=== PATIENT | female | born 1945 | race Caucasian/White ===

== ENCOUNTER → 2017-08-25 09:15 | Outpatient (CLI) | payer MEDICARE, SELFPAY | PROVIDERS: Family Provider Family Medicine; PCP Family Medicine; Visit Provider Family Medicine | DX: E11.9 Type 2 diabetes mellitus without complications (principal); E78.5 Hyperlipidemia, unspecified; D64.9 Anemia, unspecified ==

== ENCOUNTER → 2017-11-24 09:01 | Outpatient (CLI) | payer MEDICARE, SELFPAY ==
[2017-11-24 12:33] LABS: Absolute Lymphocyte Count 1.42 X10^3/ul (0.83-4.51); Absolute Neutrophil Count 3.5 X10^3/uL (2.0-7.7); Basophil# 0.02 X10^3/uL; Basophil% 0.4 % (0-1); Eosinophil# 0.16 X10^3/uL; Eosinophils% 2.9 % (0-5); Hemoglobin 12.8 g/dl (12.0-15.0); Lymphocyte # 1.42 X10^3/ul (4.0); Lymphocyte % 25.4 % (19-41); Mean Corp Hgb Conc 34.6 g/gl (32-36); Mean Corpuscular Hgb 30.6 pg (27.0-32.0); Mean Corpuscular Volume 88.5 fL (81-99); Mean Platelet Vol. 11.3 fl (6.2-12.0); Monocyte# 0.45 X10^3/uL; Neutrophil # 3.54 X10^3/uL (2.7-7.7); Neutrophil % 63.1 % (47-70); Platelet Count 305 K/mm3 (150-450); RBC Distribution Width CV 12.2 % (11.6-14.6); RBC Distribution Width SD 38.7 fl (35.1-43.9); Red Blood Count 4.18 M/mm3 (4.2-5.4); White Blood Count 5.6 K/mm3 (4.4-11.0)
[2017-11-24 12:36] LABS: POSITIVE COUNT NO; POSITIVE DIFFERENTIAL NO; POSITIVE MORPHOLOGY NO
[2017-11-24 13:03] LABS: Anion Gap 10 (5-15); BUN 18 mg/dL (7-18); Calcium,Total 9.9 mg/dL (8.5-10.1); Chloride 104 mmol/L (98-107); Creatinine, Serum 0.86 mg/dL (0.55-1.02); EST Glomerular Filtration Rate 69 mL/min (>60); Est Glom Filt Rate - Afr Amer 83 mL/min (>60); Ferritin 106 ng/mL (8-252); Glucose 184 mg/dL (74-106); Iron 74 ug/dL (50-170); Potassium 3.7 mmol/L (3.5-5.1); Sodium Level 140 mmol/L (136-145); Thyroid Stim Hormone (TSH) 2.56 uIU/mL (0.358-3.74)
== END ==
PROVIDERS: Family Provider Family Medicine; PCP Family Medicine; Visit Provider Family Medicine
DX: I10 Essential (primary) hypertension (principal); E11.9 Type 2 diabetes mellitus without complications; D64.9 Anemia, unspecified
CPT/HCPCS: 36415; 80048; 82728; 83540; 84443; 85025

== ENCOUNTER → 2018-09-11 09:10 | Outpatient (CLI) | payer MEDICARE, SELFPAY ==
[2018-09-11 13:01] LABS: Absolute Lymphocyte Count 1.55 X10^3/ul (0.83-4.51); Absolute Neutrophil Count 3.3 X10^3/uL (2.0-7.7); Basophil# 0.02 X10^3/uL; Basophil% 0.4 % (0-1); Eosinophil# 0.15 X10^3/uL; Eosinophils% 2.8 % (0-5); Hemoglobin 11.8 g/dl (12.0-15.0); Lymphocyte # 1.55 X10^3/ul (4.0); Lymphocyte % 28.5 % (19-41); Mean Corp Hgb Conc 33.7 g/gl (32-36); Mean Corpuscular Hgb 30.2 pg (27.0-32.0); Mean Corpuscular Volume 89.5 fL (81-99); Monocyte# 0.43 X10^3/uL; Monocyte% 7.9 % (0-10); Neutrophil # 3.27 X10^3/uL (2.7-7.7); Neutrophil % 60.2 % (47-70); Platelet Count 312 K/mm3 (150-450); RBC Distribution Width CV 12.4 % (11.6-14.6); RBC Distribution Width SD 39.9 fl (35.1-43.9); Red Blood Count 3.91 M/mm3 (4.2-5.4); White Blood Count 5.4 K/mm3 (4.4-11.0)
[2018-09-11 13:05] LABS: POSITIVE COUNT NO; POSITIVE DIFFERENTIAL NO; POSITIVE MORPHOLOGY NO
[2018-09-11 13:15] LABS: ALB/GLOB Ratio 0.9 RATIO (0.9-2.4); AST(SGOT) 25 U/L (15-37); Alanine Aminotransfer ALT/SGPT 54 U/L (13-56); Albumin, Serum 4.1 g/dL (3.2-5.0); Alkaline Phosphatase 83 U/L (45-117); Anion Gap 9 (5-15); BUN 18 mg/dL (7-18); BUN/Creat Ratio 20.1 RATIO (10-20); Calcium,Total 9.3 mg/dL (8.5-10.1); Chloride 108 mmol/L (98-107); EST Glomerular Filtration Rate 65 mL/min (>60); Est Glom Filt Rate - Afr Amer 79 mL/min (>60); Ferritin 88 ng/mL (8-252); Globulin 4.4 g/dL (2.2-4.2); Glucose 129 mg/dL (74-106); Iron 87 ug/dL (50-170); Potassium 3.9 mmol/L (3.5-5.1); Protein, Total 8.5 g/dL (6.4-8.2); Sodium Level 142 mmol/L (136-145)
[2018-09-11 13:39] LABS: Microalbumin,Random Urine 17.6 mg/L (NO RANGE EST.)
== END ==
PROVIDERS: Family Provider Family Medicine; PCP Family Medicine; Visit Provider Family Medicine
DX: E11.9 Type 2 diabetes mellitus without complications (principal); I10 Essential (primary) hypertension; D64.9 Anemia, unspecified
CPT/HCPCS: 36415; 80053; 82043; 82570; 82728; 83540; 85025

== ENCOUNTER → 2018-10-16 08:07 | Outpatient (CLI) | payer MEDICARE, SELFPAY ==
--- NOTE | 2018-10-16 08:09 | BI_ITS ---
MAMMOGRAPHY - BILATERAL SCREENING 3-D LORETO SYNTHESIS REASON FOR EXAM: Female, 73 years old. Bilateral Screening 3-D tomosynthesis PERTINENT HISTORY: History of benign left stereotactic biopsy in 1994.. TECHNIQUE: 2-D mammograms and 3-D Loreto synthesis of the breast (s) were performed. CAD was performed. COMPARISON: June 13, 2017, May 23, 2016 FINDINGS: The breast composition is composed of scattered fibroglandular density. Scattered benign calcifications are seen. There are stable normal-appearing lymph nodes. No dense spiculated masses or suspicious microcalcifications are identified. No architectural distortion is identified. There is no skin thickening or retraction. There has been no significant change since the prior study. BI/SCREENING MAMM (CAD), BILAT IMPRESSION: No mammographic signs of malignancy. Routine yearly mammograms recommended. ASSESSMENT CATEGORY: BIRADS Category 2: Benign. A letter regarding these results will be sent to the patient by the facility within 30 days. FOLLOW UP RECOMMENDATION: Yearly follow up mammogram recommended. (A) Approximately 10% of breast cancers are not detected by mammography. A normal mammogram should not delay biopsy of a clinically suspicious abnormality. Electronically Signed: Petr Hutson MD at 17:45 EDT , Service support ,
== END ==
PROVIDERS: Family Provider Family Medicine; PCP Family Medicine; Referring Provider Family Medicine; Visit Provider Family Medicine
DX: Z12.31 Encounter for screening mammogram for malignant neoplasm of breast (principal)
CPT/HCPCS: 77063; 77067

== ENCOUNTER → 2019-10-07 | Outpatient (CLI) | payer MEDICARE, SELFPAY ==
[2019-10-07 12:35] LABS: Absolute Lymphocyte Count 1.59 X10^3/uL (0.83-4.51); Absolute Neutrophil Count 2.1 X10^3/uL (2.0-7.7); Basophil# 0.02 X10^3/uL; Basophil% 0.5 % (0-1); Eosinophil# 0.12 X10^3/uL; Eosinophils% 2.8 % (0-5); Hematocrit 34.8 % (37-47); Hemoglobin 11.6 g/dL (12.0-15.0); Lymphocyte # 1.59 X10^3/ul (4.0); Lymphocyte % 37.1 % (19-41); Mean Corp Hgb Conc 33.3 g/dL (32-36); Mean Corpuscular Hgb 29.8 pg (27.0-32.0); Mean Corpuscular Volume 89.5 fL (81-99); Mean Platelet Vol. 10.7 fl (6.2-12.0); Monocyte# 0.43 X10^3/uL; NRBC Flagged by Analyzer 0 % (0-5); Neutrophil # 2.12 X10^3/uL (2.7-7.7); Neutrophil % 49.4 % (47-70); Platelet Count 301 K/mm3 (150-450); RBC Distribution Width CV 12.3 % (11.6-14.6); RBC Distribution Width SD 39.8 fl (35.1-43.9); Red Blood Count 3.89 M/mm3 (4.2-5.4); White Blood Count 4.3 K/mm3 (4.4-11.0)
[2019-10-07 13:02] LABS: ALB/GLOB Ratio 0.9 RATIO (0.9-2.4); AST(SGOT) 31 U/L (15-37); Alanine Aminotransfer ALT/SGPT 33 U/L (13-56); Albumin, Serum 3.8 g/dL (3.2-5.0); Alkaline Phosphatase 73 U/L (45-117); Anion Gap 7 (5-15); BUN 16 mg/dL (7-18); BUN/Creat Ratio 16.7 RATIO (10-20); Calcium,Total 8.2 mg/dL (8.5-10.1); Chloride 117 mmol/L (98-107); Creatinine, Serum 0.96 mg/dL (0.55-1.02); EST Glomerular Filtration Rate 60 mL/min (>60); Est Glom Filt Rate - Afr Amer 73 mL/min (>60); Ferritin 140 ng/mL (8-252); Globulin 4.2 g/dL (2.2-4.2); Glucose 107 mg/dL (74-106); Iron 98 ug/dL (50-170); Sodium Level 143 mmol/L (136-145); Thyroid Stim Hormone (TSH) 1.75 uIU/mL (0.358-3.74)
[2019-10-09 16:08] LABS: Endomysial Antibody IgA Negative (Negative)
[2019-10-09 17:04] LABS: Immunoglobulin A 257 mg/dL (64-422); t-Transglutaminase IgA <2 U/mL (0-3)
== END | disposition home or self-care (01) ==
PROVIDERS: PCP Family Medicine; Visit Provider Family Medicine
DX: E11.9 Type 2 diabetes mellitus without complications (principal); I10 Essential (primary) hypertension; D64.9 Anemia, unspecified; K52.9 Noninfective gastroenteritis and colitis, unspecified
CPT/HCPCS: 36415; 80053; 82728; 82784; 83516; 83540; 84443; 85025; 86255

== ENCOUNTER → 2019-12-05 | Outpatient (CLI) | payer MEDICARE, SELFPAY ==
--- NOTE | 2019-12-05 07:45 | BI_ITS ---
MAMMOGRAPHY - BILATERAL SCREENING REASON FOR EXAM: Female, 74 years old. Routine annual screening examination. PERTINENT HISTORY: Non-contributory. History of remote left stereotactic breast biopsy. TECHNIQUE: Digital bilateral breast loreto (3D mammographic acquisition) in the CC and MLO projections. 2-D mediolateral oblique (MLO) and craniocaudad (CC) views of both breasts were obtained. CAD: Full Field Digital Mammography with Computer Added Detection was performed. COMPARISON: Comparison is made with prior examination dated October 16, 2018 and June 13, 2017. FINDINGS: Breast Composition: The breasts are heterogeneously dense, which may obscure small masses. There are no dominant masses or suspicious calcifications. Stable benign-appearing bilateral axillary lymph nodes. No other significant abnormalities are identified. There has been no significant change since the prior study. BI/SCREEN MAMM (CAD) W/LORETO BILAT IMPRESSION: Stable bilateral screening mammogram. Yearly follow-up mammogram recommended. (A) ASSESSMENT CATEGORY: BIRADS Category 2: Benign. A letter regarding these results will be sent to the patient by the facility within 30 days. Approximately 10% of breast cancers are not detected by mammography. A normal mammogram should not delay biopsy of a clinically suspicious abnormality. [id number] Electronically Signed: Hank Altman, at 8:57 EDT , Service support ,
== END | disposition home or self-care (01) ==
LOC: OPBI 07:43
PROVIDERS: PCP Family Medicine; Referring Provider Family Medicine; Visit Provider Family Medicine
DX: Z12.31 Encounter for screening mammogram for malignant neoplasm of breast (principal)
CPT/HCPCS: 77063; 77067

== ENCOUNTER → 2020-07-28 09:56 | Outpatient (CLI) | payer MEDICARE, SELFPAY ==
[2020-07-28 12:17] LABS: Absolute Lymphocyte Count 1.49 X10^3/uL (0.83-4.51); Basophil# 0.03 X10^3/uL; Basophil% 0.6 % (0-1); Eosinophil# 0.15 X10^3/uL; Eosinophils% 2.9 % (0-5); Hemoglobin 12.1 g/dL (12.0-15.0); Lymphocyte # 1.49 X10^3/ul (4.0); Lymphocyte % 29.3 % (19-41); Mean Corp Hgb Conc 33.6 g/dL (32-36); Mean Corpuscular Hgb 30.5 pg (27.0-32.0); Mean Corpuscular Volume 90.7 fL (81-99); Mean Platelet Vol. 11.3 fl (6.2-12.0); Monocyte# 0.42 X10^3/uL; Monocyte% 8.3 % (0-10); NRBC Flagged by Analyzer 0 % (0-5); Neutrophil # 2.98 X10^3/uL (2.7-7.7); Neutrophil % 58.5 % (47-70); Platelet Count 301 K/mm3 (150-450); RBC Distribution Width CV 12.2 % (11.6-14.6); RBC Distribution Width SD 39.8 fl (35.1-43.9); Red Blood Count 3.97 M/mm3 (4.2-5.4); White Blood Count 5.1 K/mm3 (4.4-11.0)
[2020-07-28 12:50] LABS: ALB/GLOB Ratio 0.9 RATIO (0.9-2.4); AST(SGOT) 24 U/L (15-37); Alanine Aminotransfer ALT/SGPT 36 U/L (13-56); Albumin, Serum 4.1 g/dL (3.2-5.0); Alkaline Phosphatase 91 U/L (45-117); Anion Gap 8 (5-15); BUN 14 mg/dL (7-18); BUN/Creat Ratio 14.6 RATIO (10-20); Calcium,Total 9.2 mg/dL (8.5-10.1); Chloride 107 mmol/L (98-107); Cholesterol 128 mg/dL (200); Creatinine, Serum 0.96 mg/dL (0.55-1.02); EST Glomerular Filtration Rate 60 mL/min (>60); Est Glom Filt Rate - Afr Amer 73 mL/min (>60); Ferritin 71 ng/mL (8-252); Globulin 4.4 g/dL (2.2-4.2); Glucose 147 mg/dL (74-106); High Density Lipoprotein 67 mg/dL; Iron 79 ug/dL (50-170); Potassium 4.2 mmol/L (3.5-5.1); Protein, Total 8.5 g/dL (6.4-8.2); Sodium Level 142 mmol/L (136-145); Triglycerides 141 mg/dL; Very Low Density Lipoprotein 28 mg/dL (5-40)
== END ==
PROVIDERS: PCP Family Medicine; Visit Provider Family Medicine
DX: E11.9 Type 2 diabetes mellitus without complications (principal); I10 Essential (primary) hypertension; E78.5 Hyperlipidemia, unspecified; D64.9 Anemia, unspecified
CPT/HCPCS: 36415; 80053; 80061; 82728; 83540; 85025

== ENCOUNTER → 2020-10-14 | Outpatient (CLI) | payer MEDICARE, SELFPAY ==
--- NOTE | 2020-10-13 | LES_PTH ---
PATIENT: HAILEE STOLL LOC: [facility] U#:[id number] AGE/SX: 75/F ROOM: RE10/14/[address]: Dr. Car Hatfield MD : 1945 BED: DIS: 10/14/2020 SPEC #: [id number] RECD: 10/14/20 10:01 STATUS: NATALYA REMarlin #: [id number] LEROY: 10/13/20 00:[address]: Car Hatfield DEPT: SURGICAL PATHOLOGY RECD BY: Tana Melendez ENTERED: 10/14/20 13:32 SP TYPE: Lesion OTHR DR: Dr. Henry Saunders MD Tissues: Lower eyelid, NOS Procedures: Surgery Specimen Level IV HEADER OPERATION: Lesion removal right lower lid PRE-OP DIAGNOSIS: Lesion right lower lid TISSUE SUBMITTED: Lesion right lower lid MICROSCOPIC DIAGNOSIS Right lower lid lesion, biopsy: Basal cell carcinoma. AM:[place] 10/15/2020 MICROSCOPIC DESCRIPTION Slides are reviewed. GROSS DESCRIPTION Received in fixative is one container labeled with the patient's name and designated right lower lid. The specimen consists of one irregular fragment of light delaney soft tissue that measures 0.3 x 0.2 x 0.1 cm. The specimen is totally submitted in one cassette. / AM:[place] 10/14/20 TC:0 CPT: 55783
== END | disposition home or self-care (01) ==
LOC: LABSPEC 10:24
PROVIDERS: PCP Family Medicine; Visit Provider Ophthalmology
DX: L98.9 Disorder of the skin and subcutaneous tissue, unspecified (principal)
CPT/HCPCS: 88305

== ENCOUNTER → 2021-03-16 07:30 | Outpatient (CLI) | payer MEDICARE, SELFPAY ==
--- NOTE | 2021-03-16 07:33 | BI_ITS ---
MAMMOGRAPHY - BILATERAL SCREENING REASON FOR EXAM: Female, 75 years old. Routine annual screening examination. PERTINENT HISTORY: Non-contributory. Remote left stereotactic breast biopsy. TECHNIQUE: Digital bilateral breast loreto (3D mammographic acquisition) in the CC and MLO projections. 2-D mediolateral oblique (MLO) and craniocaudad (CC) views of both breasts were obtained. CAD: Full Field Digital Mammography with Computer Added Detection was performed. COMPARISON: Comparison is made with prior study dated 12/05/2019 and 10/16/2018. FINDINGS: Breast Composition: The breasts are heterogeneously dense, which may obscure small masses. There are no dominant masses or suspicious calcifications. Stable small benign-appearing bilateral axillary lymph nodes. A tissue clip marker is seen in the deep central medial aspect of the right breast. No other significant abnormalities are identified. There has been no significant change since the prior study. BI/SCRN MAMM (CAD)W/LORETO BILAT IMPRESSION: Stable bilateral screening mammogram. Yearly follow-up mammogram recommended. (A) ASSESSMENT CATEGORY: BIRADS Category 2: Benign. A letter regarding these results will be sent to the patient by the facility within 30 days. Approximately 10% of breast cancers are not detected by mammography. A normal mammogram should not delay biopsy of a clinically suspicious abnormality. [id number] Electronically Signed: Hank Altman MD at 8:24 EDT , Service support ,
== END ==
PROVIDERS: PCP Family Medicine; Referring Provider Family Medicine; Visit Provider Family Medicine
DX: Z12.31 Encounter for screening mammogram for malignant neoplasm of breast (principal)
CPT/HCPCS: 77063; 77067

== ENCOUNTER → 2022-04-25 | Outpatient (CLI) | payer MEDICARE, SELFPAY ==
[2022-04-25 10:02] LABS: Absolute Lymphocyte Count 1.45 X10^3/uL (0.83-4.51); Absolute Neutrophil Count 4.1 X10^3/uL (2.0-7.7); Basophil# 0.03 X10^3/uL; Basophil% 0.5 % (0-1); Eosinophil# 0.31 X10^3/uL; Eosinophils% 4.9 % (0-5); Hematocrit 35.1 % (37-47); Hemoglobin 11.9 g/dL (12.0-15.0); Lymphocyte # 1.45 X10^3/ul (0.83-4.51); Lymphocyte % 22.8 % (19-41); Mean Corp Hgb Conc 33.9 g/dL (32-36); Mean Corpuscular Hgb 30.8 pg (27.0-32.0); Mean Corpuscular Volume 90.9 fL (81-99); Mean Platelet Vol. 10.7 fl (6.2-12.0); Monocyte# 0.45 X10^3/uL; Monocyte% 7.1 % (0-10); NRBC Flagged by Analyzer 0 % (0-5); Neutrophil % 64.5 % (47-70); Platelet Count 297 K/mm3 (150-450); RBC Distribution Width SD 39.6 fl (35.1-43.9); Red Blood Count 3.86 M/mm3 (4.2-5.4); White Blood Count 6.4 K/mm3 (4.4-11.0)
[2022-04-25 10:58] LABS: ALB/GLOB Ratio 0.9 RATIO (0.9-2.4); AST(SGOT) 25 U/L (15-37); Alanine Aminotransfer ALT/SGPT 36 U/L (13-56); Alkaline Phosphatase 110 U/L (45-117); Anion Gap 8 (5-15); BUN 15 mg/dL (7-18); Calcium,Total 9.8 mg/dL (8.5-10.1); Chloride 106 mmol/L (98-107); Creatinine, Serum 1.15 mg/dL (0.55-1.02); EST Glomerular Filtration Rate 49 mL/min (>60); Est Glom Filt Rate - Afr Amer 59 mL/min (>60); Ferritin 38 ng/mL (8-252); Globulin 4.7 g/dL (2.2-4.2); Glucose 144 mg/dL (74-106); Iron 71 ug/dL (50-170); Potassium 3.5 mmol/L (3.5-5.1); Protein, Total 8.7 g/dL (6.4-8.2); Sodium Level 142 mmol/L (136-145); Thyroid Stim Hormone (TSH) 2.11 uIU/mL (0.358-3.74)
== END | disposition home or self-care (01) ==
PROVIDERS: PCP Family Medicine; Referring Provider Family Medicine; Visit Provider Family Medicine
DX: E11.9 Type 2 diabetes mellitus without complications (principal); E78.5 Hyperlipidemia, unspecified; D64.9 Anemia, unspecified
CPT/HCPCS: 36415; 80053; 82728; 83540; 84443; 85025

== ENCOUNTER → 2022-05-09 | Outpatient (CLI) | payer MEDICARE, SELFPAY ==
--- NOTE | 2022-05-09 07:35 | BI_ITS ---
MAMMOGRAPHY - BILATERAL SCREENING REASON FOR EXAM: Female, 77 years old. Routine annual screening examination. PERTINENT HISTORY: Non-contributory. Remote left stereotactic breast biopsy. TECHNIQUE: Digital bilateral breast loreto (3D mammographic acquisition) in the CC and MLO projections. 2-D mediolateral oblique (MLO) and craniocaudad (CC) views of both breasts were obtained. CAD: Full Field Digital Mammography with Computer Added Detection was performed. COMPARISON: Comparison is made with prior examination dated 03/16/2021 and 12/05/2019. FINDINGS: Breast Composition: The breasts are heterogeneously dense, which may obscure small masses. There are no dominant masses or suspicious calcifications. Stable benign-appearing bilateral axillary lymph nodes. No other significant abnormalities are identified. There has been no significant change since the prior study. BI/SCRN MAMM (CAD)W/LORETO BILAT IMPRESSION: Stable bilateral screening mammogram. Yearly follow-up mammogram recommended. (A) ASSESSMENT CATEGORY: BIRADS Category 2: Benign. A letter regarding these results will be sent to the patient by the facility within 30 days. Approximately 10% of breast cancers are not detected by mammography. A normal mammogram should not delay biopsy of a clinically suspicious abnormality. [id number] Electronically Signed: Hank Altman MD at 9:01 EDT ,
== END | disposition home or self-care (01) ==
LOC: OPBI 07:34
PROVIDERS: PCP Family Medicine; Visit Provider Family Medicine
DX: Z12.31 Encounter for screening mammogram for malignant neoplasm of breast (principal)
CPT/HCPCS: 77063; 77067

== ENCOUNTER → 2022-08-31 | Outpatient (CLI) | payer MEDICARE, SELFPAY ==
[2022-08-31 16:09] LABS: M R Staph aureus DNA By PCR Negative (Negative); Staph aureus DNA By PCR POSITIVE (Negative)
[2022-08-31 16:10] LABS: Probe Check PASS; Specimen Processing Control PASS
== END | disposition home or self-care (01) ==
LOC: LABSPEC 12:54
PROVIDERS: PCP Family Medicine; Referring Provider Ophthalmology; Visit Provider Ophthalmology
DX: H00.034 Abscess of left upper eyelid (principal)
CPT/HCPCS: 87070; 87077; 87186; 87205; 87640

== ENCOUNTER 2022-09-16 15:32 | Emergency (ER) | payer MEDICARE, SELFPAY ==
[2022-09-16 15:34] VITALS: BP 171/67; PULSE 90; RESP 14; TEMP 36.1; O2SAT 99; BMI 20.7
--- NOTE | 2022-09-16 19:09 | EDS_ITS ---
HPI History of Present Illness Chief Complaint: Lower Extremity Injury Informant: patient Onset/Context/Timing Onset: Today Narrative Narrative: Left knee injury 1 PM today. States was stepping down on a step when she felt a snap landing onto her knee afterwards. No head injuries. Able to walk however is limping. History of diabetes. No history of fractures. Does not follow an orthopedist. No medications taken. No allergies. Denies history of gastric ulcers or kidney injury. [facility] Medical History (Updated 09/16/22 @ 20:[address] Anthony Hebert DO) Diabetes Hypertension Home Medications amlodipine 5 mg tablet (Norvasc) 5 mg PO DAILY 12/19/16 [History Last Taken Unknown] atorvastatin 40 mg tablet 40 mg PO QHS 12/19/16 [History Last Taken Unknown] glipizide 10 mg tablet (Glucotrol) 10 mg PO DAILY 12/19/16 [History Last Taken Unknown] lisinopril 40 mg tablet 40 mg PO DAILY 12/19/16 [History Last Taken Unknown] metformin 500 mg tablet 500 mg PO BID 12/19/16 [History Last Taken Unknown] Allergy/AdvReac Type Severity Reaction Status Date / Time No Known Allergies Allergy Verified 09/16/22 15:34 Surgical History (Updated 09/16/22 @ 19:21 by Cinthia Barraza) History of appendectomy Social History Smoking Status: Never smoker [facility] ED Constitutional Constitutional ED: Denies chills, fever(s) or sweats Eyes Eyes: Denies change in vision ENT ENT ED: Denies dysphagia or sore throat Cardiovascular Cardiovascular: Denies chest pain, leg edema, palpitations or racing heartbeat Respiratory/Chest Respiratory/Chest: Denies cough, dyspnea or dyspnea on exertion Gastrointestinal Gastrointestinal: Denies abdominal pain, diarrhea, nausea or vomiting Genitourinary Genitourinary ED: Denies dysuria, hematuria or urinary frequency Musculoskeletal Musculoskeletal: Reports extremity pain; Denies back pain or neck pain Integumentary Denies rash or wounds Neurologic Neurologic: Denies headache(s), paresthesias or weakness EXAM Physical Exam Const Vital Signs: 09/16/22 15:34 09/16/22 19:18 09/16/22 20:38 Temperature 97 F L Temperature Source Temporal Pulse Rate 90 89 71 Respiratory Rate 14 18 18 Blood Pressure 171/67 H 193/78 H 173/74 H Blood Pressure Mean 101 116 Pulse Ox 99 97 97 Oxygen Delivery Method Room Air Room Air Positive well nourished and well developed General Appearance ED: well developed and NAD HEENT Reports moist mucous membranes normocephalic and atraumatic Eyes PERRL, EOMs intact bilaterally and conjunctivae normal General Eye ED: Yes normal appearance of both eyes Neck no lymphadenopathy and supple General: Negative for tenderness Chest Wall Chest: Negative for tenderness Resp normal respiratory effort and normal air movement Effort and Inspection: symmetric chest movement; Negative for respiratory distress Cardio regular rate, regular rhythm and no murmurs Peripheral Pulses: pulses 2+ throughout GI normal to inspection, nondistended, normoactive bowel sounds and non-tender Palpation: Negative for guarding or rebound tenderness present Back/Spine no CVA tenderness and no thoracic nor lumbar tenderness Extremity Extremity Narrative: Left lower extremity negative logroll knee extensor mechanism intact. Negative varus and valgus. Positive Stevo's. No significant swelling. No deformities. No ankle tenderness. General Extremety ED: Negative for edema or tenderness General Extremity: Negative for edema Neuro oriented x3 and no sensory deficits noted Sensorium / Orientation: awake and alert Skin no rashes or lesions noted and no wounds MDM MDM MDM Narrative Medical decision making narrative: Interventions / MDM: Differential diagnosis: Knee ligament sprain, meniscus injury, ACL/PCL injury Diagnosis considered but do not suspect: N/A My EKG interpretation: N/A Imaging independently reviewed and interpreted by myself: Left knee 4 views: No fracture or dislocation External documents reviewed: N/A Test considered but not ordered:N/A ED course: No deformities, however reported a snapping sensation prior to the fall. There is no current swelling her knee extensor mechanism intact. Ibuprofen started x-ray negative. Discussed possibility of internal derangement not seen on x-ray. Alfredo wrap and walker provided. Orthopedic follow-up for outpatient evaluation. She will continue ibuprofen. All questions were answered. Re-evaluation: stable Disposition discussed with patient/family/significant other: Patient and family Case discussed with consulting clinician: N/A Radiography Diagnostic Testing: Clinical Impression(s) from Imaging Studies Knee X-Ray 09/16/22 19:30 IMPRESSION: Negative. Electronically Signed: Fernie Celis MD at 19:44 EST Reading Location ID and State: [address] [place] [address] , Service support , Discharge Plan Triage Chief Complaint: Lower Extremity Injury ED Provider: Anthony Hebert Dx/Rx/DC Orders Clinical Impression: Left knee sprain, Internal derangement of left knee Instructions: ED Knee Sprain Prescriptions: No Action atorvastatin 40 MG tablet 40 mg PO QHS metformin 500 MG tablet 500 mg PO BID glipizide [Glucotrol] 10 MG tablet 10 mg PO DAILY amlodipine [Norvasc] 5 MG tablet 5 mg PO DAILY lisinopril 40 MG tablet 40 mg PO DAILY Primary Care Provider: Henry Saunders Referrals: Kentrell Calderon MD [Med Staff - Active Staff] - 1 Week Henry Saunders MD [Primary Care Provider] - Activity Restrictions/Additional Instructions: X-ray negative. Concern for internal injury of your left knee. Alfredo wrap and walker for support. Ibuprofen 400 mg or Tylenol 1 g every 6 hours as needed. If symptoms persist follow-up with orthopedics for outpatient evaluation. Disposition Disposition: Home, Self Care Discharge Date/Time: 09/16/22 20:40
[2022-09-16] MEDS: Ibuprofen 200 MG Tablet 400 MG PO (19:17)
[2022-09-16 19:18] VITALS: BP 193/78; PULSE 89; RESP 18; O2SAT 97
--- NOTE | 2022-09-16 19:30 | RAD_ITS ---
INDICATION: injury EXAMINATION/TECHNIQUE: X-RAY - LEFT XR Knee Complete 4 Views or More 4 VIEWS COMPARISON: None. FINDINGS: SOFT TISSUES: No soft tissue swelling or gas. No radiopaque foreign body. BONES/JOINTS: No acute fracture or subluxation.. Normal alignment. Preservation of the joint space.. No sclerotic or destructive changes observed. RAD/Knee 4 or More Views IMPRESSION: Negative. Electronically Signed: Fernie Celis MD at 19:44 EST ,
[2022-09-16 20:38] VITALS: BP 173/74; PULSE 71; RESP 18; O2SAT 97
== END 2022-09-16 20:40 | disposition home or self-care (01) ==
PROVIDERS: Emergency Provider Emergency Medicine; PCP Family Medicine; Visit Provider Emergency Medicine
DX: S83.92XA Sprain of unspecified site of left knee, initial encounter (principal); E11.9 Type 2 diabetes mellitus without complications; M23.92 Unspecified internal derangement of left knee; I10 Essential (primary) hypertension; W10.9XXA Fall (on) (from) unspecified stairs and steps, initial encounter
CPT/HCPCS: 73564; 99283

== ENCOUNTER → 2023-07-03 | Outpatient (CLI) | payer MEDICARE, SELFPAY ==
[2023-07-03 12:36] LABS: Microalbumin:Creatinine Ratio 249.1 mg/g CRE (<30 mg/g CRE)
[2023-07-03 13:10] LABS: ALB/GLOB Ratio 0.7 RATIO (0.9-2.4); AST(SGOT) 28 U/L (15-37); Alanine Aminotransfer ALT/SGPT 33 U/L (13-56); Albumin, Serum 3.5 g/dL (3.2-5.0); Alkaline Phosphatase 126 U/L (45-117); Anion Gap 9 (5-15); BUN 14 mg/dL (7-18); BUN/Creat Ratio 12.2 RATIO (10-20); Chloride 105 mmol/L (98-107); Cholesterol 120 mg/dL (200); Creatinine, Serum 1.15 mg/dL (0.55-1.02); EST Glomerular Filtration Rate 48 mL/min (>60); Est Glom Filt Rate - Afr Amer 59 mL/min (>60); Glucose 125 mg/dL (74-106); High Density Lipoprotein 66 mg/dL; Potassium 3.5 mmol/L (3.5-5.1); Protein, Total 8.5 g/dL (6.4-8.2); Sodium Level 140 mmol/L (136-145); Triglycerides 135 mg/dL; Very Low Density Lipoprotein 27 mg/dL (5-40)
== END | disposition home or self-care (01) ==
LOC: MFPLAB 10:35
PROVIDERS: PCP Family Medicine; Visit Provider Family Medicine
DX: E11.9 Type 2 diabetes mellitus without complications (principal); E78.2 Mixed hyperlipidemia
CPT/HCPCS: 36415; 80053; 80061; 82043; 82570

== ENCOUNTER → 2023-07-06 | Outpatient (CLI) | payer MEDICARE, SELFPAY ==
--- NOTE | 2023-07-06 10:18 | BI_ITS ---
MAMMOGRAPHY - BILATERAL SCREENING REASON FOR EXAM: Female, 78 years old. Routine annual screening examination. PERTINENT HISTORY: Non-contributory. History of prior left stereotactic breast biopsy. TECHNIQUE: Digital bilateral breast loreto (3D mammographic acquisition) in the CC and MLO projections. 2-D mediolateral oblique (MLO) and craniocaudad (CC) views of both breasts were obtained. CAD: Full Field Digital Mammography with Computer Added Detection was performed. COMPARISON: Comparison is made with prior study May 09, 2022 and March 16, 2021. FINDINGS: Breast Composition: The breasts are heterogeneously dense, which may obscure small masses. There are no dominant masses or suspicious calcifications. A tissue clip marker is once again seen in the anterior upper lateral aspect of the right breast. No other significant abnormalities are identified. There has been no significant change since the prior study. BI/SCRN MAMM (CAD)W/LORETO BILAT IMPRESSION: Stable bilateral screening mammogram. Yearly follow-up mammogram recommended. (A) ASSESSMENT CATEGORY: BIRADS Category 2: Benign. A letter regarding these results will be sent to the patient by the facility within 30 days. Approximately 10% of breast cancers are not detected by mammography. A normal mammogram should not delay biopsy of a clinically suspicious abnormality. [id number] Electronically Signed: Hank Altman MD at 12:08 EST ,
== END | disposition home or self-care (01) ==
LOC: OPBI 10:16
PROVIDERS: PCP Family Medicine; Referring Provider Family Medicine; Visit Provider Family Medicine
DX: Z12.31 Encounter for screening mammogram for malignant neoplasm of breast (principal)
CPT/HCPCS: 77063; 77067

== ENCOUNTER → 2024-07-19 | Outpatient (CLI) | payer MEDICARE, SELFPAY ==
--- NOTE | 2024-07-19 10:31 | RAD_ITS ---
EXAM: XR ABDOMEN, 1 VIEW CLINICAL INDICATION: constipation TECHNIQUE: Frontal supine view of the abdomen/pelvis. COMPARISON: No relevant prior studies available. FINDINGS: LOWER THORAX: No acute pathology. GASTROINTESTINAL TRACT: Moderate amount of stool in the colon. Non-obstructive. No bowel or stomach distention. ORGANS: Unremarkable as visualized. No organomegaly. No abnormal calcifications. BONES/JOINTS: No acute pathology. SOFT TISSUES: No acute pathology. RAD/Abdomen Single View IMPRESSION: Moderate amount of stool in the colon. Electronically Signed: Fernie Catalan MD at 23:47 EST ,
[2024-07-19 12:21] LABS: Absolute Lymphocyte Count 1.59 X10^3/uL (0.83-4.51); Absolute Neutrophil Count 3.7 X10^3/uL (2.0-7.7); Basophil# 0.03 X10^3/uL; Basophil% 0.5 % (0-1); Eosinophil# 0.18 X10^3/uL; Hematocrit 33.4 % (37-47); Lymphocyte # 1.59 X10^3/ul (0.83-4.51); Lymphocyte % 26.6 % (19-41); Mean Corp Hgb Conc 32.9 g/dL (32-36); Mean Corpuscular Hgb 30.3 pg (27.0-32.0); Monocyte# 0.44 X10^3/uL; Monocyte% 7.4 % (0-10); NRBC Flagged by Analyzer 0 % (0-5); Neutrophil # 3.71 X10^3/uL (2.7-7.7); Neutrophil % 62.2 % (47-70); Platelet Count 355 K/mm3 (150-450); RBC Distribution Width CV 12.2 % (11.6-14.6); RBC Distribution Width SD 41.7 fl (35.1-43.9); Red Blood Count 3.63 M/mm3 (4.2-5.4)
[2024-07-19 16:00] LABS: Vitamin D,25 Hydroxy 55.8 ng/mL
[2024-07-19 16:08] LABS: ALB/GLOB Ratio 0.8 RATIO (0.9-2.4); AST(SGOT) 28 U/L (15-37); Alanine Aminotransfer ALT/SGPT 39 U/L (13-56); Albumin, Serum 3.7 g/dL (3.2-5.0); Alkaline Phosphatase 118 U/L (45-117); Anion Gap 8 (5-15); BUN 30 mg/dL (7-18); BUN/Creat Ratio 19.7 RATIO (10-20); Calcium,Total 10.1 mg/dL (8.5-10.1); Chloride 107 mmol/L (98-107); Cholesterol 243 mg/dL (200); Creatinine, Serum 1.52 mg/dL (0.55-1.02); EST Glomerular Filtration Rate 35 mL/min (>60); Est Glom Filt Rate - Afr Amer 42 mL/min (>60); Globulin 4.5 g/dL (2.2-4.2); Glucose 113 mg/dL (74-106); High Density Lipoprotein 65 mg/dL; Potassium 3.8 mmol/L (3.5-5.1); Protein, Total 8.2 g/dL (6.4-8.2); Sodium Level 138 mmol/L (136-145); Triglycerides 306 mg/dL; Very Low Density Lipoprotein 61 mg/dL (5-40)
[2024-07-19 17:00] LABS: Hemoglobin A1c 6.2 % (3.8-5.6)
== END | disposition home or self-care (01) ==
LOC: MTLAB 10:31
PROVIDERS: PCP Family Medicine; Referring Provider Family Medicine; Visit Provider Family Medicine
DX: K59.00 Constipation, unspecified (principal); E11.9 Type 2 diabetes mellitus without complications; E78.2 Mixed hyperlipidemia; R53.83 Other fatigue; I10 Essential (primary) hypertension
CPT/HCPCS: 36415; 74018; 80053; 80061; 82306; 83036; 84443; 85025

== ENCOUNTER → 2024-08-01 | Outpatient (CLI) | payer MEDICARE, SELFPAY | END | disposition home or self-care (01) | PROVIDERS: PCP Family Medicine; Referring Provider Family Medicine; Visit Provider Family Medicine | DX: Z12.31 Encounter for screening mammogram for malignant neoplasm of breast (principal) ==

== ENCOUNTER 2024-08-03 09:12 | Emergency (ER) | payer MEDICARE, SELFPAY ==
[2024-08-03 09:13] VITALS: BP 204/82; PULSE 92; RESP 15; TEMP 36.2; O2SAT 98; BMI 21.6
--- NOTE | 2024-08-03 10:33 | RAD_ITS ---
STUDY: X-RAY - UNILATERAL RIBS ( RIGHT ) WITH CHEST REASON FOR EXAM: Female, 79 years old. FALL TECHNIQUE - RIBS: 2 view(s) of the ribs. TECHNIQUE - CHEST: Single frontal view of the chest. COMPARISON: Chest x-ray November 28, 2011 FINDINGS - RIBS: There are right fifth through eighth rib fractures. FINDINGS - CHEST: There is left lower lung scarring or atelectasis. There is no demonstrated pleural abnormality. Normal size heart. There is moderate retrocardiac hiatal hernia. Normal visualized pulmonary arteries. There is atherosclerotic calcification of the aortic arch with tortuosity. There is demineralization of the osseous structures. There are right fifth through eighth rib fractures. There is no demonstrated abnormality of the visualized soft tissue structures of the upper abdomen. RAD/Ribs Uni Min 3V w/PA Chest IMPRESSION: RIBS: Right fifth through eighth rib fractures. No pneumothorax. CHEST: Right fifth through eighth rib fractures. No pneumothorax. Hiatal hernia. Electronically Signed: Fritz Rubio MD at 11:34 EST ,
--- NOTE | 2024-08-03 11:20 | EX.ED.GENINJ ---
HPI History of Present Illness Chief Complaint: Chest Other Informant: patient and friend Narrative Narrative: 79-year-old female was shoveling her driveway of snow yesterday and she slipped and fell landing on her right side injuring her right lateral rib cage. Her arm is okay. She did not injure anything else and has been able to walk without any difficulty since then. Hurts to breathe it hurts to move, she has had no dyspnea. She is on no anticoagulants. [facility] Medical History Diabetes Hypertension Home Medications ?Medication ?Instructions ?Recorded ?Last Taken ?Type amlodipine 5 mg tablet (Norvasc) 5 mg PO DAILY 12/19/16 Unknown History atorvastatin 40 mg tablet 40 mg PO QHS 12/19/16 Unknown History glipizide 10 mg tablet (Glucotrol) 10 mg PO DAILY 12/19/16 Unknown History lisinopril 40 mg tablet 40 mg PO DAILY 12/19/16 Unknown History metformin 500 mg tablet 500 mg PO BID 12/19/16 Unknown History hydrocodone-acetaminophen 5-325mg 1 tab PO Q6H PRN PRN Pain 3 days 08/03/24 Unknown Rx 5mg-325mg #12 TABLETS Allergy/AdvReac Type Severity Reaction Status Date / Time No Known Allergies Allergy Verified 08/03/24 09:15 Surgical History History of appendectomy Social History Smoking Status: Never smoker [facility] ED Constitutional Constitutional ED: Denies chills or fever(s) Eyes Eyes: Denies change in vision or diplopia ENT ENT ED: Denies rhinorrhea or sore throat Cardiovascular Cardiovascular: Reports as per HPI and chest pain; Denies palpitations Respiratory/Chest Respiratory/Chest: Denies cough or dyspnea Gastrointestinal Gastrointestinal: Denies abdominal pain, diarrhea, nausea or vomiting Genitourinary Genitourinary ED: Denies dysuria or hematuria Musculoskeletal Musculoskeletal: Denies back pain or neck pain Integumentary Denies abscess or rash Neurologic Neurologic: Denies headache(s), paresthesias or weakness Psychiatric Psychiatric: Denies anxiety or suicidal thoughts EXAM Physical Exam Const Vital Signs: 08/03/24 09:13 Temperature 97.1 F L Temperature Source Temporal Pulse Rate 92 Respiratory Rate 15 Blood Pressure 204/82 H Blood Pressure Mean 122 Pulse Ox 98 Oxygen Delivery Method Room Air Positive well nourished and well developed General Appearance ED: well developed and NAD HEENT Reports moist mucous membranes normocephalic and atraumatic Eyes PERRL and EOMs intact bilaterally Neck full ROM and supple Chest Wall inspection of chest normal Chest Narrative: Tender right lateral chest wall and inframammary area laterally, no subcutaneous emphysema no palpable step-off, no signs of purpura or ecchymosis or obvious signs of trauma. Resp normal respiratory effort and clear to auscultation bilaterally Resp Narrative: Equal breath sounds bilaterally Cardio regular rate, regular rhythm and no murmurs Rate: Negative for tachycardic GI non-tender and non-distended Auscultation: normoactive bowel sounds Palpation: soft Back/Spine General Back: other FROM Thoracic Spine / Upper Back: Negative for thoracic spinal tenderness Extremity normal to inspection General Extremety ED: Negative for edema, pulses abnormal or tenderness General Extremity: Negative for edema or pulses abnormal Neuro oriented x3, CN's II-XII intact bilaterally and no sensory deficits noted Sensorium / Orientation: awake and alert Motor Exam: strength 5/5 throughout Skin no rashes or lesions noted and no wounds MDM MDM MDM Narrative Medical decision making narrative: Three-view x-ray series of the right rib cage including a PA chest to my interpretation shows a single mildly displaced rib fracture without pneumothorax. According to radiology, there are 4 sequential fractures; I have trouble appreciating all of them on x-rays. Regardless, this is consistent with the location of where the patient has pain and tenderness, and she is comfortable going home tolerating the pain well even before getting medications. She is given appropriate instructions as well as an incentive spirometer, something for pain and prescription, and reasons to return. She comfortable with that plan. Radiography Diagnostic Testing: Clinical Impression(s) from Imaging Studies Ribs w/Chest X-Ray 08/03/24 10:33 IMPRESSION: RIBS: Right fifth through eighth rib fractures. No pneumothorax. CHEST: Right fifth through eighth rib fractures. No pneumothorax. Hiatal hernia. Electronically Signed: Fritz Rubio MD at 11:34 EST , Discharge Plan Triage Chief Complaint: Chest Other ED Provider: Fritz Rodriguez Dx/Rx/DC Orders Clinical Impression: Closed fracture of multiple ribs of right side, Fall from slipping Instructions: ED Rib Fracture Prescriptions: New hydrocodone-acetaminophen 5-325 mg tablet 1 tab PO Q6H PRN PRN (Reason: Pain) 3 Days Qty: 12 0RF No Action atorvastatin 40 MG tablet 40 mg PO QHS metformin 500 MG tablet 500 mg PO BID glipizide [Glucotrol] 10 MG tablet 10 mg PO DAILY amlodipine [Norvasc] 5 MG tablet 5 mg PO DAILY lisinopril 40 MG tablet 40 mg PO DAILY Primary Care Provider: Keshia Johnson Referrals: Keshia Johnson MD [Primary Care Provider] - 1 Week if not improving Print Language: Portuguese Disposition Disposition: Home, Self Care
[2024-08-03] MEDS: HYDROcodone Bitartrate/Apap 5/325 Tablet PO (12:13)
[2024-08-03 12:22] VITALS: BP 179/81; PULSE 81; RESP 16; TEMP 36.6; O2SAT 99
== END 2024-08-03 12:23 | disposition home or self-care (01) ==
PROVIDERS: Emergency Provider Emergency Medicine; PCP Family Medicine; Visit Provider Emergency Medicine
DX: S22.41XA Multiple fractures of ribs, right side, initial encounter for closed fracture (principal); E11.9 Type 2 diabetes mellitus without complications; I10 Essential (primary) hypertension; W00.0XXA Fall on same level due to ice and snow, initial encounter
CPT/HCPCS: 71101; 99282

== ENCOUNTER → 2024-09-10 | Outpatient (CLI) | payer MEDICARE, SELFPAY ==
--- NOTE | 2024-09-10 07:31 | BI_ITS ---
PROCEDURE: SCRN MAMM (CAD)W/LORETO BILAT REASON FOR EXAM: F, Age 79 y/o, presents for annual screening mammogram. No family history of breast cancer. TECHNIQUE: Bilateral screening digital breast tomosynthesis with 2D and 3D images. Computer aided detection. COMPARISON: 07/06/2023 FINDINGS: There are scattered areas of fibroglandular density. No suspicious masses, areas of developing architectural distortion, or suspicious calcifications. BI/SCRN MAMM (CAD)W/LORETO BILAT IMPRESSION: There is no mammographic evidence of malignancy in either breast. BI-RADS 1: NEGATIVE. RECOMMEND ANNUAL MAMMOGRAPHIC SCREENING. Follow-up code: Routine Follow-up The patient will be notified of the results by letter. Reading Location: [id number]
== END | disposition home or self-care (01) ==
LOC: OPBI 07:30
PROVIDERS: PCP Family Medicine; Referring Provider Family Medicine; Visit Provider Family Medicine
DX: Z12.31 Encounter for screening mammogram for malignant neoplasm of breast (principal)
CPT/HCPCS: 77063; 77067

== ENCOUNTER 2024-10-04 06:09 | Day surgery (SDC) | payer MEDICARE, SELFPAY ==
[2024-10-04] VITALS (7 sets, daily range): BP systolic 84–144; BP diastolic 41–83; PULSE 47–79; RESP 16; TEMP 35.8–36.2; O2SAT 92–100; BMI 21.7
--- NOTE | 2024-10-04 06:36 | PRE.ANES_ITS ---
ASA Classification* ASA Classification ASA Classification: 2 Assessment & Plan Anesthesia* Anesthesia Assessment Anesthesia Assessment: Discussed sedation and/or anesthesia options, risks, benefits, and alternatives with patient/parents/legal guardian/POA. Questions invited. The patient/parents/legal guardian/POA seems to understand and agrees to proceed with anesthesia plan. Reviewed the physical assessment, medical history, allergy history and patient home medications list prior to surgery/procedure/anesthetic and documented any changes. Performed airway and anesthesia risk assessments. Anesthesia Type Anesthesia Type: MAC Anesthesia Focused Assessment* Airway Assessment Mouth opens: >3 cm Mallampati Score: II Focused Labs Anesthesia Preop lab: CBC WBC 6.0 K/mm3 (4.4-11.0) 07/19/24 10:54 07/19/24 RBC 3.63 M/mm3 (4.2-5.4) L 07/19/24 10:54 07/19/24 Hgb 11.0 g/dL (12.0-15.0) L 07/19/24 10:54 4 Hct 33.4 % (37-47) L 07/19/24 10:54 07/19/24 Plt Count 355 K/mm3 (150-450) 07/19/24 10:54 07/19/24 CHEMISTRY Potassium 3.8 mmol/L (3.5-5.1) 07/19/24 10:54 07/19/24 Sodium 138 mmol/L (136-145) 07/19/24 10:54 07/19/24 BUN 30 mg/dL (7-18) H 07/19/24 10:54 07/19/24 Creatinine 1.52 mg/dL (0.55-1.02) H 07/19/24 10:54 Glucose 113 mg/dL (74-106) H 07/19/24 10:54 07/19/24 POC Glucose 178 mg/dL (70-110) H 12/23/16 09:42 12/23/16 TSH 1.550 uIU/mL (0.358-3.740) 07/19/24 10:54 07/0124 COAG Pre-Assessment Diagnosis/Proposed Procedure Planned Operative Procedure(s): CSCOPE , EGD Anesthesia History Anesthesia History - automobile damage appraiser: Anesthesia History - automobile damage appraiser Hx Hospitalization No 10/02/24 12:27 Any Problems With Anesthesia No 10/02/24 12:27 Cholinesterase deficiency No 10/02/24 12:27 You/Your Family Experience No 10/02/24 12:27 fever (hyperthermia) with Relationship Recent Exposure to Contagious No 12/23/16 09:43 Disease Does patient have nerve No 10/02/24 12:27 stimulator Patient instructed to have device shut off --Does patient have Pacemaker or ICD? When Was Last Pacemaker Check QUESTION #4 FULL TEXT: You/Your Family Experience fever (hyperthermia) with Anesthesia Last Oral Intake Last Oral intake: Last Oral Intake NPO since Meds taken in AM with sips of water? Meds patient instructed to take am of surgery PONV PONV - automobile damage appraiser: PONV - automobile damage appraiser Female Yes 10/02/24 12:27 HX of Motion Sickness No 10/02/24 12:27 HX of N/V After Surgery No 10/02/24 12:27 Non-Smoker Yes 10/02/24 12:27 Duration of Surgery greater No 10/02/24 12:27 than 60 minutes Number of Risk Factors 2 10/02/24 12:27 PONV Score Moderate Risk 10/02/24 12:27 Height & Weight Height & Weight: Anesthesia: Height & Weight Height 4 ft 10 in 09/05/24 08:28 Respiratory Assessment Respiratory Assessment - automobile damage appraiser: Respiratory Tract Infection Hx - automobile damage appraiser Hx Respiratory Tract Infection No 10/02/24 12:27 STOP Sleep Apnea STOP Sleep Apnea - automobile damage appraiser: STOP Sleep Apnea - automobile damage appraiser Hx Hypertension Yes 10/02/24 12:27 Hx Sleep Apnea No 10/02/24 12:27 CPAP BIPAP Do you snore loudly (louder No 10/02/24 12:27 than talking or can be heard Do you often feel tired/ No 10/02/24 12:27 fatigued/ sleepy during daytime? Has anyone observed you stop No 10/02/24 12:27 breathing during sleep? STOP Results Negative 10/02/24 12:27 QUESTION #5 FULL TEXT : Do you snore loudly (louder than talking or can be heard through closed doors)? Tobacco Use History Tobacco Use History - automobile damage appraiser: Tobacco Use History - automobile damage appraiser Tobacco Use Smoking Status Never smoker 10/02/24 12:27 Hx Tobacco Use No 10/02/24 12:27 Years Smoking Packs Smoked per Day Smoking Cessation Date was within the last 15 years Hx Smoking Cessation Date Hx Smoking Cessation Counseling Hematologic Medial History Hematologic Hx - automobile damage appraiser: Hematologic Medical Hx - dermatology specialist Hx of Blood Transfusion No 10/02/24 12:27 Hx of Transfusion in last 3 No 10/02/24 12:27 Months Date of Last Transfusion (if within last 3 months) Ever experience any problems No 10/02/24 12:27 with transfusion(s)? Specify any problems Hx of Preganancy in last 3 N/A 10/02/24 12:27 Months Nurse Filling Out Transfusion NBUCHER 10/02/24 12:27 & Questions: Date: 10/02/24 10/02/24 12:27 Time: 12:28 10/02/24 12:27 Patient unable to answer at this time (ie. confused, unrespo /Reproduction History /Reproductive History - automobile damage appraiser: /Reproductive Hx- automobile damage appraiser Hx Now No 10/02/24 12:27 Gestational Age (in weeks): EDC: Hx Hx Para Hx Section SAB No 10/02/24 12:27 [facility] Medical History Wears partial dentures Low iron Non-smoker Hordeolum externum left lower eyelid Diarrhea Black tarry stools Acid reflux Diabetes Hypertension Home Medications ?Medication ?Instructions ?Recorded ?Last Taken ?Type blood sugar diagnostic (True #10 ea 09/05/24 Unknown H istory Metrix Glucose Test Strip) glipizide 2.5 mg tablet, extended 2.5 mg PO QDAY 09/05 Unknown History release 24 hr lancets 33 gauge (TRUEplus Lancets) #100 ea 09/05/24 U nknown History lisinopril 20 1 tab PO BID 09/05/24 Unknow n History mg-hydrochlorothiazide 12.5 mg tablet metformin 500 mg tablet,extended 1,000 mg PO BID 09/05 Unknown History release 24 hr omeprazole 40 mg capsule,delayed 40 mg PO QDAY 5 Unknown History release trazodone 50 mg tablet 50 mg PO QHS 09/05/24 Unknow n History amlodipine 5 mg tablet 5 mg PO DAILY 09/30/24 Unkno wn History ferrous sulfate 325 mg (65 mg 325 mg PO QODAY 10/02/24 Unknown History iron) tablet (Feosol) Allergy/AdvReac Type Severity Reaction Status Date / Time No Known Allergies Allergy Verified 10/04/24 06:36 Surgical History History of colonoscopy History of appendectomy Social History Smoking Status: Never smoker alcohol intake: never substance use type: does not use Review of Systems (Anesthesia) ROS Narrative System reviewed and no additional complaints, except as documented.
[2024-10-04 07:11] LABS: Bedside Glucose 167 mg/dL (74-106)
--- NOTE | 2024-10-04 07:30 | COLBX_PTH ---
PATIENT: HAILEE STOLL LOC: EN U#:[id number] AGE/SX: 79/F ROOM: RE10/04/[address]: Dr. Lico Hunt MD : 1945 BED: DIS: 10/04/2024 SPEC #: [id number] RECD: 10/04/24 10:37 STATUS: NATALYA MERCEDES #: [id number] LEROY: 10/04/24 07:[address]: Lico Hunt DEPT: SURGICAL PATHOLOGY RECD BY: Tana Melendez ENTERED: 10/04/24 11:10 SP TYPE: COLON BX OTHR DR: Keshia Johnson MD Tissues: A - Duodenum, NOS B - Gastric mucous membrane C - Gastric mucous membrane Procedures: Immunohistochemical Stains Special Stain Group I Surgery Specimen Level IV GMS Stain (control) HEADER OPERATION: Colonoscopy, EGD, biopsy PRE-OP DIAGNOSIS: History of colonic polyps, diarrhea, black tarry stools TISSUE SUBMITTED: A- Duodenal biopsy, B- Antrum biopsy, C- Gastroesophageal junction biopsy MICROSCOPIC DIAGNOSIS A. Duodenum, biopsy: * Normal villous architecture with Anna Marie gland hyperplasia. * Negative for increased intraepithelial lymphocytes. B. Stomach, antrum, biopsy: * Chronic gastritis. * IHC is negative for H pylori organisms. C. Esophagus, GE junction, biopsy: * Squamous mucosa with mild reactive change. * Detached fragment of fibrinopurulent debris suggestive of ulcer. * No columnar mucosa seen. * A PASD stain for fungal organisms is PENDING and will be reported in an addendum. MICROSCOPIC DESCRIPTION Slides are reviewed. These tests were developed and their performance characteristics determined by [facility]. They may not have been cleared or approved by the U.S. Food and Drug Administration. The FDA has determined that such clearance or approval is not necessary. The above immunohistochemical/dualISH markers are ordered and reviewed by the Pathologist. GROSS DESCRIPTION Specimen A-received in formalin labeled Yaneth, Hailee, and designated duodenal biopsy, are two delaney tissue fragments aggregating to 0.6 x 0.5 x 0.2 cm. Totally submitted in one cassette.Specimen B-received in formalin labeled Yaneth, Hailee, and designated antrum biopsy, is a delaney tissue fragment that measures 0.6 x 0.2 x 0.2 cm. Totally submitted in one cassette.Specimen C-received in formalin labeled Yaneth, Hailee, and designated GE junction biopsy, is a delaney tissue fragment that measures 0.3 x 0.2 x 0.2 cm. Totally submitted in one cassette.JK. 10/04/2024 CPT:51134h6,[id number] ADDENDUM ADDENDUM ADDENDUM ADDENDUM ADDENDUM ADDENDUM ADDENDUM 10/11/2024 09:31 ADDENDUM 10/11/2024 09:31 ADDENDUM 10/11/2024 09:31 ADDENDUM 10/11/2024 09:31 ADDENDUM 10/11/2024 09:31 This addendum is to report the result for the special stain. The PASD stain is negative for fungal organisms. Matched control reacted appropriately.
--- NOTE | 2024-10-04 07:48 | PCM.HP.STD ---
HPI - General General Date of Admission: 10/04/24 Date of Service: 10/04/24 Chief Complaint: Dark stools HPI Narrative The patient is an 79-year-old female who is being seen today for epigastric discomfort as well as nausea. She states that this started about a month ago shortly after she had a fall in the snow and subsequently broke several ribs on the right side. She discussed this with her PCP and it was suggested that she meet with general surgery to discuss possible EGD. It appears that her last colonoscopy was in 2017. This showed some diverticulosis but no other findings. She does state that her bowels have been much more loose recently. She does also noticed that her stools do seem much darker almost a black color. [facility] Medical History Wears partial dentures Low iron Non-smoker Hordeolum externum left lower eyelid Diarrhea Black tarry stools Acid reflux Diabetes Hypertension Home Medications ?Medication ?Instructions ?Recorded ?Last Taken ?Type blood sugar diagnostic (True #10 ea 09/05/24 Unknown History Metrix Glucose Test Strip) glipizide 2.5 mg tablet, extended 2.5 mg PO QDAY 09/05/24 10/03/24 History release 24 hr lancets 33 gauge (TRUEplus Lancets) #100 ea 09/05/24 Unknown History lisinopril 20 1 tab PO BID 09/05/24 10/03/24 History mg-hydrochlorothiazide 12.5 mg tablet metformin 500 mg tablet,extended 1,000 mg PO BID 09/05/24 10/03/24 History release 24 hr omeprazole 40 mg capsule,delayed 40 mg PO QDAY 09/05/24 10/03/24 History release trazodone 50 mg tablet 50 mg PO QHS 09/05/24 10/03/24 History amlodipine 5 mg tablet 5 mg PO DAILY 09/30/24 10/04/24 History ferrous sulfate 325 mg (65 mg 325 mg PO QODAY 10/02/24 10/03/24 History iron) tablet (Feosol) Allergy/AdvReac Type Severity Reaction Status Date / Time No Known Allergies Allergy Verified 10/04/24 06:36 Surgical History History of colonoscopy History of appendectomy Social History Smoking Status: Never smoker alcohol intake: never substance use type: does not use Vital Signs Vital Signs Vital Signs: 10/04/24 06:49 10/04/24 06:49 Temperature 97.2 F L Temperature Source Temporal Pulse Rate 79 Respiratory Rate 16 Respiratory Pattern Normal Blood Pressure 144/66 H Blood Pressure Mean 92 Blood Pressure Source Monitor Blood Pressure Position Semi-Fowlers Blood Pressure Location Right Arm Pulse Ox 100 Oxygen Delivery Method Room Air Weight Weight: 103 lb 9.876 oz Body Mass Index (BMI) 21.7 Physical Exam Const alert and oriented x3 Results Lab / Micro Data Labs: Laboratory Results - last 24 hr 10/04/24 06:44: POC Glucose 167 H Assessment & Plan Assessment/Plan (1) History of colon polyps: (2) Diarrhea: (3) Black tarry stools: PLAN: Plan The patient is a 79-year-old female in need of an EGD and colonoscopy. We discussed the details of the planned procedure including risks benefits and alternatives. She wishes to proceed. This will begin shortly Charges/Coding Visit Charges Inpatient E&M: 01178 Init Hosp L1
--- NOTE | 2024-10-04 08:53 | OP.CCLET_ITS ---
10/04/2024 Keshia Johnson Md Re : Upper GI endoscopy procedure for Ashli Wolfe Dear Elizabeth This procedure was performed on Friday, October 04, 2024. My impressions and recommendations are as follows: Impressions : - Normal esophagus. Biopsied. - No gross lesions in the entire stomach. Biopsied. - Erythematous duodenopathy. Biopsied. - The examination was otherwise normal. Recommendations : - Discharge patient to home (ambulatory). - High fiber diet indefinitely. - Continue present medications. - Await pathology results. My findings are described in the full procedure note, which is enclosed. If I can be of further assistance, please feel free to contact me at . Sincerely, Lico Hunt MD 10/04/2024 8:53:26 AM This report has been signed electronically.
--- NOTE | 2024-10-04 08:53 | OP.EGD_ITS ---
Patient Name: Ashli Wolfe Procedure Date: 10/04/2024 8:01 AM Date of : 1945 Age: 79 Procedure: Upper GI endoscopy Indications: Epigastric abdominal pain Providers: Lico Hunt MD Referring MD: Keshia Johnson Md Medicines: Monitored Anesthesia Care Patient Profile: Patient has symptoms of acute epigastric abdominal pain. Refer to note in patient chart for documentation of history and physical. Complications: No immediate complications. Estimated blood loss: Minimal. Procedure: Pre-Anesthesia Assessment: - Prior to the procedure, a History and Physical was performed, and patient medications and allergies were reviewed. The patient's tolerance of previous anesthesia was also reviewed. The risks and benefits of the procedure and the sedation options and risks were discussed with the patient. All questions were answered, and informed consent was obtained. Prior Anticoagulants: The patient has taken no anticoagulant or antiplatelet agents. ASA Grade Assessment: II - A patient with mild systemic disease. After reviewing the risks and benefits, the patient was deemed in satisfactory condition to undergo the procedure. After obtaining informed consent, the endoscope was passed under direct vision. Throughout the procedure, the patient's blood pressure, pulse, and oxygen saturations were monitored continuously. The Endoscope was introduced through the mouth, and advanced to the second part of duodenum. The upper GI endoscopy was accomplished without difficulty. The patient tolerated the procedure well. Moderate Sedation: See the other procedure note for documentation of moderate sedation with intraservice time. Scope In: 8:09:04 AM Scope Out: 8:20:38 AM Total Procedure Duration Time 0 hours 11 minutes 34 seconds Findings: The examined esophagus was normal. Mucosa was biopsied with a cold forceps for histology randomly at the gastroesophageal junction. Verification of patient identification for the specimen was done by the nurse using the patient's name, date and medical record number. Estimated blood loss was minimal. No gross lesions were noted in the entire examined stomach. Biopsies were taken with a cold forceps for Helicobacter pylori testing. Verification of patient identification for the specimen was done by the nurse using the patient's name, date and medical record number. Estimated blood loss was minimal. Localized moderately erythematous mucosa without active bleeding and with no stigmata of bleeding was found in the duodenal bulb. This was biopsied with a cold forceps for histology. Verification of patient identification for the specimen was done by the nurse using the patient's name, date and medical record number. Estimated blood loss was minimal. The exam was otherwise without abnormality. Impression: - Normal esophagus. Biopsied. - No gross lesions in the entire stomach. Biopsied. - Erythematous duodenopathy. Biopsied. - The examination was otherwise normal. Recommendation: - Discharge patient to home (ambulatory). - High fiber diet indefinitely. - Continue present medications. - Await pathology results. Procedure Code(s): --- Professional --- 93748, Esophagogastroduodenoscopy, flexible, transoral; with biopsy, single or multiple Diagnosis Code(s): --- Professional --- R10.13, Epigastric pain K31.89, Other diseases of stomach and duodenum CPT copyright 2021 [employer]. All rights reserved. The codes documented in this report are preliminary and upon life enrichment director review may be revised to meet current compliance requirements. Lico Hunt MD 10/04/2024 8:53:26 AM This report has been signed electronically. Number of Addenda: 0 Note Initiated On: 10/04/2024 8:01 AM
--- NOTE | 2024-10-04 08:56 | OP.COLON_ITS ---
Patient Name: Ashli Wolfe Procedure Date: 10/04/2024 8:23 AM Date of : 1945 Age: 79 Procedure: Colonoscopy Indications: Screening for colorectal malignant neoplasm Providers: Lico Hunt MD Referring MD: Keshia Johnson Md Medicines: Monitored Anesthesia Care Patient Profile: Patient has symptoms of acute epigastric abdominal pain. Refer to note in patient chart for documentation of history and physical. Last Colonoscopy: several years ago. Complications: No immediate complications. Estimated blood loss: None. Procedure: Pre-Anesthesia Assessment: - Prior to the procedure, a History and Physical was performed, and patient medications and allergies were reviewed. The patient's tolerance of previous anesthesia was also reviewed. The risks and benefits of the procedure and the sedation options and risks were discussed with the patient. All questions were answered, and informed consent was obtained. Prior Anticoagulants: The patient has taken no anticoagulant or antiplatelet agents. ASA Grade Assessment: II - A patient with mild systemic disease. After reviewing the risks and benefits, the patient was deemed in satisfactory condition to undergo the procedure. - Prior to the procedure, a History and Physical was performed, and patient medications and allergies were reviewed. The patient's tolerance of previous anesthesia was also reviewed. The risks and benefits of the procedure and the sedation options and risks were discussed with the patient. All questions were answered, and informed consent was obtained. Prior Anticoagulants: The patient has taken no anticoagulant or antiplatelet agents. ASA Grade Assessment: II - A patient with mild systemic disease. After reviewing the risks and benefits, the patient was deemed in satisfactory condition to undergo the procedure. After I obtained informed consent, the scope was passed under direct vision. Throughout the procedure, the patient's blood pressure, pulse, and oxygen saturations were monitored continuously. The colonoscope was introduced through the anus and advanced to the cecum, identified by the appendiceal orifice, ileocecal valve and palpation. The ileocecal valve, appendiceal orifice, and rectum were photographed. The entire colon was well visualized. The colonoscopy was performed without difficulty. The patient tolerated the procedure well. The quality of the bowel preparation was fair. Scope In: 8:23:58 AM Scope Withdrawal Time 0 hours 10 minutes 20 seconds Scope Out: 8:44:42 AM Total Procedure Duration Time 0 hours 20 minutes 44 seconds Findings: The perianal and digital rectal examinations were normal. Multiple small and large-mouthed diverticula were found in the sigmoid colon. Non-bleeding internal hemorrhoids were found during retroflexion. The hemorrhoids were moderate. The exam was otherwise without abnormality on direct and retroflexion views. Impression: - Preparation of the colon was fair. - Diverticulosis in the sigmoid colon. - Non-bleeding internal hemorrhoids. - The examination was otherwise normal on direct and retroflexion views. - No specimens collected. Recommendation: - Discharge patient to home (ambulatory). - High fiber diet. - Repeat colonoscopy in 7-10 years for screening purposes. - Return to my office PRN. - Continue present medications. Procedure Code(s): --- Professional --- 53545, Colonoscopy, flexible; diagnostic, including collection of specimen(s) by brushing or washing, when performed (separate procedure) Diagnosis Code(s): --- Professional --- Z12.11, Encounter for screening for malignant neoplasm of colon K57.30, Diverticulosis of large intestine without perforation or abscess without bleeding K64.8, Other hemorrhoids CPT copyright 2021 [employer]. All rights reserved. The codes documented in this report are preliminary and upon diamond sawer review may be revised to meet current compliance requirements. Lico Hunt MD 10/04/2024 8:56:21 AM This report has been signed electronically. Number of Addenda: 0 Note Initiated On: 10/04/2024 8:23 AM
--- NOTE | 2024-10-04 08:56 | OP.CCLET_ITS ---
10/04/2024 Keshia Johnson Md Re : Colonoscopy procedure for Ashli Yaneth Dear Elizabeth This procedure was performed on Friday, October 04, 2024. My impressions and recommendations are as follows: Impressions : - Preparation of the colon was fair. - Diverticulosis in the sigmoid colon. - Non-bleeding internal hemorrhoids. - The examination was otherwise normal on direct and retroflexion views. - No specimens collected. Recommendations : - Discharge patient to home (ambulatory). - High fiber diet. - Repeat colonoscopy in 7-10 years for screening purposes. - Return to my office PRN. - Continue present medications. My findings are described in the full procedure note, which is enclosed. If I can be of further assistance, please feel free to contact me at . Sincerely, Lico Hunt MD 10/04/2024 8:56:21 AM This report has been signed electronically.
--- NOTE | 2024-10-04 08:58 | PCM.POST.ANE ---
Anesthesia: Postop Eval I Current Vital Signs Temperature: 97 F Pulse Rate: 61 Blood Pressure: 93/41 Respiratory Rate: 16 Pulse Ox: 93 Oxygen Delivery Method: Room Air Assessment Airway patent: Yes Spontaneous unlabored respirations: Yes Mental status: Awake and Calm nausea: No Vomiting: Yes Anesthesia Complication: Yes Anesthesia Complication Comment:: hypotension and emesis during colonoscopy Fluid Hydration Crystalloid volume administer (ml): 90 Total IV fluid infused: 90 Progress Note Anesthesia document: Postop Eval 1 completed: Yes
--- NOTE | 2024-10-04 09:31 | PCM.POSTANE2 ---
Anesthesia Postop Eval I Sum Postop Eval Completion status Anesthesia document: Postop Eval 1 completed: Yes Anesthesia Postop Eval I Summary Anesthesia Postop Eval I Summary: Anesthesia Postop Eval I: Assessment Summary Airway patent Yes 10/04/24 09:00 [email or web address] Spontaneous unlabored Yes 10/04/24 09:00 [email or web address] respirations Mental status Awake,Calm 10/04/24 09:00 [email or web address] nausea No 10/04/24 09:00 [email or web address] Vomiting Yes 10/04/24 09:00 [email or web address] Anesthesia Postop Eval I: Fluid Summary Crystalloid volume administer 90 10/04/24 09:00 [email or web address] (ml) Colloids volume administered ( ml) Blood Product volume administered (ml) Total IV fluid infused 90 10/04/24 09:00 [email or web address] Anesthesia Postop Eval I: Summary Notes Anesthesia Complication Yes 10/04/24 09:00 [email or web address] Anesthesia Complication hypotension and 10/04/24 09:00 [email or web address] Comment: emesis during colonoscopy Post-operative progress note Anesthesia: Postop Eval II Evaluation Mental status: Awake Pain Level: 0 nausea: No Vomiting: No
== END 2024-10-04 09:45 | disposition home or self-care (01) ==
LOC: EN 06:09 → AC 06:15
PROVIDERS: PCP Family Medicine; Referring Provider Family Medicine; Visit Provider Surgery
PROC: 0DJD8ZZ Inspection of Lower Intestinal Tract, Via Natural or Artificial Opening Endoscopic (ICD-10-PCS; CPT 45378; principal; 2024-10-04 07:25)
DX: Z12.11 Encounter for screening for malignant neoplasm of colon (principal); E11.9 Type 2 diabetes mellitus without complications; K64.8 Other hemorrhoids; K57.30 Diverticulosis of large intestine without perforation or abscess without bleeding; Z86.0100 Personal history of colon polyps, unspecified; I10 Essential (primary) hypertension; Z79.84 Long term (current) use of oral hypoglycemic drugs; K21.9 Gastro-esophageal reflux disease without esophagitis; Z79.899 Other long term (current) drug therapy; K29.50 Unspecified chronic gastritis without bleeding
CPT/HCPCS: 43239; G0105; 82962; 88305; 88312; 88342; A4216; J2405

== ENCOUNTER → 2025-01-14 | Outpatient (CLI) | payer MEDICARE, SELFPAY ==
[2025-01-14 11:05] LABS: Hemoglobin A1c 6.5 % (<=5.6)
[2025-01-14 11:15] LABS: Magnesium 1.5 mg/dL (1.5-2.2)
--- OUTSIDE RECORDS SUMMARY | 2025-01-14 20:20 | XMS RPT_ITS | CCD ---
Author Organization [facility] Care Team Providers Care Account Associate Name Role Phone Margaret ROY, Christophe Monterroso Unavailable [phone] CRISTINE Bar RN, Yu Alford Unavailable Unavailalicia Bar RN RN, Yu Alford Unavailable Unavailabl e Reji Gutiérrez Unavailable Unavailable Elizabeth, Chalon Attending Unavailable Elizabeth, Chalon Referring Unavailable Elizabeth, Chalon Primary Care Unavailable Leizabeth, Chalon Attending Unavailable Elizabeth, Chalon Referring Unavailable Elizabeth, Chalon Primary Care Unavailable Fritz Rodriguez Attending Unavailable Elizabeth, Chalon Primary Care Unavailable Elizabeth, Chalon Referring Unavailable Moomaw, Taj Attending Unavailable Elizabeth, Chalon Primary Care Unavailable Wanek, Lico Alford Attending Unavailable Elizabeth, Chalon Referring Unavailable Elizabeth, Chalon Primary Care Unavailable Elizabeth, Chalon Referring Unavailable Elizabeth, Chalon Primary Care Unavailable Wanek, Lico Alford Consulting Unavailable Wanek, Lico Alford Attending Unavailable Elizabeth, Chalon Referring Unavailable Elizabeth, Chalon Primary Care Unavailable Wanek, Lico A Attending Unavailable Elizabeth, Chalon Attending Unavailable Elizabeth, Chalon Referring Unavailable Elizabeth, Chalon Primary Care Unavailable Elizabeth , Keshia Primary Care Provider [phone] Keshia Johnson MD Attending Provider Elizabeth ROY, Keshia Referring Provider Dr. Fritz Rodriguez MD Attending Provider Dr. Fritz Rodriguez MD Emergency Provider Dr. Lico Hunt MD Attending Provider Moomaw INTERIOR DECORATOR-C, Taj Attending Provider Marilee ROY, Dr. Lico Alford Other Provider Medications Current Medications Medication Drug Class(es) Dates Sig (Normalized) Sig (Original) amLODIPine 5 mg oral tablet (11 sources) Dihydropyridine Calcium Channel Fahad Start: 09-30-2024 take 1 tablet by mouth once daily Amlodipine 5 mg tablet Active 5 mg PO DAILY September 30, 2024 12:00am Start: 12-19-2016 End: 09-05-2024 take 1 tablet by mouth once daily Amlodipine (Norvasc) 5 MG tablet Discontinued 5 mg PO DAILY December 18, 2016 11:00pm September 05, 2024 8:29am ferrous sulfate 325 mg oral tablet (1 source) Start: 10-02-2024 take 1 tablet by mouth every other day Ferrous Sulfate (Feosol) 325 mg (65 mg iron) tablet Active 325 mg PO EVERY OTHER DAY October 02, 2024 12:00am glipiZIDE er 2.5 mg 24 hr extended release oral tablet (11 sources) Sulfonylurea Start: 09-05-2024 take 1 tablet by mouth once daily Glipizide 2.5 mg tablet extended release 24hr Active 2.5 mg PO daily September 05, 2024 12:00am Start: 12-19-2016 End: 09-05-2024 take 1 tablet by mouth once daily Glipizide (Glucotrol) 10 MG tablet Discontinued 10 mg PO DAILY December 18, 2016 11:00pm September 05, 2024 8:29am Start: 12-19-2016 take 1 tablet by ashley th twice daily Glipizide (Glucotrol) 10 MG tablet Active 10 MG PO TWICE A DAY December 18, 2016 11:00pm hydroCHLOROthiazide 12.5 mg / lisinopril 20 mg oral tablet (1 source) Thiazide Diuretic, Angiotensin Converting Enzyme Inhibitor Start: 09-05-2024 Lisinopril-Hydrochlorothiazi de 20-12.5 mg tablet Active 1 {tbl} PO TWICE A DAY September 05, 2024 12:00am 24 hr metFORMIN hydrochloride 500 mg extended release oral tablet (11 sources) Biguanide Start: 09-05-2024 Metformin 500 mg tablet exte nded release 24 hr Active 1000 mg PO TWICE A DAY September 05, 2024 12:00am Start: 12-19-2016 End: 09-05-2024 take 1 tablet by mouth twice daily Metformin 500 MG tablet Discontinued 500 mg PO TWICE A DAY December 18, 2016 11:00pm September 05, 2024 8:29am Start: 12-19-2016 take 500 mg by mouth once sherry y Metformin Active 500 MG PO DAILY December 18, 2016 11:00pm Omeprazole 40 mg capsule,delayed release(DR/EC) (1 source) Start: 09-05-2024 take 1 capsule by mouth once daily Omeprazole 40 mg capsule,delayed release(DR/EC) Active 40 mg PO daily September 05, 2024 12:00am traZODone hydrochloride 50 mg oral tablet (1 source) Serotonin Reuptake Inhibitor Start: 09-05-2024 take 1 tablet by mouth at bedtime Trazodone 50 mg tablet Active 50 mg PO AT BEDTIME September 05, 2024 12:00am Completed/Discontinued Medications Medication Drug Class(es) Dates Sig (Normalized) Sig (Original) acetaminophen 325 mg / HYDROcodone bitartrate 5 mg oral tablet (1 source) Opioid Agonist Start: 08-03-2024 End: 09-05-2024 Hydrocodone-Acetam inophen 5-325 mg tablet Discontinued 1 {tbl} PO EVERY 6 HOURS NEEDED as needed for Pain 07 02August 03, 2024 September 05, 2024 8:29am atorvastatin 40 mg oral tablet (7 sources) HMG-CoA Reductase Inhibitor Start: 12-19-2016 End: 09-05-2024 take 1 tablet by mouth at bedtime Atorvastatin 40 MG tablet Discontinued 40 mg PO AT BEDTIME December 18, 2016 11:00pm September 05, 2024 8:29am lisinopril 40 mg oral tablet (10 sources) Angiotensin Converting Enzyme Inhibitor Start: 12-13-2016 End: 09-05-2024 take 1 tablet by mouth once daily Lisinopril 40 MG tablet Discontinued 40 mg PO DAILY December 18, 2016 11:00pm September 05, 2024 8:29am Drug Treatment Unknown - unknown (1 source) No information available. Problems Active Problems Problem Classification Problem Date Documented Da te Episodic/Chronic Cataract (3 sources) Cataract; Translations: [Unspecified cataract] Onset: 7 12-13-2016 Chronic Diabetes mellitus without complication (3 sources) Type 2 diabetes mellitus without complications; Translations: [Type 2 diabetes mellitus without complications] Onset: 7 12-13-2016 Chronic Disorders of lipid metabolism (3 sources) Hypercholesterolemia; Translations: [Disorder of bile acid and cholesterol metabolism, unspecified] Onset: 7 12-13-2016 Chronic E Codes: Fall (1 source) Fall on same level from slipping; Translations: [Fall on same level from slipping, tripping and stumbling without subsequent striking against object, initial encounter] 08-11-2024 Episodic Esophageal disorders (1 source) Gastroesophageal reflux disease; Translations: [Gastro-esophageal reflux disease without esophagitis] 09-05-2024 Chronic Essential hypertension (3 sources) Hypertensive disorder; Translations: [Essential (primary) hypertension] Onset: 7 12-13-2016 Chronic Gastrointestinal hemorrhage (5 sources) Melena; Translations: [Finding of appearance of stool] Onset: 5 09-05-2024 Episodic Inflammation; infection of eye (except that caused by tuberculosis or sexually transmitteddisease) (3 sources) Hordeolum externum left lower eyelid; Translations: [Hordeolum externum of left lower eyelid] Onset: 5 09-30-2024 Episodic Joint disorders and dislocations; trauma-related (4 sources) Derangement of left knee; Translations: [Unspecified internal derangement of left knee] 09-16-2022 Chronic Nonspecific chest pain (1 source) Other chest pain; Translations: [Other chest pain] Onset: 5 Episodic Other and unspecified benign neoplasm (8 sources) History of polyp of colon; Translations: [Personal history of colonic polyps] 12-23-2016 Episodic Other fractures (1 source) Closed fracture of multiple ribs; Translations: [Multiple fractures of ribs, right side, initial encounter for closed fracture] 08-11-2024 Episodic Other gastrointestinal disorders (2 sources) Diarrhea, unspecified; Translations: [Diarrhea, unspecified] Onset: 5 Episodic Other gastrointestinal disorders (1 source) Constipation, unspecified; Translations: [Constipation, unspecified] Onset: 5 Episodic Other gastrointestinal disorders (3 sources) Diarrhea; Translations: [Diarrhea, unspecified] 09-05-2024 Episodic Other screening for suspected conditions (not mental disorders or infectious disease) (1 source) Encounter for screening mammogram for malignant neoplasm of breast; Translations: [Encounter for screening mammogram for malignant neoplasm of breast] Onset: 5 Episodic Other screening for suspected conditions (not mental disorders or infectious disease) (1 source) No current problems or disability 12-12-2016 Sprains and strains (4 sources) Sprain of knee; Translations: [Sprain of unspecified site of left knee, initial encounter] 09-16-2022 Episodic Unclassified (1 source) Personal history of colon polyps, unspecified; Translations: [Personal history of colon polyps, unspecified] Onset: 5 Past or Other Problems Problem Classification Problem Date Documented Da te Episodic/Chronic Deficiency and other anemia (3 sources) Anemia; Translations: [Anemia, unspecified] Onset: 12-13-2016 12-13-2016 Episodic Results Test Name Value Interpretation Reference Range Facility Bedside Glucoseon 10-04-2024 FINGERSTICK GLU 167 mg/dL High 74-106 [facility] Comment on above: Result Comment: MONROE LEHMAN OF PATIENT CARE PER NURSING PROTOCOL Performed By: #### L 501.080 ####[facility] [id number] [facility] [place], [address] Colonoscopy Reporton 025 Colonoscopy Report [facility] Medical Records Department [address] [place] [address] Colonoscopy Report MR#: [id number] Acct: [id number] Name: HAILEE STOLL Rep #: [id number] : 1945 79 From: Lico Hunt MD PCP: Dr. Keshia Johnson MD Status:[facility] Patient Name: Hailee Stoll Procedure Date: 10/04/2024 8:23 AM Date of : 1945 Age: 79 Procedure: Colonoscopy Indications: Screening for colorectal malignant neoplasm Providers: Lico Hunt MD Referring MD: Keshia Johnson Md Medicines: Monitored Anesthesia Care Patient Profile: Patient has symptoms of acute epigastric abdominal pain. Refer to note in patient chart for documentation of history and physical. Last Colonoscopy: several years ago. Complications: No immediate complications. Estimated blood loss: None. Procedure: Pre-Anesthesia Assessment: - Prior to the procedure, a History and Physical was performed, and patient medications and allergies were reviewed. The patient's tolerance of previous anesthesia was also reviewed. The risks and benefits of the procedure and the sedation options and risks were discussed with the patient. All questions were answered, and informed consent was obtained. Prior Anticoagulants: The patient has taken no anticoagulant or antiplatelet agents. ASA Grade Assessment: II - A patient with mild systemic disease. After reviewing the risks and benefits, the patient was deemed in satisfactory condition to undergo the procedure. - Prior to the procedure, a History and Physical was performed, and patient medications and allergies were reviewed. The patient's tolerance of previous anesthesia was also reviewed. The risks and benefits of the procedure and the sedation options and risks were discussed with the patient. All questions were answered, and informed consent was obtained. Prior Anticoagulants: The patient has taken no anticoagulant or antiplatelet agents. ASA Grade Assessment: II - A patient with mild systemic disease. After reviewing the risks and benefits, the patient was deemed in satisfactory condition to undergo the procedure. After I obtained informed consent, the scope was passed under direct vision. Throughout the procedure, the patient's blood pressure, pulse, and oxygen saturations were monitored continuously. The colonoscope was introduced through the anus and advanced to the cecum, identified by the appendiceal orifice, ileocecal valve and palpation. The ileocecal valve, appendiceal orifice, and rectum were photographed. The entire colon was well visualized. The colonoscopy was performed without difficulty. The patient tolerated the procedure well. The quality of the bowel preparation was fair. Scope In: 8:23:58 AM Scope Withdrawal Time 0 hours 10 minutes 20 seconds Scope Out: 8:44:42 AM Total Procedure Duration Time 0 hours 20 minutes 44 seconds Findings: The perianal and digital rectal examinations were normal. Multiple small and large-mouthed diverticula were found in the sigmoid colon. Non-bleeding internal hemorrhoids were found during retroflexion. The hemorrhoids were moderate. The exam was otherwise without abnormality on direct and retroflexion views. Impression: - Preparation of the colon was fair. - Diverticulosis in the sigmoid colon. - Non-bleeding internal hemorrhoids. - The examination was otherwise normal on direct and retroflexion views. - No specimens collected. Recommendation: - Discharge patient to home (ambulatory). - High fiber diet. - Repeat colonoscopy in 7-10 years for screening purposes. - Return to my office PRN. - Continue present medications. Procedure Code(s): --- Professional --- 96448, Colonoscopy, flexible; diagnostic, including collection of specimen(s) by brushing or washing, when performed (separate procedure) Diagnosis Code(s): --- Professional --- Z12.11, Encounter for screening for malignant neoplasm of colon K57.30, Diverticulosis of large intestine without perforation or abscess without bleeding K64.8, Other hemorrhoids CPT copyright 2021 [employer]. All rights reserved. The codes documented in this report are preliminary and upon broomcorn sorter review may be revised to meet current compliance requirements. Lico Hunt MD 10/04/2024 8:56:21 AM This report has been signed electronically. Number of Addenda: 0 Note Initiated On: 10/04/2024 8:23 AM 10/04/24855 Date Lico Hunt MD Cosigner Signature: Date (if indicated) CC: Dr. Keshia Johnson MD; Dr. Lico Hunt MD Date Dictated: 10/04/24822 Date Transcribed: Osteopathic Medicine Teacher: PATITO Signed Normal [facility] EGD Reporton 10-04-2024 EGD Report [facility] Medical Records Department [address] [place] [address] EGD Report MR#: [id number] Acct: [id number] Name: HAILEE STOLL Rep #: [id number] : 1945 79 From: Lico Hunt MD PCP: Dr. Keshia Johnson MD Status:[facility] Patient Name: Hailee Stoll Procedure Date: 10/04/2024 8:01 AM Date of : 1945 Age: 79 Procedure: Upper GI endoscopy Indications: Epigastric abdominal pain Providers: Lico Hunt MD Referring MD: Keshia Johnson Md Medicines: Monitored Anesthesia Care Patient Profile: Patient has symptoms of acute epigastric abdominal pain. Refer to note in patient chart for documentation of history and physical. Complications: No immediate complications. Estimated blood loss: Minimal. Procedure: Pre-Anesthesia Assessment: - Prior to the procedure, a History and Physical was performed, and patient medications and allergies were reviewed. The patient's tolerance of previous anesthesia was also reviewed. The risks and benefits of the procedure and the sedation options and risks were discussed with the patient. All questions were answered, and informed consent was obtained. Prior Anticoagulants: The patient has taken no anticoagulant or antiplatelet agents. ASA Grade Assessment: II - A patient with mild systemic disease. After reviewing the risks and benefits, the patient was deemed in satisfactory condition to undergo the procedure. After obtaining informed consent, the endoscope was passed under direct vision. Throughout the procedure, the patient's blood pressure, pulse, and oxygen saturations were monitored continuously. The Endoscope was introduced through the mouth, and advanced to the second part of duodenum. The upper GI endoscopy was accomplished without difficulty. The patient tolerated the procedure well. Moderate Sedation: See the other procedure note for documentation of moderate sedation with intraservice time. Scope In: 8:09:04 AM Scope Out: 8:20:38 AM Total Procedure Duration Time 0 hours 11 minutes 34 seconds Findings: The examined esophagus was normal. Mucosa was biopsied with a cold forceps for histology randomly at the gastroesophageal junction. Verification of patient identification for the specimen was done by the nurse using the patient's name, date and medical record number. Estimated blood loss was minimal. No gross lesions were noted in the entire examined stomach. Biopsies were taken with a cold forceps for Helicobacter pylori testing. Verification of patient identification for the specimen was done by the nurse using the patient's name, date and medical record number. Estimated blood loss was minimal. Localized moderately erythematous mucosa without active bleeding and with no stigmata of bleeding was found in the duodenal bulb. This was biopsied with a cold forceps for histology. Verification of patient identification for the specimen was done by the nurse using the patient's name, date and medical record number. Estimated blood loss was minimal. The exam was otherwise without abnormality. Impression: - Normal esophagus. Biopsied. - No gross lesions in the entire stomach. Biopsied. - Erythematous duodenopathy. Biopsied. - The examination was otherwise normal. Recommendation: - Discharge patient to home (ambulatory). - High fiber diet indefinitely. - Continue present medications. - Await pathology results. Procedure Code(s): --- Professional --- 53904, Esophagogastroduodenoscopy, flexible, transoral; with biopsy, single or multiple Diagnosis Code(s): --- Professional --- R10.13, Epigastric pain K31.89, Other diseases of stomach and duodenum CPT copyright 2021 [employer]. All rights reserved. The codes documented in this report are preliminary and upon broomcorn sorter review may be revised to meet current compliance requirements. Lico Hunt MD 10/04/2024 8:53:26 AM This report has been signed electronically. Number of Addenda: 0 Note Initiated On: 10/04/2024 8:01 AM 10/04/24 0853 Date Lico Hunt MD Cosigner Signature: Date (if indicated) CC: Dr. Keshia Johnson MD; Dr. Lico Hunt MD Date Dictated: 10/04/24800 Date Transcribed: Osteopathic Medicine Teacher: Signed Normal [facility] de[facility] By: Lico Hunt on 10-04-2024 Bedside Glucose (Misc Panel) 167 mg/dL High 74-106 [facility] Comment on above: MANAGEMENT OF PATIEN T CARE PER NURSING PROTOCOL Immunohistochemical Stainson 10-04-2024 Immunohistochemical Stains Patient Age/Sex Location Account Attending Physician DODIEHAILEE 79/F EN [id number] Dr. Lico Hunt MD Specimen: [id number] Received: 10/04/24 Status: NATALYA Woodard Num: [id number] Spec Type: COLON BX Subm Dr: Dr. Lico Hunt MD HEADER OPERATION: Colonoscopy, EGD, biopsy PRE-OP DIAGNOSIS: History of colonic polyps, diarrhea, black tarry stools TISSUE SUBMITTED: A- Duodenal biopsy, B- Antrum biopsy, C- Gastroesophageal junction biopsy MICROSCOPIC DIAGNOSIS A. Duodenum, biopsy: * Normal villous architecture with Anna Marie gland hyperplasia. * Negative for increased intraepithelial lymphocytes. B. Stomach, antrum, biopsy: * Chronic gastritis. * IHC is negative for H pylori organisms. C. Esophagus, GE junction, biopsy: * Squamous mucosa with mild reactive change. * Detached fragment of fibrinopurulent debris suggestive of ulcer. * No columnar mucosa seen. * A PASD stain for fungal organisms is PENDING and will be reported in an addendum. MICROSCOPIC DESCRIPTION Slides are reviewed. GROSS DESCRIPTION Specimen A-received in formalin labeled Joaquin Stollia, and designated duodenal biopsy, are two delaney tissue fragments aggregating to 0.6 x 0.5 x 0.2 cm. Totally submitted in one cassette.Specimen B-received in formalin labeled Dodie, Hailee, and designated antrum biopsy, is a delaney tissue fragment that measures 0.6 x 0.2 x 0.2 cm. Totally submitted in one cassette.Specimen C-received in formalin labeled Dodie, Hailee, and designated GE junction biopsy, is a delaney tissue fragment that measures 0.3 x 0.2 x 0.2 cm. Totally submitted in one cassette.JK. 10/04/2024 CPT:24537j4,85297,03084 Patient Age/Sex Location Account Attending Physician HAILEE STOLL 79/F EN [id number] Dr. Lico Hunt MD ADDENDUM Addendum 1 Entered: 10/11/24 This addendum is to report the result for the special stain. The PASD stain is negative for fungal organisms. Matched control reacted appropriately. Addendum Signed (signature on file) Dr. Lisseth Obrien MD 10/11/24930 Patient Age/Sex Location Account Attending Physician HAILEE STOLL 79/F EN [id number] Dr. Lico Hunt MD Signed (signature on file) Dr. Lisseth Obrien MD 10/09/24 1605 Normal [facility] Comment on above: Performed By: #### P [facility] ####[facility] [id number] [place], [address] MR/POSTOP.ANE 10-04-2024 MR/POSTOP.[facility] Medical Records Department [address] [place] [address] Anesthesia Postop Eval I 10/04/2458 MR#: [id number] Acct: [id number] Name: HAILEE STOLL Rep #: [id number] : 1945 79 From: Petr Gallardo PCP: Dr. Keshia Johnson MD Status:REG [facility] Race: C Location: [place] [address] Anesthesia: Postop Eval I Current Vital Signs Temperature: 97 F Pulse Rate: 61 Blood Pressure: 93/41 Respiratory Rate: 16 Pulse Ox: 93 Oxygen Delivery Method: Room Air Assessment Airway patent: Yes Spontaneous unlabored respirations: Yes Mental status: Awake and Calm nausea: No Vomiting: Yes Anesthesia Complication: Yes Anesthesia Complication Comment:: hypotension and emesis during colonoscopy Fluid Hydration Crystalloid volume administer (ml): 90 Total IV fluid infused: 90 Progress Note Anesthesia document: Postop Eval 1 completed: Yes 10/04/24 09 Date Petr Owens Signature: Date CC: Signed Normal [facility] MR/[id number] 10-04-2024 MR/POSTOPAN2 [facility] Medical Records Department [address] [place] [address] Anesthesia Postop Eval II 10/04/24930 MR#: [id number] Acct: [id number] Name: HAILEE STOLL Rep #: [id number] : 1945 79 From: Jerry Hardin MD PCP: Dr. Keshia Johnson MD Status:REG [facility] Y Race: C Location: [address] Anesthesia Postop Eval I Sum Postop Eval Completion status Anesthesia document: Postop Eval 1 completed: Yes Anesthesia Postop Eval I Summary Anesthesia Postop Eval I Summary: Anesthesia Postop Eval I: Assessment Summary Airway patent Yes 10/04/24 09:00 [email or web address] Spontaneous unlabored Yes 10/04/24 09:00 [email or web address] respirations Mental status Awake,Calm 10/04/24 09:00 [email or web address] nausea No 10/04/24 09:00 [email or web address] Vomiting Yes 10/04/24 09:00 [email or web address] Anesthesia Postop Eval I: Fluid Summary Crystalloid volume administer 90 10/04/24 09:00 [email or web address] (ml) Colloids volume administered ( ml) Blood Product volume administered (ml) Total IV fluid infused 90 10/04/24 09:00 [email or web address] Anesthesia Postop Eval I: Summary Notes Anesthesia Complication Yes 10/04/24 09:00 [email or web address] Anesthesia Complication hypotension and 10/04/24 09:00 [email or web address] Comment: emesis during colonoscopy Post-operative progress note Anesthesia: Postop Eval II Evaluation Mental status: Awake Pain Level: 0 nausea: No Vomiting: No 10/04/24930 Jerry Owens Signature: Date CC: Signed Normal [facility] Urgent Care Visit Reporton 0 09-30-2024 Urgent Care Visit Report [facility] [address], [address] [place] [address] OFFICE VISIT Date of Service: 09/30/24 MR#: [id number] Acct: [id number] Name: HAILEE STOLL Rep #: [id number] : 1945 Provider: WOLFGANG Cordova Age/Sex: 79/F Location: [facility] Status: Signed Intake Vital Signs 09/05/24 08:28 09/30/24 10:26 Height 4 ft 10 in Weight: 104 lb BMI 21.7 BP 175/83 H 122/82 H Blood Pressure Location Rt brachial Position Sitting Sitting Respiration 18 Pulse 76 83 Pulse Source Monitor Temp 97.6 F L 97.9 F Temp Source Temporal Oral Pulse Oximetry (%) 100 99 Oxygen Delivery Method room air room air Intake Visit Reasons: SWOLLEN/RED L EYE Accompanied by: Self Allergies No Known Allergies Allergy (Verified 09/30/24 10:25) Medications ???Medication ???Instructions ???Recorded ???Confirmed ???Type blood sugar diagnostic (True #10 ea 09/05/24 09/05/24 History Metrix Glucose Test Strip) glipizide 2.5 mg tablet, extended 2.5 mg PO QDAY 09/05/24 09/30/24 History release 24 hr lancets 33 gauge (TRUEplus Lancets) #100 ea 09/05/24 09/05/24 Histo ry lisinopril 20 1 tab PO BID 09/05/24 09/30/24 His tory mg-hydrochlorothiazide 12.5 mg tablet metformin 500 mg tablet,extended 1,000 mg PO BID 09/05/24 09/30/24 History release 24 hr omeprazole 40 mg capsule,delayed 40 mg PO QDAY 09/05/24 09/05/24 Hi story release trazodone 50 mg tablet 50 mg PO QHS 09/05/24 09/05/24 His tory amlodipine 5 mg tablet mg PO DAILY 09/30/24 09/30/24 Hist ory Have you fallen in the past year?: No Nurse's Note: Patient Right eye is red and swollen and itchy sometimes and sore. Patient also states it gets crusty sometimes. [facility] Medical History (Updated 09/30/24 @ 10:33 by Taj Cordova NP-C) Hordeolum externum left lower eyelid Diarrhea Black tarry stools Acid reflux Diabetes Hypertension Surgical History History of appendectomy Social History Smoking Status: Never smoker alcohol intake: never substance use type: does not use HPI HPI Details: HAILEE STOLL, is a 79 F who presents to the office today for HPI: ROS: As noted in HPI Physical Exam: VITALS: Reviewed. GEN: Healthy appearing, well-developed, NAD. PSYCH: AOx3. Normal memory, mood, and affect. Eye: Medial aspect left lower eyelid there is a focused area of mild swelling consistent with hordeolum. Conjunctiva is not injected. There is no matting or drainage noted. LUNGS: Normal respiratory effort. SKIN: Warm, well perfused. No skin rashes or abnormal lesions noted. MSK: Normal gait. NEURO: Ambulating with no limitations. Normal muscle strength and tone. No focal deficits. Coding Level of Care Code Off vis,new,level 2 Diagnoses Hordeolum externum left lower eyelid H00.015 Assessment and Plan Assessment and Plan (1) Hordeolum externum left lower eyelid: Status: Acute Plan: Patient's exam consistent with a hordeolum. Recommended warm moist compresses and follow-up with ophthalmology if symptoms not improving. She denies any current eye pain, vision changes, matting or drainage. Clinical Quality Measures Falls Risk Screening/Assistive Devices Have you fallen in the past year?: No 09/30/24 1033 Date Taj Cordova INTERIOR DECORATOR-C Cosigner Signature: Date (if applicable) CC: Normal [facility] SCRN MAMM (CAD)W/LORETO BILATo n 09-10-2024 SCRN MAMM (CAD)W/LORETO BILAT [facility] Imaging Services [address] [place], [place] [id number] SCRN MAMM (CAD)W/LORETO BILAT MR#: [id number] Acct: [id number] Name: HAILEE STOLL Rep #: [id number] : 1945 F 79 From: Yanely Brito MD PCP: Dr. Keshia Johnson MD Status: [facility] Study: SCRN MAMM (CAD)W/LORETO BILAT Date of Exam: 08/31 08/24 Exam# [id number] Ordering Dr: Keshia Johnson MD PROCEDURE: SCRN MAMM (CAD)W/LORETO BILAT REASON FOR EXAM: F, Age 79 y/o, presents for annual screening mammogram. No family history of breast cancer. TECHNIQUE: Bilateral screening digital breast tomosynthesis with 2D and 3D images. Computer aided detection. COMPARISON: 07/06/2023 FINDINGS: There are scattered areas of fibroglandular density. No suspicious masses, areas of developing architectural distortion, or suspicious calcifications. BI/SCRN MAMM (CAD)W/LORETO BILAT IMPRESSION: There is no mammographic evidence of malignancy in either breast. BI-RADS 1: NEGATIVE. RECOMMEND ANNUAL MAMMOGRAPHIC SCREENING. Follow-up code: Routine Follow-up The patient will be notified of the results by letter. Reading Location: [facility] CC: Dr. Keshia Johnson MD Osteopathic Medicine Teacher: Signed [facility] Surgery Visit Reporton 09-05 Surgery Visit Report [facility] [address] [place] [address] OFFICE VISIT Date of Service: 09/05/24 MR#: [id number] Acct: [id number] Name: HAILEE STOLL Rep #: [id number] : 1945 Provider: Dr. Lico ventura MD Age/Sex: 79/F Location: [facility] Status: Signed Intake Vital Signs 08/03/24 09:13 09/05/24 08:28 Height 4 ft 11 in 4 ft 10 in Weight: 104 lb BMI 21.7 BP 175/83 H Blood Pressure Location Rt brachial Position Sitting Respiration 18 Pulse 76 Pulse Source Monitor Temp 97.6 F L Temp Source Temporal Pulse Oximetry (%) 100 Oxygen Delivery Method room air Intake Visit Reasons: Esophagogastroduodenoscopy Chief Complaint: EGD Is patient in pain?: No Allergies No Known Allergies Allergy (Verified 09/05/24 08:29) Have you fallen in the past year?: No PFSH Medical History Diarrhea Black tarry stools Acid reflux Diabetes Hypertension Surgical History History of appendectomy Social History Smoking Status: Never smoker alcohol intake: never substance use type: does not use HPI HPI HPI: The patient is an 79-year-old female who is being seen today for epigastric discomfort as well as nausea. She states that this started about a month ago shortly after she had a fall in the snow and subsequently broke several ribs on the right side. She discussed this with her PCP and it was suggested that she meet with general surgery to discuss possible EGD. It appears that her last colonoscopy was in 2017. This showed some diverticulosis but no other findings. She does state that her bowels have been much more loose recently. She does also noticed that her stools do seem much darker almost a black color. ROS General General: Yes weight change (loss); No appetite, fatigue, colon cancer, breast cancer or weakness HEENT HEENT: No difficulty swallowing, eye injury, eye surgery, swollen glands or hoarseness Endo Endocrine: Yes diabetes mellitus; No thyroid disease, thyroid cancer, Hair loss, heat intolerance or cold intolerance Skin Skin: No rash or changing moles Musc Musculoskeletal: No back problems, arthritis, rheumatoid arthritis, gout or joint pain Cardio Cardiovascular: No murmur, pacemaker, heart disease, atrial fibrillation, high blood pressure, heart attack, heart stent, palpitations, shortness of breat with exertion or chest pain Psych Psychiatric: No depression, anxiety or hearing voices Resp Respiratory: Yes shortness of breath, No sleep apnea, No cough, No COPD, No asthma, No emphysema and No wheezing Gastro Gastrointestinal: Yes abdominal pain, Yes nausea or vomiting, Yes diarrhea, No constipation, No blood in stool, Yes acid reflux, No hemorrhoids, No ulcers, No gallbladder problem and Yes black,tarry stools Rob Hematologic: No blood thinners, No blood disorders, No bleeding, No anemia and No blood clots Neuro Neurologic: Yes numbness, Yes tingling and No weakness Exam Const General: cooperative, healthy appearing, comfortable and no acute distress Orientation: alert, awake and oriented x3 HENMT Head: normal to inspection Eyes General: appearance normal, both eyes and all related structures Neck Neck: normal visual inspection Resp Effort Inspection: normal respiratory effort and able to speak in complete sentences GI Inspection: normal to inspection Assessment and Plan Assessment and Plan (1) Black tarry stools: Status: Acute (2) Diarrhea: Status: Acute Plan: The patient is an 79-year-old female who presents today with complaints of epigastric pain that seems to have begun shortly after falling and breaking several ribs. She notices nausea and epigastric pain. I have offered an EGD to further evaluate this complaint. Since she will be undergoing an endoscopy, I also offered her colonoscopy since she will likely need another colonoscopy in about 2 years plus she has noticed a change in her bowel movements to a more liquid stool that is sometimes dark or black in color. I think it is worthwhile doing both an upper and a lower scope. Patient agrees. This will be scheduled in a timely manner. Medications: Discontinued hydrocodone-acetaminophen 5-325 mg Discontinued Reason: Pt no longer taking 1 TAB PO Q6H PRN 3 days PRN 12 TABLETS 0RF Pain S22.39XA - Fracture of one rib, unspecified side, initial encounter for closed fracture Coding Level of Care Code Off vis,new,level 4 Diagnoses Black tarry stools K92.1 Diarrhea R19.7 Clinical Quality Measures Falls Risk Screening/Assistive Devices Have you fallen in the past year?: No (more content not included)... Normal [facility] Emergency Department Summary on 08-03-2024 Emergency Department Summary [facility] Medical Records Department [address] [place] [address] Emergency Department Summary 08/03/24 MR#: [id number] Acct: [id number] Name: HAILEE STOLL Rep #: [id number] : 1945 79 From: Fritz Rodriguez MD PCP: Dr. Keshia Johnson MD Status:REG ER Location: ED HPI History of Present Illness Chief Complaint: Chest Other Informant: patient and friend Narrative Narrative: 79-year-old female was shoveling her driveway of snow yesterday and she slipped and fell landing on her right side injuring her right lateral rib cage. Her arm is okay. She did not injure anything else and has been able to walk without any difficulty since then. Hurts to breathe it hurts to move, she has had no dyspnea. She is on no anticoagulants. [facility] Medical History Diabetes Hypertension Home Medications ???Medication ???Instructions ???Recorded ???Last Taken ???Type amlodipine 5 mg tablet (Norvasc) 5 mg PO DAILY 12/19/16 Unknown History atorvastatin 40 mg tablet 40 mg PO QHS 12/19/16 Unknown History glipizide 10 mg tablet (Glucotrol) 10 mg PO DAILY 12/19/16 Unknown History lisinopril 40 mg tablet 40 mg PO DAILY 12/19/16 Unknown History metformin 500 mg tablet 500 mg PO BID 12/19/16 Unknown History hydrocodone-acetaminophen 5-325mg 1 tab PO Q6H PRN PRN Pain 3 days 08/03/24 Unknown Rx 5mg-325mg #12 TABLETS Allergy/AdvReac Type Severity Reaction Status Date / Time No Known Allergies Allergy Verified 08/03/24 09:15 Surgical History History of appendectomy Social History Smoking Status: Never smoker ROS ROS ED Constitutional Constitutional ED: Denies chills or fever(s) Eyes Eyes: Denies change in vision or diplopia ENT ENT ED: Denies rhinorrhea or sore throat Cardiovascular Cardiovascular: Reports as per HPI and chest pain; Denies palpitations Respiratory/Chest Respiratory/Chest: Denies cough or dyspnea Gastrointestinal Gastrointestinal: Denies abdominal pain, diarrhea, nausea or vomiting Genitourinary Genitourinary ED: Denies dysuria or hematuria Musculoskeletal Musculoskeletal: Denies back pain or neck pain Integumentary Denies abscess or rash Neurologic Neurologic: Denies headache(s), paresthesias or weakness Psychiatric Psychiatric: Denies anxiety or suicidal thoughts EXAM Physical Exam Const Vital Signs: 08/03/24 09:13 Temperature 97.1 F L Temperature Source Temporal Pulse Rate 92 Respiratory Rate 15 Blood Pressure 204/82 H Blood Pressure Mean 122 Pulse Ox 98 Oxygen Delivery Method Room Air Positive well nourished and well developed General Appearance ED: well developed and NAD HEENT Reports moist mucous membranes normocephalic and atraumatic Eyes PERRL and EOMs intact bilaterally Neck full ROM and supple Chest Wall inspection of chest normal Chest Narrative: Tender right lateral chest wall and inframammary area laterally, no subcutaneous emphysema no palpable step-off, no signs of purpura or ecchymosis or obvious signs of trauma. Resp normal respiratory effort and clear to auscultation bilaterally Resp Narrative: Equal breath sounds bilaterally Cardio regular rate, regular rhythm and no murmurs Rate: Negative for tachycardic GI non-tender and non-distended Auscultation: normoactive bowel sounds Palpation: soft Back/Spine General Back: other FROM Thoracic Spine / Upper Back: Negative for thoracic spinal tenderness Extremity normal to inspection General Extremety ED: Negative for edema, pulses abnormal or tenderness General Extremity: Negative for edema or pulses abnormal Neuro oriented x3, CN's II-XII intact bilaterally and no sensory deficits noted Sensorium / Orientation: awake and alert Motor Exam: strength 5/5 throughout Skin no rashes or lesions noted and no wounds MDM MDM MDM Narrative Medical decision making narrative: Three-view x-ray series of the right rib cage including a PA chest to my interpretation shows a single mildly displaced rib fracture without pneumothorax. According to radiology, there are 4 sequential fractures; I have trouble appreciating all of them on x-rays. Regardless, this is consistent with the location of where the patient has pain and tenderness, and she is comfortable going home tolerating the pain well even before getting medications. She is given appropriate instructions as well as an incentive spirometer, something for pain and prescription, and reasons to return. She comfortable with that plan. Radiography Diagnostic Testing: Clinical Impression(s) from Imaging Studies Ribs w/Chest X-Ray 08/03/24 10:33 IMPRESSION: (more content not included)... Normal [facility] Ribs Uni Min 3V w/PA Cheston 08-03-2024 Ribs Uni Min 3V w/PA Chest [facility] Imaging Services [address] [place], [place] [address] Ribs Uni Min 3V w/PA Chest MR#: [id number] Acct: [id number] Name: HAILEE STOLL Rep #: [id number] : 1945 F 79 From: Fritz Rubio MD PCP: Dr. Keshia Johnson MD Status: REG ER Study: Ribs Uni Min 3V w/PA Chest Date of Exam: 08/03 Exam# [id number] Ordering Dr: Fritz Rodriguez MD [id number] STUDY: X-RAY - UNILATERAL RIBS ( RIGHT ) WITH CHEST REASON FOR EXAM: Female, 79 years old. FALL TECHNIQUE - RIBS: 2 view(s) of the ribs. TECHNIQUE - CHEST: Single frontal view of the chest. COMPARISON: Chest x-ray November 28, 2011 FINDINGS - RIBS: There are right fifth through eighth rib fractures. FINDINGS - CHEST: There is left lower lung scarring or atelectasis. There is no demonstrated pleural abnormality. Normal size heart. There is moderate retrocardiac hiatal hernia. Normal visualized pulmonary arteries. There is atherosclerotic calcification of the aortic arch with tortuosity. There is demineralization of the osseous structures. There are right fifth through eighth rib fractures. There is no demonstrated abnormality of the visualized soft tissue structures of the upper abdomen. RAD/Ribs Uni Min 3V w/PA Chest IMPRESSION: RIBS: Right fifth through eighth rib fractures. No pneumothorax. CHEST: Right fifth through eighth rib fractures. No pneumothorax. Hiatal hernia. Electronically Signed: Fritz Rubio MD at 11:34 EST , CC: Dr. Fritz Rodriguez MD; Dr. Keshia Johnson MD Osteopathic Medicine Teacher: Signed Normal [facility] 93-GR-Cbsctao DOrdered By: Javon Johnson on 07-19-2024 Vitamin D 25-Hydroxy 55.8 ng/mL [facility] Comment on above: Vitamin D 25(OH) Sta tus Range Deficiency <20 ng/mL (50nmol/L) Insufficiency 20 - 30 ng/mL (50 - 75 nmol/L) Sufficiency 30 - 100 ng/mL (75 - 250 nmol/L) Toxicity >100 ng/mL (>250 nmol/L) Abdomen Single Viewon 2023 Abdomen Single View [facility] Imaging Services [address], [place] [address] Abdomen Single View MR#: [id number] Acct: [id number] Name: HAILEE STOLL Rep #: [id number] : 1945 F 79 From: Fernie Catalan MD PCP: Dr. Keshia Johnson MD Status: REG CLI Study: Abdomen Single View Date of Exam: 07/19/24 Exam# [id number] Ordering Dr: Keshia Johnson MD [id number] EXAM: XR ABDOMEN, 1 VIEW CLINICAL INDICATION: constipation TECHNIQUE: Frontal supine view of the abdomen/pelvis. COMPARISON: No relevant prior studies available. FINDINGS: LOWER THORAX: No acute pathology. GASTROINTESTINAL TRACT: Moderate amount of stool in the colon. Non-obstructive. No bowel or stomach distention. ORGANS: Unremarkable as visualized. No organomegaly. No abnormal calcifications. BONES/JOINTS: No acute pathology. SOFT TISSUES: No acute pathology. RAD/Abdomen Single View IMPRESSION: Moderate amount of stool in the colon. Electronically Signed: Fernie Catalan MD at 23:47 EST , CC: Dr. Keshia Johnson MD Osteopathic Medicine Teacher: Signed Normal [facility] Absolute neutrophil countOrd ered By: Keshia Johnson on 07-19-2024 Neutrophils (Bld) [#/Vol] 3.7 10*3/uL 2.0-7.7 [facility] Albumin to globulin ratioOrd ered By: Keshia Johnson on 07-19-2024 Albumin/Globulin [Mass ratio] 0.8 {ratio} Low 0.9-2.4 [facility] Basophil percentageOrdered B y: Keshia Johnson on 07-19-2024 Basophils/100 WBC (Bld) 0.5 % 0-1 [facility] Bilirubin, totalOrdered By: Keshia Johnson on 07-19-2024 Bilirubin [Mass/Vol] 0.20 mg/dL 0.20-1.00 [facility] Comment on above: For patients on eltr ombopag therapy, use of Dimension [place] TBIL is not recommended. Blood urea nitrogen (BUN)/cr eatinine ratioOrdered By: Keshia Johnson on 07-19-2024 Urea nitrogen/Creatinine [Mass ratio] 19.7 mg/mg - [facility] CBC W/Diff, Automatedon 07-01 Absolute Lymph 1.59 X10 3/uL Normal 0.83-4.51 [facility] Comment on above: Order Comment: Order Date: 07/19/24 Order Info: 0184-1 - CBCD Performed By: #### L 500.4100, L100.0100, L501.9520, L501.9985, L506.1000, L502.0250, L500.4050 #### [facility] [address] [place], [address] Absolute Neut 3.7 X10 3/uL Normal 2.0-7.7 [facility] Comment on above: Order Comment: Order Date: 07/19/24 Order Info: 018- - CBCD Performed By: #### L 500.4100, L100.0100, L501.9520, L501.9985, L506.1000, L502.0250, L500.4050 #### [facility] [address] [facility] [place], [address] Basophils/100 WBC (Bld) 0.5 % Normal 0-1 [facility] Comment on above: Order Comment: Order Date: 07/19/24 Order Info: 018- - CBCD Performed By: #### L 500.4100, L100.0100, L501.9520, L501.9985, L506.1000, L502.0250, L500.4050 #### [facility] [address] [facility] [place], [address] Eosinophils/100 WBC (Bld) 3.0 % Normal 0-5 [facility] Comment on above: Order Comment: Order Date: 07/19/24 Order Info: 0184- - CBCD Performed By: #### L 500.4100, L100.0100, L501.9520, L501.9985, L506.1000, L502.0250, L500.4050 #### [facility] [address] [facility] [place], [address] Erythrocyte distribution width (RBC) [Ratio] 12.2 % Normal 11.6-14.6 [facility] Comment on above: Order Comment: Order Date: 07/19/24 Order Info: 018- - CBCD Performed By: #### L 500.4100, L100.0100, L501.9520, L501.9985, L506.1000, L502.0250, L500.4050 #### [facility] [address] [place], [address] Hematocrit (Bld) [Volume fraction] 33.4 % Low 37-47 [facility] Comment on above: Order Comment: Order Date: 07/19/24 Order Info: 0184-1 - CBCD Performed By: #### L 500.4100, L100.0100, L501.9520, L501.9985, L506.1000, L502.0250, L500.4050 #### [facility] [address] [facility] [place], [address] Hemoglobin (Bld) [Mass/Vol] 11.0 g/dL Low 12.0-15.0 [facility] Comment on above: Order Comment: Order Date: 07/19/24 Order Info: 0184-1 - CBCD Performed By: #### L 500.4100, L100.0100, L501.9520, L501.9985, L506.1000, L502.0250, L500.4050 #### [facility] [address] [place], [address] IG% 0.300 Normal 0.0-0.9 [facility] Comment on above: Order Comment: Order Date: 07/19/24 Order Info: 0184-1 - CBCD Result Comment: IG% - Immature Granulocytes (promyelocytes, myelocytes and metamyelocytes) > 1% indicates that a LEFT SHIFT is Present. Performed By: #### L 500.4100, L100.0100, L501.9520, L501.9985, L506.1000, L502.0250, L500.4050 #### [facility] [address] [place], [address] Lymphocytes/100 WBC (Bld) 26.6 % Normal 19-41 [facility] Comment on above: Order Comment: Order Date: 07/19/24 Order Info: 0184- - CBCD Performed By: #### L 500.4100, L100.0100, L501.9520, L501.9985, L506.1000, L502.0250, L500.4050 #### [facility] [address] [place], [address] MCH (RBC) [Entitic mass] 30.3 pg Normal 27.0-32.0 [facility] Comment on above: Order Comment: Order Date: 07/19/24 Order Info: 018- - CBCD Performed By: #### L 500.4100, L100.0100, L501.9520, L501.9985, L506.1000, L502.0250, L500.4050 #### [facility] [address] [place], [address] MCHC (RBC) [Mass/Vol] 32.9 g/dL Normal 32-36 [facility] Comment on above: Order Comment: Order Date: 07/19/24 Order Info: 018- - CBCD Performed By: #### L 500.4100, L100.0100, L501.9520, L501.9985, L506.1000, L502.0250, L500.4050 #### [facility] [address] [place], [address] MCV (RBC) [Entitic vol] 92.0 fL Normal 81-99 [facility] Comment on above: Order Comment: Order Date: 07/19/24 Order Info: 0184- - CBCD Performed By: #### L 500.4100, L100.0100, L501.9520, L501.9985, L506.1000, L502.0250, L500.4050 #### [facility] [address] [place], [address] Monocytes/100 WBC (Bld) 7.4 % Normal 0-10 [facility] Comment on above: Order Comment: Order Date: 07/19/24 Order Info: 0184- - CBCD Performed By: #### L 500.4100, L100.0100, L501.9520, L501.9985, L506.1000, L502.0250, L500.4050 #### [facility] [address] [place], [address] Neutrophils/100 WBC (Bld) 62.2 % Normal 47-70 [facility] Comment on above: Order Comment: Order Date: 07/19/24 Order Info: 01810-29 - CBCD Performed By: #### L 500.4100, L100.0100, L501.9520, L501.9985, L506.1000, L502.0250, L500.4050 #### [facility] [address] [place], [place], [id number] (466) Nucleated RBC (Bld) [#/Vol] 0 10*3/uL Normal 0-5 [facility] Comment on above: Order Comment: Order Date: 07/19/24 Order Info: 0184 - CBCD Performed By: #### L 500.4100, L100.0100, L501.9520, L501.9985, L506.1000, L502.0250, L500.4050 #### [facility] [address] [place], [address] Platelet mean volume (Bld) [Entitic vol] 10.0 fL Normal 6.2-12.0 [facility] Comment on above: Order Comment: Order Date: 07/19/24 Order Info: 0184-1 - CBCD Performed By: #### L 500.4100, L100.0100, L501.9520, L501.9985, L506.1000, L502.0250, L500.4050 #### [facility] [address] [place], [place], [id number] (491) Platelets (Bld) [#/Vol] 355 10*3/uL Normal 150-450 [facility] Comment on above: Order Comment: Order Date: 07/19/24 Order Info: 0184-1 - CBCD Performed By: #### L 500.4100, L100.0100, L501.9520, L501.9985, L506.1000, L502.0250, L500.4050 #### [facility] [address] [place], [address] RBC (Bld) [#/Vol] 3.63 10*6/uL Low 4.2-5.4 [facility] Comment on above: Order Comment: Order Date: 07/19/24 Order Info: 0184-1 - CBCD Performed By: #### L 500.4100, L100.0100, L501.9520, L501.9985, L506.1000, L502.0250, L500.4050 #### [facility] [address] [place], [address] RDW SD 41.7 fl Normal 35.1-43.9 [facility] Comment on above: Order Comment: Order Date: 07/19/24 Order Info: 0184-1 - CBCD Performed By: #### L 500.4100, L100.0100, L501.9520, L501.9985, L506.1000, L502.0250, L500.4050 #### [facility] [address] [place], [address] WBC (Bld) [#/Vol] 6.0 10*3/uL Normal 4.4-11.0 [facility] Comment on above: Order Comment: Order Date: 07/19/24 Order Info: 0184-1 - CBCD Performed By: #### L 500.4100, L100.0100, L501.9520, L501.9985, L506.1000, L502.0250, L500.4050 #### [facility] [address] [place], [address] Carbon dioxide measurementOr dered By: Keshia Johnson on 07-19-2024 CO2 [Moles/Vol] 23.0 mmol/L 21.0-32.0 [facility] Chloride measurementOrdered By: Keshia Johnson on 07-19-2024 Chloride [Moles/Vol] 107 mmol/L 98-107 [facility] Comprehensive Metabolic Prof ilon 07-19-2024 Albumin [Mass/Vol] 3.7 g/dL Normal 3.2-5.0 [facility] Comment on above: Order Comment: Order Date: 07/19/24 Order Info: 07- - CMP Order Info: - LIPID Order Info: [id number] - TSH Performed By: #### L 500.4100, L100.0100, L501.9520, L501.9985, L506.1000, L502.0250, L500.4050 #### [facility] [address] [place], [place], [id number] Albumin/Globulin [Mass ratio] 0.8 {ratio} Low 0.9-2.4 [facility] Comment on above: Order Comment: Order Date: 07/19/24 Order Info: 07 - CMP Order Info: [id number] - LIPID Order Info: 3 - TSH Performed By: #### L 500.4100, L100.0100, L501.9520, L501.9985, L506.1000, L502.0250, L500.4050 #### [facility] [address] [place], [place], [id number] ALK P 118 U/L High 45-117 [facility] Comment on above: Order Comment: Order Date: 07/19/24 Order Info: [id number] - CMP Order Info: [id number] - LIPID Order Info: 3 - TSH Performed By: #### L 500.4100, L100.0100, L501.9520, L501.9985, L506.1000, L502.0250, L500.4050 #### [facility] [address] [place], [address] ALT [Catalytic activity/Vol] 39 U/L Normal 13-56 [facility] Comment on above: Order Comment: Order Date: 07/19/24 Order Info: [id number] - CMP Order Info: [id number] - LIPID Order Info: [id number] - TSH Performed By: #### L 500.4100, L100.0100, L501.9520, L501.9985, L506.1000, L502.0250, L500.4050 #### [facility] [address] [place], [address] AST [Catalytic activity/Vol] 28 U/L Normal 15-37 [facility] Comment on above: Order Comment: Order Date: 07/19/24 Order Info: [id number] - CMP Order Info: [id number] - LIPID Order Info: [id number] - TSH Performed By: #### L 500.4100, L100.0100, L501.9520, L501.9985, L506.1000, L502.0250, L500.4050 #### [facility] [address] [place], [address] Bilirubin [Mass/Vol] 0.20 mg/dL Normal 0.20-1.00 [facility] Comment on above: Order Comment: Order Date: 07/19/24 Order Info: [id number] - CMP Order Info: [id number] - LIPID Order Info: [id number] - TSH Result Comment: For patients on eltrombopag therapy, use of Dimension [place] TBIL is not recommended. Performed By: #### L 500.4100, L100.0100, L501.9520, L501.9985, L506.1000, L502.0250, L500.4050 #### [facility] [address] [place], [address] BUN/CRE 19.7 RATIO Normal 10-20 [facility] Comment on above: Order Comment: Order Date: 07/19/24 Order Info: [id number] - CMP Order Info: - LIPID Order Info: [id number] - TSH Performed By: #### L 500.4100, L100.0100, L501.9520, L501.9985, L506.1000, L502.0250, L500.4050 #### [facility] [address] [place], [address] CA,Total 10.1 mg/dL Normal 8.5-10.1 [facility] Comment on above: Order Comment: Order Date: 07/19/24 Order Info: [id number] - CMP Order Info: - LIPID Order Info: [id number] - TSH Performed By: #### L 500.4100, L100.0100, L501.9520, L501.9985, L506.1000, L502.0250, L500.4050 #### [facility] [address] [place], [address] Chloride [Moles/Vol] 107 mmol/L Normal 98-107 [facility] Comment on above: Order Comment: Order Date: 07/19/24 Order Info: [id number] - CMP Order Info: - LIPID Order Info: [id number] - TSH Performed By: #### L 500.4100, L100.0100, L501.9520, L501.9985, L506.1000, L502.0250, L500.4050 #### [facility] [address] [place], [address] CO2 [Moles/Vol] 23.0 mmol/L Normal 21.0-32.0 [facility] Comment on above: Order Comment: Order Date: 07/19/24 Order Info: [id number] - CMP Order Info: - LIPID Order Info: 3 - TSH Performed By: #### L 500.4100, L100.0100, L501.9520, L501.9985, L506.1000, L502.0250, L500.4050 #### [facility] [address] [place], [address] Creatinine [Mass/Vol] 1.52 mg/dL High 0.55-1.02 [facility] Comment on above: Order Comment: Order Date: 07/19/24 Order Info: [id number] - CMP Order Info: [id number] - LIPID Order Info: [id number] - TSH Result Comment: The validity of the calculated GFR GFRAA in patients over 70 years has not been determined. Clinical correlation is essential. Performed By: #### L 500.4100, L100.0100, L501.9520, L501.9985, L506.1000, L502.0250, L500.4050 #### [facility] [address] [place], [address] EST GFR - AA 42 mL/min Low >60 [facility] Comment on above: Order Comment: Order Date: 07/19/24 Order Info: [id number] - CMP Order Info: [id number] - LIPID Order Info: 6-3 - TSH Result Comment: Afri can Mongolian GFR Calc Performed By: #### L 500.4100, L100.0100, L501.9520, L501.9985, L506.1000, L502.0250, L500.4050 #### [facility] [address] [place], [address] GAP 8 Normal 5-15 [facility] Comment on above: Order Comment: Order Date: 07/19/24 Order Info: [id number]- - CMP Order Info: [id number] - LIPID Order Info: [id number] - TSH Performed By: #### L 500.4100, L100.0100, L501.9520, L501.9985, L506.1000, L502.0250, L500.4050 #### [facility] [address] [place], [address] GFR/1.73 sq M.predicted among non-blacks MDRD (S/P/Bld) [Vol rate/Area] 35 mL/min/{1.73_m2} Low >60 [facility] Comment on above: Order Comment: Order Date: 07/19/24 Order Info: [id number] - CMP Order Info: [id number] - LIPID Order Info: [id number] - TSH Result Comment: Non- GFR Calc Performed By: #### L 500.4100, L100.0100, L501.9520, L501.9985, L506.1000, L502.0250, L500.4050 #### [facility] [address] [place], [address] Globulin (S) [Mass/Vol] 4.5 g/dL High 2.2-4.2 [facility] Comment on above: Order Comment: Order Date: 07/19/24 Order Info: [id number] - CMP Order Info: [id number] - LIPID Order Info: [id number] - TSH Performed By: #### L 500.4100, L100.0100, L501.9520, L501.9985, L506.1000, L502.0250, L500.4050 #### [facility] [address] [place], [address] Glucose [Mass/Vol] 113 mg/dL High 74-106 [facility] Comment on above: Order Comment: Order Date: 07/19/24 Order Info: [id number] - CMP Order Info: [id number] - LIPID Order Info: [id number] - TSH Result Comment: Fast ing Glucose result from 100 to 125 mg/dL suggests IMPAIRED HOMEOSTASIS per A.D.A. criteria. Performed By: #### L 500.4100, L100.0100, L501.9520, L501.9985, L506.1000, L502.0250, L500.4050 #### [facility] [address] [place], [address] Potassium [Moles/Vol] 3.8 mmol/L Normal 3.5-5.1 [facility] Comment on above: Order Comment: Order Date: 07/19/24 Order Info: [id number] - CMP Order Info: - LIPID Order Info: 3 - TSH Performed By: #### L 500.4100, L100.0100, L501.9520, L501.9985, L506.1000, L502.0250, L500.4050 #### [facility] [address] [place], [address] Sodium [Moles/Vol] 138 mmol/L Normal 136-145 [facility] Comment on above: Order Comment: Order Date: 07/19/24 Order Info: [id number] - CMP Order Info: - LIPID Order Info: [id number] - TSH Performed By: #### L 500.4100, L100.0100, L501.9520, L501.9985, L506.1000, L502.0250, L500.4050 #### [facility] [address] [place], [address] T PROT 8.2 g/dL Normal 6.4-8.2 [facility] Comment on above: Order Comment: Order Date: 07/19/24 Order Info: [id number] - CMP Order Info: - LIPID Order Info: [id number] - TSH Performed By: #### L 500.4100, L100.0100, L501.9520, L501.9985, L506.1000, L502.0250, L500.4050 #### [facility] [address] [place], [address] Urea nitrogen [Mass/Vol] 30 mg/dL High 7-18 [facility] Comment on above: Order Comment: Order Date: 07/19/24 Order Info: [id number] - CMP Order Info: - LIPID Order Info: [id number] - TSH Performed By: #### L 500.4100, L100.0100, L501.9520, L501.9985, L506.1000, L502.0250, L500.4050 #### [facility] [address] [place], [address] Eosinophil percentageOrdered By: Keshia Johnson on 07-19-2024 Eosinophils/100 WBC (Bld) 3.0 % 0-5 [facility] Erythrocyte distribution wid th ratioOrdered By: Keshia Johnson on 07-19-2024 Erythrocyte distribution width (RBC) [Ratio] 12.2 % 11.6-14.6 [facility] Erythrocyte distribution wid th standard deviationOrdered By: [facility] Elizabeth on 07-19-2024 Erythrocyte distribution width (RBC) [Entitic vol] 41.7 fL 35.1-43.9 [facility] Estimated glomerular filtrat ion rate (GFR) AmericanOrdered By: Keshia Johnson on 07-19-2024 Estimated GFR (MDRD) Amer 42 mL/min Low >60 [facility] Comment on above: GFR Calc Glomerular filtration rate ( GFR) estimationOrdered By: Keshia Johnson on 07-19-2024 Estimated GFR (MDRD) Non-Af Amer 35 mL/min Low >60 [facility] Comment on above: Non- GFR Calc Glucose measurementOrdered B y: Keshia Johnson on 07-19-2024 Glucose [Mass/Vol] 113 mg/dL High 74-106 [facility] Comment on above: Fasting Glucose resu lt from 100 to 125 mg/dL suggests IMPAIRED HOMEOSTASIS per A.D.A. criteria. Hematocrit Auto (Bld) [Volum e fraction]Ordered By: Keshia Johnson on 07-19-2024 Hematocrit (Bld) [Volume fraction] 33.4 % Low 37-47 [facility] Hemoglobin [id number] By: Elsie Johnson on 07-19-2024 HbA1c (Bld) [Mass fraction] 6.2 % High 3.8-5.6 [facility] Comment on above: Order Comment: Order Date: 07/19/24Order Info: [id number] - A1C Result Comment: Norm al < 5.7 % Prediabetic 5.7 - 6.4 % Diabetic >or= 6.5 % Please note range changes. Performed By: #### L 500.4100, L100.0100, L501.1238, L501.9955, L506.1000, L502.0250, L500.4050 ####[facility] [address] [place], [place], [id number] Normal < 5.7 % Predi abetic 5.7 - 6.4 % Diabetic >or= 6.5 % Please note range changes. Hemoglobin measurementOrdere d By: Keshia Romanke on 07-19-2024 Hemoglobin (Bld) [Mass/Vol] 11.0 g/dL Low 12.0-15.0 [facility] High density lipoprotein (HD L) measurementOrdered By: [facility] on 07-19-2024 Cholesterol in HDL [Mass/Vol] 65 mg/dL >40 [facility] Comment on above: The drugs N-Acetylcy steine and Metamizole may falsely depress this assay. Reference Range HDL <40 mg/dL Low HDL Cholesterol HDL >or= 60 mg/dL High HDL Cholesterol Immature granulocytes/100 WB C Auto (Bld)Ordered By: Keshia Elizabeth on 07-19-2024 Immature granulocytes/100 WBC (Bld) 0.300 % 0.0-0.9 [facility] Comment on above: IG% - Immature Granu locytes (promyelocytes, myelocytes and metamyelocytes) > 1% indicates that a LEFT SHIFT is Present. Laboratory - Chemistry and C hemistry - challengeOrdered By: Nitinmaya Johnson on 07-19-2024 AST [Catalytic activity/Vol] 28 U/L 15-37 [facility] Lipid Profileon 07-19-2024 Cholesterol [Mass/Vol] 243 mg/dL High 200 [facility] Comment on above: Order Comment: Order Date: 07/19/24 Order Info: [id number] - CMP Order Info: [id number] - LIPID Order Info: [id number] - TSH Result Comment: <200 mg/dL Desirable 200-240 mg/dL Borderline >240 mg/dL High Risk Performed By: #### L 500.4100, L100.0100, L501.9520, L501.9985, L506.1000, L502.0250, L500.4050 #### [facility] [address] [place], [address] Cholesterol in HDL [Mass/Vol] 65 mg/dL Normal [facility] Comment on above: Order Comment: Order Date: 07/19/24 Order Info: [id number] - CMP Order Info: [id number] - LIPID Order Info: [id number] - TSH Result Comment: The drugs N-Acetylcysteine and Metamizole may falsely depress this assay. Reference Range HDL <40 mg/dL Low HDL Cholesterol HDL >or= 60 mg/dL High HDL Cholesterol Performed By: #### L 500.4100, L100.0100, L501.9520, L501.9985, L506.1000, L502.0250, L500.4050 #### [facility] [address] [place], [address] Cholesterol in LDL [Mass/Vol] 117 mg/dL Normal 0-130 [facility] Comment on above: Order Comment: Order Date: 07/19/24 Order Info: [id number] - CMP Order Info: [id number] - LIPID Order Info: [id number] - TSH Performed By: #### L 500.4100, L100.0100, L501.9520, L501.9985, L506.1000, L502.0250, L500.4050 #### [facility] [address] [place], [address] Cholesterol in VLDL [Mass/Vol] 61 mg/dL High 5-40 [facility] Comment on above: Order Comment: Order Date: 07/19/24 Order Info: [id number] - CMP Order Info: [id number] - LIPID Order Info: [id number] - TSH Performed By: #### L 500.4100, L100.0100, L501.9520, L501.9985, L506.1000, L502.0250, L500.4050 #### [facility] [address] [place], [address] Triglyceride [Mass/Vol] 306 mg/dL High [facility] Comment on above: Order Comment: Order Date: 07/19/24 Order Info: [id number] - CMP Order Info: [id number] - LIPID Order Info: [id number] - TSH Result Comment: The drugs N-Acetylcysteine and Metamizole may falsely depress this assay. Serum Triglycerides Reference Interval Normal <150 mg/dL Borderline high 150 - 199 mg/dL High 200 - 499 mg/dL Very High > or = 500 mg/dL Performed By: #### L 500.4100, L100.0100, L501.9520, L501.9985, L506.1000, L502.0250, L500.4050 #### [facility] [address] [place], [place], [id number] Low density lipoprotein (LDL ) cholesterol measurementOrdered By: Keshia Johnson on 07-19-2024 Cholesterol in LDL [Mass/Vol] 117 mg/dL 0-130 [facility] Lymphocytes Auto (Unsp spec) [#/Vol]Ordered By: Keshia Johnson on 07-19-2024 Lymphocytes (Bld) [#/Vol] 1.59 10*3/uL 0.83-4.51 [facility] Lymphocytes/100 WBC Auto (Un sp spec)Ordered By: Keshia Johnson on 07-19-2024 Lymphocytes/100 WBC (Bld) 26.6 % 19-41 [facility] MCV (mean corpuscular volume ) determinationOrdered By: Keshia Johnson on 07-19-2024 MCV (RBC) [Entitic vol] 92.0 fL 81-99 [facility] Mean corpuscular hemoglobin (MCH) determinationOrdered By: Keshia Johnson on 07-19-2024 MCH (RBC) [Entitic mass] 30.3 pg 27.0-32.0 [facility] Mean corpuscular hemoglobin concentration (MCHC) determinationOrdered By: Keshia Johnson on 07-19-2024 MCHC (RBC) [Mass/Vol] 32.9 g/dL 32-36 [facility] Mean platelet volume determi nationOrdered By: Keshia Johnson on 07-19-2024 Platelet mean volume (Bld) [Entitic vol] 10.0 fL 6.2-12.0 [facility] Microalb:Creat Ratio,Random URon 07-19-2024 MALB:CRE Normal <30 mg/g CRE [facility] Comment on above: Order Comment: Order Date: 07/19/24 Order Info: [id number] - MIACRE Result Comment: EBONI KEYS DID IN OFFICE Performed By: #### L 500.4100, L100.0100, L501.9520, L501.9985, L506.1000, L502.0250, L500.4050 #### [facility] [address] [place], [address] MICROALBUMIN,UR Normal NO RANGE EST. [facility] Comment on above: Order Comment: Order Date: 07/19/24 Order Info: [id number] - MIACRE Result Comment: EBOIN KEYS DID IN OFFICE Performed By: #### L 500.4100, L100.0100, L501.9520, L501.9985, L506.1000, L502.0250, L500.4050 #### [facility] [address] [place], [address] UR CREAT Normal NO RANGE EST. [facility] Comment on above: Order Comment: Order Date: 07/19/24 Order Info: [id number] - MIACRE Result Comment: EBONI KEYS DID IN OFFICE Performed By: #### L 500.4100, L100.0100, L501.9520, L501.9985, L506.1000, L502.0250, L500.4050 #### [facility] [address] [place], [address] Monocyte percentageOrdered B y: Keshia Johnson on 07-19-2024 Monocytes/100 WBC (Bld) 7.4 % 0-10 [facility] Neutrophil percentageOrdered By: Keshia Johnson on 07-19-2024 Neutrophils/100 WBC (Bld) 62.2 % 47-70 [facility] Nucleated red blood cell per centageOrdered By: Keshia Johnson on 07-19-2024 Nucleated RBC/100 WBC (Bld) [Ratio] 0 % 0-5 [facility] Platelet countOrdered By: Elsie Johnson on 07-19-2024 Platelets (Bld) [#/Vol] 355 10*3/uL 150-450 [facility] Potassium measurementOrdered By: Keshia Johnson on 07-19-2024 Potassium [Moles/Vol] 3.8 mmol/L 3.5-5.1 [facility] RBC Auto (Bld) [#/Vol]Ordere d By: Keshia Johnson on 07-19-2024 RBC (Bld) [#/Vol] 3.63 10*6/uL Low 4.2-5.4 [facility] Serum anion gap measurementO rdered By: Keshia Johnson on 07-19-2024 Anion gap [Moles/Vol] 8 mmol/L 5-15 [facility] Serum globulin measurementOr dered By: Keshia Johnson on 07-19-2024 Globulin (S) [Mass/Vol] 4.5 g/dL High 2.2-4.2 [facility] Serum or plasma alanine vazquez otransferase (ALT) measurementOrdered By: Keshia Johnson on 07-19-2024 ALT [Catalytic activity/Vol] 39 U/L 13-56 [facility] Serum or plasma albumin yung urement (mass/volume)Ordered By: Keshia Johnson on 07-19-2024 Albumin [Mass/Vol] 3.7 g/dL 3.2-5.0 [facility] Serum or plasma alkaline roni sphatase measurementOrdered By: Keshia Johnson on 07-19-2024 ALP [Catalytic activity/Vol] 118 U/L High 45-117 [facility] Serum or plasma calcium yung urement (mass/volume)Ordered By: Keshia Johnson on 07-19-2024 Calcium [Mass/Vol] 10.1 mg/dL 8.5-10.1 [facility] Serum or plasma cholesterol measurement (mass/volume)Ordered By: Keshia Johsnon on 07-19-2024 Cholesterol [Mass/Vol] 243 mg/dL High <200 [facility] Comment on above: <200 mg/dL Desirable 200-240 mg/dL Borderline >240 mg/dL High Risk Serum or plasma creatinine m easurement (mass/volume)Ordered By: Keshia Johnson on 07-19-2024 Creatinine [Mass/Vol] 1.52 mg/dL High 0.55-1.02 [facility] Comment on above: The validity of the calculated GFR & GFRAA in patients over 70 years has not been determined. Clinical correlation is essential. Serum or plasma urea nitroge n measurement (mass/volume)Ordered By: Keshia Johnson on 07-19-2024 Urea nitrogen [Mass/Vol] 30 mg/dL High 7-18 [facility] Sodium levelOrdered By: Nitin Johnson on 07-19-2024 Sodium [Moles/Vol] 138 mmol/L 136-145 [facility] TSH QnOrdered By: Keshia payton on 07-19-2024 Thyroid Stimulating Hormone (TSH) 1.550 uIU/mL 0.358-3.74 0 [facility] Thyroid Stim Hormone (TSH)on 07-19-2024 TSH 1.550 uIU/mL Normal 0.358-3.74 0 [facility] Comment on above: Order Comment: Order Date: 07/19/24 Order Info: [id number] - CMP Order Info: [id number] - LIPID Order Info: [id number] - TSH Performed By: #### L 500.4100, L100.0100, L501.9520, L501.9985, L506.1000, L502.0250, L500.4050 #### [facility] [address] [place], [place], [id number] Total proteinOrdered By: Irasema Johnson on 07-19-2024 Protein [Mass/Vol] 8.2 g/dL 6.4-8.2 [facility] Triglycerides measurementOrd ered By: Keshia Johnson on 07-19-2024 Triglyceride [Mass/Vol] 306 mg/dL High <199 [facility] Comment on above: The drugs N-Acetylcy steine and Metamizole may falsely depress this assay.Serum Triglycerides Reference Interval Normal <150 mg/dL Borderline high 150 - 199 mg/dL High 200 - 499 mg/dL Very High > or = 500 mg/dL Very low density lipoprotein (VLDL) cholesterol measurementOrdered By: Ksehia Johnson on 07-19-2024 VLDL Cholesterol 61 mg/dL High 5-40 [facility] Vitamin D,25 Hydroxyon 07-19 Vitamin D 25-OH 55.8 ng/mL Normal [facility] Comment on above: Order Comment: Order Date: 07/19/24 Order Info: [id number] - VITD25 Result Comment: Landy min D 25(OH) Status Range Deficiency <20 ng/mL (50nmol/L) Insufficiency 20 - 30 ng/mL (50 - 75 nmol/L) Sufficiency 30 - 100 ng/mL (75 - 250 nmol/L) Toxicity >100 ng/mL (>250 nmol/L) Performed By: #### L 500.4100, L100.0100, L501.9520, L501.9985, L506.1000, L502.0250, L500.4050 #### [facility] [address] [place], [place], [address] White blood cell (WBC) count Ordered By: Keshia Johnson on 07-19-2024 WBC (Bld) [#/Vol] 6.0 10*3/uL 4.4-11.0 [facility] Basophil percentageOrdered B y: Shana Dinorah on 07-03-2023 Bilirubin [Mass/Vol] 0.30 mg/dL 0.20-1.00 [facility] Comment on above: For patients on eltr ombopag therapy, use of Dimension [place] TBIL is not recommended. Chloride [Moles/Vol] 105 mmol/L 98-107 [facility] Cholesterol [Mass/Vol] 120 mg/dL <200 [facility] Comment on above: <200 mg/dL Desirable 200-240 mg/dL Borderline >240 mg/dL High Risk Glucose [Mass/Vol] 125 mg/dL 74-106 [facility] Comment on above: Fasting Glucose resu lt from 100 to 125 mg/dL suggests IMPAIRED HOMEOSTASIS per A.D.A. criteria. Potassium [Moles/Vol] 3.5 mmol/L 3.5-5.1 [facility] Protein [Mass/Vol] 8.5 g/dL 6.4-8.2 [facility] Sodium [Moles/Vol] 140 mmol/L 136-145 [facility] Triglyceride [Mass/Vol] 135 mg/dL <199 [facility] Comment on above: The drugs N-Acetylcy steine and Metamizole may falsely depress this assay.Serum Triglycerides Reference Interval Normal <150 mg/dL Borderline high 150 - 199 mg/dL High 200 - 499 mg/dL Very High > or = 500 mg/dL Laboratory - Chemistry and C hemistry - challengeOrdered By: Shana Copeland on 07-03-2023 ALP [Catalytic activity/Vol] 126 U/L 45-117 [facility] ALT [Catalytic activity/Vol] 33 U/L 13-56 [facility] CO2 [Moles/Vol] 26.0 mmol/L 21.0-32.0 [facility] Globulin (S) [Mass/Vol] 5.0 g/dL 2.2-4.2 [facility] Urea nitrogen/Creatinine [Mass ratio] 12.2 mg/mg 10-20 [facility] No Panel InformationOrdered By: Shana Copeland on 07-03-2023 Estimated GFR (MDRD) Amer 59 mL/min >60 [facility] Comment on above: GFR Calc Estimated GFR (MDRD) Non-Af Amer 48 mL/min >60 [facility] Comment on above: Non- GFR Calc Urine Microalbumin/Creatinin e Ratio 249.1 mg/g CRE <30 [facility] Serum or plasma albumin yung urement (mass/volume)Ordered By: Shana Copeland on 07-03-2023 Albumin [Mass/Vol] 3.5 g/dL 3.2-5.0 [facility] Serum or plasma albumin/glob ulin mass ratioOrdered By: Shana Copeland on 07-03-2023 Albumin/Globulin [Mass ratio] 0.7 {ratio} 0.9-2.4 [facility] Serum or plasma calcium yung urement (mass/volume)Ordered By: Shana Copeland on 07-03-2023 Calcium [Mass/Vol] 10.0 mg/dL 8.5-10.1 [facility] Serum or plasma cholesterol in HDL measurement (mass/volume)Ordered By: Shana Copeland on 12-04-2023 Cholesterol in HDL [Mass/Vol] 66 mg/dL >40 [facility] Comment on above: The drugs N-Acetylcy steine and Metamizole may falsely depress this assay. Reference Range HDL <40 mg/dL Low HDL Cholesterol HDL >or= 60 mg/dL High HDL Cholesterol Serum or plasma cholesterol in VLDL measurement (mass/volume)Ordered By: Shana Copeland on 07-03-2023 Cholesterol in VLDL [Mass/Vol] 27 mg/dL 5-40 [facility] Serum or plasma creatinine m easurement (mass/volume)Ordered By: Shana Copeland on 07-03-2023 Creatinine [Mass/Vol] 1.15 mg/dL 0.55-1.02 [facility] Comment on above: The validity of the calculated GFR & GFRAA in patients over 70 years has not been determined. Clinical correlation is essential. Serum or plasma low density lipoprotein (LDL) cholesterol measurement (mass/volume)Ordered By: Shana Copeland on 07-03-2023 Cholesterol in LDL [Mass/Vol] 27 mg/dL 0-130 [facility] Serum or plasma urea nitroge n measurement (mass/volume)Ordered By: Shana Copeland on 07-03-2023 Urea nitrogen [Mass/Vol] 14 mg/dL 7-18 [facility] Thin prep Papanicolaou smear with manual screeningOrdered By: Shana Copeland on 07-03-2023 Thin prep Papanicolaou smear with manual screening 28 U/L 15-37 [facility] Thin prep Papanicolaou smear with manual screening 9 5-15 [facility] Thin prep Papanicolaou smear with manual screening 69.0 mg/L NO RANGE EST. [facility] Urine creatinine measurement (mass/volume)Ordered By: Shana Copeland on 07-03-2023 Creatinine (U) [Mass/Vol] 27.70 mg/dL NO RANGE EST. [facility] Bacteria identified Cx Nom ( Wound)Ordered By: Dr. Montoya on 09-02-2022 Wound Culture Staphylococcus aureus [facility] Gram stain for investigation of transfusion reactionOrdered By: Dr. Montoya on 09-01-2022 Microscopic observation Gram stain Nom (Unsp spec) [facility] No Panel InformationOrdered By: Dr. Montoya on 08-31-2022 Methicillin-Resist S.aureus DNA PCR Negative Negative [facility] Staphylococcus aureus DNA de tection by probe and target amplification methodOrdered By: Dr. Monotya on 08-31-2022 S. aureus DNA TOM+probe Ql (Unsp spec) Positive Negative [facility] Absolute lymphocyte counton 04-25-2022 Lymphocytes Auto (Unsp spec) [#/Vol] 1.45 10*3/uL 0.83-4.51 [facility] Work Phone: [phone] Basophil percentageon 2021 Basophils/100 WBC (Bld) 0.5 % 0-1 [facility] Work Phone: Bilirubin [Mass/Vol] 0.40 mg/dL 0.20-1.00 [facility] Work Phone: Comment on above: For patients on eltr ombopag therapy, use of Dimension [place] TBIL is not recommended. Chloride [Moles/Vol] 106 mmol/L 98-107 [facility] Work Phone: Eosinophils/100 WBC (Bld) 4.9 % 0-5 [facility] Work Phone: Glucose [Mass/Vol] 144 mg/dL 74-106 [facility] Work Phone: Comment on above: Fasting Glucose resu lt greater than or equal to 126 mg/dL suggests DIABETES MELLITUS per A.D.A. criteria. Neutrophils (Bld) [#/Vol] 4.1 10*3/uL 2.0-7.7 [facility] Work Phone: Neutrophils/100 WBC (Bld) 64.5 % 47-70 [facility] Work Phone: Potassium [Moles/Vol] 3.5 mmol/L 3.5-5.1 [facility] Work Phone: Protein [Mass/Vol] 8.7 g/dL 6.4-8.2 [facility] Work Phone: [phone] Sodium [Moles/Vol] 142 mmol/L 136-145 [facility] Work Phone: WBC (Bld) [#/Vol] 6.4 10*3/uL 4.4-11.0 [facility] Work Phone: Blood erythrocytes count (nu mber/volume)on 04-25-2022 RBC (Bld) [#/Vol] 3.86 10*6/uL 4.2-5.4 [facility] Work Phone: Blood hemoglobin measurement (mass/volume)on 04-25-2022 Hemoglobin (Bld) [Mass/Vol] 11.9 g/dL 12.0-15.0 [facility] Work Phone: Blood lymphocytes/100 leukoc yteson 04-25-2022 Lymphocytes/100 WBC (Bld) 22.8 % 19-41 [facility] Work Phone: Blood monocytes/100 leukocyt eson 04-25-2022 Monocytes/100 WBC (Bld) 7.1 % 0-10 [facility] Work Phone: Blood platelet mean volumeon 04-25-2022 Platelet mean volume (Bld) [Entitic vol] 10.7 fL 6.2-12.0 [facility] Work Phone: Determination of erythrocyte mean corpuscular volume (MCV)on 04-25-2022 MCV (RBC) [Entitic vol] 90.9 fL 81-99 [facility] Work Phone: Hematocrit Auto (Bld) [Volum e fraction]on 04-25-2022 Hematocrit (Bld) [Volume fraction] 35.1 % 37-47 [facility] Work Phone: Iron measurement (mass/mass) on 04-25-2022 Iron (Unsp spec) [Mass/Mass] 71 ug/dL 50-170 [facility] Work Phone: Laboratory - Chemistry and C hemistry - challengeon 04-25-2022 ALP [Catalytic activity/Vol] 110 U/L 45-117 [facility] Work Phone: ALT [Catalytic activity/Vol] 36 U/L 13-56 [facility] Phone: CO2 [Moles/Vol] 28.0 mmol/L 21.0-32.0 [facility] Work Phone: Globulin (S) [Mass/Vol] 4.7 g/dL 2.2-4.2 [facility] Work Phone: Urea nitrogen/Creatinine [Mass ratio] 13.0 mg/mg 10-20 [facility] Work Phone: Laboratory - Hematology and Cell countson 04-25-2022 Erythrocyte distribution width (RBC) [Entitic vol] 39.6 fL 35.1-43.9 [facility] Work Phone: Erythrocyte distribution width (RBC) [Ratio] 12.0 % 11.6-14.6 [facility] Work Phone: Immature granulocytes/100 WBC (Bld) 0.200 % 0.0-0.9 [facility] Work Phone: Comment on above: IG% - Immature Granu locytes (promyelocytes, myelocytes and metamyelocytes) > 1% indicates that a LEFT SHIFT is Present. MCH (RBC) [Entitic mass] 30.8 pg 27.0-32.0 [facility] Work Phone: Nucleated RBC/100 WBC (Bld) [Ratio] 0 % 0-5 [facility] Work Phone: MCHC Auto (RBC) [Mass/Vol]on 04-25-2022 MCHC (RBC) [Mass/Vol] 33.9 g/dL 32-36 [facility] Work Phone: No Panel Informationon 04-25 Estimated GFR (MDRD) Amer 59 mL/min >60 [facility] Work Phone: Comment on above: GFR Calc Estimated GFR (MDRD) Non-Af Amer 49 mL/min >60 [facility] Work Phone: Comment on above: Non- GFR Calc Thyroid Stimulating Hormone (TSH) 2.11 uIU/mL 0.358-3.74 [facility] Work Phone: Platelets bldon 04-25-2022 Platelets (Bld) [#/Vol] 297 10*3/uL 150-450 [facility] Work Phone: Serum or plasma albumin yung urement (mass/volume)on 04-25-2022 Albumin [Mass/Vol] 4.0 g/dL 3.2-5.0 [facility] Work Phone: Serum or plasma albumin/glob ulin mass ratioon 04-25-2022 Albumin/Globulin [Mass ratio] 0.9 {ratio} 0.9-2.4 [facility] Work Phone: Serum or plasma calcium yung urement (mass/volume)on 04-25-2022 Calcium [Mass/Vol] 9.8 mg/dL 8.5-10.1 [facility] Work Phone: Serum or plasma creatinine m easurement (mass/volume)on 04-25-2022 Creatinine [Mass/Vol] 1.15 mg/dL 0.55-1.02 [facility] Work Phone: Comment on above: The validity of the calculated GFR & GFRAA in patients over 70 years has not been determined. Clinical correlation is essential. Serum or plasma ferritin ynes surement (mass/volume)on 04-25-2022 Ferritin [Mass/Vol] 38 ng/mL 8-252 [facility] Work Phone: Serum or plasma urea nitroge n measurement (mass/volume)on 04-25-2022 Urea nitrogen [Mass/Vol] 15 mg/dL 7-18 [facility] Work Phone: Thin prep Papanicolaou smear with manual screeningon 04-25-2022 Thin prep Papanicolaou smear with manual screening 25 U/L 15-37 [facility] Work Phone: Thin prep Papanicolaou smear with manual screening 8 5-15 [facility] Work Phone: Lab Report: Bedside Glucoseo n 12-23-2016 Glucose 178 mg/dL High 70-110 [facility] Work Phone: Office Visit: Colonoscopy [place] 12-13-2016 Documentation of current medications (procedure) Done Invalid Interpretation Code [facility] [employer] Work Phone: Fall risk assessment No Invalid Interpretation Code [facility] [employer] Work Phone: Tobacco smoking status NHIS Never Invalid Interpretation Code [facility] [employer] Work Phone: Tobacco use CPHS Never smoker Invalid Interpretation Code [facility] [employer] Work Phone: Office Visit: Colonoscopy [place] 08-03-2015 Breast Mammogram screening Normal Bilateral Invalid Interpretation Code [facility] [employer] Work Phone: [facility] Colonoscopy (procedure) Abnormal Invalid Interpretation Code [facility] [employer] Work Phone: Vital Signs Date Time Vital Sign Value Performing Clinician Facility 10-04-2024 09:10-0500 Body temperature 97 [degF] Keshia Johnson MD Work Phone: [facility] 10-04-2024 09:10-0500 Diastolic blood pressure 83 mm[Hg] Keshia Johnson MD Work Phone: [facility] 10-04-2024 09:10-0500 Heart rate 52 /min Keshia Johnson MD Work Phone: [facility] 10-04-2024 09:10-0500 Respiratory rate 16 /min Keshia Johnson MD Work Phone: [facility] 10-04-2024 09:10-0500 SaO2% (BldA) [Mass fraction] 93 % Keshia Johnson MD Work Phone: [facility] 10-04-2024 09:10-0500 Systolic blood pressure 98 mm[Hg] Keshia Johnson MD Work Phone: [facility] 10-04-2024 06:49-0500 Body height 147.32 cm Keshia Johnson MD Work Phone: [facility] 10-04-2024 06:49-0500 Body mass index (BMI) [Ratio] 21.7 kg/m2 Keshia Johnson MD Work Phone: [facility] 10-04-2024 06:49-0500 Body weight 47 kg Keshia Johnson MD Work Phone: [facility] 09-30-2024 10:26-0500 Body temperature 97.9 [degF] Keshia Johnson MD Work Phone: [facility] 09-30-2024 10:26-0500 Diastolic blood pressure 82 mm[Hg] Keshia Johnson MD Work Phone: [facility] 09-30-2024 10:26-0500 Heart rate 83 /min Keshia Johnson MD Work Phone: [facility] 09-30-2024 10:26-0500 SaO2% (BldA) [Mass fraction] 99 % Keshia Johnson MD Work Phone: [facility] 09-30-2024 10:26-0500 Systolic blood pressure 122 mm[Hg] Keshia Johnson MD Work Phone: [facility] 09-05-2024 08:28-0500 Body mass index (BMI) [Ratio] 21.7 kg/m2 Keshia Johnson MD Work Phone: [facility] 09-05-2024 08:28-0500 Body temperature 97.6 [degF] Keshia Johnson MD Work Phone: [facility] 09-05-2024 08:28-0500 Body weight 47.17 kg Keshia Johnson MD Work Phone: [facility] 09-05-2024 08:28-0500 Diastolic blood pressure 83 mm[Hg] Keshia Johnson MD Work Phone: [facility] 09-05-2024 08:28-0500 Heart rate 76 /min Keshia Johnson MD Work Phone: [facility] 09-05-2024 08:28-0500 Respiratory rate 18 /min Keshia Johnson MD Work Phone: [facility] 09-05-2024 08:28-0500 SaO2% (BldA) [Mass fraction] 100 % Keshia Johnson MD Work Phone: [facility] 09-05-2024 08:28-0500 Systolic blood pressure 175 mm[Hg] Keshia Johnson MD Work Phone: [facility] 08-03-2024 12:22-0500 Body temperature 98 [degF] Keshia Johnson MD Work Phone: [facility] 08-03-2024 12:22-0500 Diastolic blood pressure 81 mm[Hg] Keshia Johnson MD Work Phone: [facility] 08-03-2024 12:22-0500 Heart rate 81 /min Keshia Johnson MD Work Phone: [facility] 08-03-2024 12:22-0500 Respiratory rate 16 /min Keshia Johnson MD Work Phone: [facility] 08-03-2024 12:22-0500 SaO2% (BldA) [Mass fraction] 99 % Keshia Johnson MD Work Phone: [facility] 08-03-2024 12:22-0500 Systolic blood pressure 179 mm[Hg] Keshia Johnson MD Work Phone: [facility] 08-03-2024 09:13-0500 Body mass index (BMI) [Ratio] 21.6 kg/m2 Keshia Johnson MD Work Phone: [facility] 08-03-2024 09:13-0500 Body weight 48.53 kg Keshia Johnson MD Work Phone: [facility] 09-16-2022 20:38-0500 Diastolic blood pressure 74 mm[Hg] [facility] 09-16-2022 20:38-0500 Heart rate 71 /min [facility] 09-16-2022 20:38-0500 Respiratory rate 18 /min [facility] 09-16-2022 20:38-0500 SaO2% (BldA) [Mass fraction] 97 % [facility] 09-16-2022 20:38-0500 Systolic blood pressure 173 mm[Hg] [facility] 09-16-2022 15:34-0500 Body height 149.[address] [facility] 09-16-2022 15:34-0500 Body mass index (BMI) [Ratio] 20.7 kg/m2 [facility] 09-16-2022 15:34-0500 Body temperature 97 [degF] [facility] 09-16-2022 15:34-0500 Body weight 46.[address] [facility] 12-13-2016 09:12-0400 BMI (Body Mass Index) 23.41 kg/m2 Yu Bar RN RN [facility] [employer] [facility] [facility] Work Phone: 12-13-2016 09:12-0400 Body Temperature 98.2 [degF] Yu Bar RN RN [facility] Work Phone: 12-13-2016 09:12-0400 BP Diastolic 71 mm[Hg] Yu Bar RN RN [facility] Work Phone: 12-13-2016 09:12-0400 BP Systolic 153 mm[Hg] Yu Bar RN RN [facility] Work Phone: 12-13-2016 09:12-0400 BSA (Body Surface Area) 1.42 m2 Yu Bar RN RN [facility] Work Phone: 12-13-2016 09:12-0400 Height 147.32 cm Yu Bar RN RN [facility] Work Phone: 12-13-2016 09:12-0400 Pulse (Heart Rate) 82 /min Yu Bar RN RN [facility] Work Phone: 12-13-2016 09:12-0400 Pulse Oximetry 98 % Yu Bar RN RN [facility] Work Phone: 12-13-2016 09:12-0400 Respiratory Rate 16 /min Yu Bra RN RN [facility] Work Phone: 12-13-2016 09:12-0400 Weight 50.8 kg Yu Bar RN RN [facility] Work Phone: Encounters Encounter Date Encounter Type Care Provider Facility Start: 10-04-2024 ambulatory [facility] Facility:[facility] Start: 10-04-2024 Non-patient / Non-visit Dr. Lico Hunt MD -[facility] Start: 10-04-2024 End: 10-04-2024 Admission to same day surgery center Dr. Lico Hunt MD -Endoscopy Work Phone: Start: 10-04-2024 End: 10-04-2024 ambulatory [facility] Facility:[facility] Start: 09-30-2024 End: 09-30-2024 Patient encounter procedure Taj Cordova INTERIOR DECORATOR-C [facility] Work Phone: Start: 09-30-2024 End: 09-30-2024 ambulatory [facility] Facility:[facility] Start: 09-10-2024 End: 09-10-[address] Keshia Johnson MD -Outpatient Breast Imaging Work Phone: Start: 09-10-2024 End: [facility] Start: 09-05-2024 End: 09-05-[address] Lico Hunt MD -[facility] Work Phone: Start: 09-05-2024 End: 09-05-2024 ambulatory Lico Hunt Facility:[facility] Start: 08-03-2024 End: 08-03-2024 Emergency department patient visit Fritz Jennifer Facility:[facility] Start: 08-01-2024 End: 08-01-[address] Keshia Johnson MD -Outpatient Breast Imaging Work Phone: Start: 08-01-2024 End: 08-01-2024 ambulatory Keshia Johnson Facility:[facility] Start: 07-19-2024 End: 07-19-[address] Keshia Johnson MD -Laboratory, [place] Work Phone: Start: 07-19-2024 End: 07-19-2024 ambulatory Keshia Johnson Facility:[facility] Start: 07-06-2023 End: 07-06-2023 ambulatory [facility] Work Phone: Start: 07-06-2023 End: 07-06-2023 Patient encounter procedure [facility]-Outpatient Breast Imaging Work Phone: Start: 07-03-2023 End: 07-03-2023 ambulatory [facility] Work Phone: Start: 07-03-2023 End: 07-03-2023 Patient encounter procedure [facility] Start: 09-16-2022 End: 09-16-2022 Emergency department patient visit [facility]-Emergency Department Start: 08-31-2022 End: 08-31-2022 ambulatory [facility] Work Phone: Start: 08-31-2022 End: 08-31-2022 [facility] Start: 05-09-2022 End: 05-09-2022 ambulatory [facility] Work Phone: Start: 05-09-2022 End: 05-09-2022 Patient encounter procedure [facility]-Outpatient Breast Imaging Start: 04-25-2022 End: 04-25-2022 ambulatory [facility] Work Phone: Start: 04-25-2022 End: 04-25-2022 [facility] Procedures Date Procedure Procedure Detail Performing Clinician Start: 10-04-2024 Colonoscopy Keshia payton MD Work Phone: Start: 09-10-2024 Screening mammography Javon Johnson MD Work Phone: Start: 08-03-2024 X-ray of chest posteroanterior view Keshia Johnson MD Work Phone: Start: 07-19-2024 Plain X-ray abdomen Irasema Johnson MD Work Phone: Start: 07-06-2023 Screening mammography Start: 09-16-2022 Radiologic examinati on of knee Start: 05-09-2022 Screening mammography Start: 12-13-2016 End: 12-23-2016 Diagnostic colonoscopy Christophe florence MD Work Phone: Investigation of tra nsfusion reaction Microbial culture, routine Plan of Treatment Date Care Activity Detail Author Start: [facility]24 [facility] Start: 08-03-2024 [facility] Start: 08-03-2024 Incentive spirometry [facility] Start: 08-03-2024 [facility] Start: 12-23-2016 End: 12-23-2016 Appointment Appointment [facility] Work Phone: Start: 12-13-2016 End: 12-13-2016 Appointment Appointment [facility] Work Phone: Start: 12-13-2016 End: 12-13-2016 Appointment Appointment [facility] Work Phone: Start: 12-13-2016 End: 12-23-2016 Diagnostic colonoscopy Colonoscopy [facility] Work Phone: Colonoscopy [facility] Patient Education [facility] Work Phone: Patient referral [facility] Work Phone: [facility] Payers Date Payer Category Payer Medicare [id number] 2024 Self-pay [id number] 2009 Medicare [id number] Unknown [id number] 2.16.8 [id number] Unknown [id number] 2.16.8 [id number] Unknown [id number] 2.16.8 [id number] Unknown [id number] 2.16.8 [id number] Unknown [id number] 2.16.8 [id number] Unknown [id number] 2.16.8 [id number] Unknown [id number] 2.16.8 [id number] Unknown [id number] 2.16.8 [id number] Social History Date Type Detail Facility Start: 12-19-2016 End: 09-16-2022 Tobacco smoking status NHIS Unknown if ever smoked [facility] Start: 1945 Sex Assigned At Female [facility] Start: 10-02-2024 Tobacco smoking status NHIS Never smoked tobacco (finding) [facility] Start: 10-04-2024 Sex Female (finding) [facility] NEGATED: Highlighted row Not [facility] Medical Equipment Procedure Code Equipment Code Equipment Origin al Text Equipment Identifier Dates Blood Sugar Diagnostic (True Metrix Glucose Test Strip) strip Start: 09-05-2024 Lancets (Trueplu s Lancets) 33 gauge misc Start: 09-05-2024 Goals Date Patient Goal Desired Activity /State Mental Status Date Assessment Result Facility 10-04-2024 Cognitive function Voice/Name [facility] Work Phone: 08-03-2024 Cognitive function Voice/Name [facility] Work Phone: Clinical Notes 09-05-2024 to 10-04-2024 Note Date & Type Note Facility 10-04-2024 Consult note [facility] 10-04-2024 Consult note [facility] 10-04-2024 Procedure note [facility] 10-04-2024 Procedure note [facility] 10-04-2024 Procedure note [facility] 10-04-2024 Procedure note [facility] 10-04-2024 Consult note Note Date/Time October 04, 2024 6:37am [facility] Medical Records Department [address] [place] [id number] Pre-Anesthesia Evaluation 10/04/24 0636 MR#: [id number] Acct: [id number] Name: HAILEE STOLL Rep #:[id number] 2 : 1945 79 From: Jerry Hardin MD PCP: Dr. Keshia Johnson MD Status:REG SD C Y Race: C Location: [place] [address] ASA Classification* ASA Classification ASA Classification: 2 Assessment & Plan Anesthesia* Anesthesia Assessment Anesthesia Assessment: Discussed sedation and/or anesthesia options, risks, benefits, and alternatives with patient/parents/legal guardian/POA. Questions invited. The patient/parents/legal guardian/POA seems to understand and agrees to proceedwith anesthesia plan. Reviewed the physical assessment, medical history, allergy history and patient home medications list prior to surgery/procedure/anesthetic and documented any changes. Performed airway and anesthesia risk assessments. Anesthesia Type Anesthesia Type: MAC Anesthesia Focused Assessment* Airway Assessment Mouth opens: >3 cm Mallampati Score: II Focused Labs Anesthesia Preop lab: CBC WBC 6.0 K/mm3 (4.4-11.0) 07/19/24 10:54 07/19/24 RBC 3.63 M/mm3 (4.2-5.4) L 07/19/24 10:54 07/19/24 Hgb 11.0 g/dL (12.0-15.0) L 07/19/24 10:54 4 Hct 33.4 % (37-47) L 07/19/24 10:54 07/19/24 Plt Count 355 K/mm3 (150-450) 07/19/24 10:54 07/19/24 CHEMISTRY Potassium 3.8 mmol/L (3.5-5.1) 07/19/24 10:54 07/19/24 Sodium 138 mmol/L (136-145) 07/19/24 10:54 07/19/24 BUN 30 mg/dL (7-18) H 07/19/24 10:54 07/19/24 Creatinine 1.52 mg/dL (0.55-1.02) H 07/19/24 10:54 Glucose 113 mg/dL (74-106) H 07/19/24 10:54 07/19/24 POC Glucose 178 mg/dL (70-110) H 12/23/16 09:42 12/23/16 TSH 1.550 uIU/mL (0.358-3.740) 07/19/24 10:54 12/ COAG Pre-Assessment Diagnosis/Proposed Procedure Planned Operative Procedure(s): CSCOPE , EGD Anesthesia History Anesthesia History - director digital marketing: Anesthesia History - director digital marketing Hx Hospitalization No 10/02/24 12:27 Any Problems With Anesthesia No 10/02/24 12:27 Cholinesterase deficiency No 10/02/24 12:27 You/Your Family Experience No 10/02/24 12:27 fever (hyperthermia) with Relationship Recent Exposure to Contagious No 12/23/16 09:43 Disease Does patient have nerve No 10/02/24 12:27 stimulator Patient instructed to have device shut off --Does patient have Pacemaker or ICD? When Was Last Pacemaker Check QUESTION #4 FULL TEXT: You/Your Family Experience fever (hyperthermia) with Anesthesia Last Oral Intake Last Oral intake: Last Oral Intake NPO since Meds taken in AM with sips of water? Meds patient instructed to take am of surgery PONV PONV - director digital marketing: PONV - director digital marketing Female Yes 10/02/24 12:27 HX of Motion Sickness No 10/02/24 12:27 HX of N/V After Surgery No 10/02/24 12:27 Non-Smoker Yes 10/02/24 12:27 Duration of Surgery greater No 10/02/24 12:27 than 60 minutes Number of Risk Factors 2 10/02/24 12:27 PONV Score Moderate Risk 10/02/24 12:27 Height & Weight Height & Weight: Anesthesia: Height & Weight Height 4 ft 10 in 09/05/24 08:28 Respiratory Assessment Respiratory Assessment - director digital marketing: Respiratory Tract Infection Hx - director digital marketing Hx Respiratory Tract Infection No 10/02/24 12:27 STOP Sleep Apnea STOP Sleep Apnea - director digital marketing: STOP Sleep Apnea - director digital marketing Hx Hypertension Yes 10/02/24 12:27 Hx Sleep Apnea No 10/02/24 12:27 CPAP BIPAP Do you snore loudly (louder No 10/02/24 12:27 than talking or can be heard Do you often feel tired/ No 10/02/24 12:27 fatigued/ sleepy during daytime? Has anyone observed you stop No 10/02/24 12:27 breathing during sleep? STOP Results Negative 10/02/24 12:27 QUESTION #5 FULL TEXT : Do you snore loudly (louder than talking or can be heard through closed doors)? Tobacco Use History Tobacco Use History - director digital marketing: Tobacco Use History - director digital marketing Tobacco Use Smoking Status Never smoker 10/02/24 12:27 Hx Tobacco Use No 10/02/24 12:27 Years Smoking Packs Smoked per Day Smoking Cessation Date was within the last 15 years Hx Smoking Cessation Date Hx Smoking Cessation Counseling Hematologic Medial History Hematologic Hx - director digital marketing: Hematologic Medical Hx - production welder Hx of Blood Transfusion No 10/02/24 12:27 Hx of Transfusion in last 3 No 10/02/24 12:27 Months Date of Last Transfusion (if within last 3 months) Ever experience any problems No 10/02/24 12:27 with transfusion(s)? Specify any problems Hx of Preganancy in last 3 N/A 10/02/24 12:27 Months Nurse Filling Out Transfusion NBUCHER 10/02/24 12:27 & Questions: Date: 10/02/24 10/02/24 12:27 Time: 12:28 10/02/24 12:27 Patient unable to answer at this time (ie. confused, unrespo /Reproduction History /Reproductive History - director digital marketing: /Reproductive Hx- director digital marketing Hx Now No 10/02/24 12:27 Gestational Age (in weeks): EDC: Hx Hx Para Hx Section SAB No 10/02/24 12:27 PFSH Medical History Wears partial dentures Low iron Non-smoker Hordeolum externum left lower eyelid Diarrhea Black tarry stools Acid reflux Diabetes Hypertension Home Medications ?Medication ?Instructions ?Recorded ?Last Taken ?Type blood sugar diagnostic (True #10 ea 09/05/24 Unknown H istory Metrix Glucose Test Strip) glipizide 2.5 mg tablet, extended 2.5 mg PO QDAY 09/05 Unknown History release 24 hr lancets 33 gauge (TRUEplus Lancets) #100 ea 09/05/24 U nknown History lisinopril 20 1 tab PO BID 09/05/24 Unknow n History mg-hydrochlorothiazide 12.5 mg tablet metformin 500 mg tablet,extended 1,000 mg PO BID 09/05 Unknown History release 24 hr omeprazole 40 mg capsule,delayed 40 mg PO QDAY 5 Unknown History release trazodone 50 mg tablet 50 mg PO QHS 09/05/24 Unknow n History amlodipine 5 mg tablet 5 mg PO DAILY 09/30/24 Unkno wn History ferrous sulfate 325 mg (65 mg 325 mg PO QODAY 10/02/24 Unknown History iron) tablet (Feosol) Allergy/AdvReac Type Severity Reaction Status Date / Time No Known Allergies Allergy Verified 10/04/24 06:36 Surgical History History of colonoscopy History of appendectomy Social History Smoking Status: Never smoker alcohol intake: never substance use type: does not use Review of Systems (Anesthesia) ROS Narrative System reviewed and no additional complaints, except as documented. 10/04/24636 <Electronically signed by Jerry Hardin MD > Date _ Jerry Hardin MD Cosign Signature: Date CC: ~ Signed [facility] Work Phone: [phone]) 702-118003-07-2025 History and physical note [facility] Medical Records Department [address] [place] [address] History & Physical Exam 10/04/24 0748 MR#: [id number] Acct: [id number] Name: HAILEE STOLL Rep #:[id number] 3 : 1945 79 From: Lico Hunt MD PCP: Dr. Keshia Johnson MD Status:REG SD C Location: [place] [address] HPI - General General Date of Admission: 10/04/24 Date of Service: 10/04/24 Chief Complaint: Dark stools HPI Narrative The patient is an 79-year-old female who is being seen today for epigastric discomfort as well as nausea. She states that this started about a month ago shortly after she had a fall in the snow and subsequently broke several ribs on the right side. She discussed this with her PCP and it was suggested that she meet with general surgery to discuss possible EGD. It appears that her last colonoscopy was in 2017. This showed some diverticulosis but no other findings. She does state that her bowels have been much more loose recently. She does also noticed that her stools do seem much darker almost a black color. [facility] Medical History Wears partial dentures Low iron Non-smoker Hordeolum externum left lower eyelid Diarrhea Black tarry stools Acid reflux Diabetes Hypertension Home Medications ?Medication ?Instructions ?Recorded ?Last Taken ?Type blood sugar diagnostic (True #10 ea 09/05/24 Unknown H istory Metrix Glucose Test Strip) glipizide 2.5 mg tablet, extended 2.5 mg PO QDAY 09/0510/03/24 History release 24 hr lancets 33 gauge (TRUEplus Lancets) #100 ea 09/05/24 U nknown History lisinopril 20 1 tab PO BID 09/05/24 History mg-hydrochlorothiazide 12.5 mg tablet metformin 500 mg tablet,extended 1,000 mg PO BID 09/0510/03/24 History release 24 hr omeprazole 40 mg capsule,delayed 40 mg PO QDAY 5 10/03/24 History release trazodone 50 mg tablet 50 mg PO QHS 09/05/24 History amlodipine 5 mg tablet 5 mg PO DAILY 09/30/2410/04 History ferrous sulfate 325 mg (65 mg 325 mg PO QODAY 10/02/24 10/03/24 History iron) tablet (Feosol) Allergy/AdvReac Type Severity Reaction Status Date / Time No Known Allergies Allergy Verified 10/04/24 06:36 Surgical History History of colonoscopy History of appendectomy Social History Smoking Status: Never smoker alcohol intake: never substance use type: does not use Vital Signs Vital Signs Vital Signs: 10/04/24 06:49 10/04/24 06:49 Temperature 97.2 F L Temperature Source Temporal Pulse Rate 79 Respiratory Rate 16 Respiratory Pattern Normal Blood Pressure 144/66 H Blood Pressure Mean 92 Blood Pressure Source Monitor Blood Pressure Position Semi-Fowlers Blood Pressure Location Right Arm Pulse Ox 100 Oxygen Delivery Method Room Air Weight Weight: 103 lb 9.876 oz Body Mass Index (BMI) 21.7 Physical Exam Const alert and oriented x3 Results Lab / Micro Data Labs: Laboratory Results - last 24 hr 10/04/24 06:44: POC Glucose 167 H Assessment & Plan Assessment/Plan (1) History of colon polyps: (2) Diarrhea: (3) Black tarry stools: PLAN: Plan The patient is a 79-year-old female in need of an EGD and colonoscopy. We discussed the details of the planned procedure including risks benefits and alternatives. She wishes to proceed. This will begin shortly Charges/Coding Visit Charges Inpatient E&M: 48782 Init Hosp L1 10/04/24 0750 Cosigner Signature (if applicable): CC: Dr. Keshia Johnson MD; Dr. Lico Hunt MD~ Signed [facility]03-07-2025 [facility] Medical Records Department [address] [place] [address] History Physical Exam 10/04/24 0748 MR#: [id number] Acct: [id number] Name: HAILEE STOLL Rep #: [id number] : 1945 79 From: Lico Hunt MD PCP: Dr. Keshia Johnson MD Status:REG [facility] Location: [place] [address] HPI - General General Date of Admission: 10/04/24 Date of Service: 10/04/24 Chief Complaint: Dark stools HPI Narrative The patient is an 79-year-old female who is being seen today for epigastric discomfort as well as nausea. She states that this started about a month ago shortly after she had a fall in the snow and subsequently broke several ribs on the right side. She discussed this with her PCP and it was suggested that she meet with general surgery to discuss possible EGD. It appears that her last colonoscopy was in 2017. This showed some diverticulosis but no other findings. She does state that her bowels have been much more loose recently. She does also noticed that her stools do seem much darker almost a black color. [facility] Medical History Wears partial dentures Low iron Non-smoker Hordeolum externum left lower eyelid Diarrhea Black tarry stools Acid reflux Diabetes Hypertension Home Medications ???Medication ???Instructions ???Recorded ???Last Taken ???Type blood sugar diagnostic (True #10 ea 09/05/24 Unknown History Metrix Glucose Test Strip) glipizide 2.5 mg tablet, extended 2.5 mg PO QDAY 09/05/24 10/03/24 History release 24 hr lancets 33 gauge (TRUEplus Lancets) #100 ea 09/05/24 Unknown Histor y lisinopril 20 1 tab PO BID 09/05/24 10/03/24 His tory mg-hydrochlorothiazide 12.5 mg tablet metformin 500 mg tablet,extended 1,000 mg PO BID 09/05/24 10/03/24 History release 24 hr omeprazole 40 mg capsule,delayed 40 mg PO QDAY 09/05/24 10/03/24 Hi story release trazodone 50 mg tablet 50 mg PO QHS 09/05/24 10/03/24 His tory amlodipine 5 mg tablet 5 mg PO DAILY 09/30/24 10/04/24 Hi story ferrous sulfate 325 mg (65 mg 325 mg PO QODAY 10/02/24 10/03/24 History iron) tablet (Feosol) Allergy/AdvReac Type Severity Reaction Status Date / Time No Known Allergies Allergy Verified 10/04/24 06:36 Surgical History History of colonoscopy History of appendectomy Social History Smoking Status: Never smoker alcohol intake: never substance use type: does not use Vital Signs Vital Signs Vital Signs: 10/04/24 06:49 10/04/24 06:49 Temperature 97.2 F L Temperature Source Temporal Pulse Rate 79 Respiratory Rate 16 Respiratory Pattern Normal Blood Pressure 144/66 H Blood Pressure Mean 92 Blood Pressure Source Monitor Blood Pressure Position Semi-Fowlers Blood Pressure Location Right Arm Pulse Ox 100 Oxygen Delivery Method Room Air Weight Weight: 103 lb 9.876 oz Body Mass Index (BMI) 21.7 Physical Exam Const alert and oriented x3 Results Lab / Micro Data Labs: Laboratory Results - last 24 hr 10/04/24 06:44: POC Glucose 167 H Assessment Plan Assessment/Plan (1) History of colon polyps: (2) Diarrhea: (3) Black tarry stools: PLAN: Plan The patient is a 79-year-old female in need of an EGD and colonoscopy. We discussed the details of the planned procedure including risks benefits and alternatives. She wishes to proceed. This will begin shortly Charges/Coding Visit Charges Inpatient E M: 15348 Init Hosp L1 10/04/24 0750 Cosigner Signature (if applicable): CC: Dr. Keshia Johnson MD; Dr. Lico Hunt MD [facility]03-07-2025 Consult note [facility] Medical Records Department [address] [place] [address] Pre-Anesthesia Evaluation 10/04/24 0636 MR#: [id number] Acct: [id number] Name: HAILEE STOLL Rep #:[id number] 2 : 1945 79 From: Jerry Hardin MD PCP: Dr. Keshia Johnson MD Status:REG SD C Y Race: C Location: [place] [address] ASA Classification* ASA Classification ASA Classification: 2 Assessment & Plan Anesthesia* Anesthesia Assessment Anesthesia Assessment: Discussed sedation and/or anesthesia options, risks, benefits, and alternatives with patient/parents/legal guardian/POA. Questions invited. The patient/parents/legal guardian/POA seems to understand and agrees to proceedwith anesthesia plan. Reviewed the physical assessment, medical history, allergy history and patient home medications list prior to surgery/procedure/anesthetic and documented any changes. Performed airway and anesthesia risk assessments. Anesthesia Type Anesthesia Type: MAC Anesthesia Focused Assessment* Airway Assessment Mouth opens: >3 cm Mallampati Score: II Focused Labs Anesthesia Preop lab: CBC WBC 6.0 K/mm3 (4.4-11.0) 07/19/24 10:54 07/19/24 RBC 3.63 M/mm3 (4.2-5.4) L 07/19/24 10:54 07/19/24 Hgb 11.0 g/dL (12.0-15.0) L 07/19/24 10:54 4 Hct 33.4 % (37-47) L 07/19/24 10:54 07/19/24 Plt Count 355 K/mm3 (150-450) 07/19/24 10:54 07/19/24 CHEMISTRY Potassium 3.8 mmol/L (3.5-5.1) 07/19/24 10:54 07/19/24 Sodium 138 mmol/L (136-145) 07/19/24 10:54 07/19/24 BUN 30 mg/dL (7-18) H 07/19/24 10:54 07/19/24 Creatinine 1.52 mg/dL (0.55-1.02) H 07/19/24 10:54 Glucose 113 mg/dL (74-106) H 07/19/24 10:54 07/19/24 POC Glucose 178 mg/dL (70-110) H 12/23/16 09:42 12/23/16 TSH 1.550 uIU/mL (0.358-3.740) 07/19/24 10:54 07/01 COAG Pre-Assessment Diagnosis/Proposed Procedure Planned Operative Procedure(s): CSCOPE , EGD Anesthesia History Anesthesia History - director digital marketing: Anesthesia History - director digital marketing Hx Hospitalization No 10/02/24 12:27 Any Problems With Anesthesia No 10/02/24 12:27 Cholinesterase deficiency No 10/02/24 12:27 You/Your Family Experience No 10/02/24 12:27 fever (hyperthermia) with Relationship Recent Exposure to Contagious No 12/23/16 09:43 Disease Does patient have nerve No 10/02/24 12:27 stimulator Patient instructed to have device shut off --Does patient have Pacemaker or ICD? When Was Last Pacemaker Check QUESTION #4 FULL TEXT: You/Your Family Experience fever (hyperthermia) with Anesthesia Last Oral Intake Last Oral intake: Last Oral Intake NPO since Meds taken in AM with sips of water? Meds patient instructed to take am of surgery PONV PONV - director digital marketing: PONV - director digital marketing Female Yes 10/02/24 12:27 HX of Motion Sickness No 10/02/24 12:27 HX of N/V After Surgery No 10/02/24 12:27 Non-Smoker Yes 10/02/24 12:27 Duration of Surgery greater No 10/02/24 12:27 than 60 minutes Number of Risk Factors 2 10/02/24 12:27 PONV Score Moderate Risk 10/02/24 12:27 Height & Weight Height & Weight: Anesthesia: Height & Weight Height 4 ft 10 in 09/05/24 08:28 Respiratory Assessment Respiratory Assessment - director digital marketing: Respiratory Tract Infection Hx - director digital marketing Hx Respiratory Tract Infection No 10/02/24 12:27 STOP Sleep Apnea STOP Sleep Apnea - director digital marketing: STOP Sleep Apnea - director digital marketing Hx Hypertension Yes 10/02/24 12:27 Hx Sleep Apnea No 10/02/24 12:27 CPAP BIPAP Do you snore loudly (louder No 10/02/24 12:27 than talking or can be heard Do you often feel tired/ No 10/02/24 12:27 fatigued/ sleepy during daytime? Has anyone observed you stop No 10/02/24 12:27 breathing during sleep? STOP Results Negative 10/02/24 12:27 QUESTION #5 FULL TEXT : Do you snore loudly (louder than talking or can be heard through closeddoors)? Tobacco Use History Tobacco Use History - director digital marketing: Tobacco Use History - director digital marketing Tobacco Use Smoking Status Never smoker 10/02/24 12:27 Hx Tobacco Use No 10/02/24 12:27 Years Smoking Packs Smoked per Day Smoking Cessation Date was within the last 15 years Hx Smoking Cessation Date Hx Smoking Cessation Counseling Hematologic Medial History Hematologic Hx - director digital marketing: Hematologic Medical Hx - production welder Hx of Blood Transfusion No 10/02/24 12:27 Hx of Transfusion in last 3 No 10/02/24 12:27 Months Date of Last Transfusion (if within last 3 months) Ever experience any problems No 10/02/24 12:27 with transfusion(s)? Specify any problems Hx of Preganancy in last 3 N/A 10/02/24 12:27 Months Nurse Filling Out Transfusion NBUCHER 10/02/24 12:27 & Questions: Date: 10/02/24 10/02/24 12:27 Time: 12:28 10/02/24 12:27 Patient unable to answer at this time (ie. confused, unrespo /Reproduction History /Reproductive History - director digital marketing: /Reproductive Hx- director digital marketing Hx Now No 10/02/24 12:27 Gestational Age (in weeks): EDC: Hx Hx Para Hx Section SAB No 10/02/24 12:27 [facility] Medical History Wears partial dentures Low iron Non-smoker Hordeolum externum left lower eyelid Diarrhea Black tarry stools Acid reflux Diabetes Hypertension Home Medications ?Medication ?Instructions ?Recorded ?Last Taken ?Type blood sugar diagnostic (True #10 ea 09/05/24 Unknown H istory Metrix Glucose Test Strip) glipizide 2.5 mg tablet, extended 2.5 mg PO QDAY 09/05 Unknown History release 24 hr lancets 33 gauge (TRUEplus Lancets) #100 ea 09/05/24 U nknown History lisinopril 20 1 tab PO BID 09/05/24 Unknow n History mg-hydrochlorothiazide 12.5 mg tablet metformin 500 mg tablet,extended 1,000 mg PO BID 09/05 Unknown History release 24 hr omeprazole 40 mg capsule,delayed 40 mg PO QDAY 5 Unknown History release trazodone 50 mg tablet 50 mg PO QHS 09/05/24 Unknow n History amlodipine 5 mg tablet 5 mg PO DAILY 09/30/24 Unkno wn History ferrous sulfate 325 mg (65 mg 325 mg PO QODAY 10/02/24 Unknown History iron) tablet (Feosol) Allergy/AdvReac Type Severity Reaction Status Date / Time No Known Allergies Allergy Verified 10/04/24 06:36 Surgical History History of colonoscopy History of appendectomy Social History Smoking Status: Never smoker alcohol intake: never substance use type: does not use Review of Systems (Anesthesia) ROS Narrative System reviewed and no additional complaints, except as documented. 10/04/24 0637 > Date _ Jerry Hardin MD Cosigner Signature: Date CC: ~ Signed [facility]02-06-2025 Evaluation note* Diagnosis Onset Date Resolution Status Admit Date Black tarry stools acute 2024 8:11am Diarrhea acute September 05, 2024 8:11am Hordeolum externum left lowe r eyelid acute September 30, 2024 10:25am Black tarry stools acute October 04, 2024 6:09am Diarrhea acute October 04 6:09am History of colon polyps acute 2024 6:09am [facility] Work Phone: Consult note Author Petr Gallardo [facility] Note Date/Time October 04, 2024 9:00 am [facility] Medical Records Department [address] [place] [address] Anesthesia Postop Eval I 10/04/24 0858 MR#: [id number] Acct: [id number] Name: HAILEE STOLL Rep #:[id number] : 1945 79 From: Petr Gallardo PCP: Dr. Keshia Johnson MD Status:REG SD C Y Race: C Location: [place] [address] Anesthesia: Postop Eval I Current Vital Signs Temperature: 97 F Pulse Rate: 61 Blood Pressure: 93/41 Respiratory Rate: 16 Pulse Ox: 93 Oxygen Delivery Method: Room Air Assessment Airway patent: Yes Spontaneous unlabored respirations: Yes Mental status: Awake and Calm nausea: No Vomiting: Yes Anesthesia Complication: Yes Anesthesia Complication Comment:: hypotension and emesis during colonoscopy Fluid Hydration Crystalloid volume administer (ml): 90 Total IV fluid infused: 90 Progress Note Anesthesia document: Postop Eval 1 completed: Yes 10/04/24 09 <Electronically signed by Petr Gallardo > Date _ Petr Greyigner Signature: Date CC: ~ Signed [facility] Work Phone: Consult note Author Jerry Hardin [facility] Note Date/Time October 04, 2024 9:45 am [facility] Medical Records Department [address] [place] [address] Anesthesia Postop Eval II 10/04/24930 MR#: [id number] Acct: [id number] Name: HAILEE STOLL Rep #:[id number] 2 : 1945 79 From: Jerry Hardin MD PCP: Dr. Keshia Johnson MD Status:REG SD C Y Race: C Location: [place] [address] Anesthesia Postop Eval I Sum Postop Eval Completion status Anesthesia document: Postop Eval 1 completed: Yes Anesthesia Postop Eval I Summary Anesthesia Postop Eval I Summary: Anesthesia Postop Eval I: Assessment Summary Airway patent Yes 10/04/24 09:00 [email or web address] Spontaneous unlabored Yes 10/04/24 09:00 [email or web address] respirations Mental status Awake,Calm 10/04/24 09:00 [email or web address] nausea No 10/04/24 09:00 [email or web address] Vomiting Yes 10/04/24 09:00 [email or web address] Anesthesia Postop Eval I: Fluid Summary Crystalloid volume administer 90 10/04/24 09:00 [email or web address] (ml) Colloids volume administered ( ml) Blood Product volume administered (ml) Total IV fluid infused 90 10/04/24 09:00 [email or web address] Anesthesia Postop Eval I: Summary Notes Anesthesia Complication Yes 10/04/24 09:00 [email or web address] Anesthesia Complication hypotension and 10/04/24 09:00 [email or web address] Comment: emesis during colonoscopy Post-operative progress note Anesthesia: Postop Eval II Evaluation Mental status: Awake Pain Level: 0 nausea: No Vomiting: No 10/04/2431 <Electronically signed by Jerry Hardin MD > Date _ Jerry Hardin MD Cosigner Signature: Date CC: ~ Signed [facility] Work Phone: Evaluation noteNo assessment information available [facility] Work Phone: History and physical note Author Lico Hunt [facility] Note Date/Time October 04, 2024 7:50 am [facility] Medical Records Department [address] [place] [address] History & Physical Exam 10/04/2448 MR#: [id number] Acct: [id number] Name: HAILEE STOLL Rep #:[id number] 3 : 1945 79 From: Lico Hunt MD PCP: Dr. Keshia Johnson MD Status:REG SD C Location: [place] [address] HPI - General General Date of Admission: 10/04/24 Date of Service: 10/04/24 Chief Complaint: Dark stools HPI Narrative The patient is an 79-year-old female who is being seen today for epigastric discomfort as well as nausea. She states that this started about a month ago shortly after she had a fall in the snow and subsequently broke several ribs on the right side. She discussed this with her PCP and it was suggested that she meet with general surgery to discuss possible EGD. It appears that her last colonoscopy was in 2017. This showed some diverticulosis but no other findings. She does state that her bowels have been much more loose recently. She does also noticed that her stools do seem much darker almost a black color. [facility] Medical History Wears partial dentures Low iron Non-smoker Hordeolum externum left lower eyelid Diarrhea Black tarry stools Acid reflux Diabetes Hypertension Home Medications ?Medication ?Instructions ?Recorded ?Last Taken ?Type blood sugar diagnostic (True #10 ea 09/05/24 Unknown H istory Metrix Glucose Test Strip) glipizide 2.5 mg tablet, extended 2.5 mg PO QDAY 09/0510/03/24 History release 24 hr lancets 33 gauge (TRUEplus Lancets) #100 ea 09/05/24 U nknown History lisinopril 20 1 tab PO BID 09/05/24 History mg-hydrochlorothiazide 12.5 mg tablet metformin 500 mg tablet,extended 1,000 mg PO BID 09/0510/03/24 History release 24 hr omeprazole 40 mg capsule,delayed 40 mg PO QDAY 5 10/03/24 History release trazodone 50 mg tablet 50 mg PO QHS 09/05/24 History amlodipine 5 mg tablet 5 mg PO DAILY 09/30/2410/04 History ferrous sulfate 325 mg (65 mg 325 mg PO QODAY 10/02/24 10/03/24 History iron) tablet (Feosol) Allergy/AdvReac Type Severity Reaction Status Date / Time No Known Allergies Allergy Verified 10/04/24 06:36 Surgical History History of colonoscopy History of appendectomy Social History Smoking Status: Never smoker alcohol intake: never substance use type: does not use Vital Signs Vital Signs Vital Signs: 10/04/24 06:49 10/04/24 06:49 Temperature 97.2 F L Temperature Source Temporal Pulse Rate 79 Respiratory Rate 16 Respiratory Pattern Normal Blood Pressure 144/66 H Blood Pressure Mean 92 Blood Pressure Source Monitor Blood Pressure Position Semi-Fowlers Blood Pressure Location Right Arm Pulse Ox 100 Oxygen Delivery Method Room Air Weight Weight: 103 lb 9.876 oz Body Mass Index (BMI) 21.7 Physical Exam Const alert and oriented x3 Results Lab / Micro Data Labs: Laboratory Results - last 24 hr 10/04/24 06:44: POC Glucose 167 H Assessment & Plan Assessment/Plan (1) History of colon polyps: (2) Diarrhea: (3) Black tarry stools: PLAN: Plan The patient is a 79-year-old female in need of an EGD and colonoscopy. We discussed the details of the planned procedure including risks benefits and alternatives. She wishes to proceed. This will begin shortly Charges/Coding Visit Charges Inpatient E&M: 94174 Init Hosp L1 10/04/24 0750 <Electronically signed by Lico Hunt MD> Cosigner Signature (if applicable): CC: Dr. Keshia Johnson MD; Dr. Lico Hunt MD~ Signed [facility] Work Phone: Hospital Discharge instructions Additional Instructions X-ray negative. Concern for internal injury of your left knee. Alfredo wrap and walker for support. Ibuprofen 400 mg or Tylenol 1 g every 6 hours as needed. If symptoms persist follow-up with orthopedics for outpatient evaluation.[facility] Work Phone: Reason for referral (narrative)No reason for referral information availableWFisher-Titus [facility] Work Phone: Advance Directives Advance Directive Response Recorded Date/ Time Living Will Yes December 19, 2016 9 :11am Power of Upstream Biomanufacturing Technician Yes December 19, 2016 9:11am Advance Directive Response Recorded Date/ Time Living Will Yes December 19, 2016 8 :11am Power of Upstream Biomanufacturing Technician Yes December 19, 2016 8:11am Advance Directive Response Recorded Date/ Time Living Will No September 16, 023 7:22pm Power of Upstream Biomanufacturing Technician No September 16, 2022 7:22pm Advance Directive Response Recorded Date/ Time Living Will Yes October 02, 2024 12:27pm Power of Upstream Biomanufacturing Technician Yes October 02 12:27pm Name of Medical Power of Upstream Biomanufacturing Technician . October 02, 2024 12:27pm Living Will Yes August 03 9:35am Power of Upstream Biomanufacturing Technician Yes August 03 025 9:35am Name of Medical Power of Upstream Biomanufacturing Technician ? August 03, 2024 9:35am Chief Complaint and Reason for Visit Chief Complaint SCREENING Chief Complaint L UPPER EYELID ABSES S Chief Complaint L UPPER EYELID ABSES S KNEE Chief Complaint Admit Date constipation/ FASTING July 19 10:30am SCREENING August 01, 2024 8: 11am R RIB PAIN August 03, 2024 9: 12am Esophagogastroduodenoscopy September 05, 2024 8:11am SCREENING September 10, 2024 7:14am SWOLLEN/RED L EYE September 30, 2024 10:2 5am Reason for Visit Admit Date Black tarry stools September 05, 2024 8 :11am Diarrhea September 05, 2024 8 :11am Hordeolum externum left lower eyelid Mar 2024 10:25am Black tarry stools October 04, 2024 6:09 am Diarrhea October 04, 2024 6:09 am History of colon polyps October 04, 2024 6:09am Summary Purpose Family History No Family History Records Found Additional Source Comments Goals (unrecognized section and content) Goals may be documented in a n alternate sectionGoals may be documented in an alternate sectionGoals may be documented in an alternate sectionGoals may be documented in an alternate sectionGoals may be documented in an alternate sectionGoals may be documented in an alternate section Care Teams (unrecognized sec tion and content) Team Status: Active Member Role Status Dates Dr. Henry Saunders MD Family Provider Active Dr. Henry Saunders MD Primary Care Provider Active Team Status: Inactive Member Role Status Dates Dr. Henry Saunders MD Primary Care Provider Active Dr. Deny Montoya MD Attending Provider, Referring Pr ovider Active Team Status: Inactive Member Role Status Dates Dr. Henry Saunders MD Primary Care Provider Active Dr. Anthony Hebert DO Emergency Provider Active Team Status: Active Member Role Status Dates Dr. Henry Saunders MD Family Provider Active Shana Copeland DO Primary Care Provider Active Team Status: Inactive Member Role Status Dates Dr. Henry Saunders MD Primary Care Provider Active Shana Copeland DO Attending Provider Active Team Status: Active Member Role Status Dates Shana Copeland DO Primary Care Provi tanvir, Attending Provider, Referring Provider Active Team Status: Inactive Member Role Status Dates Shana Copeland DO Primary Care Provi tanvir, Attending Provider, Referring Provider Active Team Status: Active Member Role Status Dates Chalon Elizabeth , MD Primary Care Provider Active Team Status: Inactive Member Role Status Ricky Johnson MD Primary Care Provider Active St art: July 19, 2024 End: July 19, 2024 Keshia Johnson MD Attending Provider Active Start : July 19, 2024 End: July 19, 2024 Keshia Johnson MD Referring Provider Active Start : July 19, 2024 End: July 19, 2024 Team Status: Inactive Member Role Status Ricky Johnson MD Primary Care Provider Active St art: August 01, 2024 End: August 01, 2024 Keshia Johnson MD Attending Provider Active Start : August 01, 2024 End: August 01, 2024 Keshia Johnson MD Referring Provider Active Start : August 01, 2024 End: August 01, 2024 Team Status: Inactive Member Role Status Ricky Johnson MD Primary Care Provider Active St art: August 03, 2024 End: August 03, 2024 Dr. Fritz Rodriguez MD Attending Provider Active Start: August 03, 2024 End: August 03, 2024 Dr. Fritz Rodriguez MD Emergency Provider Active Start: August 03, 2024 End: August 03, 2024 Team Status: Inactive Member Role Status Ricky Johnson MD Primary Care Provider Active St art: September 05, 2024 End: September 05, 2024 Keshia Johnson MD Referring Provider Active Start : September 05, 2024 End: September 05, 2024 Dr. Lico Hunt MD Attending Provider Active Start: September 05, 2024 End: September 05, 2024 Team Status: Inactive Member Role Status Ricky Johnson MD Primary Care Provider Active St art: September 10, 2024 End: September 10, 2024 Keshia Johnson MD Attending Provider Active Start : September 10, 2024 End: September 10, 2024 Keshia Johnson MD Referring Provider Active Start : September 10, 2024 End: September 10, 2024 Team Status: Inactive Member Role Status Ricky Johnson MD Primary Care Provider Active St art: September 30, 2024 End: September 30, 2024 Keshia Johnson MD Referring Provider Active Start : September 30, 2024 End: September 30, 2024 WOLFGANG Damon Attending Provider Active Star t: September 30, 2024 End: September 30, 2024 Team Status: Inactive Member Role Status Dates Keshia Johnson MD Primary Care Provider Active St art: October 04, 2024 End: October 04, 2024 Keshia Johnson MD Referring Provider Active Start : October 04, 2024 End: October 04, 2024 Dr. Lico Hunt MD Attending Provider Active Start: October 04, 2024 End: October 04, 2024 Team Status: Active Member Role Status Dates Keshia Johnson MD Primary Care Provider Active St art: October 04, 2024 Keshia Johnson MD Referring Provider Active Start : October 04, 2024 Dr. Lico Hunt MD Attending Provider Active Start: October 04, 2024 Dr. Lico Hunt MD Other Provider Active St art: October 04, 2024 INFORMATION SOURCE (unrecogn ized section and content) DATE CREATED AUTHOR 10/16/[address] [facility] FOR RECORDS PERTAINING TO PATIENTS WHO ARE OR HAVE BEEN ENROLLED IN A CHEMICAL DEPENDENCY/SUBSTANCEABUSE PROGRAM, SOME INFORMATION MAY BE OMITTED. This clinical summary was aggregated from multiple sources. Caution should be exercised in using it in the provision of clinical care. This summary normalizes information from multiple sources, and as a consequence, information in this document may materially change the coding, format and clinical context of patient data. In addition, data may be omitted in some cases. CLINICAL DECISIONS SHOULD BE BASED ON THE PRIMARY CLINICAL RECORDS. [employer] provides no warranty or guarantee of the accuracy or completeness of information in this document.
[2025-01-17 14:08] LABS: Beef <0.10 kU/L (Class 0); Chocolate <0.10 kU/L (Class 0); Codfish <0.10 kU/L (Class 0); Corn <0.10 kU/L (Class 0); Egg, Whole <0.10 kU/L (Class 0); Milk (Cow) <0.10 kU/L (Class 0); Mussels <0.10 kU/L (Class 0); Peanut <0.10 kU/L (Class 0); Pork <0.10 kU/L (Class 0); Salmon <0.10 kU/L (Class 0); Shrimp <0.10 kU/L (Class 0); Soybean <0.10 kU/L (Class 0); Tuna <0.10 kU/L (Class 0); Wheat <0.10 kU/L (Class 0)
== END | disposition home or self-care (01) ==
LOC: MFPLAB 09:15
PROVIDERS: PCP Family Medicine; Referring Provider Family Medicine; Visit Provider Family Medicine
DX: K52.9 Noninfective gastroenteritis and colitis, unspecified (principal); E11.9 Type 2 diabetes mellitus without complications
CPT/HCPCS: 36415; 83036; 83516; 83735; 86003; 86005

== ENCOUNTER → 2025-01-20 | Outpatient (CLI) | payer MEDICARE, SELFPAY ==
--- NOTE | 2025-01-20 16:40 | LES_PTH ---
PATIENT: HAILEE STOLL LOC: [facility] U#:[id number] AGE/SX: 79/F ROOM: RE01/20/[address]: Dr. Benson Martinez MD : 1945 BED: DIS: 01/20/2025 SPEC #: [id number] RECD: 01/20/25 17:20 STATUS: NATALYA REMarlin #: [id number] LEROY: 01/20/25 16:[address]: Benson Martinez DEPT: SURGICAL PATHOLOGY RECD BY: Ozzy Yoon ENTERED: 01/21/25 08:19 SP TYPE: Lesion OTHR DR: Keshia Johnson MD Tissues: A - Skin of external ear, NOS Procedures: Surgery Specimen Level IV HEADER OPERATION: Biopsy right ear PRE-OP DIAGNOSIS: Right ear TISSUE SUBMITTED: A- Right ear biopsy MICROSCOPIC DIAGNOSIS A. Skin, ear, right, shave biopsy: * Superficial portion of a hyperkeratotic verrucous squamous lesion with neutrophil crust - see note. * Note: Only a small portion of the lesion is included in the superficial biopsy. Additional pathology deep to the biopsy cannot be ruled out. Recommend clinical correlation. MICROSCOPIC DESCRIPTION Slides are reviewed. GROSS DESCRIPTION A. Received in formalin labeled with the patient's name and date of is a 0.9 x 0.5 x 0.1 cm delaney to red and congested, irregular portion of apparent skin devoid of orientation. A definitive resection margin is unable to be determined. The specimen is bisected (on the long axis),and entirely submitted in 1 cassette. [place] 01/21/2025 CPT:[id number]
== END | disposition home or self-care (01) ==
PROVIDERS: PCP Family Medicine; Referring Provider Surgery Plastic and Reconstructive Surgery; Visit Provider Surgery Plastic and Reconstructive Surgery
DX: L57.0 Actinic keratosis (principal)
CPT/HCPCS: 88305

== ENCOUNTER 2025-01-28 17:01 | Outpatient (CLI) | payer MEDICARE, SELFPAY ==
--- NOTE | 2025-01-28 | LES_PTH ---
PATIENT: HAILE[facility] STOLL [id number] AGE/SX: 79/F ROOM: RE01/28/[address]: Dr. Benson Martinez MD : 1945 BED: DIS: 01/28/2025 SPEC #: [id number] RECD: 01/28/25 16:58 STATUS: NATALYA LONG #: [id number] LEROY: 01/28/25 00:[address]: Benson Martinez DEPT: SURGICAL PATHOLOGY RECD BY: Ozzy Yoon ENTERED: 01/29/25 10:34 SP TYPE: Lesion OTHR DR: Keshia Johnson MD Tissues: A - Skin of external ear, NOS Procedures: Surgery Specimen Level IV HEADER OPERATION: Biopsy PRE-OP DIAGNOSIS: Ear biopsy TISSUE SUBMITTED: A- Right ear MICROSCOPIC DIAGNOSIS A. Ear, right, biopsy: - Superficial epidermis, ulcerated, with abundant inflammatory crust - see note. Note: The base of the lesion is not included in this superficial biopsy, therefore additional pathology cannot be ruled out. Complete excision of any residual or recurrent lesion is suggested, if clinically indicated. MICROSCOPIC DESCRIPTION Slides are reviewed. GROSS DESCRIPTION A. Received in formalin labeled with the patient's name and date of . Designated as biopsy right ear lesion is a 0.8 x 0.2 x 0.2 cm irregular portion of apparent skin devoid of an identifiable resection margin. Submitted in toto in 1 cassette. [place] 01/29/2025 CPT:[id number]
== END 2025-01-28 23:59 | disposition home or self-care (01) ==
LOC: LABSPEC 17:02
PROVIDERS: PCP Family Medicine; Referring Provider Surgery Plastic and Reconstructive Surgery; Visit Provider Surgery Plastic and Reconstructive Surgery
DX: H93.90 Unspecified disorder of ear, unspecified ear (principal)
CPT/HCPCS: 88305

== ENCOUNTER → 2025-02-20 | Outpatient (CLI) | payer MEDICARE, SELFPAY ==
--- NOTE | 2025-02-20 10:00 | LES_PTH ---
PATIENT: HAILEE STOLL LOC: [facility] U#:[id number] AGE/SX: 79/F ROOM: RE02/20/[address]: Dr. Benson Martinez MD : 1945 BED: DIS: 02/20/2025 SPEC #: [id number] RECD: 02/21/25 06:08 STATUS: NATALYA LONG #: [id number] LEROY: 02/20/25 10:[address]: Benson Martinez DEPT: SURGICAL PATHOLOGY RECD BY: Ozzy Yoon ENTERED: 02/21/25 09:51 SP TYPE: Lesion OTHR DR: Keshia Johnson MD Tissues: A - Skin of external ear, NOS Procedures: Surgery Specimen Level IV HEADER OPERATION: Excision right ear lesion PRE-OP DIAGNOSIS: Right ear lesion TISSUE SUBMITTED: A- Right ear lesion MICROSCOPIC DIAGNOSIS A. Ear, right, "lesion", excision: - Hypertrophic actinic keratosis, ulcerated - see note. Note: The location of the lesion raises consideration of chondrodermatitis nodularis helicis. However, the biopsy is too superficial to assess for that entity. Recommend clinical correlation. MICROSCOPIC DESCRIPTION Slides are reviewed. GROSS DESCRIPTION A. Received in formalin labeled with the patient's name and date of . Designated as " right ear lesion" is a 0.7 x 0.5 x 0.1 cm irregular, C-shaped portion of delaney skin that is discontinuous on 1 edge. The resection margin is inked blue. There is a 0.4 x 0.3 cm red-brown friable lesion located <0.1 cm from the intact peripheral edges. The specimen is bisected and entirely submitted in 1 cassette. [place] 02/21/2025 CPT:[id number]
--- OUTSIDE RECORDS SUMMARY | 2025-02-21 06:22 | XMS RPT_ITS | CCD ---
Author Organization [facility] Care Team Providers Care Accounting Support Specialist Name Role Phone Margaret ROY, Christophe Monterroso Unavailable CRISTINE Bar RN, Yu Alford Unavailable Unavailalicia Bar RN RN, Yu Rocío Unavailable Unavailabl e Reji Gutiérrez Unavailable Unavailable Elizabeth ROY, Keshia Primary Care Provider [phone] Keshia Johnson MD Attending Provider Keshia Johnson MD Referring Provider Dr. Fritz Rodriguez MD Attending Provider Dr. Fritz Rodriguez MD Emergency Provider Dr. Lico Hunt MD Attending Provider Modeep DIRECTOR TREASURER-C, Taj Attending Provider Dr. Lico Hunt MD Other Provider Keshia Johnson MD Primary Care Provider Keshia Johnson MD Referring Provider Moomaw DIRECTOR TREASURER-C, Taj Attending Provider Dr. Lico Hunt MD Attending Provider Dr. Lico Hunt MD Other Provider Keshia Johnson MD Attending Provider Dr. Benson Martinez MD Attending Provider Dr. Benson Martinez MD Referring Provider Keshia Johnson MD Primary Care Provider Keshia Johnson MD Referring Provider Keshia Johnson MD Primary Care Provider Keshia Johnson MD Referring Provider Elizabeth, Chalon Primary Care Unavailable Elizabeth, Chalon Referring Unavailable Siska, Benson Attending Unavailable Marilee, Lico Alford Consulting Unavailable Wanek, Lico Alford Attending Unavailable Elizabeth, Chalon Referring Unavailable Elizabeth, Chalon Primary Care Unavailable Elizabeth, Chalon Primary Care Unavailable Siska, Benson Attending Unavailable Siska, Benson Referring Unavailable Elizabeth, Chalon Primary Care Unavailable Siska, Benson Attending Unavailable Siska, Benson Referring Unavailable Elizabeth, Nitinon Attending Unavailable Elizabeth, Chalon Referring Unavailable Elizabeth, Chalon Primary Care Unavailable Elizabeth, Chalon Referring Unavailable Elizabeth, Chalon Primary Care Unavailable Siska, Benson Attending Unavailable Elizabeth, Chalon Primary Care Unavailable Elizabeth, Chalon Attending Unavailable Elizabeth, Chalon Referring Unavailable Fritz Rodriguez Attending Unavailable Elizabeth, Chalon Primary Care Unavailable Wanek, Lico Alford Attending Unavailable Elizabeth, Chalon Referring Unavailable Elizabeth, Chalon Primary Care Unavailable Elizabeth, Nitinon Attending Unavailable Elizabeth, Chalon Referring Unavailable Elizabeth, Chalon Primary Care Unavailable Elizabeth, Chalon Primary Care Unavailable Elizabeth, Nitinon Attending Unavailable Elizabeth, Chalon Referring Unavailable Wanek, Lico Alford Attending Unavailable Elizabeth, Chalon Referring Unavailable Elizabeth, Chalon Primary Care Unavailable MoomaTaj keller Attending Unavailable Elizabeth, Chalon Referring Unavailable Elizabeth, Chalon Primary Care Unavailable Elizabeth, Chalon Primary Care Unavailable Elizabeth, Chalon Referring Unavailable Siska, Benson Attending Unavailable Medications Current Medications Medication Drug Class(es) Dates Sig (Normalized) Sig (Original) amLODIPine 5 mg oral tablet (20 sources) Dihydropyridine Calcium Channel Fahad Start: 09-30-2024 take 1 tablet by mouth once daily Amlodipine 5 mg tablet Active 5 mg PO DAILY September 30, 2024 1:00am Start: 12-19-2016 End: 09-05-2024 take 1 tablet by mouth once daily Amlodipine (Norvasc) 5 MG tablet Discontinued 5 mg PO DAILY December 19, 2016 12:00am September 05, 2024 9:29am ciprofloxacin 500 mg oral tablet (1 source) Quinolone Antimicrobial Start: 02-20-2025 take 1 tablet by mouth twice daily Ciprofloxacin Hcl 500 mg tablet Active 500 mg PO TWICE A DAY 14 0 February 20, 2025 12:00am ferrous sulfate 325 mg oral tablet (8 sources) Start: 10-02-2024 take 1 tablet by mouth every other day Ferrous Sulfate (Feosol) 325 mg (65 mg iron) tablet Active 325 mg PO EVERY OTHER DAY October 02, 2024 1:00am glipiZIDE er 2.5 mg 24 hr extended release oral tablet (20 sources) Sulfonylurea Start: 09-05-2024 take 1 tablet by mouth once daily Glipizide 2.5 mg tablet extended release 24hr Active 2.5 mg PO daily September 05, 2024 1:00am Start: 12-19-2016 End: 09-05-2024 take 1 tablet by mouth once daily Glipizide (Glucotrol) 10 MG tablet Discontinued 10 mg PO DAILY December 19, 2016 12:00am September 05, 2024 9:29am Start: 12-19-2016 [facility] Glipizide (Glucotrol) 10 MG tablet Active 10 MG PO TWICE A DAY December 18, 2016 11:00pm hydroCHLOROthiazide 12.5 mg / lisinopril 20 mg oral tablet (8 sources) Thiazide Diuretic, Angiotensin Converting Enzyme Inhibitor Start: 09-05-2024 Lisinopril-Hydrochlorothiazi de 20-12.5 mg tablet Active 1 {tbl} PO TWICE A DAY September 05, 2024 1:00am 24 hr metFORMIN hydrochloride 500 mg extended release oral tablet (20 sources) Biguanide Start: 09-05-2024 Metformin 500 mg tablet exte nded release 24 hr Active 1000 mg PO TWICE A DAY September 05, 2024 1:00am Start: 12-19-2016 End: 09-05-2024 take 1 tablet by mouth twice daily Metformin 500 MG tablet Discontinued 500 mg PO TWICE A DAY December 19, 2016 12:00am September 05, 2024 9:29am Start: 12-19-2016 take 500 mg by mouth once sherry y Metformin Active 500 MG PO DAILY December 18, 2016 11:00pm Omeprazole 40 mg capsule,delayed release(DR/EC) (8 sources) Start: 09-05-2024 take 1 capsule by mouth once daily Omeprazole 40 mg capsule,delayed release(DR/EC) Active 40 mg PO daily September 05, 2024 1:00am Start: 09-05-2024 take 1 capsule by mo [facility] once daily Omeprazole 40 mg capsule,delayed release(DR/EC) Active 40 mg PO daily September 05, 2024 12:00am traZODone hydrochloride 50 mg oral tablet (8 sources) Serotonin Reuptake Inhibitor Start: 09-05-2024 take 1 tablet by mouth at bedtime Trazodone 50 mg tablet Active 50 mg PO AT BEDTIME September 05, 2024 1:00am Completed/Discontinued Medications Medication Drug Class(es) Dates Sig (Normalized) Sig (Original) acetaminophen 325 mg / HYDROcodone bitartrate 5 mg oral tablet (8 sources) Opioid Agonist Start: 08-03-2024 End: 09-05-2024 take 1 tablet by mouth every six hours as needed for pain Hydrocodone-Acetam inophen 5-325 mg tablet Discontinued 1 {tbl} PO EVERY 6 HOURS NEEDED as needed for Pain 12 3 0 August 03, 2024 September 05, 2024 9:29am Closed fracture of rib Fracture of one rib, unspecified side, initial encounter for closed fracture atorvastatin 40 mg oral tablet (14 sources) HMG-CoA Reductase Inhibitor Start: 12-19-2016 End: 09-05-2024 take 1 tablet by mouth at bedtime Atorvastatin 40 MG tablet Discontinued 40 mg PO AT BEDTIME December 19, 2016 12:00am September 05, 2024 9:29am famotidine 40 mg oral tablet (7 sources) Histamine-2 Receptor Antagonist Start: 10-11-2024 End: 12-10-2024 take 1 tablet by mouth at bedtime Famotidine (Pepcid) 40 mg tablet Discontinued 40 mg PO AT BEDTIME 60 60 0 October 11, 2024 12:00am December 09, 2024 12:00am December 10, 2024 12:07am lisinopril 40 mg oral tablet (17 sources) Angiotensin Converting Enzyme Inhibitor Start: 12-13-2016 End: 09-05-2024 take 1 tablet by mouth once daily Lisinopril 40 MG tablet Discontinued 40 mg PO DAILY December 19, 2016 12:00am September 05, 2024 9:29am Drug Treatment Unknown - unknown (1 source) [...] Onset: 7 12-13-2016 Chronic E Codes: Fall (8 sources) Fall on same level from slipping; Translations: [Fall on same level from slipping, tripping and stumbling without subsequent striking against object, initial encounter] 08-11-2024 Episodic Esophageal disorders (8 sources) Gastroesophageal reflux disease; Translations: [Gastro-esophageal reflux disease without esophagitis] 09-05-2024 Chronic Essential hypertension (3 sources) Hypertensive disorder; Translations: [Essential (primary) hypertension] Onset: 7 12-13-2016 Chronic Gastrointestinal hemorrhage (17 sources) Finding of appearance of stool; Translations: [Melena] Onset: 5 09-05-2024 Episodic Inflammation; infection of eye (except that caused by tuberculosis or sexually transmitteddisease) (14 sources) Hordeolum externum of left lower eyelid; Translations: [Hordeolum externum left lower eyelid] Onset: 5 09-30-2024 Episodic Joint disorders and dislocations; trauma-related (11 sources) Derangement of left knee; Translations: [Unspecified internal derangement of left knee] 09-16-2022 Chronic Neoplasms of unspecified nature or uncertain behavior (15 sources) Neoplasm of uncertain behavior of skin; Translations: [Neoplasm of uncertain behavior of skin] 01-21-2025 Episodic Comment on above: Right ear Noninfectious gastroenteritis (1 source) Noninfective gastroenteritis and colitis, unspecified; Translations: [Noninfective gastroenteritis and colitis, unspecified] Onset: 5 Episodic Other and unspecified benign neoplasm (20 sources) History of polyp of colon; Translations: [Personal history of colonic polyps] 12-23-2016 Episodic Other ear and sense organ disorders (1 source) Unspecified disorder of ear, unspecified ear; Translations: [Unspecified disorder of ear, unspecified ear] Onset: 5 Episodic Other fractures (8 sources) Closed fracture of multiple ribs; Translations: [Multiple fractures of ribs, right side, initial encounter for closed fracture] 08-11-2024 Episodic Other gastrointestinal disorders (15 sources) Diarrhea; Translations: [Diarrhea, unspecified] 09-05-2024 Episodic Other screening for suspected conditions (not mental disorders or infectious disease) (2 sources) Encounter for screening mammogram for malignant neoplasm of breast; Translations: [Patient encounter status] Onset: 5 02-06-2025 Episodic Other screening for suspected conditions (not mental disorders or infectious disease) (1 source) No current problems or disability 12-12-2016 Other skin disorders (1 source) Disorder of the skin and subcutaneous tissue, unspecified; Translations: [Disorder of the skin and subcutaneous tissue, unspecified] Onset: 5 Episodic Sprains and strains (11 sources) Sprain of knee; Translations: [Sprain of unspecified site of left knee, initial encounter] 09-16-2022 Episodic Unclassified (1 source) Personal history of colon polyps, unspecified; Translations: [Personal history of colon polyps, unspecified] Onset: 5 Unclassified (1 source) Z12.83 - Encounter for screening for malignant neoplasm of skin,D48.5 - Neoplasm of uncertain behavior of skin Past or Other Problems Problem Classification Problem Date Documented Da te Episodic/Chronic Deficiency and other anemia (3 sources) Anemia; Translations: [Anemia, unspecified] Onset: 12-13-2016 12-13-2016 Episodic Nonspecific chest pain (1 source) Other chest pain; Translations: [Other chest pain] Onset: 08-26-2024 Episodic Other gastrointestinal disorders (2 sources) Diarrhea, unspecified; Translations: [Diarrhea, unspecified] Onset: 09-05-2024 Episodic Other gastrointestinal disorders (1 source) Constipation, unspecified; Translations: [Constipation, unspecified] Onset: 08-21-2024 Episodic Results Test Name Value Interpretation Reference Range Facility Plastic Surgery Visit Report on 02-06-2025 Plastic Surgery Visit Report [facility] Plastic Reconstructive Surgery [address] [place] [address] OFFICE VISIT Date of Service: 02/06/25 MR#: [id number] Acct: [id number] Name: HAILEE STOLL Rep #: [id number] : 1945 Provider: Dr. Benson Martinez MD Age/Sex: 79/F Location: [facility] Status: Signed Intake Vital Signs 3 01/27/25 09:49 02/06/25 11:28 Height 4 ft 10 in 4 ft 10 in BP 179/67 H Blood Pressure Location Lt brachial Position Sitting Respiration 18 Pulse 79 Temp 98.1 F Temp Source Temporal Pulse Oximetry (%) 98 Oxygen Delivery Method room air Intake Visit Reasons: 1 WK F/U Chief Complaint: skin cancer Is patient in pain?: No Allergies No Known Allergies Allergy (Verified 02/06/25 11:29) Medications 3 ???Medication ???Instructions ???Recorded ???Confirmed ???Type blood sugar diagnostic (True #10 ea 09/05/24 02/06/25 History Metrix Glucose Test Strip) glipizide 2.5 mg tablet, extended 2.5 mg PO QDAY 09/05/24 02/06/25 History release 24 hr lancets 33 gauge (TRUEplus Lancets) #100 ea 09/05/24 02/06/25 Histo ry lisinopril 20 1 tab PO BID 09/05/24 02/06/25 His tory mg-hydrochlorothiazide 12.5 mg tablet metformin 500 mg tablet,extended 1,000 mg PO BID 09/05/24 02/06/25 History release 24 hr omeprazole 40 mg capsule,delayed 40 mg PO QDAY 09/05/24 02/06/25 Hi story release trazodone 50 mg tablet 50 mg PO QHS 09/05/24 02/06/25 His tory amlodipine 5 mg tablet 5 mg PO DAILY 09/30/24 02/06/25 Hi story ferrous sulfate 325 mg (65 mg 325 mg PO QODAY 10/02/24 02/06/25 History iron) tablet (Feosol) Have you fallen in the past year?: No PFSH Medical History Wears partial dentures Low iron Non-smoker Hordeolum externum left lower eyelid Diarrhea Black tarry stools Acid reflux Diabetes Hypertension Surgical History History of colonoscopy History of appendectomy Family History Other Diabetes Heart disease Hypertension Social History Smoking Status: Never smoker alcohol intake: never substance use type: does not use additional social history: pt denies vaping, denies marijuana use, denies edibles, denies aspirin and ibuprofen use. pt denies any blood clots history. HPI 1 WK F/U Details: The patient is an 79-year-old female presenting with a lesion on the right ear. The lesion was initially biopsied, and results indicated a hyperkeratotic verrucous squamous lesion with neutrophilic crust, but no malignancy was found. The patient reports that the lesion has been sore and occasionally forms a hard crust. The lesion has been present for an unspecified duration, and the patient has been applying a cream as part of the management plan. There is no history of prior skin cancer, and the patient has not had recent dermatological evaluations until this visit. ROS - Dermatological: Reports soreness and crusting on the right ear Attestation: Documentation on this patient encounter was supported using ambient scribe technology/ voice AI technology. The patient consented to recording for the purpose of documenting the encounter. Provider reviewed content of the generated note prior to signature. Exam Details - Dermatological: Examination of the right ear showing a hyperkeratotic verrucous lesion with neutrophilic crust, no signs of infection BIOPSY - Biopsy: Hyperkeratotic verrucous squamous lesion with neutrophilic crust, no malignancy detected Coding Level of Care Code Off vis,est,level 3 Diagnoses Neoplasm of uncertain behavior of skin D48.5 Assessment and Plan (No Qualifiers) Assessment and Plan (1) Neoplasm of uncertain behavior of skin: Status: Acute Comment: Right ear Plan: Assessment and Plan The patient is an 79-year-old female with a history of a hyperkeratotic verrucous squamous lesion on the right ear, presenting for further evaluation and management. The lesion has been biopsied twice, with results indicating no malignancy but showing a hyperkeratotic verrucous squamous lesion with neutrophilic crust. The lesion is sore and occasionally forms a hard crust, and the patient has been applying a topical cream as part of the management plan. The plan includes excision of the lesion to ensure complete removal and further pathological evaluation, with a follow-up scheduled with a banquet waiter/waitress for comprehensive skin checks. 1. Hyperkeratotic Verrucous Squamous Lesion On The Right Ear The plan is to excise the lesion on the right ear to ensure complete removal and send it for fu (more content not included)... Normal [facility] Plastic Surgery Visit Report on 01-28-2025 Plastic Surgery Visit Report [facility] Plastic Reconstructive Surgery [address], [address] [place] [address] OFFICE VISIT Date of Service: 01/28/25 MR#: [id number] Acct: [id number] Name: HAILEE STOLL Rep #: [id number] : 1945 Provider: Dr. Benson Martinze MD Age/Sex: 79/F Location: [place] [address] Status: Signed Intake Vital Signs 10/04/24 06:49 01/27/25 09:49 Height 4 ft 10 in 4 ft 10 in Intake Visit Reasons: FOLLOW UP Chief Complaint: skin cancer Allergies No Known Allergies Allergy (Verified 01/20/25 15:16) Have you fallen in the past year?: No PFSH Medical History Wears partial dentures Low iron Non-smoker Hordeolum externum left lower eyelid Diarrhea Black tarry stools Acid reflux Diabetes Hypertension Surgical History History of colonoscopy History of appendectomy Family History Other Diabetes Heart disease Hypertension Social History Smoking Status: Never smoker alcohol intake: never substance use type: does not use additional social history: pt denies vaping, denies marijuana use, denies edibles, denies aspirin and ibuprofen use. pt denies any blood clots history. HPI FOLLOW UP Details: lidocaine 1% with epi sdc [id number] lt [id number] exp The patient is an 79-year-old female presenting with a hyperkeratotic verrucous squamous lesion on the right ear. The lesion was initially biopsied due to suspicion of skin cancer, but the pathology report indicated no malignancy, instead showing a hyperkeratotic verrucous squamous lesion with neutrophilic crust, suggesting inflammation. The biopsy was superficial, and the possibility of deeper pathology could not be ruled out, necessitating further clinical correlation. The patient reports soreness at the site of the lesion, which has been persistent. There was an initial pain radiating from the lesion, but it is unclear if it is related to the current condition. - Dermatological: Reports soreness at the site of the lesion on the right ear. - Musculoskeletal: Reports initial pain radiating from the lesion area. - Pathology: Biopsy of right ear lesion showed hyperkeratotic verrucous squamous lesion with neutrophilic crust, no malignancy detected. Attestation: Documentation on this patient encounter was supported using ambient scribe technology/ voice AI technology. The patient consented to recording for the purpose of documenting the encounter. Provider reviewed content of the generated note prior to signature. Coding Level of Care Code Attention Ya Diagnoses Neoplasm of uncertain behavior of skin D48.5 Comment CPT: 38217 Assessment and Plan (No Qualifiers) Assessment and Plan (1) Neoplasm of uncertain behavior of skin: Status: Acute Comment: Right ear Plan: Assessment and Plan The patient is an 79-year-old female with a history of a hyperkeratotic verrucous squamous lesion on the right ear, presenting for further evaluation. The initial biopsy did not reveal malignancy but showed a hyperkeratotic verrucous squamous lesion with neutrophilic crust, indicating inflammation. Due to the superficial nature of the biopsy, deeper pathology cannot be excluded, and further clinical correlation is recommended. The patient reports persistent soreness at the lesion site, with an initial episode of pain radiating from the area, though its relation to the lesion is uncertain. 1. Hyperkeratotic Verrucous Squamous Lesion A repeat biopsy is planned to obtain a deeper sample for further evaluation of the lesion. If the repeat biopsy shows similar findings, referral to a banquet waiter/waitress will be considered for further management. A follow-up appointment is scheduled in one week to review the biopsy results and determine the next steps. Plan Repeate Biopsy procedure 1) wedge excisional biopsy right ear antihelix/helix (middle of right ear) CPT: 44470 Patient was prepped with an alcohol swab and anesthetized with 2 cc of 1% lidocaine with 1-200,000 epinephrine. It was given time to take effect. 15 blade scalpel was used to take a wedge excision of the normal skin and the adjacent lesion. It was sent to pathology in 1 piece in formalin. Hemostasis was obtained with pen Bovie electrocautery. Patient tolerated the procedure well. Bacitracin was applied. Clinical Quality Measures Falls Risk Screening/Assistive Devices Have you fallen in the past year?: No 01/30/25 0538 Date Benson Martinez MD [facility] Signature: Date (more content not included)... Normal [facility] Surgery Specimen Level Marcy 01-28-2025 Surgery Specimen Level IV Patient Age/Sex Location Account Attending Physician HAILEE STOLL 79/F [facility] [id number] Dr. Benson Martinez MD Specimen: [id number] Received: 01/28/25 Status: NATALYA Woodard Num: [id number] Spec Type: Lesion Subm Dr: Dr. Benson Martinez MD HEADER OPERATION: Biopsy PRE-OP DIAGNOSIS: Ear biopsy TISSUE SUBMITTED: A- Right ear MICROSCOPIC DIAGNOSIS A. Ear, right, biopsy: - Superficial epidermis, ulcerated, with abundant inflammatory crust - see note. Note: The base of the lesion is not included in this superficial biopsy, therefore additional pathology cannot be ruled out. Complete excision of any residual or recurrent lesion is suggested, if clinically indicated. MICROSCOPIC DESCRIPTION Slides are reviewed. GROSS DESCRIPTION A. Received in formalin labeled with the patient's name and date of . Designated as " biopsy right ear lesion" is a 0.8 x 0.2 x 0.2 cm irregular portion of apparent skin devoid of an identifiable resection margin. Submitted in toto in 1 cassette. CA 01/29/2025 CPT:11072 Patient Age/Sex Location Account Attending Physician HAILEE STOLL 79/F [facility] [id number] Dr. Benson Martinez MD Signed (signature on file) Dr. Lisseth Obrien MD 02/05/25 1639 Normal [facility] Comment on above: Performed By: #### P SUIV ####[facility] [id number] [place], [place], [address] Surgical pathology reportOrd ered By: Lisseth Obrien on 01-22-2025 Surgical pathology study [facility] Plastic Surgery Visit Report on 01-20-2025 Plastic Surgery Visit Report [facility] Plastic Reconstructive Surgery [address], [address] [place] [address] OFFICE VISIT Date of Service: 01/20/25 MR#: [id number] Acct: [id number] Name: HAILEE STOLL Rep #: [id number] : 1945 Provider: Dr. Benson Martinez MD Age/Sex: 79/F Location: [facility] Status: Signed Intake Vital Signs 3 10/04/24 06:49 01/20/25 15:24 Height 4 ft 10 in Weight: 108 lb BP 169/75 H Blood Pressure Location Rt brachial Position Sitting Respiration 18 Pulse 83 Temp 98.4 F Temp Source Oral Pulse Oximetry (%) 96 Oxygen Delivery Method room air Intake Visit Reasons: SKIN CANCER Chief Complaint: skin cancer DME Vendor: right ear lesion Is patient in pain?: No Allergies No Known Allergies Allergy (Verified 01/20/25 15:16) Medications 3 ???Medication ???Instructions ???Recorded ???Confirmed ???Type blood sugar diagnostic (True #10 ea 09/05/24 09/05/24 History Metrix Glucose Test Strip) glipizide 2.5 mg tablet, extended 2.5 mg PO QDAY 09/05/24 01/20/25 History release 24 hr lancets 33 gauge (TRUEplus Lancets) #100 ea 09/05/24 09/05/24 Histo ry lisinopril 20 1 tab PO BID 09/05/24 01/20/25 His tory mg-hydrochlorothiazide 12.5 mg tablet metformin 500 mg tablet,extended 1,000 mg PO BID 09/05/24 01/20/25 History release 24 hr omeprazole 40 mg capsule,delayed 40 mg PO QDAY 09/05/24 10/04/24 Hi story release trazodone 50 mg tablet 50 mg PO QHS 09/05/24 01/20/25 His tory amlodipine 5 mg tablet 5 mg PO DAILY 09/30/24 01/20/25 Hi story ferrous sulfate 325 mg (65 mg 325 mg PO QODAY 10/02/24 10/04/24 History iron) tablet (Feosol) Have you fallen in the past year?: No Nurse's Note: pt here for eval of lesion on right ear [facility] Medical History Wears partial dentures Low iron Non-smoker Hordeolum externum left lower eyelid Diarrhea Black tarry stools Acid reflux Diabetes Hypertension Surgical History History of colonoscopy History of appendectomy Family History (Updated 01/20/25 @ 15:16 by Susan Melendez) Other Diabetes Heart disease Hypertension Social History (Updated 01/20/25 @ 15:26 by Susan Melendez) Smoking Status: Never smoker alcohol intake: never substance use type: does not use additional social history: pt denies vaping, denies marijuana use, denies edibles, denies aspirin and ibuprofen use. pt denies any blood clots history. HPI SKIN CANCER Details: lidocaine 1% with epi [id number] lot [id number] exp The patient is an 79-year-old female presenting with a lesion on the right ear. The lesion has been present for approximately two to three months, characterized by a scab that falls off and then becomes red and sore before reforming. The lesion is located on the right helix and antihelix, measuring approximately 0.75 x 0.75 cm. The patient has a history of hypertension and diabetes mellitus, with a recent A1c of 6.1, indicating good control of her diabetes. She reports not using sunscreen despite spending significant time outdoors, which may contribute to skin issues. Approximately four years ago, the patient had a biopsy on a spot on her right lower eyelid, which was diagnosed as a slow-growing skin cancer. The biopsy removed a significant portion of the lesion, and subsequent examination could not locate any remaining cancerous tissue. Attestation: Documentation on this patient encounter was supported using ambient scribe technology/ voice AI technology. The patient consented to recording for the purpose of documenting the encounter. Provider reviewed content of the generated note prior to signature. ROS Details - Dermatological: Reports lesion on right ear with scabbing and soreness. Denies use of sunscreen. - Cardiovascular: Denies any significant cardiovascular issues aside from hypertension. - Endocrine: Reports diabetes mellitus with recent A1c of 6.1. General General: Yes good health; No fatigue, fever(s) or weight loss HENMT HENMT: No rhinitis, sore throat/mouth sore, nasal congestion, contacts or glaucoma Endo Endocrine: No thyroid disease, polydipsia, heat intolerance, cold intolerance, hepatitis or excessive urine Skin Skin: No Bleeding, bruising, changing moles or suspicious lesion Musc Musculoskeletal: No joint pain, joint stiffness, muscle weakness, back pain, osteoarthritis or Muscle aches/ myalgia Neuro Neurological: No headache(s), No lightheadedness and No numbness Cardio Cardiovascular: No chest pain, pacemaker, fatigue or shortness of breat with exertion Psych Psychiatric: No depression, claustrophobia or anxiety Resp Respi (more content not included)... Normal [facility] Surgery Specimen Level Marcy 01-20-2025 Surgery Specimen Level IV Patient Age/Sex Location Account Attending Physician HAILEE STOLL 79/F LABSPEC [id number] Dr. Benson Martinez MD Specimen: [id number] Received: 01/20/25 Status: NATALYA Woodard Num: [id number] Spec Type: Lesion Subm Dr: Dr. Benson Martinez MD HEADER OPERATION: Biopsy right ear PRE-OP DIAGNOSIS: Right ear TISSUE SUBMITTED: A- Right ear biopsy MICROSCOPIC DIAGNOSIS A. Skin, ear, right, shave biopsy: * Superficial portion of a hyperkeratotic verrucous squamous lesion with neutrophil crust - see note. * Note: Only a small portion of the lesion is included in the superficial biopsy. Additional pathology deep to the biopsy cannot be ruled out. Recommend clinical correlation. MICROSCOPIC DESCRIPTION Slides are reviewed. GROSS DESCRIPTION A. Received in formalin labeled with the patient's name and date of is a 0.9 x 0.5 x 0.1 cm delaney to red and congested, irregular portion of apparent skin devoid of orientation. A definitive resection margin is unable to be determined. The specimen is bisected (on the long axis),and entirely submitted in 1 cassette. CA 01/21/[address] [facility]:[id number] Patient Age/Sex Location Account Attending Physician HAILEE STOLL 79/F LABSPEC [id number] Dr. Benson Martinez MD Signed (signature on file) Dr. Lisseth Obrien MD 01/22/25 1656 Normal [facility] Comment on above: Performed By: #### P SUIV #### [facility] [address] [place], [address] L5500.0550on 01-17-2025 BEEF <0.10 Normal Class 0 [facility] Comment on above: Performed By: #### L 501.5200, L3410.2970, L5500.0550 ####[facility] [address] [place], [address] CHOCOLATE <0.10 Normal Class 0 [facility] Comment on above: Performed By: #### L 501.5200, L3410.2970, L5500.0550 ####[facility] [address] [place], [address] CODFISH <0.10 Normal Class 0 [facility] Comment on above: Performed By: #### L 501.5200, L3410.2970, L5500.0550 ####[facility] [address] [place], [address] COMMENT Comment Normal . [facility] Comment on above: Result Comment: Mulu marcelino of Specific IgE Class Description of Class ----- < 0.10 0 Negative 0.10 - 0.31 0/I Equivocal/Low 0.32 - 0.55 I Low 0.56 - 1.40 II Moderate 1.41 - 3.90 III High 3.91 - 19.00 IV Very High 19.01 - 100.00 V Very High >100.00 Very High Performed By: #### L 501.5200, L3410.2970, L5500.0550 ####[facility] [address] [place], [address] CORN <0.10 Normal Class 0 [facility] Comment on above: Performed By: #### L 501.5200, L3410.2970, L5500.0550 ####[facility] [address] [place], [address] EGG, WHOLE <0.10 Normal Class 0 [facility] Comment on above: Result Comment: Perf ormed at: - [facility] [id number] Residence Leasing Agent: Leanne Matthews MD, Phone: [phone] Performed By: #### L 501.5200, L3410.2970, L5500.0550 ####[facility] [address] [place], [address] MILK (COW) <0.10 Normal Class 0 [facility] Comment on above: Performed By: #### L 501.5200, L3410.2970, L5500.0550 ####[facility] [address] [place], [address] MUSSELS <0.10 Normal Class 0 [facility] Comment on above: Performed By: #### L 501.5200, L3410.2970, L5500.0550 ####[facility] [address] [place], [address] PEANUT <0.10 Normal Class 0 [facility] Comment on above: Performed By: #### L 501.5200, L3410.2970, L5500.0550 ####[facility] [address] [place], [address] PORK <0.10 Normal Class 0 [facility] Comment on above: Performed By: #### L 501.5200, L3410.2970, L5500.0550 ####[facility] [address] [place], [address] SALMON <0.10 Normal Class 0 [facility] Comment on above: Performed By: #### L 501.5200, L3410.2970, L5500.0550 ####[facility] [address] [place], [address] SHRIMP <0.10 Normal Class 0 [facility] Comment on above: Performed By: #### L 501.5200, L3410.2970, L5500.0550 ####[facility] [address] [place], [address] SOYBEAN <0.10 Normal Class 0 [facility] Comment on above: Performed By: #### L 501.5200, L3410.2970, L5500.0550 ####[facility] [address] [place], [address] TUNA <0.10 Normal Class 0 [facility] Comment on above: Performed By: #### L 501.5200, L3410.2970, L5500.0550 ####[facility] [address] [place], [address] WHEAT <0.10 Normal Class 0 [facility] Comment on above: Performed By: #### L 501.5200, L3410.2970, L5500.0550 ####[facility] [address] [place], [address] t-Transglutaminase IgGon tTG IGG 3 U/mL Normal 0-5 [facility] Comment on above: Result Comment: Nega tive 0 - 5 Weak Positive 6 - 9 Positive >9 Performed at: CB - [address] [id number] Residence Leasing Agent: Grant Sands PhD, Phone: [phone] Performed By: #### L 501.5209, L3576.6545, G3912.8570 ####[facility] [address] [place], [place], [address] Hemoglobin A1con 01-14-2025 HbA1c (Bld) [Mass fraction] 6.5 % High <=5.6 [facility] Comment on above: Order Comment: Order Date: 01/14/25 Order Info: 4548-4 - A1C Result Comment: Norm al < 5.7 % Prediabetic 5.7 - 6.4 % Diabetic >or= 6.5 % Please note range changes. Performed By: #### L 501.9985 #### [facility] [address] [place], [place], [id number] Hemoglobin A1c percentageOrd ered By: Keshia Johnson on 01-14-2025 HbA1c (Bld) [Mass fraction] 6.5 % High <5.7 [facility] Comment on above: Normal < 5.7 % Predi abetic 5.7 - 6.4 % Diabetic >or= 6.5 % Please note range changes. Laboratory - Miscellaneous t estsOrdered By: Keshia Johnson on 01-14-2025 Service comment (Unsp spec) [Interp] Comment . [facility] Comment on above: Levels of Specific I gE Class Description of Class ----- < 0.10 0 Negative 0.10 - 0.31 0/I Equivocal/Low 0.32 - 0.55 I Low 0.56 - 1.40 II Moderate 1.41 - 3.90 III High 3.91 - 19.00 IV Very High 19.01 - 100.00 V Very High >100.00 Very High Magnesiumon 01-14-2025 Magnesium [Mass/Vol] 1.5 mg/dL Normal 1.5-2.2 [facility] Comment on above: Performed By: #### L 501.5200, L3410.2970, L5500.0550 ####[facility] [address] [place], [address] Magnesium measurement (mass/ volume)Ordered By: Keshia Johnson on 01-14-2025 Magnesium (Unsp spec) [Mass/Vol] 1.5 mg/dL 1.5-2.2 [facility] No Panel InformationOrdered By: Keshia Johnson on 01-14-2025 Tissue Transglutaminase IgG Ab 3 U/mL 0-5 [facility] Comment on above: Negative 0 - 5 Weak Positive 6 - 9 Positive >9Performed at: [facility] [address] [id number] Director: Grant Sands PhD, Phone: [phone] Serum beef IgE antibody assa y (units/volume)Ordered By: Keshia Johnson on 01-14-2025 Beef IgE Qn (S) <0.10 kU/L Class 0 [facility] Serum codfish IgE antibody a ssay (units/volume)Ordered By: Keshia Johnson on 01-14-2025 Codfish IgE Qn (S) <0.10 kU/L Class 0 [facility] Serum corn IgE antibody assa y (units/volume)Ordered By: Keshia Johnson on 01-14-2025 Stanley IgE Qn (S) <0.10 kU/L Class 0 [facility] Serum cow milk IgE antibody assay (units/volume)Ordered By: Keshia Johnson on 01-14-2025 Cow milk IgE Qn (S) <0.10 kU/L Class 0 [facility] Serum peanut IgE antibody as say (units/volume)Ordered By: Keshia Johnson on 01-14-2025 Peanut IgE Qn (S) <0.10 kU/L Class 0 [facility] Serum pork IgE antibody assa y (units/volume)Ordered By: Keshia Johnson on 01-14-2025 Pork IgE Qn (S) <0.10 kU/L Class 0 [facility] Serum salmon IgE antibody as say (units/volume)[facility]: [facility] on 01-14-2025 [place] IgE Qn (S) <0.10 kU/L Class 0 [facility] Serum soybean IgE antibody a ssay (units/volume)Ordered By: [facility] on 01-14-2025 Soybean IgE Qn (S) <0.10 kU/L Class 0 [facility] Serum tuna IgE antibody assa y (units/volume)Ordered By: [facility] on 01-14-2025 Tuna IgE Qn (S) <0.10 kU/L Class 0 [facility] Serum wheat IgE antibody ass ay (units/volume)Ordered By: [facility] on 01-14-2025 Wheat IgE Qn (S) <0.10 kU/L Class 0 [facility] Serum whole egg IgE antibody assay (units/volume)Ordered By: [facility] on 01-14-2025 Whole Egg IgE Qn (S) <0.10 kU/L Class 0 [facility] Comment on above: Performed at: [address] [id number] Director: Leanne Matthews MD, Phone: [phone] Bedside Glucoseon 10-04-2024 FINGERSTICK GLU 167 mg/dL High 74-106 [facility] Comment on above: Result Comment: MONROE LEHMAN OF PATIENT CARE PER NURSING PROTOCOL Performed By: #### L 501.080 #### [facility] [address] [place], [address] Colonoscopy Reporton 025 Colonoscopy Report [facility] Medical Records Department [address] [place] [address] Colonoscopy Report MR#: [id number] Acct: [id number] Name: HAILEE STOLL Rep #: [id number] : 1945 79 From: Lico Hunt MD PCP: Dr. Keshia Johnson MD Status:[facility] Patient Name: Hailee Stoll Procedure Date: [...] present medications. Procedure Code(s): --- Professional --- 90502, Colonoscopy, flexible; diagnostic, including collection of specimen(s) by brushing or washing, when performed (separate procedure) Diagnosis Code(s): --- Professional --- Z12.11, Encounter for screening for malignant neoplasm of colon K57.30, Diverticulosis of large intestine without perforation or abscess without bleeding K64.8, Other hemorrhoids CPT copyright 2021 [employer]. All rights reserved. The codes documented in this report are preliminary and upon gis database administrator review may be revised to meet current compliance requirements. Lico Hunt MD 10/04/2024 8:56:21 AM This report has been signed electronically. Number of Addenda: 0 Note Initiated On: 10/04/2024 8:23 AM 10/04/24855 Date Lico Hunt MD Cosigner Signature: Date (if indicated) CC: Dr. Keshia Johnson MD; Dr. Lico Hunt MD Date Dictated: 10/04/24822 Date Transcribed: Volunteer Services Assistant: PATITO Signed Normal [facility] EGD Reporton 10-04-2024 EGD Report [facility] Medical Records Department [address] [place] [address] EGD Report MR#: [id number] Acct: [id number] Name: DODIEHAILEE Rocío Rep #: [id number] : 1945 79 From: Lico Hunt MD PCP: Dr. Keshia Johnson MD Status:REG [facility] Patient Name: Hailee Stoll Procedure Date: 10/04/2024 [...] pathology results. Procedure Code(s): --- Professional --- 73614, Esophagogastroduodenoscopy, flexible, transoral; with biopsy, single or multiple Diagnosis Code(s): --- Professional --- R10.13, Epigastric pain K31.89, Other diseases of stomach and duodenum CPT copyright 2021 [employer]. All rights reserved. The codes documented in this report are preliminary and upon gis database administrator review may be revised to meet current compliance requirements. Lico Hunt MD 10/04/2024 8:53:26 AM This report has been signed electronically. Number of Addenda: 0 Note Initiated On: 10/04/2024 8:01 AM 10/04/2453 Date Lico Hunt MD Cosigner Signature: Date (if indicated) CC: Dr. Keshia Johnson MD; Dr. Lico Hunt MD Date Dictated: 10/04/24 08 Date Transcribed: Volunteer Services Assistant: PATITO Signed Normal [facility] deOrdered By: Lico Hunt on 10-04-2024 Bedside Glucose (Misc Panel) 167 mg/dL High 74-106 [facility] Comment on above: MANAGEMENT OF PATIEN T CARE PER NURSING PROTOCOL Glucose [Mass/Vol] 167 mg/dL High 74-106 [facility] Comment on above: MANAGEMENT OF PATIEN T CARE PER NURSING PROTOCOL Immunohistochemical Stainson 10-04-2024 Immunohistochemical Stains Patient Age/Sex Location Account Attending Physician HAILEE STOLL 79/F EN [id number] Dr. Lico Hunt MD Specimen: [id number] Received: 10/04/24 Status: NATALYA Dennisonjessica Num: [id number] Spec Type: COLON BX Subm Dr: Dr. [...] GROSS DESCRIPTION Specimen A-received in formalin labeled Dodie, Hailee, and designated duodenal biopsy, are two delaney [...] x 0.2 cm. Totally submitted in one cassette.ROSA ELENA. 10/04/2024 CPT:27144s0,21877,26846 Patient Age/Sex Location Account Attending Physician HAILEE STOLL Rocío 79/F EN [id number] Dr. Lico Hunt MD ADDENDUM Addendum 1 Entered: 10/11/24 This addendum is to report the result for the special stain. The PASD stain is negative for fungal organisms. Matched control reacted appropriately. Addendum Signed (signature on file) Dr. Lisseth Obrien MD 10/11/24 0931 Patient Age/Sex Location Account Attending Physician HAILEE STOLL 79/F EN [id number] Dr. Lico Hunt MD Signed (signature on file) Dr. Lsiseth Obrien MD 10/09/24 1605 Normal [facility] Comment on above: Performed By: #### P RAEGANNH #### [facility] [address] [place], [address] MR/POSTOP.ANEon 10-04-2024 MR/POSTOP.[facility] Medical Records Department [address] [place] [address] Anesthesia Postop Eval I 10/04/2458 MR#: [id number] Acct: [id number] Name: HAILEE STOLL Rep #: [id number] : 1945 79 From: Petr Gallardo PCP: Dr. Keshia Johnson MD Status:REG [facility] Y Race: C Location: [place] [address] Anesthesia: Postop Eval I Current Vital Signs [...] Anesthesia document: Postop Eval 1 completed: Yes 10/04/24899 Date Petr Owens Signature: Date CC: Signed Normal [facility] MR/BMFVPOSF6od 10-04-2024 MR/POSTOPAN2 [facility] Medical Records Department [address] [place] [address] Anesthesia Postop Eval II 10/04/24930 MR#: [id number] Acct: [id number] Name: HAILEE STOLL Rep #: [id number] : 1945 79 From: Jerry Hardin MD PCP: Dr. Keshia Johnson MD Status:REG [facility] Y Race: C Location: [place] [address] Anesthesia Postop Eval I Sum Postop Eval [...] Level: 0 nausea: No Vomiting: No 10/04/24930 Date Jerry Owens Signature: Date CC: Signed Normal [facility] Urgent Care Visit Reporton 0 09-30-2024 [address] Report [facility] [address], [address] [place] [address] OFFICE VISIT Date of Service: 09/30/24 MR#: [id number] Acct: [id number] Name: HAILEE STOLL Rep #: [id number] : 1945 Provider: WOLFGANG Cordova Age/Sex: 79/F Location: [facility] Status: Signed Intake Vital Signs 09/05/24 08:28 [...] Patient also states it gets crusty sometimes. [facility] Medical History (Updated 09/30/24 @ 10:33 by [...] past year?: No 09/30/24 1033 Date Taj Moomaw DIRECTOR TREASURER-C Cosigner Signature: Date (if applicable) CC: Normal [facility] SCRN MAMM (CAD)W/LORETO BILATo n 09-10-2024 SCRN MAMM (CAD)W/LORETO BILAT [facility] Imaging Services [address] [place] [address] SCRN MAMM (CAD)W/LORETO BILAT MR#: [id number] Acct: [id number] Name: HAILEE STOLL Rep #: [id number] : 1945 F 79 From: Yanely Brito MD PCP: Dr. Keshia Johnson MD Status: [facility] Study: SCRN MAMM (CAD)W/LORETO BILAT Date of Exam: 08/31 08/24 Exam# [id number] Ordering Dr: Keshia Johnson MD PROCEDURE: SCRN [...] of the results by letter. Reading Location: [id number] CC: Dr. Keshia Johnson MD Volunteer Services Assistant: Signed Normal [facility] Surgery Visit Reporton 09-05 Surgery Visit Report [facility] [address] [place] [address]. [address] [place] [address] OFFICE VISIT Date of Service: 09/05/24 MR#: [id number] Acct: [id number] Name: HAILEE STOLL Rep #: [id number] : 1945 Provider: Dr. Lico ventura MD Age/Sex: 79/F Location: [facility] Status: Signed Intake Vital Signs 08/03/24 09:13 [...] year?: No (more content not included)... Normal [facility] Emergency Department Summary on 08-03-2024 Emergency Department Summary [facility] Medical Records Department [address] [place] [address] Emergency Department Summary 08/03/24 MR#: [id number] Acct: [id number] Name: HAILEE STOLL Rep #: [id number] : 1945 79 From: Fritz Rodriguez MD [...] no dyspnea. She is on no anticoagulants. [facility] Medical History Diabetes Hypertension Home Medications [...] 10:33 IMPRESSION: (more content not included)... Normal [facility] Ribs Uni Min 3V w/PA Cheston 08-03-2024 Ribs Uni Min 3V w/PA Chest [facility] Imaging Services [address] [place], [place] [address] Ribs Uni Min 3V w/PA Chest MR#: [id number] Acct: [id number] Name: HAILEE STOLL Rep #: [id number] : 1945 F 79 From: Fritz Rubio MD PCP: Dr. Keshia Johnson MD Status: REG ER Study: Ribs Uni Min 3V w/PA Chest Date of Exam: 08/03 Exam# [id number] Ordering Dr: Fritz Rodriguez MD [id number] STUDY: X-RAY - UNILATERAL RIBS ( RIGHT [...] Fritz Rodriguez MD; Dr. Keshia Johnson MD Volunteer Services Assistant: Signed Normal [facility] 04-UT-Jmawjlw DOrdered By: Javon Johnson on 07-19-2024 Vitamin D 25-Hydroxy 55.8 ng/mL [facility] Comment on above: Vitamin D 25(OH) Sta tus Range Deficiency <20 ng/mL (50nmol/L) Insufficiency 20 - 30 ng/mL (50 - 75 nmol/L) Sufficiency 30 - 100 ng/mL (75 - 250 nmol/L) Toxicity >100 ng/mL (>250 nmol/L) Abdomen Single Viewon 2023 Abdomen Single View [facility] Imaging Services [address] [place] [address] Abdomen Single View MR#: [id number] Acct: [id number] Name: HAILEE STOLL Rep #: [id number] : 1945 F 79 From: Fernie Catalan MD PCP: Dr. Keshia Johnson MD Status: REG CLI Study: Abdomen Single View Date of Exam: 07/19/24 Exam# [id number] Ordering Dr: Keshia Johnson MD [id number] EXAM: XR ABDOMEN, 1 VIEW CLINICAL INDICATION: [...] EST , CC: Dr. Keshia Johnson MD Volunteer Services Assistant: Signed Normal [facility] Absolute neutrophil countOrd ered By: Keshia Johnson on 07-19-2024 Neutrophils (Bld) [#/Vol] 3.7 10*3/uL 2.0-7.7 [facility] Albumin to globulin ratioOrd ered By: Keshia Johnson on 07-19-2024 Albumin/Globulin [Mass ratio] 0.8 {ratio} Low 0.9-2.4 [facility] Basophil percentageOrdered B y: Keshia Johnson on 07-19-2024 Basophils/100 WBC (Bld) 0.5 % 0-1 [facility] Bilirubin, totalOrdered By: Keshia Johnson on 07-19-2024 Bilirubin [Mass/Vol] 0.20 mg/dL 0.20-1.00 [facility] Comment on above: For patients on eltr ombopag therapy, use of Dimension [place] TBIL is not recommended. Blood urea nitrogen (BUN)/cr eatinine ratioOrdered By: Keshia Johnson on 07-19-2024 Urea nitrogen/Creatinine [Mass ratio] 19.7 mg/mg - [facility] CBC W/Diff, Automatedon 07-01 Absolute Lymph 1.59 X10 3/uL Normal 0.83-4.51 [facility] Comment on above: Order Comment: Order Date: 07/19/24Order Info: 0184-1 - CBCD Performed By: #### L 500.4050, L500.4100, L100.0100, L501.9520, L501.9985, L506.1000, L502.0250 ####[facility] [address] [place], [address] Absolute Neut 3.7 X10 3/uL Normal 2.0-7.7 [facility] Comment on above: Order Comment: Order Date: 07/19/24Order Info: 0184-1 - CBCD Performed By: #### L 500.4050, L500.4100, L100.0100, L501.9520, L501.9985, L506.1000, L502.0250 ####[facility] [address] [place], [address] Basophils/100 WBC (Bld) 0.5 % Normal 0-1 [facility] Comment on above: Order Comment: Order Date: 07/19/24Order Info: 0184-1 - CBCD Performed By: #### L 500.4050, L500.4100, L100.0100, L501.9520, L501.9985, L506.1000, L502.0250 ####[facility] [address] [place], [address] Eosinophils/100 WBC (Bld) 3.0 % Normal 0-5 [facility] Comment on above: Order Comment: Order Date: 07/19/24Order Info: 0184-1 - CBCD Performed By: #### L 500.4050, L500.4100, L100.0100, L501.9520, L501.9985, L506.1000, L502.0250 ####[facility] [address] [place], [address] Erythrocyte distribution width (RBC) [Ratio] 12.2 % Normal 11.6-14.6 [facility] Comment on above: Order Comment: Order Date: 07/19/24Order Info: 018-1 - CBCD Performed By: #### L 500.4050, L500.4100, L100.0100, L501.9520, L501.9985, L506.1000, L502.0250 ####[facility] [address] [place], [address] Hematocrit (Bld) [Volume fraction] 33.4 % Low 37-47 [facility] Comment on above: Order Comment: Order Date: 07/19/24Order Info: 0184-1 - CBCD Performed By: #### L 500.4050, L500.4100, L100.0100, L501.9520, L501.9985, L506.1000, L502.0250 ####[facility] [address] [place], [address] Hemoglobin (Bld) [Mass/Vol] 11.0 g/dL Low 12.0-15.0 [facility] Comment on above: Order Comment: Order Date: 07/19/24Order Info: 018-1 - CBCD Performed By: #### L 500.4050, L500.4100, L100.0100, L501.9520, L501.9985, L506.1000, L502.0250 ####[facility] [address] [place], [address] IG% 0.300 Normal 0.0-0.9 [facility] Comment on above: Order Comment: Order Date: 07/19/24Order Info: 0184-1 - CBCD Result Comment: IG% - Immature Granulocytes (promyelocytes, myelocytes and metamyelocytes) > 1% indicates that a LEFT SHIFT is Present. Performed By: #### L 500.4050, L500.4100, L100.0100, L501.9520, L501.9985, L506.1000, L502.0250 ####[facility] [address] [place], [address] Lymphocytes/100 WBC (Bld) 26.6 % Normal 19-41 [facility] Comment on above: Order Comment: Order Date: 07/19/24Order Info: 0184-1 - CBCD Performed By: #### L 500.4050, L500.4100, L100.0100, L501.9520, L501.9985, L506.1000, L502.0250 ####[facility] [address] [place], [address] MCH (RBC) [Entitic mass] 30.3 pg Normal 27.0-32.0 [facility] Comment on above: Order Comment: Order Date: 07/19/24Order Info: [id number] - CBCD Performed By: #### L 500.4050, L500.4100, L100.0100, L501.9520, L501.9985, L506.1000, L502.0250 ####[facility] [address] [place], [address] MCHC (RBC) [Mass/Vol] 32.9 g/dL Normal 32-36 [facility] Comment on above: Order Comment: Order Date: 07/19/24Order Info: [id number] - CBCD Performed By: #### L 500.4050, L500.4100, L100.0100, L501.9520, L501.9985, L506.1000, L502.0250 ####[facility] [address] [place], [address] MCV (RBC) [Entitic vol] 92.0 fL Normal 81-99 [facility] Comment on above: Order Comment: Order Date: 07/19/24Order Info: [id number] - CBCD Performed By: #### L 500.4050, L500.4100, L100.0100, L501.9520, L501.9985, L506.1000, L502.0250 ####[facility] [address] [place], [address] Monocytes/100 WBC (Bld) 7.4 % Normal 0-10 [facility] Comment on above: Order Comment: Order Date: 07/19/24Order Info: [id number] - CBCD Performed By: #### L 500.4050, L500.4100, L100.0100, L501.9520, L501.9985, L506.1000, L502.0250 ####[facility] [address] [place], [address] Neutrophils/100 WBC (Bld) 62.2 % Normal 47-70 [facility] Comment on above: Order Comment: Order Date: 07/19/24Order Info: [id number] - CBCD Performed By: #### L 500.4050, L500.4100, L100.0100, L501.9520, L501.9985, L506.1000, L502.0250 ####[facility] [address] [place], [address] Nucleated RBC (Bld) [#/Vol] 0 10*3/uL Normal 0-5 [facility] Comment on above: Order Comment: Order Date: 07/19/24Order Info: [id number] - CBCD Performed By: #### L 500.4050, L500.4100, L100.0100, L501.9520, L501.9985, L506.1000, L502.0250 ####[facility] [address] [place], [address] Platelet mean volume (Bld) [Entitic vol] 10.0 fL Normal 6.2-12.0 [facility] Comment on above: Order Comment: Order Date: 07/19/24Order Info: [id number] - CBCD Performed By: #### L 500.4050, L500.4100, L100.0100, L501.9520, L501.9985, L506.1000, L502.0250 ####[facility] [address] [place], [address] Platelets (Bld) [#/Vol] 355 10*3/uL Normal 150-450 [facility] Comment on above: Order Comment: Order Date: 07/19/24Order Info: [id number] - CBCD Performed By: #### L 500.4050, L500.4100, L100.0100, L501.9520, L501.9985, L506.1000, L502.0250 ####[facility] [address] [place], [address] RBC (Bld) [#/Vol] 3.63 10*6/uL Low 4.2-5.4 [facility] Comment on above: Order Comment: Order Date: 07/19/24Order Info: [id number] - CBCD Performed By: #### L 500.4050, L500.4100, L100.0100, L501.9520, L501.9985, L506.1000, L502.0250 ####[facility] [address] [place], [address] RDW SD 41.7 fl Normal 35.1-43.9 [facility] Comment on above: Order Comment: Order Date: 07/19/24Order Info: [id number] - CBCD Performed By: #### L 500.4050, L500.4100, L100.0100, L501.9520, L501.9985, L506.1000, L502.0250 ####[facility] [address] [place], [place], [address] WBC (Bld) [#/Vol] 6.0 10*3/uL Normal 4.4-11.0 [facility] Comment on above: Order Comment: Order Date: 07/19/24Order Info: [id number] - CBCD Performed By: #### L 500.4050, L500.4100, L100.0100, L501.9520, L501.9985, L506.1000, L502.0250 ####[facility] [address] [facility] [place], [place], [id number] Carbon dioxide measurementOr dered By: Keshia Johnson on 07-19-2024 CO2 [Moles/Vol] 23.0 mmol/L 21.0-32.0 [facility] Chloride measurementOrdered By: Keshia Johsnon on 07-19-2024 Chloride [Moles/Vol] 107 mmol/L 98-107 [facility] Comprehensive Metabolic Prof ilon 07-19-2024 Albumin [Mass/Vol] 3.7 g/dL Normal 3.2-5.0 [facility] Comment on above: Order Comment: Order Date: 07/19/24Order Info: [id number] - CMPOrder Info: [id number] - LIPIDOrder Info: [id number] - TSH Performed By: #### L 500.4050, L500.4100, L100.0100, L501.9520, L501.9985, L506.1000, L502.0250 ####[facility] [address] [place], [place], [id number] Albumin/Globulin [Mass ratio] 0.8 {ratio} Low 0.9-2.4 [facility] Comment on above: Order Comment: Order Date: 07/19/24Order Info: [id number] - CMPOrder Info: [id number] - LIPIDOrder Info: [id number] - TSH Performed By: #### L 500.4050, L500.4100, L100.0100, L501.9520, L501.9985, L506.1000, L502.0250 ####[facility] [address] [place], [address] ALK P 118 U/L High 45-117 [facility] Comment on above: Order Comment: Order Date: 07/19/24Order Info: [id number] - CMPOrder Info: [id number] - LIPIDOrder Info: [id number] - TSH Performed By: #### L 500.4050, L500.4100, L100.0100, L501.9520, L501.9985, L506.1000, L502.0250 ####[facility] [address] [place], [address] ALT [Catalytic activity/Vol] 39 U/L Normal 13-56 [facility] Comment on above: Order Comment: Order Date: 07/19/24Order Info: 785- - CMPOrder Info: [id number] - LIPIDOrder Info: [id number] - TSH Performed By: #### L 500.4050, L500.4100, L100.0100, L501.9520, L501.9985, L506.1000, L502.0250 ####[facility] [address] [place], [address] AST [Catalytic activity/Vol] 28 U/L Normal 15-37 [facility] Comment on above: Order Comment: Order Date: 07/19/24Order Info: 785- - CMPOrder Info: [id number] - LIPIDOrder Info: [id number] - TSH Performed By: #### L 500.4050, L500.4100, L100.0100, L501.9520, L501.9985, L506.1000, L502.0250 ####[facility] [address] [place], [address] Bilirubin [Mass/Vol] 0.20 mg/dL Normal 0.20-1.00 [facility] Comment on above: Order Comment: Order Date: 07/19/24Order Info: 86- - CMPOrder Info: [id number] - LIPIDOrder Info: [id number] - TSH Result Comment: For patients on eltrombopag therapy, use of Dimension [place] TBIL is not recommended. Performed By: #### L 500.4050, L500.4100, L100.0100, L501.9520, L501.9985, L506.1000, L502.0250 ####[facility] [address] [place], [address] BUN/CRE 19.7 RATIO Normal 10-20 [facility] Comment on above: Order Comment: Order Date: 07/19/24Order Info: 07- - CMPOrder Info: [id number] - LIPIDOrder Info: [id number] - TSH Performed By: #### L 500.4050, L500.4100, L100.0100, L501.9520, L501.9985, L506.1000, L502.0250 ####[facility] [address] [place], [address] CA,Total 10.1 mg/dL Normal 8.5-10.1 [facility] Comment on above: Order Comment: Order Date: 07/19/24Order Info: 07 - CMPOrder Info: [id number] - LIPIDOrder Info: [id number] - TSH Performed By: #### L 500.4050, L500.4100, L100.0100, L501.9520, L501.9985, L506.1000, L502.0250 ####[facility] [address] [place], [address] Chloride [Moles/Vol] 107 mmol/L Normal 98-107 [facility] Comment on above: Order Comment: Order Date: 07/19/24Order Info: 07- - CMPOrder Info: [id number] - LIPIDOrder Info: [id number] - TSH Performed By: #### L 500.4050, L500.4100, L100.0100, L501.9520, L501.9985, L506.1000, L502.0250 ####[facility] [address] [place], [address] CO2 [Moles/Vol] 23.0 mmol/L Normal 21.0-32.0 [facility] Comment on above: Order Comment: Order Date: 07/19/24Order Info: [id number] - CMPOrder Info: [id number] - LIPIDOrder Info: [id number] - TSH Performed By: #### L 500.4050, L500.4100, L100.0100, L501.9520, L501.9985, L506.1000, L502.0250 ####[facility] [address] [place], [address] Creatinine [Mass/Vol] 1.52 mg/dL High 0.55-1.02 [facility] Comment on above: Order Comment: Order Date: 07/19/24Order Info: [id number] - CMPOrder Info: [id number] - LIPIDOrder Info: 3 - TSH Result Comment: The validity of the calculated GFR GFRAA in patients over 70 years has not been determined. Clinical correlation is essential. Performed By: #### L 500.4050, L500.4100, L100.0100, L501.9520, L501.9985, L506.1000, L502.0250 ####[facility] [address] [place], [address] EST GFR - AA 42 mL/min Low >60 [facility] Comment on above: Order Comment: Order Date: 07/19/24Order Info: 07-1 - CMPOrder Info: [id number] - LIPIDOrder Info: [id number] - TSH Result Comment: Afri can Malian GFR Calc Performed By: #### L 500.4050, L500.4100, L100.0100, L501.9520, L501.9985, L506.1000, L502.0250 ####[facility] [address] [place], [address] GAP 8 Normal 5-15 [facility] Comment on above: Order Comment: Order Date: 07/19/24Order Info: 785- - CMPOrder Info: [id number] - LIPIDOrder Info: [id number] - TSH Performed By: #### L 500.4050, L500.4100, L100.0100, L501.9520, L501.9985, L506.1000, L502.0250 ####[facility] [address] [place], [address] GFR/1.73 sq M.predicted among non-blacks MDRD (S/P/Bld) [Vol rate/Area] 35 mL/min/{1.73_m2} Low >60 [facility] Comment on above: Order Comment: Order Date: 07/19/24Order Info: [id number] - CMPOrder Info: - LIPIDOrder Info: 3 - TSH Result Comment: Non- GFR Calc Performed By: #### L 500.4050, L500.4100, L100.0100, L501.9520, L501.9985, L506.1000, L502.0250 ####[facility] [address] [place], [address] Globulin (S) [Mass/Vol] 4.5 g/dL High 2.2-4.2 [facility] Comment on above: Order Comment: Order Date: 07/19/24Order Info: [id number] - CMPOrder Info: [id number] - LIPIDOrder Info: 3 - TSH Performed By: #### L 500.4050, L500.4100, L100.0100, L501.9520, L501.9985, L506.1000, L502.0250 ####[facility] [address] [place], [address] Glucose [Mass/Vol] 113 mg/dL High 74-106 [facility] Comment on above: Order Comment: Order Date: 07/19/24Order Info: 785- - CMPOrder Info: - LIPIDOrder Info: [id number] - TSH Result Comment: Fast ing Glucose result from 100 to 125 mg/dL suggests IMPAIRED HOMEOSTASIS per A.D.A. criteria. Performed By: #### L 500.4050, L500.4100, L100.0100, L501.9520, L501.9985, L506.1000, L502.0250 ####[facility] [address] [place], [address] Potassium [Moles/Vol] 3.8 mmol/L Normal 3.5-5.1 [facility] Comment on above: Order Comment: Order Date: 07/19/24Order Info: [id number] - CMPOrder Info: - LIPIDOrder Info: [id number] - TSH Performed By: #### L 500.4050, L500.4100, L100.0100, L501.9520, L501.9985, L506.1000, L502.0250 ####[facility] [address] [place], [address] Sodium [Moles/Vol] 138 mmol/L Normal 136-145 [facility] Comment on above: Order Comment: Order Date: 07/19/24Order Info: 785- - CMPOrder Info: [id number] - LIPIDOrder Info: [id number] - TSH Performed By: #### L 500.4050, L500.4100, L100.0100, L501.9520, L501.9985, L506.1000, L502.0250 ####[facility] [address] [place], [address] T PROT 8.2 g/dL Normal 6.4-8.2 [facility] Comment on above: Order Comment: Order Date: 07/19/24Order Info: 07-1 - CMPOrder Info: [id number] - LIPIDOrder Info: [id number] - TSH Performed By: #### L 500.4050, L500.4100, L100.0100, L501.9520, L501.9985, L506.1000, L502.0250 ####[facility] [address] [place], [address] Urea nitrogen [Mass/Vol] 30 mg/dL High 7-18 [facility] Comment on above: Order Comment: Order Date: 07/19/24Order Info: [id number] - CMPOrder Info: [id number] - LIPIDOrder Info: [id number] - TSH Performed By: #### L 500.4050, L500.4100, L100.0100, L501.9520, L501.9985, L506.1000, L502.0250 ####[facility] [address] [place], [address] Eosinophil percentageOrdered By: Keshia Johnson on 07-19-2024 Eosinophils/100 WBC (Bld) 3.0 % 0-5 [facility] Erythrocyte distribution wid th ratioOrdered By: Keshia Johnson on 07-19-2024 Erythrocyte distribution width (RBC) [Ratio] 12.2 % 11.6-14.6 [facility] Erythrocyte distribution wid th standard deviationOrdered By: Keshia Elizabeth on 07-19-2024 Erythrocyte distribution width (RBC) [Entitic vol] 41.7 fL 35.1-43.9 [facility] Estimated glomerular filtrat ion rate (GFR) AmericanOrdered By: Keshia Johnson on 07-19-2024 Estimated GFR (MDRD) Amer 42 mL/min Low >60 [facility] Comment on above: GFR Calc Glomerular filtration rate ( GFR) estimationOrdered By: Keshia Johnson on 07-19-2024 Estimated GFR (MDRD) Non-Af Amer 35 mL/min Low >60 [facility] Comment on above: Non- GFR Calc Glucose measurementOrdered B y: Keshia Johnson on 07-19-2024 Glucose [Mass/Vol] 113 mg/dL High 74-106 [facility] Comment on above: Fasting Glucose resu lt from 100 to 125 mg/dL suggests IMPAIRED HOMEOSTASIS per A.D.A. criteria. Hematocrit Auto (Bld) [Volum e fraction]Ordered By: Keshia Johnson on 07-19-2024 Hematocrit (Bld) [Volume fraction] 33.4 % Low 37-47 [facility] Hemoglobin A1c percentageOrd ered By: Keshia Johnson on 07-19-2024 HbA1c (Bld) [Mass fraction] 6.2 % High 3.8-5.6 [facility] Comment on above: Normal < 5.7 % Predi abetic 5.7 - 6.4 % Diabetic >or= 6.5 % Please note range changes. Order Comment: Order Date: 07/19/24Order Info: [id number] - A1C Result Comment: Norm al < 5.7 % Prediabetic 5.7 - 6.4 % Diabetic >or= 6.5 % Please note range changes. Performed By: #### L 500.4050, L500.4100, L100.0100, L501.9520, L501.9985, L506.1000, L502.0250 ####[facility] [address] [place], [address] Hemoglobin measurementOrdere d By: Keshia Johnson on 07-19-2024 Hemoglobin (Bld) [Mass/Vol] 11.0 g/dL Low 12.0-15.0 [facility] High density lipoprotein (HD L) measurementOrdered By: Keshia Johnson on 07-19-2024 Cholesterol in HDL [Mass/Vol] 65 mg/dL >40 [facility] Comment on above: The drugs N-Acetylcy steine and Metamizole may falsely depress this assay. Reference Range HDL <40 mg/dL Low HDL Cholesterol HDL >or= 60 mg/dL High HDL Cholesterol Immature granulocytes/100 WB C Auto (Bld)Ordered By: Keshia Johnson on 07-19-2024 Immature granulocytes/100 WBC (Bld) 0.300 % 0.0-0.9 [facility] Comment on above: IG% - Immature Granu locytes (promyelocytes, myelocytes and metamyelocytes) > 1% indicates that a LEFT SHIFT is Present. Laboratory - Chemistry and C hemistry - challengeOrdered By: Keshia Johnson on 07-19-2024 AST [Catalytic activity/Vol] 28 U/L 15-37 [facility] Lipid Profileon 07-19-2024 Cholesterol [Mass/Vol] 243 mg/dL High 200 [facility] Comment on above: Order Comment: Order Date: 07/19/24Order Info: [id number] - CMPOrder Info: - LIPIDOrder Info: [id number] - TSH Result Comment: <200 mg/dL Desirable 200-240 mg/dL Borderline >240 mg/dL High Risk Performed By: #### L 500.4050, L500.4100, L100.0100, L501.9520, L501.9985, L506.1000, L502.0250 ####[facility] [address] [place], [address] Cholesterol in HDL [Mass/Vol] 65 mg/dL Normal [facility] Comment on above: Order Comment: Order Date: 07/19/24Order Info: [id number] - CMPOrder Info: - LIPIDOrder Info: 3 - TSH Result Comment: The drugs N-Acetylcysteine and Metamizole may falsely depress this assay. Reference Range HDL <40 mg/dL Low HDL Cholesterol HDL >or= 60 mg/dL High HDL Cholesterol Performed By: #### L 500.4050, L500.4100, L100.0100, L501.9520, L501.9985, L506.1000, L502.0250 ####[facility] [address] [place], [address] Cholesterol in LDL [Mass/Vol] 117 mg/dL Normal 0-130 [facility] Comment on above: Order Comment: Order Date: 07/19/24Order Info: [id number] - CMPOrder Info: - LIPIDOrder Info: [id number] - TSH Performed By: #### L 500.4050, L500.4100, L100.0100, L501.9520, L501.9985, L506.1000, L502.0250 ####[facility] [address] [place], [address] Cholesterol in VLDL [Mass/Vol] 61 mg/dL High 5-40 [facility] Comment on above: Order Comment: Order Date: 07/19/24Order Info: [id number] - CMPOrder Info: [id number] - LIPIDOrder Info: [id number] - TSH Performed By: #### L 500.4050, L500.4100, L100.0100, L501.9520, L501.9985, L506.1000, L502.0250 ####[facility] [address] [place], [place], [id number] Triglyceride [Mass/Vol] 306 mg/dL High [facility] Comment on above: Order Comment: Order Date: 07/19/24Order Info: [id number] - CMPOrder Info: [id number] - LIPIDOrder Info: [id number] - TSH Result Comment: The drugs N-Acetylcysteine and Metamizole may falsely depress this assay. Serum Triglycerides Reference Interval Normal <150 mg/dL Borderline high 150 - 199 mg/dL High 200 - 499 mg/dL Very High > or = 500 mg/dL Performed By: #### L 500.4050, L500.4100, L100.0100, L501.9520, L501.9985, L506.1000, L502.0250 ####[facility] [address] [place], [place], [id number] Low density lipoprotein (LDL ) cholesterol measurementOrdered By: Keshia Johnson on 07-19-2024 Cholesterol in LDL [Mass/Vol] 117 mg/dL 0-130 [facility] Lymphocytes Auto (Unsp spec) [#/Vol]Ordered By: Keshia Johnson on 07-19-2024 Lymphocytes (Bld) [#/Vol] 1.59 10*3/uL 0.83-4.51 [facility] Lymphocytes/100 WBC Auto (Un sp spec)Ordered By: Keshia Johnson on 07-19-2024 Lymphocytes/100 WBC (Bld) 26.6 % 19-41 [facility] MCV (mean corpuscular volume ) determinationOrdered By: Keshia Johnson on 07-19-2024 MCV (RBC) [Entitic vol] 92.0 fL 81-99 [facility] Mean corpuscular hemoglobin (MCH) determinationOrdered By: Keshia Elizabeth on 07-19-2024 MCH (RBC) [Entitic mass] 30.3 pg 27.0-32.0 [facility] Mean corpuscular hemoglobin concentration (MCHC) determinationOrdered By: Keshia Romanke on 07-19-2024 MCHC (RBC) [Mass/Vol] 32.9 g/dL 32-36 [facility] Mean platelet volume determi nationOrdered By: Keshia Elizabeth on 07-19-2024 Platelet mean volume (Bld) [Entitic vol] 10.0 fL 6.2-12.0 [facility] Microalb:Creat Ratio,Random URon 07-19-2024 MALB:CRE Normal <30 mg/g CRE [facility] Comment on above: Order Comment: Order Date: 07/19/24Order Info: [id number] - MIACRE Result Comment: ALRE LUDMILA DID IN OFFICE Performed By: #### L 500.4050, L500.4100, L100.0100, L501.9520, L501.9985, L506.1000, L502.0250 ####[facility] [address] [place], [place], [id number] MICROALBUMIN,UR Normal NO RANGE EST. [facility] Comment on above: Order Comment: Order Date: 07/19/24Order Info: [id number] - MIACRE Result Comment: ALRE LUDMILA DID IN OFFICE Performed By: #### L 500.4050, L500.4100, L100.0100, L501.9520, L501.9985, L506.1000, L502.0250 ####[facility] [address] [place], [address] UR CREAT Normal NO RANGE EST. [facility] Comment on above: Order Comment: Order Date: 07/19/24Order Info: [id number] - MIACRE Result Comment: ALRE LUDMILA DID IN OFFICE Performed By: #### L 500.4050, L500.4100, L100.0100, L501.9520, L501.9985, L506.1000, L502.0250 ####[facility] [address] [place], [address] Monocyte percentageOrdered B y: Keshia Johnson on 07-19-2024 Monocytes/100 WBC (Bld) 7.4 % 0-10 [facility] Neutrophil percentageOrdered By: Keshia Johnson on 07-19-2024 Neutrophils/100 WBC (Bld) 62.2 % 47-70 [facility] Nucleated red blood cell per centageOrdered By: Keshia Johnson on 07-19-2024 Nucleated RBC/100 WBC (Bld) [Ratio] 0 % 0-5 [facility] Platelet countOrdered By: Elsie Johnson on 07-19-2024 Platelets (Bld) [#/Vol] 355 10*3/uL 150-450 [facility] Potassium measurementOrdered By: Keshia Johnson on 07-19-2024 Potassium [Moles/Vol] 3.8 mmol/L 3.5-5.1 [facility] RBC Auto (Bld) [#/Vol]Ordere d By: Keshia Johnson on 07-19-2024 RBC (Bld) [#/Vol] 3.63 10*6/uL Low 4.2-5.4 [facility] Serum anion gap measurementO rdered By: Keshia Johnson on 07-19-2024 Anion gap [Moles/Vol] 8 mmol/L 5-15 [facility] Serum globulin measurementOr dered By: Keshia Johnson on 07-19-2024 Globulin (S) [Mass/Vol] 4.5 g/dL High 2.2-4.2 [facility] Serum or plasma alanine vazquez otransferase (ALT) measurementOrdered By: Keshia Johnson on 07-19-2024 ALT [Catalytic activity/Vol] 39 U/L 13-56 [facility] Serum or plasma albumin yung urement (mass/volume)Ordered By: Keshia Johnson on 07-19-2024 Albumin [Mass/Vol] 3.7 g/dL 3.2-5.0 [facility] Serum or plasma alkaline roni sphatase measurementOrdered By: Keshia Johnson on 07-19-2024 ALP [Catalytic activity/Vol] 118 U/L High 45-117 [facility] Serum or plasma calcium yung urement (mass/volume)Ordered By: Keshia Johnson on 07-19-2024 Calcium [Mass/Vol] 10.1 mg/dL 8.5-10.1 [facility] Serum or plasma cholesterol measurement (mass/volume)Ordered By: Keshia Johnson on 07-19-2024 Cholesterol [Mass/Vol] 243 mg/dL High <200 [facility] Comment on above: <200 mg/dL Desirable 200-240 mg/dL Borderline >240 mg/dL High Risk Serum or plasma creatinine m easurement (mass/volume)Ordered By: Keshia Johnson on 07-19-2024 Creatinine [Mass/Vol] 1.52 mg/dL High 0.55-1.02 [facility] Comment on above: The validity of the calculated GFR & GFRAA in patients over 70 years has not been determined. Clinical correlation is essential. Serum or plasma urea nitroge n measurement (mass/volume)Ordered By: Keshia Johnson on 07-19-2024 Urea nitrogen [Mass/Vol] 30 mg/dL High 7-18 [facility] Sodium levelOrdered By: Nitin Johnson on 07-19-2024 Sodium [Moles/Vol] 138 mmol/L 136-145 [facility] TSH QnOrdered By: Keshia payton on 07-19-2024 Thyroid Stimulating Hormone (TSH) 1.550 uIU/mL 0.358-3.74 0 [facility] Thyroid Stim Hormone (TSH)on 07-19-2024 TSH 1.550 uIU/mL Normal 0.358-3.74 0 [facility] Comment on above: Order Comment: Order Date: 07/19/24Order Info: [id number] - CMPOrder Info: [id number] - LIPIDOrder Info: [id number] - TSH Performed By: #### L 500.4050, L500.4100, L100.0100, L501.9520, L501.9985, L506.1000, L502.0250 ####[facility] [address] [place], [address] Total proteinOrdered By: Irasema Johnson on 07-19-2024 Protein [Mass/Vol] 8.2 g/dL 6.4-8.2 [facility] Triglycerides measurementOrd ered By: Keshia Johnson on 07-19-2024 Triglyceride [Mass/Vol] 306 mg/dL High <199 [facility] Comment on above: The drugs N-Acetylcy steine and Metamizole may falsely depress this assay.Serum Triglycerides Reference Interval Normal <150 mg/dL Borderline high 150 - 199 mg/dL High 200 - 499 mg/dL Very High > or = 500 mg/dL Very low density lipoprotein (VLDL) cholesterol measurementOrdered By: Keshia Johnson on 07-19-2024 VLDL Cholesterol 61 mg/dL High 5-40 [facility] Vitamin D,25 Hydroxyon 07-19 Vitamin D 25-OH 55.8 ng/mL Normal [facility] Comment on above: Order Comment: Order Date: 07/19/24Order Info: [id number] - [id number] Result Comment: [place]y min D 25(OH) Status Range Deficiency <20 ng/mL (50nmol/L) Insufficiency 20 - 30 ng/mL (50 - 75 nmol/L) Sufficiency 30 - 100 ng/mL (75 - 250 nmol/L) Toxicity >100 ng/mL (>250 nmol/L) Performed By: #### L 500.4050, L500.4100, L100.0100, L501.9520, L501.9985, L506.1000, L502.0250 ####[facility] [id number] [place], [place], [id number] White blood cell (WBC) count Ordered By: Keshia Johnson on 07-19-2024 WBC (Bld) [#/Vol] 6.0 10*3/uL 4.4-11.0 [facility] Basophil percentageOrdered B y: Shanajordan Copeland on 07-03-2023 Bilirubin [Mass/Vol] 0.30 mg/dL 0.20-1.00 [facility] Comment on above: For patients on eltr ombopag therapy, use of Dimension [place] TBIL is not recommended. Chloride [Moles/Vol] 105 mmol/L 98-107 [facility] Cholesterol [Mass/Vol] 120 mg/dL <200 [facility] Comment on above: <200 mg/dL Desirable 200-240 mg/dL Borderline >240 mg/dL High Risk Glucose [Mass/Vol] 125 mg/dL 74-106 [facility] Comment on above: Fasting Glucose resu lt from 100 to 125 mg/dL suggests IMPAIRED HOMEOSTASIS per A.D.A. criteria. Potassium [Moles/Vol] 3.5 mmol/L 3.5-5.1 [facility] Protein [Mass/Vol] 8.5 g/dL 6.4-8.2 [facility] Sodium [Moles/Vol] 140 mmol/L 136-145 [facility] Triglyceride [Mass/Vol] 135 mg/dL <199 [facility] Comment on above: The drugs N-Acetylcy steine and Metamizole may falsely depress this assay.Serum Triglycerides Reference Interval Normal <150 mg/dL Borderline high 150 - 199 mg/dL High 200 - 499 mg/dL Very High > or = 500 mg/dL Laboratory - Chemistry and C hemistry - challengeOrdered By: Shana Copeland on 07-03-2023 ALP [Catalytic activity/Vol] 126 U/L 45-117 [facility] ALT [Catalytic activity/Vol] 33 U/L 13-56 [facility] CO2 [Moles/Vol] 26.0 mmol/L 21.0-32.0 [facility] Globulin (S) [Mass/Vol] 5.0 g/dL 2.2-4.2 [facility] Urea nitrogen/Creatinine [Mass ratio] 12.2 mg/mg 10-20 [facility] No Panel InformationOrdered By: Shana Copeland on 07-03-2023 Estimated GFR (MDRD) Amer 59 mL/min >60 [facility] Comment on above: GFR Calc Estimated GFR (MDRD) Non-Af Amer 48 mL/min >60 [facility] Comment on above: Non- GFR Calc Urine Microalbumin/Creatinin e Ratio 249.1 mg/g CRE <30 [facility] Serum or plasma albumin yung urement (mass/volume)Ordered By: Shana Copeland on 07-03-2023 Albumin [Mass/Vol] 3.5 g/dL 3.2-5.0 [facility] Serum or plasma albumin/glob ulin mass ratioOrdered By: Shana Copeland on 07-03-2023 Albumin/Globulin [Mass ratio] 0.7 {ratio} 0.9-2.4 [facility] Serum or plasma calcium yung urement (mass/volume)Ordered By: Shana Copeland on 07-03-2023 Calcium [Mass/Vol] 10.0 mg/dL 8.5-10.1 [facility] Serum or plasma cholesterol in HDL measurement (mass/volume)Ordered By: Shana Copeland on 07-03-2023 Cholesterol in HDL [Mass/Vol] 66 mg/dL >40 [facility] Comment on above: The drugs N-Acetylcy steine and Metamizole may falsely depress this assay. Reference Range HDL <40 mg/dL Low HDL Cholesterol HDL >or= 60 mg/dL High HDL Cholesterol Serum or plasma cholesterol in VLDL measurement (mass/volume)Ordered By: Shana Copeland on 07-03-2023 Cholesterol in VLDL [Mass/Vol] 27 mg/dL 5-40 [facility] Serum or plasma creatinine m easurement (mass/volume)Ordered By: Shana Copeland on 07-03-2023 Creatinine [Mass/Vol] 1.15 mg/dL 0.55-1.02 [facility] Comment on above: The validity of the calculated GFR & GFRAA in patients over 70 years has not been determined. Clinical correlation is essential. Serum or plasma low density lipoprotein (LDL) cholesterol measurement (mass/volume)Ordered By: Shana Copeland on 07-03-2023 Cholesterol in LDL [Mass/Vol] 27 mg/dL 0-130 [facility] Serum or plasma urea nitroge n measurement (mass/volume)Ordered By: Shana Copeland on 07-03-2023 Urea nitrogen [Mass/Vol] 14 mg/dL 7-18 [facility] Thin prep Papanicolaou smear with manual screeningOrdered By: Shana Copeland on 07-03-2023 Thin prep Papanicolaou smear with manual screening 28 U/L 15-37 [facility] Thin prep Papanicolaou smear with manual screening 9 5-15 [facility] Thin prep Papanicolaou smear with manual screening 69.0 mg/L NO RANGE EST. [facility] Urine creatinine measurement (mass/volume)Ordered By: Shana Copeland on 07-03-2023 Creatinine (U) [Mass/Vol] 27.70 mg/dL NO RANGE EST. [facility] Bacteria identified Cx Nom ( Wound)Ordered By: Dr. Montoya on 09-02-2022 Wound Culture Staphylococcus aureus [facility] Gram stain for investigation of transfusion reactionOrdered By: Dr. Montoya on 09-01-2022 Microscopic observation Gram stain Nom (Unsp spec) [facility] No Panel InformationOrdered By: Dr. Montoya on 08-31-2022 Methicillin-Resist S.aureus DNA PCR Negative Negative [facility] Staphylococcus aureus DNA de tection by probe and target amplification methodOrdered By: Dr. Montoya on 08-31-2022 S. aureus DNA TOM+probe Ql (Unsp spec) Positive Negative [facility] Absolute lymphocyte counton 04-25-2022 Lymphocytes Auto (Unsp spec) [#/Vol] 1.45 10*3/uL 0.83-4.51 [facility] Work Phone: Basophil percentageon 2021 Basophils/100 WBC (Bld) 0.5 % 0-1 [facility] Work Phone: Bilirubin [Mass/Vol] 0.40 mg/dL 0.20-1.00 [facility] Work Phone: Comment on above: For patients on eltr ombopag therapy, use of Dimension [place] TBIL is not recommended. Chloride [Moles/Vol] 106 mmol/L 98-107 [facility] Work Phone: Eosinophils/100 WBC (Bld) 4.9 % 0-5 [facility] Work Phone: Glucose [Mass/Vol] 144 mg/dL 74-106 [facility] Work Phone: Comment on above: Fasting Glucose resu lt greater than or equal to 126 mg/dL suggests DIABETES MELLITUS per A.D.A. criteria. Neutrophils (Bld) [#/Vol] 4.1 10*3/uL 2.0-7.7 [facility] Work Phone: [phone] Neutrophils/100 WBC (Bld) 64.5 % 47-70 [facility] Work Phone: Potassium [Moles/Vol] 3.5 mmol/L 3.5-5.1 [facility] Work Phone: Protein [Mass/Vol] 8.7 g/dL 6.4-8.2 [facility] Work Phone: Sodium [Moles/Vol] 142 mmol/L 136-145 [facility] Work Phone: WBC (Bld) [#/Vol] 6.4 10*3/uL 4.4-11.0 [facility] Work Phone: Blood erythrocytes count (nu mber/volume)on 04-25-2022 RBC (Bld) [#/Vol] 3.86 10*6/uL 4.2-5.4 [facility]: Blood hemoglobin measurement (mass/volume)on 04-25-2022 Hemoglobin (Bld) [Mass/Vol] 11.9 g/dL 12.0-15.0 [facility] Work Phone: Blood lymphocytes/100 leukoc yteson 04-25-2022 Lymphocytes/100 WBC (Bld) 22.8 % 19-41 [facility] Work Phone: Blood monocytes/100 leukocyt eson 04-25-2022 Monocytes/100 WBC (Bld) 7.1 % 0-10 [facility] Work Phone: Blood platelet mean volumeon 04-25-2022 Platelet mean volume (Bld) [Entitic vol] 10.7 fL 6.2-12.0 [facility] Work Phone: Determination of erythrocyte mean corpuscular volume (MCV)on 04-25-2022 MCV (RBC) [Entitic vol] 90.9 fL 81-99 [facility] Work Phone: Hematocrit Auto (Bld) [Volum e fraction]on 04-25-2022 Hematocrit (Bld) [Volume fraction] 35.1 % 37-47 [facility] Work Phone: Iron measurement (mass/mass) on 04-25-2022 Iron (Unsp spec) [Mass/Mass] 71 ug/dL 50-170 [facility] Work Phone: Laboratory - Chemistry and C hemistry - challengeon 04-25-2022 ALP [Catalytic activity/Vol] 110 U/L 45-117 [facility] Work Phone: ALT [Catalytic activity/Vol] 36 U/L 13-56 [facility] Work Phone: CO2 [Moles/Vol] 28.0 mmol/L 21.0-32.0 [facility] Work Phone: Globulin (S) [Mass/Vol] 4.7 g/dL 2.2-4.2 [facility] Work Phone: Urea nitrogen/Creatinine [Mass ratio] 13.0 mg/mg 10-20 [facility] Work Phone: Laboratory - Hematology and Cell countson 04-25-2022 Erythrocyte distribution width (RBC) [Entitic vol] 39.6 fL 35.1-43.9 [facility] Work Phone: Erythrocyte distribution width (RBC) [Ratio] 12.0 % 11.6-14.6 [facility] Work Phone: Immature granulocytes/100 WBC (Bld) 0.200 % 0.0-0.9 [facility] Work Phone: Comment on above: IG% - Immature Granu locytes (promyelocytes, myelocytes and metamyelocytes) > 1% indicates that a LEFT SHIFT is Present. MCH (RBC) [Entitic mass] 30.8 pg 27.0-32.0 [facility] Work Phone: Nucleated RBC/100 WBC (Bld) [Ratio] 0 % 0-5 [facility] Work Phone: MCHC Auto (RBC) [Mass/Vol]on 04-25-2022 MCHC (RBC) [Mass/Vol] 33.9 g/dL 32-36 [facility] Work Phone: No Panel Informationon 04-25 Estimated GFR (MDRD) Amer 59 mL/min >60 [facility] Work Phone: Comment on above: GFR Calc Estimated GFR (MDRD) Non-Af Amer 49 mL/min >60 [facility] Work Phone: Comment on above: Non- GFR Calc Thyroid Stimulating Hormone (TSH) 2.11 uIU/mL 0.358-3.74 [facility] Work Phone: Platelets bldon 04-25-2022 Platelets (Bld) [#/Vol] 297 10*3/uL 150-450 [facility] Work Phone: Serum or plasma albumin yung urement (mass/volume)on 04-25-2022 Albumin [Mass/Vol] 4.0 g/dL 3.2-5.0 [facility] Work Phone: Serum or plasma albumin/glob ulin mass ratioon 04-25-2022 Albumin/Globulin [Mass ratio] 0.9 {ratio} 0.9-2.4 [facility] Work Phone: Serum or plasma calcium yung urement (mass/volume)on 04-25-2022 Calcium [Mass/Vol] 9.8 mg/dL 8.5-10.1 [facility] Work Phone: Serum or plasma creatinine m easurement (mass/volume)on 04-25-2022 Creatinine [Mass/Vol] 1.15 mg/dL 0.55-1.02 [facility] Work Phone: Comment on above: The validity of the calculated GFR & GFRAA in patients over 70 years has not been determined. Clinical correlation is essential. Serum or plasma ferritin ynes surement (mass/volume)on 04-25-2022 Ferritin [Mass/Vol] 38 ng/mL 8-252 [facility] Work Phone: Serum or plasma urea nitroge n measurement (mass/volume)on 04-25-2022 Urea nitrogen [Mass/Vol] 15 mg/dL 7-18 [facility] Work Phone: Thin prep Papanicolaou smear with manual screeningon 04-25-2022 Thin prep Papanicolaou smear with manual screening 25 U/L 15-37 [facility] Work Phone: Thin prep Papanicolaou smear with manual screening 8 5-15 [facility] Work Phone: Lab Report: Bedside Glucoseo n 12-23-2016 Glucose 178 mg/dL High 70-110 [facility] [employer] Work Phone: Office Visit: Colonoscopy Co nsulton 12-13-2016 Documentation of current medications (procedure) Done Invalid Interpretation Code [facility] [employer] Work Phone: Fall risk assessment No Invalid Interpretation Code [facility] [employer] Work Phone: Tobacco smoking status NHIS Never Invalid Interpretation Code [facility] [employer] Work Phone: Tobacco use CPHS Never smoker Invalid Interpretation Code [facility] [employer] Work Phone: Office Visit: Colonoscopy Co nsulton 08-03-2015 Breast Mammogram screening Normal Bilateral Invalid Interpretation Code [facility] [employer] Work Phone: Office Visit: Colonoscopy Co nsulton 08-02-2010 Colonoscopy (procedure) Abnormal Invalid Interpretation Code [facility] [employer] Work Phone: Vital Signs Date Time Vital Sign Value Performing Clinician Facility 02-20-2025 10:50-0400 Diastolic blood pressure 73 mm[Hg] Keshia Johnson MD Work Phone: [facility] 02-20-2025 10:50-0400 Heart rate 75 /min Keshia Johnson MD Work Phone: [facility] 02-20-2025 10:50-0400 Respiratory rate 18 /min Keshia Johnson MD Work Phone: [facility] 02-20-2025 10:50-0400 SaO2% (BldA) [Mass fraction] 98 % Keshia Johnson MD Work Phone: [facility] 02-20-2025 10:50-0400 Systolic blood pressure 147 mm[Hg] Keshia Johnson MD Work Phone: [facility] 02-06-2025 11:28-0400 Body height 147.32 cm Keshia Johnson MD Work Phone: [facility] 02-06-2025 11:28-0400 Body temperature 98.1 [degF] Keshia Johnson MD Work Phone: [facility] 02-06-2025 11:28-0400 Diastolic blood pressure 67 mm[Hg] Keshia Johnson MD Work Phone: [facility] 02-06-2025 11:28-0400 Heart rate 79 /min Keshia Johnson MD Work Phone: [phone] [address] 02-06-2025 11:28-0400 Respiratory rate 18 /min Keshia Johnson MD Work Phone: [facility] 02-06-2025 11:28-0400 SaO2% (BldA) [Mass fraction] 98 % Keshia Johnson MD Work Phone: [facility] 02-06-2025 11:28-0400 Systolic blood pressure 179 mm[Hg] Keshia Johnson MD Work Phone: [facility] 01-27-2025 09:49-0400 Body height 147.32 cm Keshia Johnson MD Work Phone: [facility] 01-20-2025 15:24-0400 Body temperature 98.4 [degF] Keshia Johnson MD Work Phone: [facility] 01-20-2025 15:24-0400 Body weight 48.98 kg Keshia Johnson MD Work Phone: [facility] 01-20-2025 15:24-0400 Diastolic blood pressure 75 mm[Hg] Keshia Johnson MD Work Phone: [facility] 01-20-2025 15:24-0400 Heart rate 83 /min Keshia Johnson MD Work Phone: [facility] 01-20-2025 15:24-0400 Respiratory rate 18 /min Keshia Johnson MD Work Phone: [facility] 01-20-2025 15:24-0400 SaO2% (BldA) [Mass fraction] 96 % Keshia Johnson MD Work Phone: [facility] 01-20-2025 15:24-0400 Systolic blood pressure 169 mm[Hg] Keshia Johnson MD Work Phone: [facility] 10-04-2024 09:10-0500 Body temperature 97 [degF] Keshia Johnson MD Work Phone: [facility] 10-04-2024 09:10-0500 Diastolic blood pressure 83 mm[Hg] Keshia Johnson MD Work Phone: [facility] 10-04-2024 09:10-0500 Heart rate 52 /min Keshia Johnson MD Work Phone: [facility] 10-04-2024 09:10-0500 Respiratory rate 16 /min Keshia Johnson MD Work Phone: [facility] 10-04-2024 09:10-0500 SaO2% (BldA) [Mass fraction] 93 % Keshia Johnson MD Work Phone: [facility] 10-04-2024 09:10-0500 Systolic blood pressure 98 mm[Hg] Keshia Johnson MD Work Phone: [facility] 10-04-2024 06:49-0500 Body height 147.32 cm Keshia Johnson MD Work Phone: [facility] 10-04-2024 06:49-0500 Body mass index (BMI) [Ratio] 21.7 kg/m2 Keshia Johnson MD Work Phone: [facility] 10-04-2024 06:49-0500 Body weight 47 kg Keshia Johnson MD Work Phone: [facility] 09-30-2024 10:26-0500 Body temperature 97.9 [degF] Keshia Johnson MD Work Phone: [facility] 09-30-2024 10:26-0500 Diastolic blood pressure 82 mm[Hg] Keshia Johnson MD Work Phone: 4(654)804-007042 [place] [address] 09-30-2024 10:26-0500 Heart rate 83 /min Keshia Johnson MD Work Phone: 0(556)[phone] [place] [address] 09-30-2024 10:26-0500 SaO2% (BldA) [Mass fraction] 99 % Keshia Johnson MD Work Phone: [phone])041-454942 [place] [address] 09-30-2024 10:26-0500 Systolic blood pressure 122 mm[Hg] Keshia Johnson MD Work Phone: 0(534)[phone] [place] [address] 09-05-2024 08:28-0500 Body mass index (BMI) [Ratio] 21.7 kg/m2 Keshia Johnson MD Work Phone: 0(390)885-837942 [place] [address] 09-05-2024 08:28-0500 Body temperature 97.6 [degF] Keshia Johnson MD Work Phone: 4([phone] [address] 09-05-2024 08:28-0500 Body weight 47.17 kg Keshia Johnson MD Work Phone: 5(325)673-781144 [place] [address] 09-05-2024 08:28-0500 Diastolic blood pressure 83 mm[Hg] Keshia Johnson MD Work Phone: [facility] 09-05-2024 08:28-0500 Heart rate 76 /min Keshia Johnson MD Work Phone: 2(697)[phone] [place] [address] 09-05-2024 08:28-0500 Respiratory rate 18 /min Keshia Johnson MD Work Phone: [facility] 09-05-2024 08:28-0500 SaO2% (BldA) [Mass fraction] 100 % Keshia Johnson MD Work Phone: 7(994)[phone] [place] [address] 09-05-2024 08:28-0500 Systolic blood pressure 175 mm[Hg] Keshia Johnson MD Work Phone: [facility] 08-03-2024 12:22-0500 Body temperature 98 [degF] Keshia Johnson MD Work Phone: [facility] 08-03-2024 12:22-0500 Diastolic blood pressure 81 mm[Hg] Keshia Johnson MD Work Phone: [facility] 08-03-2024 12:22-0500 Heart rate 81 /min Keshia Johnson MD Work Phone: [facility] 08-03-2024 12:22-0500 Respiratory rate 16 /min Keshia Johnson MD Work Phone: [facility] 08-03-2024 12:22-0500 SaO2% (BldA) [Mass fraction] 99 % Keshia Johnson MD Work Phone: [facility] 08-03-2024 12:22-0500 Systolic blood pressure 179 mm[Hg] Keshia Johnson MD Work Phone: [facility] 08-03-2024 09:13-0500 Body mass index (BMI) [Ratio] 21.6 kg/m2 Keshia Johnson MD Work Phone: [facility] 08-03-2024 09:13-0500 Body weight 48.53 kg Keshia Johnson MD Work Phone: [facility] 09-16-2022 20:38-0500 Diastolic blood pressure 74 mm[Hg] [facility] 09-16-2022 20:38-0500 Heart rate 71 /min [facility] 09-16-2022 20:38-0500 Respiratory rate 18 /min [facility] 09-16-2022 20:38-0500 SaO2% (BldA) [Mass fraction] 97 % [facility] 09-16-2022 20:38-0500 Systolic blood pressure 173 mm[Hg] [facility] 09-16-2022 15:34-0500 Body height 149.86 cm [facility] 09-16-2022 15:34-0500 Body mass index (BMI) [Ratio] 20.7 kg/m2 [facility] 09-16-2022 15:34-0500 Body temperature 97 [degF] [facility] 09-16-2022 15:34-0500 Body weight 46.72 kg [facility] 12-13-2016 09:12-0400 BMI (Body Mass Index) 23.41 kg/m2 Yu Bar RN RN [facility] [employer] [facility] Work Phone: 12-13-2016 09:12-0400 Body Temperature 98.2 [degF] Yu Bar RN RN [facility] Work Phone: 12-13-2016 09:12-0400 BP Diastolic 71 mm[Hg] Yu Bar RN RN [facility] Work Phone: 12-13-2016 09:12-0400 BP Systolic 153 mm[Hg] Yu Bar RN RN [facility] Work Phone: 12-13-2016 09:12-0400 BSA (Body Surface Area) 1.42 m2 Yu Bar RN RN [facility] Work Phone: 12-13-2016 09:12-0400 Height 147.32 cm Yu Bar RN RN [facility] Work Phone: 12-13-2016 09:12-0400 Pulse (Heart Rate) 82 /min Yu Bar RN RN [facility] Work Phone: 12-13-2016 09:12-0400 Pulse Oximetry 98 % Yu Bar RN RN [facility] Work Phone: 12-13-2016 09:12-0400 Respiratory Rate 16 /min Yu Bar RN RN [facility] Work Phone: 12-13-2016 09:12-0400 Weight 50.8 kg Yu Bar RN RN [facility] Work Phone: Encounters Encounter Date Encounter Type Care Provider Facility Start: 02-20-2025 End: 02-20-2025 ambulatory Keshia Johnson MD Work Phone: -[facility] Start: 02-20-2025 End: 02-20-[address] Benson Martinez MD -[facility] Work Phone: Start: 02-06-2025 End: 02-06-[address] Benson Martinez MD -[facility] Work Phone: Start: 02-06-2025 End: 02-06-2025 ambulatory Keshia Johnson MD Work Phone: -[facility] Start: 01-28-2025 End: 01-28-[address] Benson Martinez MD -Laboratory Specimen Work Phone: Start: 01-28-2025 End: 01-28-2025 ambulatory Keshia Johnson MD Work Phone: -Laboratory Specimen Start: 01-28-2025 End: 01-28-[address] Benson Martinez MD -[facility] Work Phone: Start: 01-28-2025 End: 01-28-2025 ambulatory Keshia Johnson MD Work Phone: -[facility] Start: 01-20-2025 End: 01-20-2025 martha Johnson MD Work Phone: -Laboratory Specimen Start: 01-20-2025 End: 01-20-[address] Benson Martinez MD -Laboratory Specimen Work Phone: Start: 01-20-2025 End: 01-20-[address] Benson Martinez MD -[facility] Work Phone: Start: 01-20-2025 End: 01-20-2025 ambulatory Keshia Johnson MD Work Phone: [facility] Work Phone: Start: 01-20-2025 End: 01-20-2025 ambulatory Keshia Johnson Facility:[facility] Start: 01-14-2025 End: 01-14-2025 ambulatory Keshia Johnson MD Work Phone: [facility] Work Phone: Start: 01-14-2025 End: 01-14-[address] Keshia Johnson MD -[facility] Start: 01-14-2025 End: 01-14-2025 ambulatory Keshia Johnson Facility:[facility] Start: 10-04-2024 ambulatory Lico Hunt Facility :[facility] Start: 10-04-2024 Non-patient / Non-visit Dr. Lico Hunt MD -[facility] Start: 10-04-2024 End: 10-04-2024 Admission to same day surgery center Dr. Lico Hunt MD -Endoscopy Work Phone: Start: 10-04-2024 End: 10-04-2024 ambulatory Keshia Johnson MD Work Phone: [facility] Work Phone: Start: 09-30-2024 End: 09-30-2024 Patient encounter procedure Taj Cordova DIRECTOR [facility] Work Phone: Start: 09-30-2024 End: 09-30-2024 ambulatory Taj Cordova Facility:[facility] Start: 09-10-2024 End: 09-10-[address] Keshia Johnson MD -Outpatient Breast Imaging Work Phone: Start: 09-10-2024 End: 09-10-2024 ambulatory Keshia Johnson Facility:[facility] Start: 09-05-2024 End: 09-05-[address] Lico Hunt MD -[facility] Work Phone: Start: 09-05-2024 End: 09-05-2024 ambulatory Lico Hunt Facility:[facility] Start: 08-03-2024 End: 08-03-2024 Emergency department patient visit Dr. Fritz Rodriguez MD -Emergency Department Work Phone: Start: 08-01-2024 End: 08-01-[address] Keshia Johnson MD -Outpatient Breast Imaging Work Phone: Start: 08-01-2024 End: 08-01-2024 ambulatory [facility] Facility:[facility] Start: 07-19-2024 End: 07-19-[address] [facility] Start: 07-19-2024 End: 07-[facility] Start: 07-06-2023 End: 07-06-2023 ambulatory [facility] Work Phone: Start: 07-06-2023 End: 07-06-2023 Patient encounter procedure [facility]-Outpatient Breast Imaging Work Phone: Start: 07-03-2023 End: 07-03-2023 ambulatory [facility] Work Phone: Start: 07-03-2023 End: 07-03-2023 Patient encounter procedure [facility] Start: 09-16-2022 End: 09-16-2022 Emergency department patient visit [facility]-Emergency Department Start: 08-31-2022 End: 08-31-2022 ambulatory [facility] Work Phone: Start: 08-31-2022 End: 08-31-2022 Patient encounter procedure [facility]-Laboratory, Specimen Start: 05-09-2022 End: 05-09-2022 ambulatory [facility] Work Phone: Start: 05-09-2022 End: 05-09-2022 Patient encounter procedure [facility]-Outpatient Breast Imaging Start: 04-25-2022 End: 04-25-2022 ambulatory [facility] Work Phone: Start: 04-25-2022 End: 04-25-2022 [facility] Procedure Detail Performing Clinician Start: 01-14-2025 Harrison Johnson MD Work Phone: Start: 01-14-2025 Food MOON Johnson MD Work Phone: Start: 01-14-2025 Shrimp MOON Johnson MD Work Phone: Start: 10-04-2024 Colonoscopy Keshia Johnson MD Work Phone: Start: 09-10-2024 Screening mammography Keshia Johnson MD Work Phone: Start: 08-03-2024 X-ray of chest posteroanterior view Keshia Johnson MD Work Phone: Start: 07-19-2024 Plain X-ray abdomen Keshia Johnson MD Work Phone: Start: 07-06-2023 Screening mammography Start: 09-16-2022 Radiologic examination of knee Start: 05-09-2022 Screening mammography Start: 12-13-2016 End: 12-23-2016 Diagnostic colonoscopy Christophe florence MD Work Phone: Investigation of transfusion reaction Microbial culture, routine Screening for malign ant neoplasm of skin Screening for malignant neoplasm of skin Keshia Johnson MD Work Phone: Plan of Treatment Date Care Activity Detail Author Start: 10-04-2024 Egd transoral biopsy single/multiple EGD BIOPSY SINGLE/MULTIPLE [facility] Start: 10-04-2024 Patient discharge [facility] Start: 08-03-2024 [facility] Start: 08-03-2024 Incentive spirometry [facility] Start: 08-03-2024 [facility] Start: 12-23-2016 End: 12-23-2016 Appointment Appointment [facility] [employer] Work Phone: Start: 12-13-2016 End: 12-13-2016 Appointment Appointment [facility] Work Phone: Start: 12-13-2016 End: 12-13-2016 Appointment Appointment [facility] [employer] Work Phone: Start: 12-13-2016 End: 12-23-2016 Diagnostic colonoscopy Colonoscopy [facility] [employer] Work Phone: [facility] Patient Education [facility] Work Phone: Patient referral [facility] Work Phone: [facility] Payers Date Payer Category Payer Medicare [id number] 2024 Self-pay [id number] 2009 Medicare [id number] Unknown [id number] 2.16.8 [id number] Unknown [id number] 2.16.8 40.1.444743.3.579.2.462 Unknown [id number] 2.16.8 40.1.531403.3.579.2.462 Unknown [id number] 2.16.8 40.1.878616.3.579.2.462 Unknown [id number] 2.16.8 40.1.766652.3.579.2.462 Unknown [id number] 2.16.8 40.1.106579.3.579.2.462 Unknown [id number] 2.16.8 40.1.161864.3.579.2.462 Unknown [id number] 2.16.8 40.1.030282.3.579.2.462 Unknown [id number] 2.16.8 40.1.403370.3.579.2.462 Unknown [id number] 2.16.8 40.1.325962.3.579.2.462 Unknown [id number] 2.16.8 40.1.626732.3.579.2.462 Unknown [id number] 2.16.8 40.1.182057.3.579.2.462 Unknown [id number] 2.16.8 40.1.545221.3.579.2.462 Unknown [id number] 2.16.8 40.1.802778.3.579.2.462 Social History Date Type Detail Facility Start: 12-19-2016 End: 09-16-2022 Tobacco smoking status NHIS Unknown if ever smoked [facility] Start: 1945 Sex Assigned At Female [facility] Start: 10-02-2024 End: 01-27-2025 Tobacco smoking status NHIS Never smoked tobacco (finding) [facility] Start: 10-04-2024 Sex Female (finding) [facility] NEGATED: Highlighted row Not [facility] Medical Equipment Procedure Code Equipment Code Equipment Origin al Text Equipment Identifier Dates Blood Sugar Diagnostic (True Metrix Glucose Test Strip) strip Start: 09-05-2024 Lancets (Trueplu s Lancets) 33 gauge misc Start: 09-05-2024 Blood Sugar Diagnostic (True Metrix Glucose Test Strip) strip Start: 09-05-2024 Lancets (Trueplu s Lancets) 33 gauge misc Start: 09-05-2024 Blood Sugar Diagnostic (True Metrix Glucose Test Strip) strip Start: 09-05-2024 Lancets (Trueplu s Lancets) 33 gauge misc Start: 09-05-2024 Blood Sugar Diagnostic (True Metrix Glucose Test Strip) strip Start: 09-05-2024 Lancets (Trueplu s Lancets) 33 gauge misc Start: 09-05-2024 Blood Sugar Diagnostic (True Metrix Glucose Test Strip) strip Start: 09-05-2024 Lancets (Trueplu s Lancets) 33 gauge misc Start: 09-05-2024 Blood Sugar Diagnostic (True Metrix Glucose Test Strip) strip Start: 09-05-2024 Lancets (Trueplu s Lancets) 33 gauge misc Start: 09-05-2024 Blood Sugar Diagnostic (True Metrix Glucose Test Strip) strip Start: 09-05-2024 Lancets (Trueplu s Lancets) 33 gauge misc Start: 09-05-2024 Blood Sugar Diagnostic (True Metrix Glucose Test Strip) strip Start: 09-05-2024 Lancets (Trueplu s Lancets) 33 gauge misc Start: 09-05-2024 Goals Date Patient Goal Desired Activity /State Mental Status Date Assessment Result Facility 10-04-2024 Cognitive function Voice/Name [facility] Work Phone: 08-03-2024 Cognitive function Voice/Name [facility] Work Phone: Clinical Notes 09-05-2024 to 01-20-2025 Note Date & Type Note Facility 01-20-2025 Evaluation note Diagnosis Onset Date Resolution Neoplasm of uncertain behavior of skin acute January 20, 2025 3:02pm Neoplasm of uncertain behavior of skin acute January 28, 2025 1:04pm [place] [employer] Work Phone: 1(619) 438-837406-23-2025 Evaluation note* Diagnosis Onset Date Resolution Status Admit Date Neoplasm of uncertain behavi or of skin acute January 20, 2025 3:02pm Neoplasm of uncertain behavi or of skin acute January 28, 2025 1 :04pm Neoplasm of uncertain behavi or of skin acute February 06, 2025 11:23am [place] [place] [employer] [facility] Work Phone: 1(846) 863-265603-07-2025 Consult note [facility] Medical Records Department [address] [place] [address] Anesthesia Postop Eval II 10/04/24930 MR#: [id number] Acct: [id number] Name: HAILEE STOLL Rep #:[id number] 2 : 1945 79 From: Jerry Hardin MD PCP: Dr. Keshia Johnson MD Status:REG SD C Y Race: C Location: [place] [address] Anesthesia Postop Eval I Sum Postop Eval [...] Level: 0 nausea: No Vomiting: No 10/04/24930 > Date _ Jerry Owens Signature: Date CC: ~ Signed [facility]03-07-2025 Consult note [facility] Medical Records Department [address] [place] [address] Anesthesia Postop Eval I 10/04/2458 MR#: [id number] Acct: [id number] Name: HAILEE STOLL Rep #:[id number] 8 : 1945 79 From: Petr Gallardo PCP: Dr. Keshia Johnson MD Status:REG SD C Y Race: C Location: [place] [address] Anesthesia: Postop Eval I Current Vital Signs [...] document: Postop Eval 1 completed: Yes 10/04/24 0900 > Date Richy Owens Signature: Date CC: ~ Signed [facility]03-07-2025 Procedure note [facility] Medical Records Department [address] [place] [address] Colonoscopy Report MR#: [id number] Acct: [id number] Name: HAILEE STOLL Rep #:[id number] 2 : 1945 79 From: Lico Hunt MD PCP: Dr. Keshia Johnson MD Status:REG SD C Patient Name: Hailee Stoll Procedure Date: 10/04/2024 [...] present medications. Procedure Code(s): --- Professional --- 91920, Colonoscopy, flexible; diagnostic, including collection of specimen(s) by brushing or washing, when performed (separate procedure) Diagnosis Code(s): --- Professional --- Z12.11, Encounter for screening for malignant neoplasm of colon K57.30, Diverticulosis of large intestine without perforation or abscess without bleeding K64.8, Other hemorrhoids CPT copyright 2021 [employer]. All rights reserved. The codes documented in this report are preliminary and upon gis database administrator review may be revised to meet current compliance requirements. Lico Hunt MD 10/04/2024 8:56:21 AM This report has been signed electronically. Number of Addenda: 0 Note Initiated On: 10/04/2024 8:23 AM 10/04/24 0856 Date _ Lico Hunt MD Cosigner Signature: Date (if indicated) CC: Dr. Keshia Johnson MD; Dr. Lico Hunt MD ~ Date Dictated: 10/04/24822 Date Transcribed: Volunteer Services Assistant: SW Signed [facility]03-07-2025 Procedure note [facility] Medical Records Department [address] [place] [address] Operative Report - CC Letter MR#: [id number] Acct: [id number] Name: HAILEE STOLL Rep #:[id number] 3 : 1945 79 From: Lico Hunt MD PCP: Dr. Keshia Johnson MD Status:REG SD C 10/04/2024 Keshia Johnson Md Re : Colonoscopy procedure for Hailee Stoll [place] This procedure was performed on Friday, October 04, 2024. My impressions and recommendations are as follows: Impressions : - Preparation of the colon was fair. - Diverticulosis in the sigmoid colon. - Non-bleeding internal hemorrhoids. - The examination was otherwise normal on direct and retroflexion views. - No specimens collected. Recommendations : - Discharge patient to home (ambulatory). - High fiber diet. - Repeat colonoscopy in 7-10 years for screening purposes. - Return to my office PRN. - Continue present medications. My findings are described in the full procedure note, which is enclosed. If I can be of further assistance, please feel free to contact me at . Sincerely, Lico Hunt MD 10/04/2024 8:56:21 AM This report has been signed electronically. 10/04/24855 Date _ Lico Hunt MD Cosigner Signature: Date (if indicated) CC: Dr. Keshia Johnson MD; Dr. Lico Hunt MD ~ Date Dictated: 10/04/24822 Date Transcribed: Volunteer Services Assistant: PATITO Rodriguez [facility]03-07-2025 Procedure note [facility] Medical Records Department [address] [place] [address] EGD Report MR#: [id number] Acct: [id number] Name: HAILEE STOLL Rep #:[id number] 8 : 1945 79 From: Lico Hunt MD PCP: Dr. Keshia Johnson MD Status:REG SD C Patient Name: Hailee Stoll Procedure Date: 10/04/2024 [...] pathology results. Procedure Code(s): --- Professional --- 81696, Esophagogastroduodenoscopy, flexible, transoral; with biopsy, single or multiple Diagnosis Code(s): --- Professional --- R10.13, Epigastric pain K31.89, Other diseases of stomach and duodenum CPT copyright 2021 [employer]. All rights reserved. The codes documented in this report are preliminary and upon gis database administrator review may be revised to meet current compliance requirements. Lico Hunt MD 10/04/2024 8:53:26 AM This report has been signed electronically. Number of Addenda: 0 Note Initiated On: 10/04/2024 8:01 AM 10/04/24 0853 Date _ Lico Hunt MD Cosigner Signature: Date (if indicated) CC: Dr. Keshia Johnson MD; Dr. Lico Hunt MD ~ Date Dictated: 10/04/24 08 Date Transcribed: Volunteer Services Assistant: SW Signed [facility]03-07-2025 Procedure note [facility] Medical Records Department [address] [place] [address] Operative Report - CC Letter MR#: [id number] Acct: [id number] Name: HAILEE STOLL Rep #:[id number] 9 : 1945 79 From: Lico Hunt MD PCP: Dr. Keshia Johnson MD Status:REG SD C 10/04/2024 Keshia Johnson Md Re : Upper GI endoscopy procedure for Hailee Stoll [place] This procedure was performed on Friday, October 04, 2024. My impressions and recommendations are as follows: Impressions : - Normal esophagus. Biopsied. - No gross lesions in the entire stomach. Biopsied. - Erythematous duodenopathy. Biopsied. - The examination was otherwise normal. Recommendations : - Discharge patient to home (ambulatory). - High fiber diet indefinitely. - Continue present medications. - Await pathology results. My findings are described in the full procedure note, which is enclosed. If I can be of further assistance, please feel free to contact me at . Sincerely, Lico Hunt MD 10/04/2024 8:53:26 AM This report has been signed electronically. 10/04/2453 Date _ Lico Hunt MD Cosigner Signature: Date (if indicated) CC: Dr. Keshia Johnson MD; Dr. Lico Hunt MD ~ Date Dictated: 10/04/24 08 Date Transcribed: Volunteer Services Assistant: PATITO Rodriguez [facility]03-07-2025 Consult note Author Jerry Hardin [facility] Note Date/Time October 04, 2024 6:37 am [facility] Medical Records Department [address] [place] [address] Pre-Anesthesia Evaluation 10/04/24 0636 MR#: [id number] Acct: [id number] Name: HAILEE STOLL Rep #:[id number] 2 : 1945 79 From: Jerry Hardin MD PCP: Dr. 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 Hx Hospitalization No 10/02/24 12:27 Any Problems [...] take am of surgery PONV PONV - mechanic welder: PONV - mechanic welder Female Yes 10/02/24 12:27 HX of Motion [...] 09/05/24 08:28 Respiratory Assessment Respiratory Assessment - mechanic welder: Respiratory Tract Infection Hx - mechanic welder Hx Respiratory Tract Infection No 10/02/24 12:27 STOP Sleep Apnea STOP Sleep Apnea - mechanic welder: STOP Sleep Apnea - mechanic welder Hx Hypertension Yes 10/02/24 12:27 Hx Sleep [...] Tobacco Use History Tobacco Use History - mechanic welder: Tobacco Use History - mechanic welder Tobacco Use Smoking Status Never smoker 10/02/24 12:27 Hx Tobacco Use No 10/02/24 12:27 Years Smoking Packs Smoked per Day Smoking Cessation Date was within the last 15 years Hx Smoking Cessation Date Hx Smoking Cessation Counseling Hematologic Medial History Hematologic Hx - mechanic welder: Hematologic Medical Hx - senior caregiver Hx of Blood Transfusion No 10/02/24 12:27 [...] confused, unrespo /Reproduction History /Reproductive History - mechanic welder: /Reproductive Hx- mechanic welder Hx Now No 10/02/24 12:27 Gestational Age [...] and no additional complaints, except as documented. 10/04/2437 <Electronically signed by Jerry Hardin MD > Date _ Jerry Hardin MD Cosigner Signature: Date CC: ~ Signed [facility] Work Phone: 1(155) 741-353803-07-2025 Evaluation note* Diagnosis Onset Date Resolution Status Admit Date Black tarry stools acute October 04, 2024 6:09am Diarrhea acute October 04 6:09am History of colon polyps acute M 2024 6:09am Neoplasm of uncertain behavi or of skin acute January 20, 2025 3:02pm Neoplasm of uncertain behavi or of skin acute January 28, 2025 1 :04pm [facility] Work Phone: 1(951) 912-772103-07-[address] [facility] Medical Records Department [address] [place] [address] History & Physical Exam 10/04/24 0748 MR#: [id number] Acct: [id number] Name: HAILEE STOLL Rep #:[id number] 3 : 1945 79 From: Lico Hunt MD PCP: Dr. Keshia Johnson MD Status:[facility] Location: [place] [address] HPI - General General Date of Admission: [...] appears that her last colonoscopy was in 2016. This showed some diverticulosis but no other findings. She does state that her bowels have been much more loose recently. She does also noticed that her stools do seem much darker almost a black color. [facility] Medical History Wears partial dentures Low iron [...] begin shortly Charges/Coding Visit Charges Inpatient E&M: 14387 Init Hosp L1 10/04/24 0780 Cosigner Signature (if applicable): CC: Dr. Keshia Johnson MD; Dr. Lico Hunt MD~ Signed [facility]03-07-2025 [facility] Medical Records Department [address] [place] [address] History Physical Exam 10/04/24 0748 MR#: [id number] Acct: [id number] Name: HAILEE STOLL Rep #: [id number] : 1945 79 From: Lico Hunt MD PCP: Dr. Keshia Johnson MD Status:[facility] Location: [place] [address] HPI - General General Date of Admission: [...] seem much darker almost a black color. [facility] Medical History Wears partial dentures Low iron [...] shortly Charges/Coding Visit Charges Inpatient E M: 63397 Init Hosp L1 10/04/24 0750 Cosigner Signature (if applicable): CC: Dr. Keshia Johnson MD; [facility]. Lico [facility] Consult note [facility] Medical Records Department [address] [place] [address] Pre-Anesthesia Evaluation 10/04/24 0636 MR#: [id number] Acct: [id number] Name: HAILEE STOLL Rep #:[id number] 2 : 1945 79 From: Jerry Hardin MD PCP: Dr. 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 Hx Hospitalization No 10/02/24 12:27 Any Problems [...] take am of surgery PONV PONV - mechanic welder: PONV - mechanic welder Female Yes 10/02/24 12:27 HX of Motion [...] 09/05/24 08:28 Respiratory Assessment Respiratory Assessment - mechanic welder: Respiratory Tract Infection Hx - mechanic welder Hx Respiratory Tract Infection No 10/02/24 12:27 STOP Sleep Apnea STOP Sleep Apnea - mechanic welder: STOP Sleep Apnea - mechanic welder Hx Hypertension Yes 10/02/24 12:27 Hx Sleep [...] Tobacco Use History Tobacco Use History - mechanic welder: Tobacco Use History - mechanic welder Tobacco Use Smoking Status Never smoker 10/02/24 12:27 Hx Tobacco Use No 10/02/24 12:27 Years Smoking Packs Smoked per Day Smoking Cessation Date was within the last 15 years Hx Smoking Cessation Date Hx Smoking Cessation Counseling Hematologic Medial History Hematologic Hx - mechanic welder: Hematologic Medical Hx - senior caregiver Hx of Blood Transfusion No 10/02/24 12:27 [...] confused, unrespo /Reproduction History /Reproductive History - mechanic welder: /Reproductive Hx- mechanic welder Hx Now No 10/02/24 12:27 Gestational Age (in weeks): EDC: Hx Hx Para Hx Section SAB No 10/02/24 12:27 [facility] Medical History Wears partial dentures Low iron [...] lancets 33 gauge (TRUEplus Lancets) #100 ea 02/06/25 U nknown History lisinopril 20 1 tab [...] and no additional complaints, except as documented. 10/04/2437 > Date _ Jerry Hardin MD Cosigner Signature: Date CC: ~ Signed [facility]03-03-2025 Evaluation note* Diagnosis Onset Date Resolution Status Admit Date Hordeolum externum left lowe r eyelid acute September 30, 2024 10:25am Black tarry stools acute October 04, 2024 6:09am Diarrhea acute October 04 6:09am History of colon polyps acute 2024 6:09am [facility] Work Phone: 1(789) 257-360903-03-2025 Evaluation note* Diagnosis Onset Date Resolution Status Admit Date Hordeolum externum left lowe r eyelid acute September 30, 2024 10:25am Black tarry stools acute October 04, 2024 6:09am Diarrhea acute October 04 6:09am History of colon polyps acute M 2024 6:09am Neoplasm of uncertain behavi or of skin acute January 20, 2025 3:02pm [facility] Work Phone: 1(819) 130-394802-06-2025 Evaluation note* Diagnosis Onset Date Resolution Status Admit Date Black tarry stools acute 2024 8:11am Diarrhea acute September 05, 2024 8:11am Hordeolum externum left lowe r eyelid acute September 30, 2024 10:25am Black tarry stools acute October 04, 2024 6:09am Diarrhea acute October 04 6:09am History of colon polyps acute [facility] 2024 6:09am [facility] Work Phone: Consult note Author Petr Gallardo [facility] Note Date/Time October 04, 2024 9:00 am [facility] Medical Records Department [address] [place] [address] Anesthesia Postop Eval I 10/04/24 0858 MR#: [id number] Acct: [id number] Name: HAILEE STOLL Rep #:[id number] 8 : 1945 79 From: Petr Gallardo PCP: Dr. Keshia Johnson MD Status:REG SD C Y Race: C Location: [place] [address] Anesthesia: Postop Eval I Current Vital Signs [...] document: Postop Eval 1 completed: Yes 10/04/24 0900 <Electronically signed by Petr Gallardo > Date _ Petr Owens Signature: Date CC: ~ Signed [facility] Work Phone: Consult note Author Jerry Hardin [facility] Note Date/Time October 04, 2024 9:45 am [facility] Medical Records Department [address] [place] [address] Anesthesia Postop Eval II 10/04/24930 MR#: [id number] Acct: [id number] Name: HAILEE STOLL Rep #:[id number] 2 : 1945 79 From: Jerry Hardin MD PCP: Dr. Keshia Johnson MD Status:REG SD C Y Race: C Location: [place] [address] Anesthesia Postop Eval I Sum Postop Eval [...] Level: 0 nausea: No Vomiting: No 10/04/24930 <Electronically signed by Jerry Hardin MD > Date _ Jerry Owens Signature: Date CC: ~ Signed [facility] Work Phone: Evaluation noteNo assessment information available [facility] Work Phone: History and physical note Author Lico Hunt [facility] Note Date/Time October 04, 2024 7:[address] [facility] Medical Records Department [address] [place] [address] History & Physical Exam 10/04/24 0748 MR#: [id number] Acct: [id number] Name: HAILEE STOLL Rep #:[id number] 3 : 1945 79 From: Lico Hunt MD PCP: Dr. Keshia Johnson MD Status:REG SD C Location: [place] [address] HPI - General General Date of Admission: [...] seem much darker almost a black color. [facility] Medical History Wears partial dentures Low iron [...] begin shortly Charges/Coding Visit Charges Inpatient E&M: 42382 Init Hosp L1 10/04/24 0750 <Electronically signed by Lico Hunt MD> Cosigner Signature (if applicable): CC: Dr. Keshia Johnson MD; Dr. Lico Hunt MD~ Signed [facility] Work Phone: Hospital Discharge instructions Additional Instructions X-ray negative. Concern for internal injury of your left knee. Alfredo wrap and walker for support. Ibuprofen 400 mg or Tylenol 1 g every 6 hours as needed. If symptoms persist follow-up with orthopedics for outpatient evaluation.[facility] Work Phone: Reason for referral (narrative)No reason for referral information availableWooC[facility] Work Phone: Advance Directives Advance Directive Response Recorded Date/ Time Living Will Yes December 19, 2016 9 :11am Power of Narcotics Agent Yes December 19, 2016 9:11am Advance Directive Response Recorded Date/ Time Living Will Yes December 19, 2016 8 :11am Power of Narcotics Agent Yes December 19, 2016 8:11am Advance Directive Response Recorded Date/ Time Living Will No September 16 023 7:22pm Power of Narcotics Agent No September 16, 2022 7:22pm Advance Directive Response Recorded Date/ Time Living Will Yes October 02, 2024 12:27pm Power of Narcotics Agent Yes October 02 12:27pm Name of Medical Power of Narcotics Agent . October 02, 2024 12:27pm Living Will Yes August 03 9:35am Power of Narcotics Agent Yes August 03 025 9:35am Name of Medical Power of Narcotics Agent ? August 03, 2024 9:35am Advance Directive Response Recorded Date/ Time Living Will Yes October 02, 2024 1:27pm Do you have a Healthcare Power of Narcotics Agent? Yes October 02, 2024 1:27pm Name of Medical Power of Narcotics Agent . October 02, 2024 1:27pm Chief Complaint and Reason for Visit Chief [...] of colon polyps October 04, 2024 6:09am Chief Complaint Admit Date SWOLLEN/RED L EYE September 30, 2024 10:2 5am SKIN CANCER January 20, 2025 3:02 pm Reason for Visit Admit Date Hordeolum externum left lower eyelid Mar 2024 10:25am Black tarry stools October 04, 2024 6:09 am Diarrhea October 04, 2024 6:09 am History of colon polyps October 04, 2024 6:09am Chief Complaint Admit Date SWOLLEN/RED L EYE September 30, 2024 10:2 5am SKIN CANCER January 20, 2025 3:02 pm BX OF R EAR January 20, 2025 4:40 pm Reason for Visit Admit Date Hordeolum externum left lower eyelid Mar 2024 10:25am Black tarry stools October 04, 2024 6:09 am Diarrhea October 04, 2024 6:09 am History of colon polyps October 04, 2024 6:09am Neoplasm of uncertain behavior of skin J [facility] 2024 3:02pm Chief Complaint Admit Date SWOLLEN/RED L EYE September 30, 2024 10:2 5am SKIN CANCER January 20, 2025 3:02 pm BX OF R EAR January 20, 2025 4:40 pm FOLLOW UP January 28, 2025 1:04p m Chief Complaint Admit Date SKIN CANCER January 20, 2025 3:02 pm BX OF R EAR January 20, 2025 4:40 pm FOLLOW UP January 28, 2025 1:04p m BIOPSY RIGHT EAR January 28, 2025 5:01p m Reason for Visit Admit Date Black tarry stools October 04, 2024 6:09 am Diarrhea October 04, 2024 6:09 am History of colon polyps October 04, 2024 6:09am Neoplasm of uncertain behavior of skin J une 2024 3:02pm Neoplasm of uncertain behavior of skin J krysten 2024 1:04pm Chief Complaint Admit Date SKIN CANCER January 20, 2025 3:02 pm BX OF R EAR January 20, 2025 4:40 pm FOLLOW UP January 28, 2025 1:04p m BIOPSY RIGHT EAR January 28, 2025 5:01p m 1 WK F/U February 06, 2025 11:2 3am Reason for Visit Admit Date Neoplasm of uncertain behavior of skin J une 2024 3:02pm Neoplasm of uncertain behavior of skin J krysten 2024 1:04pm Chief Complaint Admit Date SKIN CANCER January 20, 2025 3:02 pm BX OF R EAR January 20, 2025 4:40 pm FOLLOW UP January 28, 2025 1:04p m BIOPSY RIGHT EAR January 28, 2025 5:01p m 1 WK F/U February 06, 2025 11:2 3am in office procedure February 20, 2025 10:2 5am Reason for Visit Admit Date Neoplasm of uncertain behavior of skin J une 2024 3:02pm Neoplasm of uncertain behavior of skin J krysten 2024 1:04pm Neoplasm of uncertain behavior of skin J krysten 2024 11:23am Family History Relationship Condition Age at Onset Recorded Date/T sunny Not Specified Diabetes mellitus Unknown Cardiac disease Unknown Hypertension Unknown Summary Purpose Additional Source Comments Goals (unrecognized section and [...] Active Member Role Status Dates Shana Copeland , Primary Care Provi tanvir, Attending Provider, Referring Provider Active Team Status: Inactive Member Role Status Dates Shana Copeland , Primary Care Provi tanvir, Attending Provider, Referring Provider Active Team Status: Active Member Role Status Ricky Johnson MD Primary Care Provider Active Team Status: [...] 2024 Team Status: Active Member Role Status Ricky Johnson MD Primary Care Provider Active St art: October 04, 2024 Keshia Johnson MD Referring Provider Active Start : October 04, 2024 Dr. Lico Hunt MD Attending Provider Active Start: October 04, 2024 Dr. Lico Hunt MD Other Provider Active St art: October 04, 2024 Team Status: Inactive Member Role Status Ricky Johnson MD Primary Care Provider Active St art: January 14, 2025 End: January 14, 2025 Keshia Johnson MD Attending Provider Active Start : January 14, 2025 End: January 14, 2025 Keshia Johnson MD Referring Provider Active Start : January 14, 2025 End: January 14, 2025 Team Status: Active Member Role Status Ricky Johnson MD Primary Care Provider Active St art: January 20, 2025 Keshia Johnson MD Referring Provider Active Start : January 20, 2025 Dr. Benson Martinez MD Attending Provider Active Start: January 20, 2025 Team Status: Inactive Member Role Status Ricky Johnson MD Primary Care Provider Active St art: January 20, 2025 End: January 20, 2025 Keshia Johnson MD Referring Provider Active Start : January 20, 2025 End: January 20, 2025 Dr. Benson Martinez MD Attending Provider Active Start: January 20, 2025 End: January 20, 2025 Team Status: Active Member Role/Relationship Status Ricky Johnson MD Primary Care Provider Active Team Status: Inactive Member Role/Relationship Status Dates Keshia Johnson MD Primary Care Provider Active St art: September 30, 2024 End: September 30, 2024 Keshia Johnson MD Referring Provider Active Start : September 30, 2024 End: September 30, 2024 WOLFGANG Damon Attending Provider Active Star t: September 30, 2024 End: September 30, 2024 Team Status: Inactive Member Role/Relationship Status Ricky Johnson MD Primary Care Provider Active St art: October 04, 2024 End: October 04, 2024 Keshia Johnson MD Referring Provider Active Start : October 04, 2024 End: October 04, 2024 Dr. Lico Hunt MD Attending Provider Active Start: October 04, 2024 End: October 04, 2024 Team Status: Active Member Role/Relationship Status Ricky Johnson MD Primary Care Provider Active St art: October 04, 2024 Keshia Johnson MD Referring Provider Active Start : October 04, 2024 Dr. Lico Hunt MD Attending Provider Active Start: October 04, 2024 Dr. Lico Hunt MD Other Provider Active St art: October 04, 2024 Team Status: Inactive Member Role/Relationship Status Dates Keshia Johnson MD Primary Care Provider Active St art: January 14, 2025 End: January 14, 2025 Keshia Johnson MD Attending Provider Active Start : January 14, 2025 End: January 14, 2025 Keshia Johnson MD Referring Provider Active Start : January 14, 2025 End: January 14, 2025 Team Status: Inactive Member Role/Relationship Status Ricky Johnson MD Primary Care Provider Active St art: January 20, 2025 End: January 20, 2025 Keshia Johnson MD Referring Provider Active Start : January 20, 2025 End: January 20, 2025 Dr. Benson Martinez MD Attending Provider Active Start: January 20, 2025 End: January 20, 2025 Team Status: Inactive Member Role/Relationship Status Ricky Johnson MD Primary Care Provider Active St art: January 20, 2025 End: January 20, 2025 Dr. Benson Martinez MD Attending Provider Active Start: January 20, 2025 End: January 20, 2025 Dr. Benson Martinez MD Referring Provider Active Start: January 20, 2025 End: January 20, 2025 Team Status: Inactive Member Role/Relationship Status Ricky Johnson MD Primary Care Provider Active St art: January 28, 2025 End: January 28, 2025 Keshia Johnson MD Referring Provider Active Start : January 28, 2025 End: January 28, 2025 Dr. Benson Martinez MD Attending Provider Active Start: January 28, 2025 End: January 28, 2025 Team Status: Inactive Member Role/Relationship Status Ricky Johnson MD Primary Care Provider Active St art: October 04, 2024 End: October 04, 2024 Keshia Johnson MD Referring Provider Active Start : October 04, 2024 End: October 04, 2024 Dr. Lico Hunt MD Attending Provider Active Start: October 04, 2024 End: October 04, 2024 Team Status: Active Member Role/Relationship Status Ricky Johnson MD Primary Care Provider Active St art: October 04, 2024 Keshia Johnson MD Referring Provider Active Start : October 04, 2024 Dr. Lico Hunt MD Attending Provider Active Start: October 04, 2024 Dr. Lico Hunt MD Other Provider Active St art: October 04, 2024 Team Status: Inactive Member Role/Relationship Status Ricky Johnson MD Primary Care Provider Active St art: January 14, 2025 End: January 14, 2025 Keshia Johnson MD Attending Provider Active Start : January 14, 2025 End: January 14, 2025 Keshia Johnson MD Referring Provider Active Start : January 14, 2025 End: January 14, 2025 Team Status: Inactive Member Role/Relationship Status Ricky Johnson MD Primary Care Provider Active St art: January 20, 2025 End: January 20, 2025 Keshia Johnson MD Referring Provider Active Start : January 20, 2025 End: January 20, 2025 Dr. Benson Martinez MD Attending Provider Active Start: January 20, 2025 End: January 20, 2025 Team Status: Inactive Member Role/Relationship Status Ricky Johnson MD Primary Care Provider Active St art: January 20, 2025 End: January 20, 2025 Dr. Benson Martinez MD Attending Provider Active Start: January 20, 2025 End: January 20, 2025 Dr. Benson Martinez MD Referring Provider Active Start: January 20, 2025 End: January 20, 2025 Team Status: Inactive Member Role/Relationship Status Ricky Johnson MD Primary Care Provider Active St art: January 28, 2025 End: January 28, 2025 Keshia Johnson MD Referring Provider Active Start : January 28, 2025 End: January 28, 2025 Dr. Benson Martinez MD Attending Provider Active Start: January 28, 2025 End: January 28, 2025 Team Status: Inactive Member Role/Relationship Status Ricky Johnson MD Primary Care Provider Active St art: January 28, 2025 End: January 28, 2025 Dr. Benson Martinez MD Attending Provider Active Start: January 28, 2025 End: January 28, 2025 Dr. Benson Martinez MD Referring Provider Active Start: January 28, 2025 End: January 28, 2025 Team Status: Inactive Member Role/Relationship Status Ricky Johnson MD Primary Care Provider Active St art: January 14, 2025 End: January 14, 2025 Keshia Johnson MD Attending Provider Active Start : January 14, 2025 End: January 14, 2025 Keshia Johnson MD Referring Provider Active Start : January 14, 2025 End: January 14, 2025 Team Status: Inactive Member Role/Relationship Status Ricky Johnson MD Primary Care Provider Active St art: January 20, 2025 End: January 20, 2025 Keshia Johnson MD Referring Provider Active Start : January 20, 2025 End: January 20, 2025 Dr. Benson Martinez MD Attending Provider Active Start: January 20, 2025 End: January 20, 2025 Team Status: Inactive Member Role/Relationship Status Ricky Johnson MD Primary Care Provider Active St art: January 20, 2025 End: January 20, 2025 Dr. Benson Martinez MD Attending Provider Active Start: January 20, 2025 End: January 20, 2025 Dr. Benson Martinez MD Referring Provider Active Start: January 20, 2025 End: January 20, 2025 Team Status: Inactive Member Role/Relationship Status Ricky Johnson MD Primary Care Provider Active St art: January 28, 2025 End: January 28, 2025 Keshia Johnson MD Referring Provider Active Start : January 28, 2025 End: January 28, 2025 Dr. Benson Martinez MD Attending Provider Active Start: January 28, 2025 End: January 28, 2025 Team Status: Inactive Member Role/Relationship Status Ricky Johnson MD Primary Care Provider Active St art: January 28, 2025 End: January 28, 2025 Dr. Benson Martinez MD Attending Provider Active Start: January 28, 2025 End: January 28, 2025 Dr. Benson Martinez MD Referring Provider Active Start: January 28, 2025 End: January 28, 2025 Team Status: Inactive Member Role/Relationship Status Ricky Johnson MD Primary Care Provider Active St art: February 06, 2025 End: February 06, 2025 Keshia Johnson MD Referring Provider Active Start : February 06, 2025 End: February 06, 2025 Dr. Benson Martinez MD Attending Provider Active Start: February 06, 2025 End: February 06, 2025 Team Status: Inactive Member Role/Relationship Status Ricky Johnson MD Primary Care Provider Active St art: February 20, 2025 End: February 20, 2025 Keshia Johnson MD Referring Provider Active Start : February 20, 2025 End: February 20, 2025 Dr. Benson Martinez MD Attending Provider Active Start: February 20, 2025 End: February 20, 2025 INFORMATION SOURCE (unrecogn ized section and content) DATE CREATED AUTHOR 02/17/2025 [facility] FOR RECORDS PERTAINING TO PATIENTS WHO ARE [...] BE BASED ON THE PRIMARY CLINICAL RECORDS. [facility] [employer] [facility]. provides no warranty or guarantee of the accuracy or completeness of information in this document.
== END | disposition home or self-care (01) ==
PROVIDERS: PCP Family Medicine; Referring Provider Surgery Plastic and Reconstructive Surgery; Visit Provider Surgery Plastic and Reconstructive Surgery
DX: L57.0 Actinic keratosis (principal)
CPT/HCPCS: 88305

== ENCOUNTER → 2025-02-27 | Outpatient (CLI) | payer MEDICARE, SELFPAY | END | disposition home or self-care (01) | LOC: MFPLAB 12:17 | PROVIDERS: PCP Family Medicine; Referring Provider Family Medicine; Visit Provider Family Medicine | DX: I10 Essential (primary) hypertension (principal); E11.9 Type 2 diabetes mellitus without complications | CPT/HCPCS: 36415; 84295 ==

== ENCOUNTER 2025-03-26 07:08 | Emergency (ER) | payer MEDICARE, SELFPAY ==
[2025-03-26 07:09] VITALS: BP 175/68; PULSE 70; RESP 20; TEMP 36.3; O2SAT 97; BMI 22.9
--- NOTE | 2025-03-26 07:23 | ED.VIS.CHEST ---
HPI History of Present Illness Chief Complaint: Chest Pain Informant: patient Onset/Context/Timing Onset: Days (2-3) Activity at onset: gradual Timing: Continuous Quality: Positive for Aching Location: Substernal Worsened By: Coughing Relieved By: Nothing Associated Symptoms: Positive for Dyspnea, Cough and Acid Reflux; Negative for Nausea, Vomiting, Diaphoresis, Fever, Lightheadedness or Palpitations Narrative Narrative: Patient presents with chest pain and shortness of breath that has been getting worse over the past 2 to 3 days. Patient states it came on gradually. Patient describes it as aching. Patient states that it is over the substernal area. Patient admits to a cough but denies any sputum production. Patient denies any fevers or chills. Patient states her pain is worse with coughing. Patient states nothing makes it better. Patient also admits to some reflux symptoms. Patient denies any nausea or vomiting. Patient denies any diaphoresis. CVD Risk Factors: Positive for Hypertension and Diabetes; Negative for Hypercholesterolemia, Family History 1' </=55 or Smoking PE Risk Factors: Negative for Recent Travel/Surgery, Recent Immobilization, Prior DVT or PE, Cancer or OCP + Smoking + >/=35 [facility] Medical History Wears partial dentures Low iron Non-smoker Hordeolum externum left lower eyelid Diarrhea Black tarry stools Acid reflux Diabetes Hypertension Home Medications ?Medication ?Instructions ?Recorded ?Last Taken ?Type blood sugar diagnostic (True #10 ea 09/05/24 Unknown History Metrix Glucose Test Strip) lancets 33 gauge (TRUEplus Lancets) #100 ea 09/05/24 Unknown History lisinopril 20 1 tab PO BID 09/05/24 10/03/24 History mg-hydrochlorothiazide 12.5 mg tablet metformin 500 mg tablet,extended 1,000 mg PO DAILY 09/05/24 10/03/24 History release 24 hr omeprazole 40 mg capsule,delayed 40 mg PO QDAY 09/05/24 10/03/24 History release trazodone 50 mg tablet 50 mg PO QHS 09/05/24 10/03/24 History amlodipine 5 mg tablet 5 mg PO DAILY 09/30/24 10/04/24 History ferrous sulfate 325 mg (65 mg 325 mg PO QODAY 10/02/24 10/03/24 History iron) tablet (Feosol) ciprofloxacin HCl 500 mg tablet 500 mg PO BID #14 tabs 02/20/25 Unknown Rx Allergy/AdvReac Type Severity Reaction Status Date / Time No Known Allergies Allergy Verified 03/26/25 07:09 Family History Other Diabetes Heart disease Hypertension Surgical History History of colonoscopy History of appendectomy Social History Smoking Status: Never smoker alcohol intake: never substance use type: does not use additional social history: pt denies vaping, denies marijuana use, denies edibles, denies aspirin and ibuprofen use. pt denies any blood clots history. ROS ROS ED Constitutional Constitutional ED: Denies chills or fever(s) Eyes Eyes: Denies blurry vision or change in vision ENT ENT ED: Denies rhinorrhea or sore throat Cardiovascular Cardiovascular: Reports as per HPI and chest pain; Denies palpitations Respiratory/Chest Respiratory/Chest: Reports cough and dyspnea Gastrointestinal Gastrointestinal: Denies nausea or vomiting Genitourinary Genitourinary ED: Denies dysuria or hematuria Musculoskeletal Musculoskeletal: Denies back pain or neck pain Integumentary Denies abscess or rash Neurologic Neurologic: Denies headache(s) or weakness Allergic/Immunologic Allergic/Immunologic ED: Denies mouth swelling or urticaria EXAM Physical Exam Const Vital Signs: 03/26/25 07:09 03/26/25 07:17 03/26/25 07:37 Temperature 97.3 F L Temperature Source Temporal Pulse Rate 70 Respiratory Rate 20 H Respiratory Effort Short of Breath Blood Pressure 175/68 H Blood Pressure Mean 103 Pulse Ox 97 95 Oxygen Delivery Method Room Air 03/26/25 08:09 03/26/25 09:00 03/26/25 10:00 Temperature 97.7 F L 97.8 F 97.8 F Temperature Source Oral Oral Oral Pulse Rate 67 60 60 Respiratory Rate 20 H 17 17 Respiratory Effort Blood Pressure 148/58 H 150/51 H 145/65 H Blood Pressure Mean 88 84 91 Pulse Ox 96 94 94 Oxygen Delivery Method Room Air Room Air Room Air Positive well nourished and well developed General Appearance ED: well developed and NAD HEENT Reports moist mucous membranes normocephalic and atraumatic Neck supple and no JVD Chest Wall palpation of chest normal Resp normal respiratory effort and clear to auscultation bilaterally Cardio regular rate and regular rhythm GI soft to palpation and non-distended GI Narrative: There is mild tenderness of the epigastric area. There is no rebound or guarding noted. Extremity normal to inspection Neuro oriented x3, CN's II-XII intact bilaterally and no sensory deficits noted Sensorium / Orientation: awake and alert Motor Exam: strength 5/5 throughout Psych mental status grossly normal Heart Score History: Slightly/Non-Suspicious ECG: Nonspecific Repolarization Age: >/= 65 years Risk Factors: 1 or 2 Risk Factors Troponin: </= Normal Limit Score: 4 MDM MDM MDM Narrative Medical decision making narrative: Differential diagnosis includes cardiac dysrhythmia, cardiac ischemia, pneumonia, bronchitis, gastroesophageal reflux disease, musculoskeletal pain, viral upper respiratory infection, and anxiety. EKG will be obtained to assess for cardiac dysrhythmia and cardiac ischemia. Chest x-ray will be obtained to assess for pneumonia or bronchitis. CBC will be obtained to assess for leukocytosis and anemia. Basic metabolic profile will be obtained to assess for electrolyte abnormality renal function. High-sensitivity troponin will be obtained to assess for cardiac ischemia. 2-hour repeat high-sensitivity troponin will be obtained to assess for ongoing cardiac ischemia. History & Record Review Additional record(s) reviewed:: Prior labs Lab Data Attestation: I reviewed the patient's lab results. Lab results narrative: CBC was reviewed. There is a mild anemia with a hemoglobin of 9.8 and hematocrit 28.5. This is slightly decreased from previous results. Basic metabolic profile was reviewed. BUN was slightly elevated at 29 and creatinine was 1.42. These are consistent with previous results. Glucose was mildly elevated at 179. Initial high-sensitivity troponin was reviewed and was normal at 14. 2-hour repeat high-sensitivity troponin was reviewed and was 15. BNP was reviewed and was normal at 603. Labs: Laboratory Results - last 24 hr 03/26/25 03/26/25 07:57 09:40 WBC 7.7 RBC 3.26 L Hgb 9.8 L Hct 28.5 L MCV 87.4 MCH 30.1 MCHC 34.4 RDW Std Deviation 36.8 RDW Coeff of Rick 11.6 Plt Count 358 MPV 10.4 Immature Gran % (Auto) 0.400 Neut % (Auto) 69.7 Lymph % (Auto) 13.7 L Mellette % (Auto) 9.7 Eos % (Auto) 6.0 H Baso % (Auto) 0.5 Absolute Neuts (auto) 5.3 Absolute Lymphs (auto) 1.05 Nucleated RBC % 0 Sodium 133 Potassium 4.1 Chloride 98 Carbon Dioxide 17.9 L Anion Gap 16 H BUN 29 H Creatinine 1.42 H Estim Creat Clear Calc 22.70 L Est GFR (MDRD) Non-Af 37 L BUN/Creatinine Ratio 20.2 H Glucose 179 H Calcium 10.0 Troponin T High Sens 14 Troponin T Hi Sens 2 Hr 15 H NT pro BNP II 603 Radiography Diagnostic Testing: Clinical Impression(s) from Imaging Studies Chest X-Ray 03/26/25 07:37 IMPRESSION: An hiatal hernia is again noted. Mild to moderate interstitial pulmonary edema is seen, along with mild bilateral pleural effusions, [id number]. No pneumothorax is seen. The cardiomediastinal silhouette is within the normal range, without evidence of cardiomegaly. No acute osseous change is seen. Reading Location: [place] [id number] PA and lateral chest x-ray was obtained. There are 2 views. On my independent interpretation, lung crawford show mild interstitial edema and mild pleural effusions, right worse than left. There is normal cardiac silhouette. Bony thorax is normal. There is no acute process noted. Radiologist also interpreted the x-ray and agrees. EKG Initial EKG: Attestation: I personally reviewed and interpreted this EKG as follows: Interpretation: Sinus Rhythm (72) and Non-Specific ST Changes Comments: EKG was obtained. On my independent interpretation, it showed a normal sinus rhythm with a rate of 72. VT interval, QRS interval, and QTc intervals were all normal. [place] was normal. There are nonspecific ST-T wave changes. Treatment and Re-Evaluation :: Patient was given aspirin. Patient given a GI cocktail. Patient is feeling better on reevaluation. Patient was advised of her findings. Patient has a HEART score of 4. Patient was instructed to follow-up with her primary care physician in 5 to 7 days. Patient was instructed to return if worse in any way. Patient understood and was agreeable with the plan. All questions were answered. Discharge Plan Triage Chief Complaint: Chest Pain ED Provider: Timur Chang Dx/Rx/DC Orders Clinical Impression: Chest pain, Elevated blood pressure reading Instructions: ED Chest Pain, Uncertain Cause Prescriptions: No Action metformin 500 mg tablet extended release 24 hr 1,000 mg PO DAILY lisinopril-hydrochlorothiazide 20-12.5 mg tablet 1 tab PO BID trazodone 50 mg tablet 50 mg PO QHS omeprazole 40 mg capsule,delayed release(DR/EC) 40 mg PO QDAY (DME) True Metrix Glucose Test Strip Strip See Rx Instructions .ROUTE QDAY Qty: 10 Rx Instructions: As directed (DME) lancets [TRUEplus Lancets] 33 gauge misc See Rx Instructions .ROUTE QDAY Qty: 100 Rx Instructions: As directed amlodipine 5 mg tablet 5 mg PO DAILY ciprofloxacin HCl 500 mg tablet 500 mg PO BID Qty: 14 0RF ferrous sulfate [Feosol] 325 mg (65 mg iron) tablet 325 mg PO QODAY Primary Care Provider: Keshia Johnson Referrals: Keshia Johnson MD [Primary Care Provider] - 5-7 Days Print Language: Vincentian Disposition Disposition: Home, Self Care
[2025-03-26 07:37] VITALS: O2SAT 95
--- NOTE | 2025-03-26 07:37 | EKG12_ITS ---
Test Reason : CP Blood Pressure : */* mmHG Vent. Rate : 72 BPM Atrial Rate : 72 BPM P-R Int : 158 ms QRS Dur : 82 ms QT Int : 382 ms P-R-T Axes : 24 24 22 degrees QTcB Int : 418 ms Normal sinus rhythm Nonspecific ST abnormality Abnormal ECG Confirmed by CRISSY CHAVEZ ([id number]), newspaper managing editor GIANCARLO BRADY ([id number]) on 03/27/2025 1:52:57 PM Referred By: MIGUEL Confirmed By: CRISSY CHAVEZ
--- NOTE | 2025-03-26 07:37 | RAD_ITS ---
PROCEDURE: CHEST PA AND LATERAL 03/26/2025 REASON FOR EXAM: CHEST PAIN TECHNIQUE: CHEST PA AND LATERAL COMPARISON: Chest x-ray of 08/03/2024. RAD/Chest PA and Lateral IMPRESSION: An hiatal hernia is again noted. Mild to moderate interstitial pulmonary edema is seen, along with mild bilatera l pleural effusions, [id number]. No pneumothorax is seen. The cardiomediastinal silhouette is within the normal range, without evidence o f cardiomegaly. No acute osseous change is seen. Reading Location: [place] [id number]
[2025-03-26] MEDS: Lidocaine 2% Viscous15 ML UDC 15 ML PO (07:52)
[2025-03-26 08:06] LABS: Hematocrit 28.5 % (37-47); Hemoglobin 9.8 g/dL (12.0-15.0); Immature Granulocytes Count 0.030 X10^3/uL (0.0-0.0); Mean Corp Hgb Conc 34.4 g/dL (32-36); Mean Corpuscular Volume 87.4 fL (81-99); Mean Platelet Vol. 10.4 fl (6.2-12.0); NRBC Flagged by Analyzer 0 % (0-5); Platelet Count 358 K/mm3 (150-450); RBC Distribution Width CV 11.6 % (11.6-14.6); RBC Distribution Width SD 36.8 fl (35.1-43.9); Red Blood Count 3.26 M/mm3 (4.2-5.4); White Blood Count 7.7 K/mm3 (4.4-11.0)
[2025-03-26 08:09] VITALS: BP 148/58; PULSE 67; RESP 20; TEMP 36.5; O2SAT 96
[2025-03-26 08:26] LABS: Troponin T High Sensitivity 14 ng/L (<=14)
[2025-03-26 08:37] LABS: Anion Gap 16 (5-15); BUN 29 mg/dL (4-19); BUN/Creat Ratio 20.2 RATIO (10-20); Calcium,Total 10.0 mg/dL (7.6-11.0); Carbon Dioxide 17.9 mmol/L (21.0-32.0); Chloride 98 mmol/L (98-108); Estimated Creatinine Clearance 22.70 ml/min (50-250); Glucose 179 mg/dL (70-99); Potassium 4.1 mmol/L (3.3-5.1)
[2025-03-26 09:00] VITALS: BP 150/51; PULSE 60; RESP 17; TEMP 36.6; O2SAT 94
[2025-03-26 09:21] LABS: Pro- Brain NATRIURETIC PEPTIDE 603 pg/mL (<=1800)
[2025-03-26 10:00] VITALS: BP 145/65; PULSE 60; RESP 17; TEMP 36.6; O2SAT 94
[2025-03-26 10:19] LABS: Troponin T High Sens 2 HR 15 ng/L (<=14)
[2025-03-26 11:18] VITALS: BP 153/53; PULSE 61; RESP 17; TEMP 36.5; O2SAT 94
== END 2025-03-26 11:24 | disposition home or self-care (01) ==
PROVIDERS: Emergency Provider Emergency Medicine; PCP Family Medicine; Visit Provider Emergency Medicine
DX: R07.9 Chest pain, unspecified (principal); E11.9 Type 2 diabetes mellitus without complications; R03.0 Elevated blood-pressure reading, without diagnosis of hypertension; R06.00 Dyspnea, unspecified; K21.9 Gastro-esophageal reflux disease without esophagitis; I10 Essential (primary) hypertension; D64.9 Anemia, unspecified
CPT/HCPCS: 71046; 80048; 83880; 84484; 85025; 93005; 99284; A4216

== ENCOUNTER → 2025-04-04 | Outpatient (CLI) | payer MEDICARE, SELFPAY ==
[2025-04-04 13:03] LABS: Hemoglobin 10.0 g/dL (12.0-15.0)
== END | disposition home or self-care (01) ==
LOC: MFPLAB 11:01
PROVIDERS: PCP Family Medicine; Visit Provider Family Medicine
DX: D64.9 Anemia, unspecified (principal)
CPT/HCPCS: 36415; 85018

== ENCOUNTER → 2025-04-24 | Outpatient (CLI) | payer MEDICARE, SELFPAY ==
[2025-04-24 12:15] LABS: Hematocrit 29.8 % (37-47); Hemoglobin 10.7 g/dL (12.0-15.0); Immature Granulocytes Count 0.040 X10^3/uL (0.0-0.0); Mean Corp Hgb Conc 35.9 g/dL (32-36); Mean Corpuscular Volume 85.4 fL (81-99); Mean Platelet Vol. 10.4 fl (6.2-12.0); NRBC Flagged by Analyzer 0 % (0-5); Platelet Count 466 K/mm3 (150-450); RBC Distribution Width CV 12.5 % (11.6-14.6); RBC Distribution Width SD 38.2 fl (35.1-43.9); Red Blood Count 3.49 M/mm3 (4.2-5.4); White Blood Count 9.4 K/mm3 (4.4-11.0)
[2025-04-24 12:46] LABS: AST(SGOT) 23 U/L (<=31); Alanine Aminotransfer ALT/SGPT 16 U/L (<=34); Albumin, Serum 4.0 g/dL (3.4-4.8); Alkaline Phosphatase 97 U/L (35-104); Anion Gap 20 (5-15); BUN 16 mg/dL (4-19); BUN/Creat Ratio 11.0 RATIO (10-20); Calcium,Total 9.7 mg/dL (7.6-11.0); Carbon Dioxide 14.3 mmol/L (21.0-32.0); Chloride 88 mmol/L (98-108); Globulin 2.5 g/dL (2.2-4.2); Glucose 189 mg/dL (70-99); Potassium 4.3 mmol/L (3.3-5.1)
== END | disposition home or self-care (01) ==
LOC: MFPLAB 10:37
PROVIDERS: PCP Family Medicine
DX: K21.9 Gastro-esophageal reflux disease without esophagitis (principal)
CPT/HCPCS: 36415; 80053; 85025

== ENCOUNTER 2025-04-30 11:15 | Observation (INO) | payer MEDICARE, SELFPAY ==
[2025-04-30] VITALS (8 sets, daily range): BP systolic 146–159; BP diastolic 47–73; PULSE 54–64; RESP 17–19; TEMP 36.6–36.9; O2SAT 95–100; BMI 22.6
--- NOTE | 2025-04-30 13:22 | RAD_ITS ---
PROCEDURE: CHEST PA AND LATERAL 04/30/2025 REASON FOR EXAM: WEAKNESS TECHNIQUE: Procedure Code: RADCXR Modality: DX Procedure: CHEST PA AND LATERAL COMPARISON: 03/26/2025. FINDINGS: The heart is enlarged. Lungs are hyperaerated but clear. Large hiatal hernia. No acute osseous abnormalities. RAD/Chest PA and Lateral IMPRESSION: Hyperaerated lungs which may suggest COPD. Cardiomegaly. Hiatal hernia. Reading Location: [id number]
--- NOTE | 2025-04-30 13:58 | EX.ED.DYSGE1 ---
HPI History of Present Illness Chief Complaint: Abn Labs Informant: patient Onset/Context/Timing Onset: Days Context: Gradual Onset Timing: Continuous Quality: Dull, swollen Location: Bilateral lower legs Worsened by: Nothing Relieved by: Nothing Narrative Narrative: Patient presents with low sodium that was noticed today. Patient states that she had outpatient labs which showed a sodium of 122. Patient was then told to come to the emergency department. Patient admits to some mild swelling and dull pain in her legs. Patient states nothing makes her symptoms worse and nothing makes them better. Patient denies any fevers or chills. Patient admits to a mild cough but denies any shortness of breath. Patient denies any nausea or vomiting. Patient denies any urinary complaints. [facility] Medical History Wears partial dentures Low iron Non-smoker Hordeolum externum left lower eyelid Diarrhea Black tarry stools Acid reflux Diabetes Hypertension Home Medications ?Medication ?Instructions ?Recorded ?Last Taken ?Type blood sugar diagnostic (True #10 ea 09/05/24 Unknown History Metrix Glucose Test Strip) lancets 33 gauge (TRUEplus Lancets) #100 ea 09/05/24 Unknown History lisinopril 20 1 tab PO BID 09/05/24 04/30/25 History mg-hydrochlorothiazide 12.5 mg tablet metformin 500 mg tablet,extended 1,000 mg PO DAILY 09/05/24 04/29/25 History release 24 hr omeprazole 40 mg capsule,delayed 40 mg PO QDAY 09/05/24 04/30/25 History release trazodone 50 mg tablet 50 mg PO QHS 09/05/24 04/29/25 History ferrous sulfate 325 mg (65 mg 325 mg PO QODAY 10/02/24 04/29/25 History iron) tablet (Feosol) amlodipine 10 mg tablet 10 mg PO QDAY 04/11/25 04/30/25 History atenolol 25 mg tablet 25 mg PO BID 04/30/25 04/30/25 History spironolactone 50 mg tablet 50 mg PO DAILY 04/30/25 04/30/25 History Allergy/AdvReac Type Severity Reaction Status Date / Time No Known Allergies Allergy Verified 04/30/25 11:16 Family History Other Diabetes Heart disease Hypertension Surgical History History of colonoscopy History of appendectomy Social History Smoking Status: Never smoker alcohol intake: never substance use type: does not use additional social history: pt denies vaping, denies marijuana use, denies edibles, denies aspirin and ibuprofen use. pt denies any blood clots history. ROS ROS ED Constitutional Constitutional ED: Denies chills or fever(s) Eyes Eyes: Denies blurry vision or change in vision ENT ENT ED: Denies rhinorrhea or sore throat Cardiovascular Cardiovascular: Denies chest pain or palpitations Respiratory/Chest Respiratory/Chest: Reports cough; Denies dyspnea Gastrointestinal Gastrointestinal: Denies nausea or vomiting Genitourinary Genitourinary ED: Denies dysuria or hematuria Musculoskeletal Musculoskeletal: Denies back pain or neck pain Integumentary Denies abscess or rash Neurologic Neurologic: Denies headache(s) or weakness Allergic/Immunologic Allergic/Immunologic ED: Denies mouth swelling or urticaria EXAM Physical Exam Const Vital Signs: 04/30/25 11:16 04/30/25 12:33 04/30/25 13:15 Temperature 98.1 F Temperature Source Temporal Pulse Rate 57 L 54 L Respiratory Rate 18 19 H Respiratory Effort Normal Non-Labored Respiratory Pattern Normal Blood Pressure 156/72 H 159/71 H Blood Pressure Mean 100 100 Pulse Ox 100 98 Oxygen Delivery Method 04/30/25 15:00 04/30/25 16:01 Temperature 98.1 F Temperature Source Pulse Rate 59 L 61 Respiratory Rate 19 H 18 Respiratory Effort Respiratory Pattern Blood Pressure 152/51 H 159/47 H Blood Pressure Mean 84 84 Pulse Ox 97 95 Oxygen Delivery Method Room Air Positive well nourished and well developed General Appearance ED: well developed and NAD HEENT Reports moist mucous membranes Neck supple and no JVD Resp normal respiratory effort and clear to auscultation bilaterally Cardio regular rate and regular rhythm GI non-tender and non-distended Palpation: soft Extremity Extremity Narrative: There is trace edema of the ankles bilaterally. There is no calf tenderness noted. General Extremety ED: Negative for tenderness Neuro oriented x3, CN's II-XII intact bilaterally and no sensory deficits noted Sensorium / Orientation: alert Motor Exam: strength 5/5 throughout Psych mental status grossly normal MDM MDM MDM Narrative Medical decision making narrative: Differential diagnose includes acute kidney injury, electrolyte abnormality, dehydration, pneumonia, bronchitis, and urinary tract infection. Chest x-ray will be obtained to assess for pneumonia or bronchitis. CBC will be obtained to assess for leukocytosis and anemia. Basic metabolic profile will be obtained to assess for electrolyte abnormality and renal function. Urinalysis will be obtained to assess for urinary tract infection and hematuria. History & Record Review Additional record(s) reviewed:: Prior labs Lab Data Attestation: I reviewed the patient's lab results. Lab results narrative: CBC was reviewed. There is a mild anemia with a hemoglobin of 9.8 and hematocrit of 27.4. Basic metabolic profile was reviewed. Sodium was low at 121. Potassium is slightly elevated at 5.4. Chloride was low at 88. CO2 was slightly low at 19.5. BUN was slightly elevated at 24 and creatinine was 1.73. Urinalysis was reviewed. There is no evidence of urinary tract infection or hematuria. Labs: Laboratory Results - last 24 hr 04/30/25 04/30/25 14:00 14:50 WBC 8.1 RBC 3.21 L Hgb 9.8 L Hct 27.4 L MCV 85.4 MCH 30.5 MCHC 35.8 RDW Std Deviation 39.5 RDW Coeff of Rick 12.7 Plt Count 450 MPV 9.7 Immature Gran % (Auto) 0.700 Neut % (Auto) 76.6 H Lymph % (Auto) 12.8 L [place] % (Auto) 7.7 Eos % (Auto) 2.0 Baso % (Auto) 0.2 Absolute Neuts (auto) 6.2 Absolute Lymphs (auto) 1.04 Nucleated RBC % 0 Sodium 121 L Potassium 5.4 H Chloride 88 L Carbon Dioxide 19.5 L Anion Gap 13 BUN 24 H Creatinine 1.73 H Estim Creat Clear Calc 18.32 L Est GFR (MDRD) Non-Af 29 L BUN/Creatinine Ratio 13.6 Glucose 96 Calcium 9.6 Urine Color Yellow Urine Clarity Clear Urine pH 6.0 Ur Specific [place] 1.005 Urine Protein 15 H Urine Glucose (UA) Normal Urine Ketones Negative Urine Occult Blood Negative Urine Nitrite Negative Urine Bilirubin Negative Urine Urobilinogen Normal Ur Leukocyte Esterase 25 H Urine RBC 0 SEEN Urine WBC 0-5 SEEN Ur Squamous Epith Cells 0-5 SEEN Urine Bacteria 0 SEEN Urine Mucus 0 SEEN Radiography Chest X-Ray - ED: 2 View, Read by ED Physician, Read by Radiologist and No Acute Disease Diagnostic Testing: Clinical Impression(s) from Imaging Studies Chest X-Ray 04/30/25 13:22 IMPRESSION: Hyperaerated lungs which may suggest COPD. Cardiomegaly. Hiatal hernia. Reading Location: [facility] [place] and lateral chest x-ray was obtained. There are 2 views. On my independent interpretation, lung crawford are hyperinflated but clear. There is cardiomegaly. Bony thorax is normal. There is no acute process noted. Radiologist also interpreted the x-ray and agrees. Management Discussion w/another healthcare provider: Hospitalist Treatment and Re-Evaluation :: Patient was given IV fluids. She was advised of her findings. Case was discussed with the hospitalist. He will admit the patient to her service. Patient understood and was agreeable with plan. All questions were answered. Discharge Plan Dx/Rx/DC Orders Clinical Impression: Hyponatremia, Hypochloremia, Anemia, Diabetes mellitus Disposition Disposition: Acute Care [facility]
[2025-04-30] MEDS: 0.9% Normal Saline (1000mL) 1,000 ML 1000 ML IV (14:09)
[2025-04-30 14:16] LABS: Hematocrit 27.4 % (37-47); Hemoglobin 9.8 g/dL (12.0-15.0); Immature Granulocytes Count 0.060 X10^3/uL (0.0-0.0); Mean Corp Hgb Conc 35.8 g/dL (32-36); Mean Corpuscular Volume 85.4 fL (81-99); Mean Platelet Vol. 9.7 fl (6.2-12.0); NRBC Flagged by Analyzer 0 % (0-5); Platelet Count 450 K/mm3 (150-450); RBC Distribution Width CV 12.7 % (11.6-14.6); RBC Distribution Width SD 39.5 fl (35.1-43.9); Red Blood Count 3.21 M/mm3 (4.2-5.4); White Blood Count 8.1 K/mm3 (4.4-11.0)
[2025-04-30 14:33] LABS: Anion Gap 13 (5-15); BUN 24 mg/dL (4-19); BUN/Creat Ratio 13.6 RATIO (10-20); Calcium,Total 9.6 mg/dL (7.6-11.0); Carbon Dioxide 19.5 mmol/L (21.0-32.0); Chloride 88 mmol/L (98-108); Estimated Creatinine Clearance 18.32 ml/min (50-250); Glucose 96 mg/dL (70-99); Potassium 5.4 mmol/L (3.3-5.1)
[2025-04-30 15:01] LABS: Mucous, Urine 0 SEEN /hpf (<or=2+); Red Blood Cells-Urine 0 SEEN /hpf (0-5)
[2025-04-30 15:11] LABS: Color, Urine Yellow (Yellow); Glucose, Dipstick Normal (Normal); Ketone-Dipstick Negative (Negative); Leukocyte Esterase-Dipstick 25 /ul (Negative); Nitrite-Dipstick Negative (Negative); Occult Blood-Urine Negative /ul (Negative); Protein-Dipstick 15 mg/dl (Negative); Specific Gravity, Urine 1.005 (1.002-1.030); Urine Bilirubin Dipstick Negative (Negative)
[2025-04-30 15:19] LABS: Squamous Epithelial Cells - UA 0-5 SEEN /hpf (5-10)
--- NOTE | 2025-04-30 16:00 | HP.PCM.HOS_ITS ---
HPI - General General Date of Admission: 04/30/25 Date of Service: 04/30/25 Chief Complaint: Abnormal labs HPI Narrative HAILEE STOLL, is a 80 F who presented to [facility] ED on 04/30/2025 for abnormal labs. Patient had an outpatient BMP done recently that showed a sodium of 122 and she has no prior history of hyponatremia, so her PCP sent her in to the ED for further evaluation. Repeat labs in the ED showed sodium 121. BMP otherwise notable for potassium 5.4, chloride 88, bicarb 19, creatinine 1.73 (baseline around 1.4). Patient's medical history significant for hypertension, type 2 diabetes mellitus, chronic iron deficiency anemia and GERD. She noted that her PCP recently started her on a new blood pressure medication about 2 weeks ago because her systolic blood pressures been running high in the 150s to 160s. She believes it was the spironolactone but she is not positive on that. Has been on her other antihypertensives of amlodipine, atenolol, Lasix, and lisinopril?hydrochlorothiazide for several months. States that since she started spironolactone she has had intermittent leg cramping and is generally felt more fatigued than her normal. She denies any significant changes to her p.o. intake. In the ED she was given 1 L of IV normal saline and then hospitalist was contacted for admission. I saw the patient at bedside in the ED. Patient was mildly fatigued appearing but otherwise sitting back comfortably in bed, conversing normally, in no acute distress. She was alert and oriented x 3 and denied any mental fogginess. She denied any acute pain or discomfort. No other acute concerns currently. Will be admitted for further management. [facility] Medical History Wears partial dentures Low iron Non-smoker Hordeolum externum left lower eyelid Diarrhea Black tarry stools Acid reflux Diabetes Hypertension Home Medications ?Medication ?Instructions ?Recorded ?Last Taken ?Type blood sugar diagnostic (True #10 ea 09/05/24 Unknown H istory Metrix Glucose Test Strip) lancets 33 gauge (TRUEplus Lancets) #100 ea 09/05/24 U nknown History lisinopril 20 1 tab PO BID blood pressure 09/05/24 04/30/25 History mg-hydrochlorothiazide 12.5 mg tablet metformin 500 mg tablet,extended 1,000 mg PO DAILY Nalini betes 09/05/24 04/29/25 History release 24 hr omeprazole 40 mg capsule,delayed 40 mg PO QDAY Acid re flux 09/05/24 04/30/25 History release trazodone 50 mg tablet 50 mg PO QHS sleep 09/05/24 04/29/25 History ferrous sulfate 325 mg (65 mg 325 mg PO QODAY suppleme nt 10/02/24 04/29/25 History iron) tablet (Feosol) amlodipine 10 mg tablet 10 mg PO QDAY blood pressure 04/11/25 04/30/25 History atenolol 25 mg tablet 25 mg PO BID blood pressure/ heart 04/30/25 04/30/25 History rate famotidine 20 mg tablet 20 mg PO DAILY acid 04/30/25 Unknown History furosemide 20 mg tablet 20 mg PO DAILY edema 5 Unknown History spironolactone 50 mg tablet 50 mg PO DAILY blood press ure 04/30/25 04/30/25 History Allergy/AdvReac Type Severity Reaction Status Date / Time No Known Allergies Allergy Verified 04/30/25 11:16 Family History Other Diabetes Heart disease Hypertension Surgical History History of colonoscopy History of appendectomy Social History Smoking Status: Never smoker alcohol intake: never substance use type: does not use additional social history: pt denies vaping, denies marijuana use, denies edibles, denies aspirin and ibuprofen use. pt denies any blood clots history. ROS Constitutional Constitutional: Reports fatigue; Denies chills, fever(s) or weakness Eyes Eyes: Denies change in vision Cardiovascular Cardiovascular: Denies chest pain Respiratory/Chest Respiratory/Chest: Denies shortness of breath at rest Gastrointestinal Gastrointestinal: Denies abdominal pain, constipation, diarrhea, nausea or vomiting Musculoskeletal Musculoskeletal: Denies arthralgias or myalgias Neurologic Neurologic: Denies dizziness, focal weakness, headache(s), numbness or tingling Vital Signs Vital Signs Vital Signs: 04/30/25 11:16 04/30/25 12:33 04/30/25 13:15 Temperature 98.1 F Temperature Source Temporal Pulse Rate 57 L 54 L Respiratory Rate 18 19 H Respiratory Effort Normal Non-Labored Respiratory Pattern Normal Blood Pressure 156/72 H 159/71 H Blood Pressure Mean 100 100 Pulse Ox 100 98 Oxygen Delivery Method 04/30/25 15:00 Temperature Temperature Source Pulse Rate 59 L Respiratory Rate 19 H Respiratory Effort Respiratory Pattern Blood Pressure 152/51 H Blood Pressure Mean 84 Pulse Ox 97 Oxygen Delivery Method Room Air Weight Weight: 49.169 kg Body Mass Index (BMI) 22.6 Physical Exam Const alert, oriented x3, no apparent distress and average body habitus Constitutional Narrative: Pleasant elderly female, mildly fatigued appearing, otherwise alert and oriented x 3 and answering questions appropriately, sitting up comfortably in bed, in no acute distress. General Appearance: cooperative and comfortable HEENT normocephalic, head/scalp atraumatic, hearing grossly normal bilaterally, nasal mucous membranes and turbinates normal and moist oral mucous membranes Eyes PERRL, EOMs intact bilaterally and conjunctivae normal Neck full ROM Chest inspection of chest normal Resp normal respiratory effort, normal air movement, no use of accessory muscles and clear to auscultation bilaterally Cardio regular rate, regular rhythm, no murmurs and peripheral pulses 2+ throughout GI normal to inspection, nondistended, normoactive bowel sounds, soft to palpation, non-tender and non-distended Back/Spine normal ROM Extremity normal to inspection, full ROM and no pedal edema Skin no rashes or lesions noted Psych mental status grossly normal Results Lab / Micro Data 04/30/25 14:00 04/30/25 14:00 Labs: Laboratory Results - last 24 hr 04/30/25 14:00: WBC 8.1, RBC 3.21 L, Hgb 9.8 L, Hct 27.4 L, MCV 85.4, MCH 30.5, MCHC 35.8, RDW Std Deviation 39.5, RDW Coeff of Rick 12.7, Plt Count 450, MPV 9.7, Immature Gran % (Auto) 0.700, Neut % (Auto) 76.6 H, Lymph % (Auto) 12.8 L, [place] % (Auto) 7.7, Eos % (Auto) 2.0, Baso % (Auto) 0.2, Absolute Neuts (auto) 6.2, Absolute Lymphs (auto) 1.04, Nucleated RBC % 0, Sodium 121 L, Potassium 5.4 H, Chloride 88 L, Carbon Dioxide 19.5 L, Anion Gap 13, BUN 24 H, Creatinine 1.73 H, Estim Creat Clear Calc 18.32 L, Est GFR (MDRD) Non-Af 29 L, BUN/Creatinine Ratio 13.6, Glucose 96, Calcium 9.6 04/30/25 14:50: Urine Color Yellow, Urine Clarity Clear, Urine pH 6.0, Ur Specific [place] 1.005, Urine Protein 15 H, Urine Glucose (UA) Normal, Urine Ketones Negative, Urine Occult Blood Negative, Urine Nitrite Negative, Urine Bilirubin Negative, Urine Urobilinogen Normal, Ur Leukocyte Esterase 25 H, Urine RBC 0 SEEN, Urine WBC 0-5 SEEN, Ur Squamous Epith Cells 0-5 SEEN, Urine Bacteria 0 SEEN, Urine Mucus 0 SEEN Imaging Radiology Impression Chest X-Ray 04/30/25 13:22 IMPRESSION: Hyperaerated lungs which may suggest COPD. Cardiomegaly. Hiatal hernia. Reading Location: [id number] Assessment & Plan Assessment/Plan (1) Hyponatremia: PLAN: Plan Patient is an 80-year-old female who presented [facility] ED on 04/30/2025 for abnormal labs. 1. Hyponatremia ? Admit under observation status to PCU. Sodium 121 on admit, chloride 88. Baseline sodium appears to be around 140 up through June 2024; in late January and February her sodium was 131-133 and then decreased to 121-122 in late March. Most likely cause seems to be the spironolactone that was initiated about 2 weeks ago. Urine sodium, urine osmolality and serum possibility ordered. Given 1 L of IV fluids in the ED, will hold on further fluids overnight and follow-up a.m. sodium level. Will hold home spironolactone. Will also hold home lisinopril?hydrochlorothiazide and Lasix for now. Will need to determine which antihypertensives to resume on discharge. 2. Mild creatinine elevation in setting of CKD stage IIIb ? Creatinine 1.73 on admit, baseline around 1.4. Suspect due to mild dehydration in setting of home Lasix and spironolactone above. Given IV fluids on admit, follow-up a.m. BMP monitor urine output. 3. Essential hypertension ? Current home regimen of amlodipine, atenolol, Lasix, lisinopril?hydrochlorothiazide and spironolactone. Patient reports resistant hypertension for the past several years requiring multiple antihypertensives. She states her pressures have still been running in the 140s to 150s recently. Monitor BP while inpatient. Will continue home amlodipine and atenolol but hold other medications for now. IV hydralazine as needed ordered for SBP greater than 170. Will need to determine which antihypertensives to continue on discharge. 4. Type 2 diabetes mellitus ? Glucose 96 on admit. Recent A1c 6.5% in December. Will hold on metformin and given the borderline A1c, can hold off on POC glucose checks and sliding scale insulin for now as well. 5. GERD ? Continue home PPI. 6. Chronic normocytic anemia ? Multifactorial due to iron deficiency and anemia of renal disease. Hemoglobin 9.8 on admit, stable at baseline. Continue home iron supplement. DVT prophylaxis: Heparin subcu CODE STATUS: Full code, verified Expected disposition: Home, 1 to 2 days Total clinical time spent by myself addressing the patient's medical issues, reviewing all the data, and collaborating with patient's care team: 62 minutes. Charges/Coding Visit Charges Inpatient E&M: 99123 Init Hosp L2
[2025-04-30 18:09] LABS: Osmolality, Serum 264 mOsm/KG (280-301)
[2025-04-30] MEDS: 0.9% Saline Lock 10 ML Syringe IV (20:48)
[2025-04-30] MEDS: Heparin Injection (Vial) 5,000 UNIT/ML VIAL 5000 UNIT SC (20:49)
[2025-05-01 03:00] VITALS: PULSE 61
[2025-05-01 03:41] VITALS: BP 147/46; PULSE 52; RESP 16; TEMP 36.9; O2SAT 95
[2025-05-01 05:57] LABS: Hematocrit 24.2 % (37-47); Hemoglobin 8.5 g/dL (12.0-15.0); Mean Corp Hgb Conc 35.1 g/dL (32-36); Mean Corpuscular Volume 86.4 fL (81-99); Mean Platelet Vol. 9.8 fl (6.2-12.0); Platelet Count 392 K/mm3 (150-450); RBC Distribution Width CV 13.1 % (11.6-14.6); RBC Distribution Width SD 41.0 fl (35.1-43.9); Red Blood Count 2.80 M/mm3 (4.2-5.4); White Blood Count 8.2 K/mm3 (4.4-11.0)
[2025-05-01 06:16] LABS: Anion Gap 12 (5-15); BUN 23 mg/dL (4-19); BUN/Creat Ratio 14.7 RATIO (10-20); Calcium,Total 9.2 mg/dL (7.6-11.0); Carbon Dioxide 18.5 mmol/L (21.0-32.0); Chloride 96 mmol/L (98-108); Estimated Creatinine Clearance 20.32 ml/min (50-250); Glucose 63 mg/dL (70-99); Potassium 4.9 mmol/L (3.3-5.1)
[2025-05-01] MEDS: Heparin Injection (Vial) 5,000 UNIT/ML VIAL 5000 UNIT SC ×2 (06:25→22:36)
[2025-05-01 07:23] VITALS: O2SAT 97
[2025-05-01 07:44] VITALS: BP 120/82; PULSE 53; RESP 16; TEMP 36.7; O2SAT 98
[2025-05-01] MEDS: FLU VACCINE HIGH DOSE 25-26(65YR UP) 180 MCG/0.5 ML SYRINGE IM (11:45)
--- NOTE | 2025-05-01 13:23 | CHAPLAIN ---
Type of Pastoral Visit _x__ Initial Visit ___ Follow-up Visit ___ On-call Visit ___ General Patient Visit ___ Spiritual Assessment ___ Family Conference ___ Bereavement ___ Rapid Response ___ Code Blue ___ Other (describe below) Pastoral Care Referral From _x__ Patient ___ Family ___ Nurse ___ Physician ___ Welt Drawer ___ Real Estate Operations Manager ___ Other (describe below) Sacrament/Intervention _x__ Active listening ___ Anointing ___ Moravian ___ Bereavement ___ Communion ___ Luann exploration ___ _x__ Life review _x__ Prayer ___ Reconciliation ___ Sacrament of Sick ___ Supportive presence ___ Wedding ___ Other (describe below) Pastoral Comments patient describes her situation and gives some life review; pt has a christianity connection and welcomes spiritual care support and prayer
--- NOTE | 2025-05-01 14:46 | CASEMGMT ---
MARIE Met with patient to complete MARIE form. MARIE form and its content were verbally explained and patient's questions were answered to the best of my ability.? Patient voiced understanding and signed MARIE form.? Patient provided a copy of signed MARIE form and original placed in patient's chart.? Patient had no further questions. Lisa Chavarria, Discharge Planning Asst
--- NOTE | 2025-05-01 15:23 | PCM.PROGNOTE ---
Subjective Subjective Patient seen and examined with her nurse by her bedside. She had no active complaints. She denied any lightheadedness or dizziness, palpitations, nausea or vomiting or any other symptoms. Review of systems otherwise negative. She has remained hemodynamically stable. Objective Data Objective Data Vital Signs: Vital Signs Temp Pulse Resp BP Pulse Ox O2 Del Method 98.1 F 53 L 16 120/82 H 98 Room Air 05/01/25 07:44 05/01/25 07:44 05/01/25 07:44 05/01/25 07:44 05/01/25 07:44 05/01/25 07:44 Oxygen Delivery Method Room Air Weight: 108 lb 7.479 oz Body Mass Index (BMI) 22.6 Intake & Output: Intake and Output for Last 24 Hours 04/29/25 04/30/25 05/01/25 23:59 23:59 23:59 Intake Total 1000 / 1000 Balance 1000 / 1000 Lab / Micro Data 05/01/25 05:25 05/01/25 05:25 Labs: Laboratory Results - last 24 hr 04/30/25 14:00: Serum Osmolality 264 L 04/30/25 14:50: Urine Osmolality 05/01/25 05:25: WBC 8.2, RBC 2.80 L, Hgb 8.5 L, Hct 24.2 L, MCV 86.4, MCH 30.4, MCHC 35.1, RDW Std Deviation 41.0, RDW Coeff of Rick 13.1, Plt Count 392, MPV 9.8, Sodium 127 L, Potassium 4.9, Chloride 96 L, Carbon Dioxide 18.5 L, Anion Gap 12, BUN 23 H, Creatinine 1.56 H, Estim Creat Clear Calc 20.32 L, Est GFR (MDRD) Non-Af 33 L, BUN/Creatinine Ratio 14.7, Glucose 63 L, Calcium 9.2 Physical Exam Const alert, oriented x3 and no apparent distress General Appearance: cooperative HEENT normocephalic, head/scalp atraumatic, moist oral mucous membranes and oropharynx normal Eyes EOMs intact bilaterally Neck supple and no JVD Lymph Lymphatic: no lymphedema noted Resp normal respiratory effort, normal air movement and clear to auscultation bilaterally Cardio regular rate, regular rhythm, S1 normal heart sound, S2 normal heart sound and no murmurs GI normal to inspection, nondistended, normoactive bowel sounds, soft to palpation, non-tender and non-distended Extremity normal capillary refill, no clubbing, cyanosis or edema and no calf tenderness General Extremity: no tenderness to palpation of joints or extremities Skin General Skin Exam: no breakdown Neuro no focal motor deficits and no sensory deficits noted Motor Exam: strength 5/5 throughout Psych thought process normal, cooperative and affect normal Appearance: appropriate Assessment & Plan Assessment/Plan (1) Hyponatremia: PLAN: Plan #Acute hyponatremia Sodium was 121 on admission with chloride also low at 88. Sodium is 127 today. Patient on spironolactone and this has been discontinued. Sodium is trending up on its own lisinopril and hydrochlorothiazide as well as Lasix on hold, will continue to monitor today. Serum osmolality was low at 264. Urine sodium is pending and urine osmolality is also pending. Will hydrate patient gently with IV fluids as I think this is likely due to the medications and dehydration. #Hyperkalemia: K is down to 4.9. Resolved. #Benign essential hypertension: Lisinopril and hydrochlorothiazide as well as spironolactone on hold. On amlodipine. Will adjust blood pressure medications as needed. IV hydralazine as needed #Anemia: today is 8.5. Was 9.8 on admission. baseline Hb is 9-10. #Type 2 diabetes mellitus: A1c 6.5. On metformin. #GERD: PPI #DVT prophylaxis: SCDs Charges/Coding Visit Charges Inpatient E&M: 02806 Subs Hosp L2
[2025-05-01] MEDS: 0.9% Saline Lock 10 ML Syringe IV (16:00)
[2025-05-01] MEDS: 0.9% Normal Saline (1000mL) 1,000 ML 75 ML IV (16:00)
[2025-05-01 16:06] VITALS: BP 141/57; PULSE 52; RESP 16; TEMP 36.8; O2SAT 98
[2025-05-01 22:30] VITALS: BP 133/42; PULSE 53; RESP 16; TEMP 36.3; O2SAT 98
[2025-05-02 04:30] VITALS: BP 140/46; PULSE 57; RESP 16; TEMP 36.7; O2SAT 96
[2025-05-02] MEDS: Heparin Injection (Vial) 5,000 UNIT/ML VIAL 5000 UNIT SC (05:24)
[2025-05-02 05:58] LABS: Hematocrit 24.7 % (37-47); Hemoglobin 8.6 g/dL (12.0-15.0); Immature Granulocytes Count 0.020 X10^3/uL (0.0-0.0); Mean Corp Hgb Conc 34.8 g/dL (32-36); Mean Corpuscular Volume 87.9 fL (81-99); Mean Platelet Vol. 9.6 fl (6.2-12.0); NRBC Flagged by Analyzer 0 % (0-5); Platelet Count 363 K/mm3 (150-450); RBC Distribution Width CV 13.6 % (11.6-14.6); RBC Distribution Width SD 43.7 fl (35.1-43.9); Red Blood Count 2.81 M/mm3 (4.2-5.4); White Blood Count 6.8 K/mm3 (4.4-11.0)
[2025-05-02 06:25] LABS: Anion Gap 13 (5-15); BUN 18 mg/dL (4-19); BUN/Creat Ratio 10.7 RATIO (10-20); Calcium,Total 9.2 mg/dL (7.6-11.0); Carbon Dioxide 17.3 mmol/L (21.0-32.0); Chloride 103 mmol/L (98-108); Estimated Creatinine Clearance 19.09 ml/min (50-250); Glucose 101 mg/dL (70-99); Potassium 4.5 mmol/L (3.3-5.1)
[2025-05-02 08:45] VITALS: BP 153/53; PULSE 56; RESP 16; TEMP 36.4; O2SAT 100
--- NOTE | 2025-05-02 12:54 | DS.PCM_ITS ---
Providers Date of Admission: 04/30/25 Primary Care Physician: Keshia Johnson MD Reason For Visit: HYPONATREMIA Diagnosis Discharge Diagnosis (1) Hyponatremia: Status: Acute Code(s): E87.1 - Hypo-osmolality and hyponatremia Plan #Acute hyponatremia * Sodium was 121 on admission with chloride also low at 88. * Sodium is 127 today. Patient on spironolactone and this has been discontinued. * Sodium is trending up on its own lisinopril and hydrochlorothiazide as well as Lasix on hold, will continue to monitor today. * Serum osmolality was low at 264. Urine sodium is pending and urine osmolality is also pending. Will hydrate patient gently with IV fluids as I think this is likely due to the medications and dehydration. * #Hyperkalemia: K is down to 4.9. Resolved. #Benign essential hypertension: Lisinopril and hydrochlorothiazide as well as spironolactone on hold. On amlodipine. Will adjust blood pressure medications as needed. IV hydralazine as needed #Anemia: today is 8.5. Was 9.8 on admission. baseline Hb is 9-10. #Type 2 diabetes mellitus: A1c 6.5. On metformin. #GERD: PPI #DVT prophylaxis: SCDs Medications at Discharge Home Medications blood sugar diagnostic (True Metrix Glucose Test Strip) #10 ea 09/05/24 lancets 33 gauge (TRUEplus Lancets) #100 ea 09/05/24 metformin 500 mg tablet,extended release 24 hr 500 mg PO DAILY Diabetes 09/05/24 omeprazole 40 mg capsule,delayed release 40 mg PO QDAY Acid reflux 09/05/24 trazodone 50 mg tablet 50 mg PO QHS sleep 09/05/24 amlodipine 10 mg tablet 10 mg PO QDAY blood pressure 04/11/25 famotidine 20 mg tablet 20 mg PO DAILY acid 04/30/25 furosemide 20 mg tablet 20 mg PO DAILY edema 04/30/25 benzonatate 100 mg capsule 100 mg PO BID PRN PRN sore throat symptom 05/01/25 glipizide 5 mg tablet, extended release 24 hr 5 mg PO DAILY 05/01/25 guaifenesin 100 mg/5 mL oral liquid 100 mg PO BID PRN PRN congestion 05/01/25 multivitamin (Daily Multi-Vitamin tablet) 1 tab PO DAILY 05/01/25 ondansetron 4 mg disintegrating tablet 4 mg PO Q4H PRN PRN nausea and vomiting 05/01/25 vit C 250 mg-vit E 90 mg-zinc 40 mg-copper 1 [id number]-[id number] capsule (Eye [facility] AREDS-2) 1 tab PO BID 05/01/25 lisinopril 40 mg tablet 40 mg PO DAILY #30 tabs 05/02/25 Hospital Course Operations None Procedures None Summary of Care Provided Minutes Spent on Discharge: 45 Hospital Course: Patient is an 80-year-old female with past medical history as outlined was admitted to the ED on 01/28/2025 on account of abnormal labs. She had had recent outpatient BMP done which showed sodium of 122. She did have a history of hyponatremia so her PCP sent her to the ED. She did have a history of hypertension for which she was on lisinopril and hydrochlorothiazide as well as Lasix. She had recently been started on a new blood pressure medications because her blood pressure had been running high in the 150s to 160s systolic. She was admitted to be managed for acute hyponatremia. She was hydrated with IV fluids. Her blood pressure medications were discontinued. Patient sodium gradually trended upward to 127 then 133 on day of discharge. Her serum osmolality was low. Her hyponatremia was thought to be medication induced, likely due to dehydration from synergistic effect of the hydrochlorothiazide and Lasix that she was on. Hydrochlorothiazide was therefore discontinued and she was continued on the low-dose of Lasix. She had also been hyperkalemic but this subsequently resolved. She remained stable and was discharged home on p.o. lisinopril. Her lisinopril dose was increased to 40 mg daily. She was continued on amlodipine 10 mg daily and furosemide 20 mg daily. She is follow- up with her primary care doctor within 1 week for repeat BMP to monitor his sodium levels. Patient seen and examined prior to discharge. She had no active complaints and felt much better. She wanted to be discharged home. Review of systems otherwise negative. Labs and vitals reviewed. Home medication reviewed and reconciled. Physical Exam Const alert, oriented x3, no apparent distress and average body habitus General Appearance: cooperative and comfortable Orientation / Consciousness: awake Exam Limitations: no limitations HEENT normocephalic, head/scalp atraumatic, hearing grossly normal bilaterally, nasal mucous membranes and turbinates normal, moist oral mucous membranes and oropharynx normal Mouth: oral and palatal mucosa normal Eyes PERRL, EOMs intact bilaterally and conjunctivae normal Neck full ROM, supple and no JVD Lymph Lymphatic: no lymphedema noted Chest inspection of chest normal Resp normal respiratory effort, normal air movement, no use of accessory muscles and clear to auscultation bilaterally Cardio regular rate, regular rhythm, S1 normal heart sound, S2 normal heart sound, no murmurs and peripheral pulses 2+ throughout GI normal to inspection, nondistended, normoactive bowel sounds, soft to palpation, non-tender and non-distended Back/Spine normal ROM Extremity normal to inspection, full ROM, normal capillary refill, no clubbing, cyanosis or edema, no calf tenderness and no pedal edema General Extremity: no tenderness to palpation of joints or extremities Skin no rashes or lesions noted General Skin Exam: no breakdown Neuro oriented x3, CN's II-XII intact bilaterally, moves all extremities, no focal motor deficits and no sensory deficits noted Sensorium / Orientation: awake and alert Motor Exam: strength 5/5 throughout Psych mental status grossly normal, thought process normal, cooperative and affect normal Appearance: appropriate Weight / BMI Weight Weight: 108 lb 7.479 oz Body Mass Index (BMI) 22.6 ABG / Lab / Microbiology Data 05/02/25 05:17 05/02/25 05:17 Laboratory: Laboratory Results - last 24 hr 05/02/25 05:17: WBC 6.8, RBC 2.81 L, Hgb 8.6 L, Hct 24.7 L, MCV 87.9, MCH 30.6, MCHC 34.8, RDW Std Deviation 43.7, RDW Coeff of Rick 13.6, Plt Count 363, MPV 9.6, Immature Gran % (Auto) 0.300, Neut % (Auto) 66.2, Lymph % (Auto) 17.1 L, M vern % (Auto) 11.7 H, Eos % (Auto) 4.3, Baso % (Auto) 0.4, Absolute Neuts (auto) 4.5, Absolute Lymphs (auto) 1.16, Nucleated RBC % 0, Sodium 133, Potassium 4.5, Chloride 103, Carbon Dioxide 17.3 L, Anion Gap 13, BUN 18, Creatinine 1.66 H, E stim Creat Clear Calc 19.09 L, Est GFR (MDRD) Non-Af 31 L, BUN/Creatinine Ratio 10.7, Glucose 101 H, Calcium 9.2 D/C Instructions Discharge Activity: Return to Normal Activity Weight Bearing Status: Weight bearing as tolerated Call your doctor if you observe: Fever of 101 or Higher, Dizziness, Swelling in the ankles and Chest pain DC O2, CPAP, BIPAP Needs Home O2 Discharge instructions: No Meaningful Use Info Meaningful Use Meaningful Use Diagnoses (Choose all that apply): None applicable Discharge Plan Admission Admit Date/Time: 04/30/25 16:02 Primary Reason for Your Visit: hyponatremia Attending Provider: Corazon Paul Primary Care Provider: Keshia Johnson Consulting Providers: [place] Orr Instructions Patient Instructions: Hyponatremia Dc Additional Instructions / Restrictions: follow up with your PCP for repeat BMP within one week to monitor sodium levels Discharge Orders/Prescriptions Prescriptions: New lisinopril 40 mg tablet 40 mg PO DAILY Qty: 30 2RF Continued metformin 500 mg tablet extended release 24 hr 500 mg PO DAILY trazodone 50 mg tablet 50 mg PO QHS omeprazole 40 mg capsule,delayed release(DR/EC) 40 mg PO QDAY (DME) True Metrix Glucose Test Strip Strip See Rx Instructions .ROUTE QDAY Qty: 10 Rx Instructions: As directed (DME) lancets [TRUEplus Lancets] 33 gauge misc See Rx Instructions .ROUTE QDAY Qty: 100 Rx Instructions: As directed amlodipine 10 mg tablet 10 mg PO QDAY famotidine 20 mg tablet 20 mg PO DAILY furosemide 20 mg tablet 20 mg PO DAILY glipizide 5 mg tablet extended release 24hr 5 mg PO DAILY ondansetron 4 mg tablet,disintegrating 4 mg PO Q4H PRN PRN (Reason: nausea and vomiting) guaifenesin 100 mg/5 mL liquid 100 mg PO BID PRN PRN (Reason: congestion) benzonatate 100 mg capsule 100 mg PO BID PRN PRN (Reason: sore throat symptom) multivitamin [Daily Multi-Vitamin] Tablet 1 tab PO DAILY [facility] AREDS-2 250-90-40-1 mg capsule 1 tab PO BID Discontinued atenolol 25 mg tablet 25 mg PO Q24H lisinopril-hydrochlorothiazide 20-25 mg tablet 1 tab PO BID Referrals / Follow Up: Keshia Johnson MD [Primary Care Provider, Family Practice] - Within 1 Week Disposition Disposition (needs filled in before D/C Order can be placed): Home, Self Care Charges/Coding Visit Charges Inpatient E&M: 98226 Disch Hosp >30min Multi Select Codes Visit Charges Visit Charges: 93938 Disch Hosp
[2025-05-02 13:48] VITALS: BP 160/55; PULSE 66; RESP 16; O2SAT 100
--- NOTE | 2025-05-02 14:00 | PHA.DC_ITS ---
Pharmacy [facility] Counseling Pharmacy Service has performed discharge medication reconciliation and counseling for this patient. 1. LISINOPRIL 40MG PO DAILY 2. STOP LISINOPRIL/HCTZ AND ATENOLOL The patient's discharge medication list was reviewed for discrepancies and discrepancies were resolved. The patient was counseled on the following discharge medications and changes in medications for homegoing were reviewed. The Reason for Use, instructions for use, and potential side effects were reviewed for all new medications. The patient's questions regarding all of their medications were answered. The patient was able to verbally demonstrate an understanding of their discharge medications. Medications at Discharge Home Medications blood sugar diagnostic (True Metrix Glucose Test Strip) #10 ea 09/05/24 lancets 33 gauge (TRUEplus Lancets) #100 ea 09/05/24 metformin 500 mg tablet,extended release 24 hr 500 mg PO DAILY Diabetes 09/05/24 omeprazole 40 mg capsule,delayed release 40 mg PO QDAY Acid reflux 09/05/24 trazodone 50 mg tablet 50 mg PO QHS sleep 09/05/24 amlodipine 10 mg tablet 10 mg PO QDAY blood pressure 04/11/25 famotidine 20 mg tablet 20 mg PO DAILY acid 04/30/25 furosemide 20 mg tablet 20 mg PO DAILY edema 04/30/25 benzonatate 100 mg capsule 100 mg PO BID PRN PRN sore throat symptom 05/01/25 glipizide 5 mg tablet, extended release 24 hr 5 mg PO DAILY 05/01/25 guaifenesin 100 mg/5 mL oral liquid 100 mg PO BID PRN PRN congestion 05/01/25 multivitamin (Daily Multi-Vitamin tablet) 1 tab PO DAILY 05/01/25 ondansetron 4 mg disintegrating tablet 4 mg PO Q4H PRN PRN nausea and vomiting 05/01/25 vit C 250 mg-vit E 90 mg-zinc 40 mg-copper 1 [id number]-mvrqqe capsule ([facility] AREDS-2) 1 tab PO BID 05/01/25 lisinopril 40 mg tablet 40 mg PO DAILY #30 tabs 05/02/25
== END 2025-05-02 12:52 | disposition home or self-care (01) ==
LOC: ED 16:35 → PCU 17:18
PROVIDERS: Admitting Provider Hospitalist; Emergency Provider Emergency Medicine; PCP Family Medicine; Visit Provider Student in an Organized Health Care Education/Training Program
DX: E87.1 Hypo-osmolality and hyponatremia (principal); E11.22 Type 2 diabetes mellitus with diabetic chronic kidney disease; N18.32 Chronic kidney disease, stage 3b; I12.9 Hypertensive chronic kidney disease with stage 1 through stage 4 chronic kidney disease, or unspecified chronic kidney disease; Z79.84 Long term (current) use of oral hypoglycemic drugs; E87.8 Other disorders of electrolyte and fluid balance, not elsewhere classified; D63.1 Anemia in chronic kidney disease; M79.605 Pain in left leg; E87.5 Hyperkalemia; K21.9 Gastro-esophageal reflux disease without esophagitis; M79.89 Other specified soft tissue disorders; Z79.899 Other long term (current) drug therapy; D50.9 Iron deficiency anemia, unspecified
CPT/HCPCS: 36415; 71046; 80048; 81001; 83930; 83935; 84300; 85025; 85027; 96360; 96361; 96372; 99221; 99284; A4216; G0378

== ENCOUNTER → 2025-05-09 | Outpatient (CLI) | payer MEDICARE, SELFPAY ==
[2025-05-09 12:27] LABS: AST(SGOT) 26 U/L (<=31); Alanine Aminotransfer ALT/SGPT 24 U/L (<=34); Albumin, Serum 4.3 g/dL (3.4-4.8); Alkaline Phosphatase 100 U/L (35-104); Anion Gap 14 (5-15); BUN 18 mg/dL (4-19); BUN/Creat Ratio 15.6 RATIO (10-20); Calcium,Total 9.6 mg/dL (7.6-11.0); Carbon Dioxide 22.7 mmol/L (21.0-32.0); Chloride 100 mmol/L (98-108); Globulin 3.5 g/dL (2.2-4.2); Glucose 179 mg/dL (70-99); Potassium 4.0 mmol/L (3.3-5.1)
[2025-05-09 12:31] LABS: Hematocrit 30.9 % (37-47); Hemoglobin 10.3 g/dL (12.0-15.0); Mean Corp Hgb Conc 33.3 g/dL (32-36); Mean Corpuscular Volume 91.2 fL (81-99); Mean Platelet Vol. 9.6 fl (6.2-12.0); Platelet Count 428 K/mm3 (150-450); RBC Distribution Width CV 13.1 % (11.6-14.6); RBC Distribution Width SD 42.6 fl (35.1-43.9); Red Blood Count 3.39 M/mm3 (4.2-5.4); White Blood Count 6.3 K/mm3 (4.4-11.0)
== END | disposition home or self-care (01) ==
LOC: MFPLAB 10:30
PROVIDERS: PCP Family Medicine; Visit Provider Family Medicine
DX: D64.9 Anemia, unspecified (principal); I10 Essential (primary) hypertension
CPT/HCPCS: 36415; 80053; 85027

== ENCOUNTER → 2025-07-21 | Outpatient (CLI) | payer MEDICARE, SELFPAY ==
[2025-07-21 10:26] LABS: Hematocrit 32.8 % (37-47); Hemoglobin 11.2 g/dL (12.0-15.0); Immature Granulocytes Count 0.030 X10^3/uL (0.0-0.0); Mean Corp Hgb Conc 34.1 g/dL (32-36); Mean Corpuscular Volume 89.1 fL (81-99); Mean Platelet Vol. 10.0 fl (6.2-12.0); NRBC Flagged by Analyzer 0 % (0-5); Platelet Count 380 K/mm3 (150-450); RBC Distribution Width CV 12.5 % (11.6-14.6); RBC Distribution Width SD 40.9 fl (35.1-43.9); Red Blood Count 3.68 M/mm3 (4.2-5.4); White Blood Count 7.6 K/mm3 (4.4-11.0)
[2025-07-21 10:56] LABS: Anion Gap 16 (5-15); BUN 21 mg/dL (4-19); BUN/Creat Ratio 12.4 RATIO (10-20); Calcium,Total 10.0 mg/dL (7.6-11.0); Carbon Dioxide 21.4 mmol/L (21.0-32.0); Chloride 100 mmol/L (98-108); Glucose 166 mg/dL (70-99); Potassium 4.7 mmol/L (3.3-5.1)
== END | disposition home or self-care (01) ==
LOC: MFPLAB 09:27
PROVIDERS: PCP Family Medicine; Referring Provider Family Medicine; Visit Provider Family Medicine
DX: D64.9 Anemia, unspecified (principal); E87.1 Hypo-osmolality and hyponatremia
CPT/HCPCS: 36415; 80048; 83036; 85025